=== PATIENT | female | born 1930 | race Caucasian/White ===

== ENCOUNTER 2017-04-23 10:55 | Inpatient (IN) | payer MEDICARE ==
[2017-04-23 11:00] VITALS: BMI 21.9
--- NOTE | 2017-04-23 11:19 | C.PDOC ---
History Of Present Illness Patient is a 86 y/o female, whose PMHx includes cardiac stents, HTN, hyperlipidemia, diabetes, presents to the ED for evaluation of generalized weakness and upper back pain for the last 2 weeks. Patient states her blood pressure was found to be low in the ambulance. Patient notes having a negative stress test 2 days ago. Otherwise, denies any trauma, injury, extremity weakness /numbness, headache, nausea, vomiting, chest pain, shortness of breath, fever, or any other associated symptoms at this time. Pt states that her back pain seems external (her upper back muscles) and is not coming from the inside. PMD: Dr. Patel Time Seen by Provider: 04/23/17 11:07 Chief Complaint (Nursing): Back Pain History Per: Patient History/Exam Limitations: no limitations Onset/Duration Of Symptoms: Days (2 weeks) Current Symptoms Are (Timing): Still Present Quality Of Discomfort: "Pain" Previous Symptoms: Back Pain Associated Symptoms: None. denies: Incontinence, New Weakness, New Numbness Exacerbating Factor(s): Nothing Recent travel outside of the [place]: No Additional History Per: Patient Past Medical History Reviewed: Historical Data, Nursing Documentation, Vital Signs Vital Signs: Last Vital Signs Temp 98.8 F 04/23/17 11:22 Pulse 68 04/23/17 11:22 Resp 20 04/23/17 11:22 BP 118/54 L 04/23/17 11:22 Pulse Ox 96 04/23/17 11:22 - Medical History PMH: CHF, Diabetes, HTN, Hypercholesterolemia, Hyperlipidemia, Chronic Kidney Disease Surgical History: Coronary Stent Family History: States: CAD (aunt) - Social History Hx Tobacco Use: No Hx Alcohol Use: No Hx Substance Use: No - Immunization History Hx Tetanus Toxoid Vaccination: Yes Hx Influenza Vaccination: Yes Hx Pneumococcal Vaccination: Yes Review Of Systems Review Of Systems: ROS cannot be obtained secondary to pt's inabilty to answer questions. Constitutional: Negative for: Fever, Chills Cardiovascular: Negative for: Chest Pain, Palpitations Respiratory: Negative for: Cough, Shortness of Breath Gastrointestinal: Negative for: Nausea, Vomiting, Abdominal Pain Musculoskeletal: Positive for: Back Pain (upper) Skin: Negative for: Rash Neurological: Negative for: Weakness, Numbness, Headache, Dizziness Physical Exam - Physical Exam Appears: Well, Non-toxic, No Acute Distress Skin: Normal Color, Warm, Dry Head: Atraumatic, Normacephalic Eye(s): bilateral: Normal Inspection Ear(s): Bilateral: Normal Nose: Normal Oral Mucosa: Moist Tongue: Normal Appearing Lips: Normal Appearing Teeth: Normal Dentition Gingiva: Normal Appearing Neck: Normal, Normal ROM, Supple Lymphatic: Deferred Chest: Symmetrical Cardiovascular: Rhythm Regular, No Murmur Respiratory: Normal Breath Sounds, No Accessory Muscle Use, No Rales, No Rhonchi , No Wheezing Gastrointestinal/Abdominal: Normal Exam, Soft, No Tenderness Back: Normal Inspection, No CVA Tenderness, No Vertebral Tenderness, No Paraspinal Tenderness Extremity: Normal ROM, No Tenderness, Capillary Refill (< 2 sec.), No Deformity Extremity: Bilateral: Atraumatic, Normal ROM Pulses: Left Radial: Normal, Right Radial: Normal Neurological/Psych: Oriented x3, Normal Speech, Normal Cognition, No Other (no focal deficits) ED Course And Treatment - Laboratory Results Result Diagrams: 04/23/17 11:42 04/23/17 11:42 Medical Decision Making Medical Decision Making: Initial Impression: Generalized weakness and upper back pain Differential dx includes but is not limited to: electrolyte disorder, dehydration, anemia Initial Plan: * EKG * Blood work * Urinalysis * Reassess and disposition Progress note: On reassessment, patient is resting comfortably, no acute distress. Notes improvement of back pain, no fever, no bony tenderness, no numbness, no weakness , or abdominal pain. Patient is ambulatory in the emergency department with no signs of discomfort. Case d/w Dr. Mcmahan--recommends admission to his service. Creatinine has climbed from 1.8 to 3.3 Disposition - Disposition Disposition: HOSPITALIZED Disposition Time: 13:07 Condition: FAIR - Clinical Impression Clinical Impression: Upper back pain, Acute kidney injury, Anemia - Scribe Statement The provider has reviewed the documentation as recorded by the Scribe Julisa Padron All medical record entries made by the Vazquezibe were at my direction and personally dictated by me. I have reviewed the chart and agree that the record accurately reflects my personal performance of the history, physical exam, medical decision making, and the department course for this patient. I have also personally directed, reviewed, and agree with the discharge instructions and disposition. Decision To Admit - Pt Status Changed To: Hospital Disposition Of: Inpatient - Admit Certification Admit to Inpatient:: After my assessment, the patient will require hospitalization for at least two midnights. This is because of the severity of symptoms shown, intensity of services needed, and/or the medical risk in this patient being treated as an outpatient. - InPatient: Physician Admission Certification:: Patient with acute kidney injury - . Bed Request Type: Regular Admitting Physician: Joe Mcmahan Patient Diagnosis: Upper back pain, Acute kidney injury, Anemia
[2017-04-23 11:23] VITALS: RESP 20
[2017-04-23 11:46] LABS: BASO # 0.1 K/uL (0.0-0.2); BASO % 0.7 % (0.0-2.0); EOS # 0.1 K/uL (0.0-0.7); EOS % 1.7 % (0.0-4.0); HEMATOCRIT 29.6 % (34.0-47.0); LYMPH # 2.1 K/uL (1.0-4.3); LYMPH % 23.5 % (20.0-40.0); MEAN CELL VOLUME 92.3 fL (81.0-99.0); MEAN CORPUSCULAR HEMOGLOBIN 30.7 pg (27.0-31.0); MEAN CORPUSCULAR HGB CONC 33.3 g/dL (33.0-37.0); MEAN PLATELET VOLUME 10.7 fL (7.2-11.7); MONO # 0.7 K/uL (0.0-0.8); MONO % 7.5 % (0.0-10.0); RED CELL DISTRIBUTION WIDTH 13.5 % (11.5-14.5); WHITE BLOOD COUNT 8.9 K/uL (4.8-10.8)
[2017-04-23 11:49] LABS: RBC URINE < 1 /hpf (0-3); URINE BACTERIA RARE (<OCC); URINE BILIRUBIN NEGATIVE (NEGATIVE); URINE BLOOD NEGATIVE (NEGATIVE); URINE COLOR Yellow (YELLOW); URINE GLUCOSE (UA) 2+ mg/dL (Normal); URINE KETONE NEGATIVE (NEGATIVE); URINE LEUKOCYTE ESTERASE 1+ Leu/uL (Negative); URINE PROTEIN 2+ mg/dL (NEGATIVE); URINE UROBILINOGEN NORMAL mg/dL (0.2-1.0); WBC URINE 3 /hpf (0-5)
[2017-04-23 12:13] LABS: INR 0.9
[2017-04-23 12:16] LABS: POTASSIUM 4.3 mmol/L (3.6-5.2)
[2017-04-23 12:18] LABS: ALB/GLOB RATIO 1.3 (1.0-2.1); BILIRUBIN,TOTAL 0.5 mg/dL (0.2-1.3); TOTAL PROTEIN 7.2 g/dL (6.3-8.3)
[2017-04-23 12:19] LABS: CALCIUM 9.7 mg/dl (8.6-10.4)
[2017-04-23 12:29] LABS: TROPONIN I 0.044 ng/mL (0.00-0.120)
--- NOTE | 2017-04-23 13:24 | RAD ---
HISTORY: c/o upper back pain portable study 12:10. COMPARISON: 02/23/2016 FINDINGS: LUNGS: No active pulmonary disease. PLEURA: No significant pleural effusion identified, no pneumothorax apparent. CARDIOVASCULAR: Cardiomegaly. No evidence of acute, significant cardiovascular disease. OSSEOUS STRUCTURES: No significant abnormalities. VISUALIZED UPPER ABDOMEN: Normal. OTHER FINDINGS: None. IMPRESSION: No active disease. No significant interval change compared to the prior examination(s).
[2017-04-23] MEDS: (Novolog) Insulin Aspart, Recombinant 100 u/ml 10 ml vial SC SCH ×2 (18:18→21:37)
[2017-04-23] MEDS ORDERED: (Novolin R) Insulin Human Regular 100 units/ml vial ONE (18:45)
[2017-04-23] MEDS: (Lantus) Insulin Glargine, Recombinant SC SCH (21:58)
[2017-04-23] MEDS: Sodium Chloride 0.45% 1,000 ML IV SCH (21:59)
[2017-04-24 07:37] LABS: CREATININE, RANDOM URINE 46.1 mg/dL
[2017-04-24] MEDS: (Novolog) Insulin Aspart, Recombinant 100 u/ml 10 ml vial SC SCH ×4 (08:08→21:24)
--- NOTE | 2017-04-24 11:02 | US ---
PROCEDURE: Ultrasound of the Kidneys HISTORY: Renal failure COMPARISON: None available. TECHNIQUE: Sonogram of the kidneys. FINDINGS: RIGHT KIDNEY: Measures: 8.6 cm. Diffusely increased cortical echogenicity. Normal cortical thickness. No stone, solid mass lesion or hydronephrosis visualized. LEFT KIDNEY: Measures: 8.6 cm. Diffusely increased cortical echogenicity. Normal cortical thickness. No stone, solid mass lesion or hydronephrosis visualized. OTHER FINDINGS: Splenic hilar cyst, 2.4 cm. IMPRESSION: Increased renal cortical echogenicity bilaterally consistent with diffuse medical renal disease. No evidence of obstructive uropathy. Incidental 2.4 cm splenic hilar cyst. Preliminary interpretation of this examination was reported by [facility] at 8:43 p.m. on 04/23/2017. There is concurrence of this report with the preliminary interpretation.
--- NOTE | 2017-04-24 13:14 | CARD ---
APPROVED REPORT EXAM: Two-dimensional and M-mode echocardiogram with Doppler and color Doppler. Other Information Quality : GoodRhythm : NSR INDICATION CAD Congestive Heart Failure Cardiac Stents ; Renal Failure RISK FACTORS Hypertension Hyperlipidemia Diabetes M-Mode DIMENSIONS RVDd1.73 (2.1-3.2cm)Left Atrium (MM)3.54 (2.5-4.0cm) IVSd1.16 (0.7-1.1cm)Aortic Root2.91 (2.2-3.7cm) LVDd4.76 (4.0-5.6cm)Aortic Cusp Exc.1.88 (1.5-2.0cm) PWd1.25 (0.7-1.1cm)FS (%) 19 % LVDs3.87 (2.0-3.8cm)LVEF (%)38 (>50%) Aortic Valve AI P 1/2 [id number] Mitral Valve MV E Khddzqnx346.9cm/sMV A Luavxaho43.0cm/sE/A ratio1.6 TDI E/Lateral E'0.0E/Medial E'0.0 Tricuspid Valve TR Peak [id number]/sTR Peak Gr.[id number] LEFT VENTRICLE The left ventricle is normal size. There is mild concentric left ventricular hypertrophy. The left ventricular function is is moderate to markedly reduced, about 30-35%, with diffuse hypokinesis. No regional wall motion abnormalities noted. Transmitral Doppler flow pattern is Grade II-pseudonormal filling dynamics. No left ventricle thrombus noted on this study. There is no ventricular septal defect visualized. There is no left ventricular aneurysm. There is no mass noted in the left ventricle. RIGHT VENTRICLE The right ventricle is normal size. There is normal right ventricular wall thickness. The right ventricular systolic function is normal. ATRIA The left atrium size is mildly dilated, The right atrium size is normal. The interatrial septum is intact with no evidence for an atrial septal defect. AORTIC VALVE The aortic valve is normal in structure Mild ortic regurgitation is present. There is no aortic valvular stenosis. There is no aortic valvular vegetation. MITRAL VALVE The mitral valve is normal in structure There is no evidence of mitral valve prolapse. There is mild mitral valve stenosis. There is no mitral valve regurgitation noted. TRICUSPID VALVE The tricuspid valve is normal in structure and function. There is mild tricuspid valve regurgitation noted. Estiamted PA systolic pressure is 43 mm Hg. There is no tricuspid valve prolapse or vegetation. There is no tricuspid valve stenosis. PULMONIC VALVE The pulmonary valve is normal in structure and function. There is no pulmonic valvular regurgitation. There is no pulmonic valvular stenosis. GREAT VESSELS The aortic root is normal in size. The ascending aorta is normal in size. The pulmonary artery is normal. The IVC is normal in size and collapses >50% with inspiration. PERICARDIAL EFFUSION The pericardium appears normal. There is no pleural effusion. <Conclusion> Moderat to marked diffuse LV systolic function, Estimated EF is 30-35%. Mild LVH Mild MR, Mild AI. Elevated LA pressure.
--- NOTE | 2017-04-24 13:26 | CARD ---
APPROVED REPORT EKG Measurement Heart [id number] TX 192P [id number] <Conclusion> Normal sinus rhythm Left axis deviation pacemaker Abnormal ECG
[2017-04-24] MEDS: Sodium Chloride 0.45% 1,000 ML IV SCH (17:45)
--- NOTE | 2017-04-24 18:03 | CP.PCM.CON ---
History of Present Illness - History of Present Illness History of Present Illness: pt seen and examined, full consult is dictated #[id number] Past Patient History - Infectious Disease Hx of Infectious Diseases: None - Tetanus Immunizations Tetanus Immunization: Unknown - Past Medical History & Family History Past Medical History?: Yes - Past Social History Smoking Status: Never Smoked - CARDIAC Hx Congestive Heart Failure: Yes Hx Hypercholesterolemia: Yes Hx Hypertension: Yes - PULMONARY Hx Respiratory Disorders: No - NEUROLOGICAL Hx Neurological Disorder: No - HEENT Hx HEENT Problems: No - RENAL Hx Chronic Kidney Disease: Yes Other/Comment: chronic kidney disease - ENDOCRINE/METABOLIC Hx Endocrine Disorders: Yes Hx Diabetes Mellitus Type 1: Yes - MUSCULOSKELETAL/RHEUMATOLOGICAL Hx Falls: No - PSYCHIATRIC Hx Substance Use: No - SURGICAL HISTORY Hx Coronary Stent: Yes - ANESTHESIA Hx Anesthesia: Yes Hx Anesthesia Reactions: No Meds Allergies/Adverse Reactions: Allergies Allergy/AdvReac Type Severity Reaction Status Date / Time No Known Allergies Allergy Verified 04/23/17 10:59 - Medications Medications: Current Medications Allopurinol (Zyloprim) 100 mg PO DAILY [facility] Last Admin: 04/24/17 10:22 Dose: 100 mg Aspirin (Aspirin Chewable) 81 mg PO DAILY [facility] Last Admin: 04/24/17 10:20 Dose: 81 mg Calcitriol (Rocaltrol) 0.25 mcg PO DAILY [facility] Last Admin: 04/24/17 10:27 Dose: 0.25 mcg Carvedilol (Coreg) 6.25 mg PO DAILY [facility] Last Admin: 04/24/17 11:58 Dose: 6.25 mg Clonidine HCl (Catapres) 0.1 mg PO BID [facility] Last Admin: 04/24/17 17:03 Dose: 0.1 mg Clopidogrel Bisulfate (Plavix) 75 mg PO DAILY [facility] Last Admin: 04/24/17 10:22 Dose: 75 mg Docusate Sodium (Colace) 100 mg PO BID [facility] Last Admin: 04/24/17 17:03 Dose: 100 mg Famotidine (Pepcid) 20 mg PO DAILY [facility] Last Admin: 04/24/17 10:22 Dose: 20 mg Fenofibrate (Tricor) 145 mg PO DAILY [facility] Last Admin: 04/24/17 10:21 Dose: 145 mg Heparin Sodium (Porcine) (Heparin) 5,000 units SC Q12 [facility] Last Admin: 04/24/17 10:20 Dose: 5,000 units Sodium Chloride (Sodium Chloride 0.45%) 1,000 mls @ 50 mls/hr IV .Q20H [facility] Last Admin: 04/23/17 21:59 Dose: 50 mls/hr Insulin Aspart (Novolog) 0 unit SC [facility] PRN Reason: Protocol Last Admin: 04/24/17 17:03 Dose: 2 unit Insulin Glargine (Lantus) 22 unit SC HS [facility] Last Admin: 04/23/17 21:58 Dose: 22 units Losartan Potassium (Cozaar) 25 mg PO DAILY [facility] Last Admin: 04/24/17 10:22 Dose: 25 mg Rosuvastatin Calcium (Crestor) 10 mg PO HS [facility] Last Admin: 04/23/17 21:54 Dose: 10 mg Sitagliptin Phosphate (Januvia) 25 mg PO DAILY [facility] Last Admin: 04/24/17 10:20 Dose: 25 mg Results - Vital Signs Recent Vital Signs: Last Vital Signs Temp 97.2 F L 04/24/17 11:56 Pulse 60 04/24/17 11:56 Resp 20 04/24/17 11:56 BP 123/57 L 04/24/17 11:56 Pulse Ox 96 04/24/17 11:56 - Labs Result Diagrams: 04/23/17 11:42 04/23/17 11:42 Labs: Laboratory Results - last 24 hr 04/23/17 04/23/17 04/24/17 18:17 21:30 07:16 POC Glucose (mg/dL) 185 H 263 H Hemoglobin A1c Urine Osmolality 320 Ur Random Creatinine 46.1 Ur Random Sodium Ur Random Potassium 04/24/17 04/24/17 04/24/17 07:16 07:16 09:04 POC Glucose (mg/dL) 140 H Hemoglobin A1c 8.6 H Urine Osmolality Ur Random Creatinine Ur Random Sodium 117 Ur Random Potassium 25.4 04/24/17 04/24/17 11:14 16:30 POC Glucose (mg/dL) 198 H 214 H Hemoglobin A1c Urine Osmolality Ur Random Creatinine Ur Random Sodium Ur Random Potassium
--- NOTE | 2017-04-24 19:13 | CP.PCM.HP ---
History of Present Illness - History of Present Illness History of Present Illness: 86 yo female brought by ambulance to the ED complaining of a generalized weakness and n upper back pain. She was found to be slightly hypotensive by the EMS. Her serum BUN was 77 and creatinine: 3.3. Known to have an ischemic cardiomyopathy, a hypertension, an IDDM, a CKD, her Lasix was reduced to 40 mg PO qd, instead of BID by Dr Carter a few weeks ago. She underwent a PCI of the LAD and LCx on 02/26/2011 and the RCA on 03/29/2011. A coronary angiogram done in 2014 at [facility] revealed patent all stents. A Persantine Myoview MPI at my office 2 weeks ago revealed normal perfusion to the LV myocardium. She denies any cigarette smoking, any alcohol abuse, and has no known drug allergy. Present on Admission - Present on Admission Any Indicators Present on Admission: No Review of Systems - Constitutional Constitutional: Weakness Past Patient History - Infectious Disease Hx of Infectious Diseases: None - Tetanus Immunizations Tetanus Immunization: Unknown - Past Medical History & Family History Past Medical History?: Yes - Past Social History Smoking Status: Never Smoked Alcohol: None Home Situation {Lives}: With Family Domestic Violence: Negative - CARDIAC Hx Congestive Heart Failure: Yes Hx Hypercholesterolemia: Yes Hx Hypertension: Yes - PULMONARY Hx Respiratory Disorders: No - NEUROLOGICAL Hx Neurological Disorder: No - HEENT Hx HEENT Problems: No - RENAL Hx Chronic Kidney Disease: Yes Other/Comment: chronic kidney disease - ENDOCRINE/METABOLIC Hx Endocrine Disorders: Yes Hx Diabetes Mellitus Type 1: Yes - MUSCULOSKELETAL/RHEUMATOLOGICAL Hx Back Pain: Yes Hx Falls: No - PSYCHIATRIC Hx Psychophysiologic Disorder: No Hx Substance Use: No - SURGICAL HISTORY Hx Coronary Stent: Yes - ANESTHESIA Hx Anesthesia: Yes Hx Anesthesia Reactions: No Meds Allergies/Adverse Reactions: Allergies Allergy/AdvReac Type Severity Reaction Status Date / Time No Known Allergies Allergy Verified 04/23/17 10:59 Physical Exam - Constitutional Appears: No Acute Distress - Head Exam Head Exam: NORMAL INSPECTION - Eye Exam Eye Exam: Normal appearance Pupil Exam: NORMAL ACCOMODATION - ENT Exam ENT Exam: Mucous Membranes Moist, Normal Exam - Neck Exam Neck exam: Positive for: Normal Inspection - Respiratory Exam Respiratory Exam: Clear to Auscultation Bilateral, NORMAL BREATHING PATTERN - Cardiovascular Exam Cardiovascular Exam: REGULAR RHYTHM, Systolic Murmur - GI/Abdominal Exam GI & Abdominal Exam: Normal Bowel Sounds, Soft - Rectal Exam Rectal Exam: Deferred - Extremities Exam Extremities exam: Positive for: normal inspection - Back Exam Back exam: NORMAL INSPECTION - Neurological Exam Neurological exam: Alert, CN II-XII Intact, Oriented x3, Reflexes Normal - Psychiatric Exam Psychiatric exam: Anxious - Skin Skin Exam: Dry, Intact, Normal Color, Warm Results - Vital Signs Recent Vital Signs: Last Vital Signs Temp 97.5 F L 04/24/17 15:00 Pulse 72 04/24/17 15:00 Resp 20 04/24/17 15:00 BP 111/50 L 04/24/17 15:00 Pulse Ox 97 04/24/17 15:00 - Labs Result Diagrams: 04/23/17 11:42 04/23/17 11:42 Labs: Laboratory Results - last 24 hr 04/23/17 04/24/17 04/24/17 21:30 07:16 07:16 POC Glucose (mg/dL) 263 H Hemoglobin A1c Urine Osmolality 320 Ur Random Creatinine 46.1 Ur Random Sodium 117 Ur Random Potassium 25.4 04/24/17 04/24/17 04/24/17 07:16 09:04 11:14 POC Glucose (mg/dL) 140 H 198 H Hemoglobin A1c 8.6 H Urine Osmolality Ur Random Creatinine Ur Random Sodium Ur Random Potassium 04/24/17 16:30 POC Glucose (mg/dL) 214 H Hemoglobin A1c Urine Osmolality Ur Random Creatinine Ur Random Sodium Ur Random Potassium Assessment & Plan (1) Acute on chronic renal failure Assessment and Plan: Try IVF and hold Lasix. US of the kidney. Status: Acute (2) Dehydration Assessment and Plan: Try cautiously IVF. Status: Acute (3) Uncontrolled insulin dependent diabetes mellitus Assessment and Plan: To continue Lantus and cover blood glucose with Novolog according to Accucheck findings. Status: Chronic (4) Ischemic cardiomyopathy Assessment and Plan: So far stable. To continue Coreg. Lisinopril. Status: Acute Decision To Admit - InPatient: Physician Admission Certification:: After my assessments, the aptient requires hospitalization for at least 2 midnights. - . Bed Request Type: Regular Admitting Physician: Joe Mcmahan
[2017-04-24] MEDS: (Lantus) Insulin Glargine, Recombinant SC SCH (21:19)
[2017-04-24] MEDS ORDERED: Epoetin Alfa 10,000 unit/ml Dialysis SC ONE (23:16)
[2017-04-24 23:41] LABS: POTASSIUM 4.2 mmol/L (3.6-5.2)
[2017-04-25] MEDS ORDERED: EPOETIN ALFA 10,000 UNIT/ML ML SC ONE (00:15)
[2017-04-25] MEDS: Sodium Chloride 0.45% 1,000 ML IV SCH (00:28)
--- NOTE | 2017-04-25 07:01 | CON ---
RENAL CONSULTATION LOCATION: The patient is located in room 365, bed B. REQUESTED BY: Joe Mcmahan MD REASON FOR RENAL CONSULTATION: Acute renal failure, chronic kidney disease, for further evaluation. HISTORY OF PRESENT ILLNESS: Mrs. Dsouza is an 86-year-old, very pleasant, elderly Turkish female with the past medical history significant for diabetes for 4 years, hypertension about 3 years, chronic kidney disease with a baseline creatinine about 2-2.5, CHF, cardiomyopathy, coronary artery disease, status post stents, who was brought in by family. The patient was complaining of feeling weakness, upper back pain and shoulder pain and the patient's family found her blood pressure was low in the house about 98/42 and the patient was brought to the emergency room for further evaluation. The patient denies any pain in the chest. Denies any nausea, vomiting, or diarrhea. Denies any swelling of the legs. Denies any headache and denies any skin rash. As per the patient, she also felt dizzy one day prior to the admission after she ate dinner, she was putting her head down and felt very weak. PAST MEDICAL HISTORY: Significant for diabetes for 4 years, hypertension for about 3 years, chronic kidney disease, coronary artery disease, history of pneumonia, CHF, cardiomyopathy, and CAD. PAST SURGICAL HISTORY: Status post stents in the past. ALLERGIES: NO KNOWN DRUG ALLERGIES. SOCIAL HISTORY: No smoking. No alcohol. No drugs. PERSONAL HISTORY: Both parents are and 3 brothers and she has one living sister. She also has 5 children. CURRENT MEDICATIONS: Include as follows; aspirin 81 mg daily, Catapres 0.1 mg p.o. b.i.d., Colace 100 mg p.o. b.i.d., Coreg 6.25 mg p.o. daily, Cozaar 25 mg p.o. daily, Crestor 10 mg p.o. at bedtime, subcu heparin 5000 q. 12 hours, Januvia 25 mg p.o. daily, Lantus 22 units subcu at bedtime, NovoLog for sliding scale, Pepcid 20 mg p.o. daily, Plavix 75 mg daily, Rocaltrol 0.25 mcg p.o. daily, IV fluids normal saline at 50 mL per hour, TriCor 145 mg p.o. daily and allopurinol 100 mg p.o. daily. REVIEW OF SYSTEMS: Significant for weakness and hypotension. All other review of systems are reviewed and are negative. PHYSICAL EXAMINATION: As follow as: VITAL SIGNS: Blood pressure 111/50, pulse 72, respirations 20, temperature 97.5, saturation 97%, height 5 feet and weight is 112 pounds. GENERAL: Mrs. Dsouza is an 86-year-old elderly Turkish female moderately built, moderately nourished, and not in acute distress. HEENT: Pupils normal, reactive to light and accommodation. Conjunctivae pink. Sclerae anicteric. Tongue is moist. Trachea is midline. LUNGS: Symmetrical on both sides. Bilateral breath sounds present and clear on auscultation. CARDIOVASCULAR: [place] of the fifth intercostal space midclavicular line. S1 and S2 audible. No murmur or gallop. ABDOMEN: Normal in appearance, soft, and tympanic. No guarding. No rigidity. No hepatosplenomegaly. CENTRAL NERVOUS SYSTEM: The patient is alert, awake, oriented x2 to 3. Sensory and motor system is grossly within normal limits. Cranial nerves II through XII grossly intact. EXTREMITIES: No cyanosis. No clubbing. No edema. LABORATORY DATA: As follow as of 04/25/2017; WBC 8.9, hemoglobin 9.9, hematocrit is 29.6, and platelets 201. PT is 10.6, INR is 0.9, and PTT 30. Sodium 135, potassium 4.3, chloride 93, CO2 of 27, BUN 77, creatinine 3.3, and glucose is 216, calcium 9.7, total bilirubin 0.5, AST 55, ALT 30, alkaline phosphates 60. Troponin is 0.044. ProBNP is 1500. Total protein 7.2, albumin 4.1. Urinalysis, yellow and hazy; pH of 6, specific gravity 1.014 and protein 2+, glucose 2+, ketones negative, blood negative, nitrites negative, bilirubin negative, urobilinogen normal. Leukocyte esterase 1+, WBC 3, RBC less than 1, squamous epithelial 3, bacteria rare. Other laboratory data, urine osmolality 320, urine creatinine is 46.1, urine sodium is 117, urine potassium is 25.4. Accu-Cheks 185, 263 and 140. Chest x-ray showed no active disease. Ultrasound, left kidney is 8.6 cm and right kidney is 8.6 cm, diffuse increased cortical echogenicity; normal cortical thickness. No stone. No solid mass or hydronephrosis. ASSESSMENT: In summary, Mrs. Dsouza is an 86-year-old elderly Turkish female with a history of hypertension, diabetes, hyperlipidemia, coronary artery disease, CHF, status post coronary stents, cardiomyopathy, CKD 3-4 with the baseline creatinine about 2-2.5 was admitted with the weakness and hypotension, questionable near syncope with increased BUN and creatinine. 1. Renal failure acute on chronic kidney disease, most likely secondary to dehydration and intravascular volume depletion, most likely secondary to diuretics and also because of the hot weather and decreased p.o. inake. 2. Hypotension. 3. 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 The patient has a complete workup in the past, cannot rule out underlying hypertensive nephrosclerosis and diabetic nephropathy. 4. Anemia secondary to renal failure. We will check iron TIBC and ferritin and will add Epogen 10,000 units, subcu x1 dose. We will also add Nephrocaps one tablet daily. PLAN: We will continue gentle IV hydration normal saline at 50 mL per hour and repeat BMP tonight and also in a.m. Case discussed with Dr. Joe Mcmahan in rounds. We will follow with you. Thank you for allowing me to participate in your patient's care. Sergo Carter MD
[2017-04-25] MEDS: (Novolog) Insulin Aspart, Recombinant 100 u/ml 10 ml vial SC SCH ×4 (08:00→22:49)
[2017-04-25 08:22] LABS: CHLORIDE URINE 27 mmol/L (32-290)
[2017-04-25 09:24] LABS: IRON 39 ug/dL (37-170)
[2017-04-25 09:31] LABS: FREE T4 1.48 ng/dL (0.78-2.19)
[2017-04-25 09:45] LABS: THYROID STIMULATING HORMONE 6.66 mIU/L (0.46-4.68)
--- NOTE | 2017-04-25 14:00 | CP.PCM.PN ---
Subjective - Date & Time of Evaluation Date of Evaluation: 04/25/17 Time of Evaluation: 14:00 - Subjective Subjective: pt seen and examined, follow up consult is dictated # [id number] Objective - Vital Signs/Intake and Output Vital Signs (last 24 hours): Temp Pulse Resp BP Pulse Ox 98 F 67 20 137/80 100 04/25/17 11:29 04/25/17 11:29 04/25/17 11:29 04/25/17 11:29 04/25/17 11:29 Intake and Output: 04/25/17 04/25/17 06:59 18:59 Intake Total 700 Output Total 100 Balance 600 - Medications Medications: Current Medications Allopurinol (Zyloprim) 100 mg PO DAILY [facility] Last Admin: 04/25/17 09:59 Dose: 100 mg Aspirin (Aspirin Chewable) 81 mg PO DAILY [facility] Last Admin: 04/25/17 10:01 Dose: 81 mg Calcitriol (Rocaltrol) 0.25 mcg PO DAILY [facility] Last Admin: 04/25/17 09:59 Dose: 0.25 mcg Carvedilol (Coreg) 6.25 mg PO DAILY [facility] Last Admin: 04/25/17 11:32 Dose: 6.25 mg Clonidine HCl (Catapres) 0.1 mg PO BID [facility] Last Admin: 04/25/17 09:59 Dose: 0.1 mg Clopidogrel Bisulfate (Plavix) 75 mg PO DAILY [facility] Last Admin: 04/25/17 09:59 Dose: 75 mg Docusate Sodium (Colace) 100 mg PO BID [facility] Last Admin: 04/25/17 09:59 Dose: 100 mg Famotidine (Pepcid) 20 mg PO DAILY [facility] Last Admin: 04/25/17 09:59 Dose: 20 mg Fenofibrate (Tricor) 48 mg PO DAILY [facility] Ferric Sodium Gluconate Complex (Ferrlecit) 125 mg IVPB DAILY [facility] Stop: 05/03/17 14:01 Heparin Sodium (Porcine) (Heparin) 5,000 units SC Q12 [facility] Last Admin: 04/25/17 09:59 Dose: 5,000 units Insulin Aspart (Novolog) 0 unit SC ACHS [facility] PRN Reason: Protocol Last Admin: 04/25/17 12:31 Dose: Not Given Insulin Glargine (Lantus) 22 unit SC HS [facility] Last Admin: 04/24/17 21:19 Dose: 22 units Losartan Potassium (Cozaar) 25 mg PO DAILY [facility] Last Admin: 04/25/17 09:59 Dose: 25 mg Rosuvastatin Calcium (Crestor) 10 mg PO HS [facility] Last Admin: 04/24/17 21:19 Dose: 10 mg Sitagliptin Phosphate (Januvia) 25 mg PO DAILY [facility] Last Admin: 04/25/17 09:59 Dose: 25 mg - Labs Labs: 04/24/17 23:27 PT 10.6 SECONDS (9.7-12.2) 04/23/17 11:42 INR 0.9 04/23/17 11:42 APTT 30 SECONDS (21-34) 04/23/17 11:42
[2017-04-25] MEDS: Ferric Sodium Gluconat Complex 62.5 mg/5 ml Vial IVPB SCH (14:39)
--- NOTE | 2017-04-25 15:32 | CP.PCM.PN ---
Subjective - Date & Time of Evaluation Date of Evaluation: 04/25/17 Time of Evaluation: 15:30 - Subjective Subjective: Patient developed CHF this Am. IV NS was discontinued and the patient received Lasix 40 mg IV with improvement of SOB. Patient has no complaint now.She is receiving IV Ferlicit. Objective - Vital Signs/Intake and Output Vital Signs (last 24 hours): Temp Pulse Resp BP Pulse Ox 98 F 67 20 137/80 100 04/25/17 11:29 04/25/17 11:29 04/25/17 11:29 04/25/17 11:29 04/25/17 11:29 Intake and Output: 04/25/17 04/25/17 06:59 18:59 Intake Total 700 Output Total 100 Balance 600 - Medications Medications: Current Medications Allopurinol (Zyloprim) 100 mg PO DAILY [facility] Last Admin: 04/25/17 09:59 Dose: 100 mg Aspirin (Aspirin Chewable) 81 mg PO DAILY [facility] Last Admin: 04/25/17 10:01 Dose: 81 mg Calcitriol (Rocaltrol) 0.25 mcg PO DAILY [facility] Last Admin: 04/25/17 09:59 Dose: 0.25 mcg Carvedilol (Coreg) 6.25 mg PO DAILY [facility] Last Admin: 04/25/17 11:32 Dose: 6.25 mg Clonidine HCl (Catapres) 0.1 mg PO BID [facility] Last Admin: 04/25/17 09:59 Dose: 0.1 mg Clopidogrel Bisulfate (Plavix) 75 mg PO DAILY [facility] Last Admin: 04/25/17 09:59 Dose: 75 mg Docusate Sodium (Colace) 100 mg PO BID [facility] Last Admin: 04/25/17 09:59 Dose: 100 mg Famotidine (Pepcid) 20 mg PO DAILY [facility] Last Admin: 04/25/17 09:59 Dose: 20 mg Fenofibrate (Tricor) 48 mg PO DAILY [facility] Ferric Sodium Gluconate Complex (Ferrlecit) 125 mg IVPB DAILY [facility] Stop: 05/03/17 14:01 Last Admin: 04/25/17 14:39 Dose: 125 mg Heparin Sodium (Porcine) (Heparin) 5,000 units SC Q12 [facility] Last Admin: 04/25/17 09:59 Dose: 5,000 units Insulin Aspart (Novolog) 0 unit SC ACHS [facility] PRN Reason: Protocol Last Admin: 04/25/17 12:31 Dose: Not Given Insulin Glargine (Lantus) 22 unit SC HS [facility] Last Admin: 04/24/17 21:19 Dose: 22 units Losartan Potassium (Cozaar) 25 mg PO DAILY [facility] Last Admin: 04/25/17 09:59 Dose: 25 mg Rosuvastatin Calcium (Crestor) 10 mg PO HS [facility] Last Admin: 04/24/17 21:19 Dose: 10 mg Sitagliptin Phosphate (Januvia) 25 mg PO DAILY [facility] Last Admin: 04/25/17 09:59 Dose: 25 mg - Labs Labs: 04/24/17 23:27 PT 10.6 SECONDS (9.7-12.2) 04/23/17 11:42 INR 0.9 04/23/17 11:42 APTT 30 SECONDS (21-34) 04/23/17 11:42 - Constitutional Appears: No Acute Distress - Head Exam Head Exam: NORMAL INSPECTION - Eye Exam Eye Exam: Normal appearance - ENT Exam ENT Exam: Normal Exam - Neck Exam Neck Exam: Normal Inspection - Respiratory Exam Additional comments: some rales at both bases. - Cardiovascular Exam Cardiovascular Exam: REGULAR RHYTHM, Murmur - GI/Abdominal Exam GI & Abdominal Exam: Normal Bowel Sounds - Rectal Exam Rectal Exam: Deferred - Extremities Exam Extremities Exam: Normal Inspection - Back Exam Back Exam: NORMAL INSPECTION - Neurological Exam Neurological Exam: Alert, Awake, CN II-XII Intact, Oriented x3 - Psychiatric Exam Psychiatric exam: Anxious - Skin Skin Exam: Dry, Intact, Normal Color, Warm Assessment and Plan (1) Acute on chronic renal failure Status: Acute (2) Dehydration Status: Resolved (3) Uncontrolled insulin dependent diabetes mellitus Status: Chronic (4) Ischemic cardiomyopathy Status: Chronic
--- NOTE | 2017-04-25 21:23 | CT ---
EXAM: CT Head Without Intravenous Contrast CLINICAL HISTORY: 86 years old, female; Injury or trauma; Fall; Initial encounter; Concussion / head injury; Consciousness not specified; Additional info: S/P fall TECHNIQUE: Axial computed tomography images of the head/brain without intravenous contrast. This CT exam was performed using one or more of the following dose reduction techniques: automated exposure control, adjustment of the mA and/or kV according to patient size, and/or use of iterative reconstruction technique. COMPARISON: No relevant prior studies available. FINDINGS: Brain: Mild atrophy. Mildly prominent extra-axial spaces along frontal convexities, RIGHT greater than LEFT. Punctate hyperdense focus within RIGHT frontal region (axial images 36). No mass. No definite edema. Ventricles: No hydrocephalus. Bones/joints: No acute fracture. Soft tissues: Unremarkable. Vasculature: Atherosclerotic disease of intracranial arteries. Sinuses: Scattered minimal mucosal thickening. Mastoid air cells: No mastoid effusion. Orbits: Unremarkable as visualized. IMPRESSION: 1. Hyperdense focus within RIGHT frontal region possibly calcification; however, cannot exclude petechial hemorrhage. Compare with prior examinations if available. 2. Incidental/non-acute findings are described above.
--- NOTE | 2017-04-25 22:35 | CP.PCM.PN ---
Subjective - Date & Time of Evaluation Date of Evaluation: 04/25/17 Time of Evaluation: 20:04 - Subjective Subjective: [facility] Called at 20:04. Patient got up from bed and was rushing to get to the bathroom and slipped and fell on her buttocks and hit the right side of her head on the wall. Patient did not lose consciousness. Patient says she was not dizzy or light headed and believes she slipped. Patient denies dizziness, headache, or pain. Patient is alert, awake, oriented x3. Patient's vitals, BP: 106/50, P: 43, T: 98.8, O2:100%. CT without contrast ordered which showed hyperdense focus within right frontal region possibly calcification, however, cannot exclude petechial hemorrhage. Dr. Mcmahan was spoken to over the phone and made aware of the incident and CT findings. Patient to be monitored by nursing overnight for any changes. Objective - Vital Signs/Intake and Output Vital Signs (last 24 hours): Temp Pulse Resp BP Pulse Ox 97.4 F L 63 20 120/64 100 04/25/17 16:00 04/25/17 16:00 04/25/17 16:00 04/25/17 16:00 04/25/17 16:00 Intake and Output: 04/25/17 04/26/17 18:59 06:59 Intake Total 400 Balance 400 - Medications Medications: Current Medications Allopurinol (Zyloprim) 100 mg PO DAILY [facility] Last Admin: 04/25/17 09:59 Dose: 100 mg Aspirin (Aspirin Chewable) 81 mg PO DAILY [facility] Last Admin: 04/25/17 10:01 Dose: 81 mg Calcitriol (Rocaltrol) 0.25 mcg PO DAILY [facility] Last Admin: 04/25/17 09:59 Dose: 0.25 mcg Carvedilol (Coreg) 6.25 mg PO DAILY [facility] Clonidine HCl (Catapres) 0.1 mg PO BID [facility] Clopidogrel Bisulfate (Plavix) 75 mg PO DAILY [facility] Last Admin: 04/25/17 09:59 Dose: 75 mg Docusate Sodium (Colace) 100 mg PO BID [facility] Last Admin: 04/25/17 17:36 Dose: 100 mg Famotidine (Pepcid) 20 mg PO DAILY [facility] Last Admin: 04/25/17 09:59 Dose: 20 mg Fenofibrate (Tricor) 48 mg PO DAILY [facility] Ferric Sodium Gluconate Complex (Ferrlecit) 125 mg IVPB DAILY [facility] Stop: 05/03/17 14:01 Last Admin: 04/25/17 14:39 Dose: 125 mg Furosemide (Lasix) 40 mg IVP DAILY [facility] Heparin Sodium (Porcine) (Heparin) 5,000 units SC Q12 [facility] Last Admin: 04/25/17 09:59 Dose: 5,000 units Insulin Aspart (Novolog) 0 unit SC ACHS [facility] PRN Reason: Protocol Last Admin: 04/25/17 17:37 Dose: 2 unit Insulin Glargine (Lantus) 22 unit SC HS [facility] Last Admin: 04/24/17 21:19 Dose: 22 units Losartan Potassium (Cozaar) 25 mg PO DAILY [facility] Last Admin: 04/25/17 09:59 Dose: 25 mg Rosuvastatin Calcium (Crestor) 10 mg PO HS [facility] Last Admin: 04/24/17 21:19 Dose: 10 mg Sitagliptin Phosphate (Januvia) 25 mg PO DAILY [facility] Last Admin: 04/25/17 09:59 Dose: 25 mg - Labs Labs: 04/24/17 23:27 PT 10.6 SECONDS (9.7-12.2) 04/23/17 11:42 INR 0.9 04/23/17 11:42 APTT 30 SECONDS (21-34) 04/23/17 11:42 - Constitutional Appears: Well, Non-toxic, No Acute Distress - Head Exam Head Exam: ATRAUMATIC, NORMAL INSPECTION, NORMOCEPHALIC - Eye Exam Eye Exam: EOMI, Normal appearance, PERRL - ENT Exam ENT Exam: Mucous Membranes Moist, Normal Exam - Neck Exam Neck Exam: Full ROM, Normal Inspection. absent: Lymphadenopathy - Respiratory Exam Respiratory Exam: Clear to Ausculation Bilateral, NORMAL BREATHING PATTERN - Cardiovascular Exam Cardiovascular Exam: Bradycardia, REGULAR RHYTHM - GI/Abdominal Exam GI & Abdominal Exam: Soft, Normal Bowel Sounds - Extremities Exam Extremities Exam: Full ROM, Normal Inspection - Neurological Exam Neurological Exam: Alert, Awake, Oriented x3 - Psychiatric Exam Psychiatric exam: Normal Affect, Normal Mood - Skin Skin Exam: Intact, Normal Color, Warm
[2017-04-25] MEDS: (Lantus) Insulin Glargine, Recombinant SC SCH (22:48)
--- NOTE | 2017-04-25 23:49 | PN ---
LOCATION: The patient is located in room 365, bed B. REQUESTED BY: Dr. Joe Mcmahan. REASON FOR RENAL CONSULTATION AND FOLLOW UP: Acute renal failure, chronic kidney disease, dizziness and hypertension. HISTORY OF PRESENT ILLNESS: Mrs. Dsouza is an [id number] elderly [place] female with the past medical history significant for hypertension, diabetes, coronary artery disease, CHF, chronic kidney disease with a baseline creatinine about 2 to 2.5., who was admitted with a chief complaint of feeling weak and dizzy, and hypotension. The patient was found to have increase BUN, creatinine and dehydration. The patient is being hydrated with the IV fluids half normal saline at 50 mL per hour. The patient was complaining of shortness of breath this morning and IV fluids was discontinued by Dr. Mcmahan. The patient is not any acute distress, on nasal cannula and denies any chest pain, palpitation, denies any fever, cough and no abdominal pain, no nausea, vomiting, diarrhea and no edema of the legs. PHYSICAL EXAMINATION: VITAL SIGNS: This evening blood pressure 120/64, pulse 63, respiration 20, temperature 97.4, saturation 100% and height 5 feet and weight is 112 pounds. GENERAL: Mrs. Dsouza is an 86 years old elderly [place] female, moderately built, moderately nourished, and not in acute distress. HEENT: Pupils normal, reactive to light and accommodation. Conjunctivae slightly pale. Sclerae anicteric. Tongue is moist. Trachea is midline. LUNGS: Symmetry on both side. Bilateral breath sounds are present and clear on auscultation. CARDIOVASCULAR SYSTEM: [place] at the fifth intercostal space, midclavicular line. S1, S2 audible. No murmur or gallop. ABDOMEN: Normal in appearance. Soft. Tympanic. No guarding. No rigidity. No hepatosplenomegaly. CENTRAL NERVOUS SYSTEM: The patient is alert, awake and oriented x3. Nonfocal on examination. Cranial nerves II to through XII grossly intact.. Sensory and motor system is within normal limits. EXTREMITIES: No cyanosis. No clubbing. No edema. CURRENT MEDICATIONS: Include as follows; aspirin 81 mg p.o. daily, Catapres 0.1 mg p.o. b.i.d., Colace 100 mg p.o. b.i.d, Coreg 6.25 mg p.o. daily, Cozaar 25 mg p.o. daily and Crestor 10 mg at bedtime, subcutaneous heparin 5000 q. 12 hours, Januvia 25 mg p.o. daily, Lantus 22 units subcutaneous at bedtime, Lasix 40 mg IV daily, NovoLog for sliding scale, Pepcid 20 mg p.o. daily, Plavix 75 mg p.o. daily, Rocaltrol 0.25 mcg p.o. daily, TriCor 48 mg p.o. daily and allopurinol 100 mg p.o. daily. LABORATORY DATA: Include as follows; as of 04/24/2017, sodium 128, potassium 4.2, chloride 97, CO2 of 22, BUN 60, creatinine 2.8 and glucose is 215, calcium is 9. Accu-Cheks on this morning 241 and 242 and iron is 39, TIBC of 400 and saturation is 10%, ferritin is 140, triglycerides 522, cholesterol is 174, LDL 74 and HDL 32, free thyroxine is 1.48 and TSH is 6.66, 24-hour urine collection volume is 700, urine protein is about 476 mg. Urinalysis as of 04/25/2017, urine protein is 2+, glucose 2+. CT of the head report is pending from this evening. ASSESSMENT AND PLAN: In summary, Mrs. Dsouza is a 86 years old elderly [place]ese female with the history of hypertension, diabetes, hyperlipidemia, coronary artery disease, status post stents, congestive heart failure with poor left ventricular function, chronic kidney disease, was admitted with dizziness, hypotension, weakness and increase BUN, and creatinine. 1. Acute renal failure on chronic kidney disease, secondary to intravascular volume depletion secondary to diuretics and decreased p.o. intake. 2. Status post hypotension. 3. Anemia secondary to renal failure and iron deficiency. We will give Epogen 34863 units x1 dose and also will start on Ferrlecit 125 mg at daily. Follow up BMP and CBC in a.m. and increase p.o. fluids. We will follow with you. Echo report as of 04/24/2017, the ejection fraction is 30 to 35% with the mild left ventricular hypertrophy. Thank you for allowing me to participate in your patient's care. Sergo Carter MD [facility] # [id number]
[2017-04-26] MEDS: (Novolog) Insulin Aspart, Recombinant 100 u/ml 10 ml vial SC SCH ×4 (08:28→22:14)
[2017-04-26 08:41] LABS: ALB/GLOB RATIO 1.2 (1.0-2.1); BILIRUBIN,TOTAL 0.4 mg/dL (0.2-1.3); TOTAL PROTEIN 6.3 g/dL (6.3-8.3)
[2017-04-26 08:42] LABS: CALCIUM 9.2 mg/dl (8.6-10.4)
[2017-04-26] MEDS: Ferric Sodium Gluconat Complex 62.5 mg/5 ml Vial IVPB SCH (11:00)
--- NOTE | 2017-04-26 15:23 | CP.PCM.PN ---
Subjective - Date & Time of Evaluation Date of Evaluation: 04/26/17 Time of Evaluation: 15:22 - Subjective Subjective: pt seen and examined, follow up consult is dictated #[id number] Objective - Vital Signs/Intake and Output Vital Signs (last 24 hours): Temp Pulse Resp BP Pulse Ox 97.4 F L 67 20 113/59 L 98 04/26/17 07:47 04/26/17 12:00 04/26/17 07:47 04/26/17 12:00 04/26/17 10:25 Intake and Output: 04/26/17 04/26/17 06:59 18:59 Intake Total 350 120 Balance 350 120 - Medications Medications: Current Medications Allopurinol (Zyloprim) 100 mg PO DAILY [facility] Last Admin: 04/26/17 11:00 Dose: 100 mg Aspirin (Aspirin Chewable) 81 mg PO DAILY [facility] Last Admin: 04/26/17 11:00 Dose: 81 mg Calcitriol (Rocaltrol) 0.25 mcg PO DAILY [facility] Last Admin: 04/26/17 11:00 Dose: 0.25 mcg Carvedilol (Coreg) 6.25 mg PO DAILY [facility] Last Admin: 04/26/17 12:00 Dose: 6.25 mg Clonidine HCl (Catapres) 0.1 mg PO BID [facility] Last Admin: 04/26/17 11:00 Dose: 0.1 mg Clopidogrel Bisulfate (Plavix) 75 mg PO DAILY [facility] Last Admin: 04/26/17 11:00 Dose: 75 mg Docusate Sodium (Colace) 100 mg PO BID [facility] Last Admin: 04/26/17 11:00 Dose: 100 mg Famotidine (Pepcid) 20 mg PO DAILY [facility] Last Admin: 04/26/17 11:00 Dose: 20 mg Fenofibrate (Tricor) 48 mg PO DAILY [facility] Last Admin: 04/26/17 11:00 Dose: 48 mg Ferric Sodium Gluconate Complex (Ferrlecit) 125 mg IVPB DAILY [facility] Stop: 05/03/17 14:01 Last Admin: 04/26/17 11:00 Dose: 125 mg Furosemide (Lasix) 40 mg IVP DAILY [facility] Last Admin: 04/26/17 11:00 Dose: 40 mg Heparin Sodium (Porcine) (Heparin) 5,000 units SC Q12 [facility] Last Admin: 04/26/17 11:00 Dose: 5,000 units Insulin Aspart (Novolog) 0 unit SC [facility] PRN Reason: Protocol Last Admin: 04/26/17 12:18 Dose: 2 unit Insulin Glargine (Lantus) 22 unit SC [facility] Last Admin: 04/25/17 22:48 Dose: 22 units Losartan Potassium (Cozaar) 25 mg PO DAILY [facility] Last Admin: 04/26/17 11:00 Dose: 25 mg Rosuvastatin Calcium (Crestor) 10 mg PO [facility] Last Admin: 04/25/17 22:47 Dose: 10 mg Sitagliptin Phosphate (Januvia) 25 mg PO DAILY [facility] Last Admin: 04/26/17 11:00 Dose: 25 mg - Labs Labs: 04/26/17 08:13 PT 10.6 SECONDS (9.7-12.2) 04/23/17 11:42 INR 0.9 04/23/17 11:42 APTT 30 SECONDS (21-34) 04/23/17 11:42
[2017-04-26] MEDS: (Lantus) Insulin Glargine, Recombinant SC SCH (22:08)
--- NOTE | 2017-04-27 01:43 | PN ---
DATE: 04/26/2017 FOLLOWUP RENAL CONSULTATION LOCATION: The patient is located in room 365, bed B. REQUESTED BY: Dr. Joe Mcmahan. REASON FOR RENAL CONSULTATION: Chronic kidney disease, acute renal failure, dehydration, hypertension and for further evaluation. SUBJECTIVE: Mrs. Dsouza is an 86 years old elderly [place] female with the past medical history significant for longstanding hypertension, diabetes, coronary artery disease, hyperlipidemia, chronic kidney disease stage III, CHF with poor LV function, who was admitted with a chief complaint of feeling weak, tired and near syncope and hypotension. The patient was initially started on IV fluid, half normal saline at 50 mL per hour. After 24 hours, the patient was complaining of shortness of breath and IV fluid was discontinued and restarted on Lasix 40 mg daily. The patient is no in acute distress, denies any chest pain or palpitations, denies any fever or cough, no abdominal pain. No nausea, vomiting, or diarrhea. No swelling of the legs. PHYSICAL EXAMINATION GENERAL: Mrs. Dsouza is an 86 years old elderly [place] female, moderately built, moderately nourished, not in acute distress. VITAL SIGNS: As follows: Blood pressure 115/69, pulse 61, respirations 20, temperature 97.2, saturation 100%, height 5 feet and weight is 112 pounds.. HEENT: Pupils normal, reactive to light and accommodation. Conjunctivae pink. Sclerae anicteric. Tongue is moist. Trachea is midline. NECK: Symmetrical on both sides. Bilateral breath sounds present and clear on auscultation. CARDIOVASCULAR: [place] at the fifth intercostal space, midclavicular line. S1 and S2 audible. No murmur or gallop. ABDOMEN: Normal in appearance, soft, and tympanic. No guarding. No rigidity. No hepatosplenomegaly. CENTRAL NERVOUS SYSTEM: The patient is alert, awake, oriented x3. Nonfocal. Cranial nerves II through XII grossly intact. Sensory and motor system is within normal limits. EXTREMITIES: No cyanosis. No clubbing. No edema. MEDICATIONS: Her current mediations include as follows; aspirin 81 mg daily, Catapres 0.1 mg p.o. b.i.d., Colace 100 mg p.o. b.i.d, Coreg 6.25 mg p.o. daily, Cozaar 25 mg p.o. daily, Crestor 10 mg at bedtime, Ferrlecit 125 mg IV piggyback daily, subcutaneous heparin 5000 q.12 hours, Januvia 25 mg daily, Lantus 22 units subcutaneous at bedtime, Lasix 40 mg IV daily, NovoLog for sliding scale, Pepcid 20 mg p.o. daily, Plavix 75 mg p.o. daily, Rocaltrol 0.25 mcg p.o. daily, TriCor 48 mg p.o. daily and allopurinol 100 mg p.o. daily. LABORATORY DATA: Include as follows; as of 04/26/2017, sodium 128, potassium 4, chloride 99, CO2 of 25, BUN 68, creatinine 3.3, glucose 144, calcium is 9.2. Total bili 0.4. AST 84, ALT 71, alkaline phosphates 47. Total protein 6.3, albumin is 2.8. CT of the head as of 04/25/2017, hyperdense focus within the right frontal region possibly calcification; Incidental non-acute findings as described, brain; mild atrophy, mild prominent extra axial spaces along frontal convexity, right greater than the left. Punctate hyperdense focus within the right frontal region. No mass and no definite edema. ASSESSMENT AND PLAN: In summary, Mrs. Dsouza is an 86 years old elderly [place] female with a history of hypertension, diabetes, hyperlipidemia, coronary artery disease, congestive heart failure, chronic kidney disease, on Lasix, was admitted with hypotension, feeling weak and tired, and near syncope status post fall yesterday and status post CAT scan with out any bleeding. 1. Acute failure on chronic kidney disease, secondary to intravascular volume depletion, secondary to diuretics. 2. Hypertension. Blood pressure is stable, continue her current mediations, Coreg and Catapres. 3. Diabetes. Continue Lantus. 4. Anemia. Secondary to renal failure and iron deficiency. We will continue Ferrlecit and also we will add Nephrocaps 1 tablet daily. We will follow with you. Thank you for allowing me to participate in your patient's care. Sergo Carter MD [facility] # [id number] [facility]
[2017-04-27] MEDS: (Novolog) Insulin Aspart, Recombinant 100 u/ml 10 ml vial SC SCH ×2 (07:48→11:34)
[2017-04-27] MEDS ORDERED: Multivitamin Vitamin B Complex (Nephro-Vite) Tab PO SCH (08:00)
[2017-04-27 09:30] LABS: POTASSIUM 4.2 mmol/L (3.6-5.2)
[2017-04-27 09:33] LABS: CALCIUM 9.3 mg/dl (8.6-10.4)
[2017-04-27] MEDS: Ferric Sodium Gluconat Complex 62.5 mg/5 ml Vial IVPB SCH (09:38)
--- NOTE | 2017-04-27 11:16 | CT ---
PROCEDURE: CT HEAD WITHOUT CONTRAST. HISTORY: Follow up head concussion. Patient on Heparin. COMPARISON: 04/25/2017. TECHNIQUE: Axial computed tomography images were obtained through the head/brain without intravenous contrast. Radiation dose: Total exam DLP = mGy-cm. This CT exam was performed using one or more of the following dose reduction techniques: Automated exposure control, adjustment of the mA and/or kV according to patient size, and/or use of iterative reconstruction technique. FINDINGS: HEMORRHAGE: No intracranial hemorrhage. BRAIN: There are symmetric senile calcifications in bilateral basal ganglia. There is no mass, mass effect or abnormal extra-axial fluid collection. There is no territorial infarction. VENTRICLES: There is mild global parenchymal volume loss and proportionate enlargement of the ventricles and cortical sulci with frontal predominance. CALVARIUM: The skull base and calvarium are normal. PARANASAL SINUSES: Predominantly clear. MASTOID AIR CELLS: Predominantly clear. OTHER FINDINGS: None. IMPRESSION: No acute intracranial abnormality. Mild age-related global parenchymal volume loss with frontal predominance.
--- NOTE | 2017-04-27 14:39 | PCM.HF ---
Heart Failure Core Measure - Heart Failure Ejection Fraction: Less Than 40 % LENO Inhibitor Prescribed: No Contraindication/Reason for not providing: on ARB Beta-Dinh Prescribed: Carvedilol Angiotensin II Receptor Dinh Prescribed: Yes AnticoagulationTherapy for Atrial Fibrillation/Atrialflutter: No Contraindication/Reason for not providing: no hx of afib Aldosterone Antagonist Prescribed: No Contraindication/Reason for not providing: CRF/ RISK FO RHYPERKALEMIA Hydralazine Nitrate Prescribed: No Contraindication/Reason for not providing: BP RUNNING LOW Implantable Cardioverter Defibrillator Therapy: No Contraindication/Reason for not providing: MEDICAL MANAGEMENT PER CARDIO Cardiac Resynchronization Therapy Prescribed: No Contraindication/Reason for not providing: MEDICAL MANAGEMENT PER CARDIO - Follow up Will be discharged to: Home Follow Up Date (must be within 7 days from discharge): 05/01/17 Follow Up Time: 09:00
[2017-04-27 16:52] VITALS: BP 140/74; PULSE 93; TEMP 98.1; O2SAT 97
--- NOTE | 2017-04-29 11:46 | PQF CHF ---
This form is a permanent part of the medical record To Joe Mcmahan MD, Patient was admitted with generealized weakness, history of CKD/HTN/CHF. DM type 1 with nephropathy. Anemai of Chronic Disease. Ischemic Cardiomyopathy, lab work out ProBNP of 15,000. Please specify the type of CHF -- Systolic / Diastolic/ Combined ? Chronic/Acute on Chronic ? Please document. Thank you. Clarification of your documentation is requested to better reflect the severity of illness and intensity of treatment of your patient. Indicators present [x] Diagnosis of CHF and/or history of CHF [x] BNP > 200 ---15.000 [] Imaging Finding of Pulmonary Edema /Pleural Effusions [] Fluid/Volume Overload [] Pitting edema [] Ejection Fraction < 40% (Indicative of Systolic Heart Failure) [] Ejection Fraction > 40% (Indicative of Diastolic Heart Failure) [] Dyspnea / Orthopenea / Paroxysmal Nocturnal Dyspnea [] Other: Location in the medical record that reflects the above clinical findings: [] Treatment Provided: [] PHYSICIAN'S RESPONSE Based on your medical judgment of the clinical indicators outlined above, are you treating this patient for a known or suspected: [] Acute CHF [] Systolic [] Diastolic [] Combined [] Chronic CHF [] Systolic [] Diastolic [] Combined [] Acute on Chronic CHF []Systolic [] Diastolic [] Combined [] CHF due hypertension [] Acute systolic []Chronic systolic [] Acute/ chronic systolic [] Other, please indicate: [] [] If Unable to Determine, please check the box, sign and date. Present On Admission (POA) Indicator: [] Present at the time of admission [] Not present at the time of admission [] Clinically Undetermined In responding to this query, please exercise your independent professional judgment. The fact that a question is asked does not imply that any particular answer is desired or expected. Thank you for your clarification on this documentation. If you have any questions please call:[ ] * Thank you, [ Lotus Steven CCS ] creative writing english professor JUNIOR
--- NOTE | 2017-05-05 15:01 | CP.PCM.DIS ---
Provider - Provider Date of Admission: 04/23/17 13:08 Attending physician: Joe Mcmahan MD Primary care physician: Joe Mcmahan MD Consults: Dr Carter Time Spent in preparation of Discharge (in minutes): 30 Diagnosis - Discharge Diagnosis (1) Acute on chronic renal failure Status: Acute (2) Uncontrolled insulin dependent diabetes mellitus Status: Chronic (3) Ischemic cardiomyopathy Status: Chronic Hospital Course - Lab Results Lab Results: Most Recent Lab Values WBC 8.9 K/uL (4.8-10.8) 04/23/17 11:42 RBC 3.21 Mil/uL (3.80-5.20) L 04/23/17 11:42 Hgb 9.9 g/dL (11.0-16.0) L D 04/23/17 11:42 Hct 29.6 % (34.0-47.0) L 04/23/17 11:42 MCV 92.3 fL (81.0-99.0) 04/23/17 11:42 MCH 30.7 pg (27.0-31.0) 04/23/17 11:42 MCHC 33.3 g/dL (33.0-37.0) 04/23/17 11:42 RDW 13.5 % (11.5-14.5) 04/23/17 11:42 Plt Count 201 K/uL (130-400) 04/23/17 11:42 MPV 10.7 fL (7.2-11.7) 04/23/17 11:42 Neut % (Auto) 66.6 % (50.0-75.0) 04/23/17 11:42 Lymph % (Auto) 23.5 % (20.0-40.0) 04/23/17 11:42 [place] % (Auto) 7.5 % (0.0-10.0) 04/23/17 11:42 Eos % (Auto) 1.7 % (0.0-4.0) 04/23/17 11:42 Baso % (Auto) 0.7 % (0.0-2.0) 04/23/17 11:42 Neut # 5.9 K/uL (1.8-7.0) 04/23/17 11:42 Lymph # 2.1 K/uL (1.0-4.3) 04/23/17 11:42 [place] # 0.7 K/uL (0.0-0.8) 04/23/17 11:42 Eos # 0.1 K/uL (0.0-0.7) 04/23/17 11:42 Baso # 0.1 K/uL (0.0-0.2) 04/23/17 11:42 PT 10.6 SECONDS (9.7-12.2) 04/23/17 11:42 INR 0.9 04/23/17 11:42 APTT 30 SECONDS (21-34) 04/23/17 11:42 D-Dimer, Quantitative 391 ng/mlDDU (0-243) H 04/23/17 14:27 Sodium 139 mmol/L (132-148) 04/27/17 09:16 Potassium 4.2 mmol/L (3.6-5.2) 04/27/17 09:16 Chloride 98 mmol/L (98-107) 04/27/17 09:16 Carbon Dioxide 26 mmol/L (22-30) 04/27/17 09:16 Anion Gap 20 (10-20) 04/27/17 09:16 BUN 66 mg/dL (7-17) H 04/27/17 09:16 Creatinine 3.4 MG/DL (0.7-1.2) H 04/27/17 09:16 Est GFR ( Amer) 16 04/27/17 09:16 Est GFR (Non-Af Amer) 13 04/27/17 09:16 POC Glucose (mg/dL) 275 mg/dL (65-110) H 04/27/17 16:11 Random Glucose 124 mg/dL (65-105) H 04/27/17 09:16 Hemoglobin A1c 8.6 % (4.2-6.5) H 04/24/17 09:04 Calcium 9.3 mg/dl (8.6-10.4) 04/27/17 09:16 Iron 39 ug/dL (37-170) 04/25/17 08:48 TIBC 400 ug/dL (250-450) 04/25/17 08:48 % Saturation 10 (20-55) L 04/25/17 08:48 Ferritin 148.0 ng/mL 04/25/17 08:48 Total Bilirubin 0.4 mg/dL (0.2-1.3) 04/26/17 08:13 AST 84 U/L (14-36) H D 04/26/17 08:13 ALT 71 U/L (9-52) H D 04/26/17 08:13 Alkaline Phosphatase 47 U/L (38-126) 04/26/17 08:13 Troponin I 0.0440 ng/mL (0.00-0.120) 04/23/17 11:42 NT-Pro-B Natriuret Pep 1500 pg/mL (0-900) H 04/23/17 11:42 Total Protein 6.3 g/dL (6.3-8.3) 04/26/17 08:13 Albumin 3.5 g/dL (3.5-5.0) 04/26/17 08:13 Globulin 2.8 gm/dL (2.2-3.9) 04/26/17 08:13 Albumin/Globulin Ratio 1.2 (1.0-2.1) 04/26/17 08:13 Triglycerides 522 mg/dL (0-149) H 04/25/17 08:48 Cholesterol 174 mg/dL (0-199) 04/25/17 08:48 LDL Cholesterol Direct 74 mg/dL (0-129) 04/25/17 08:48 HDL Cholesterol 32 mg/dL (30-70) 04/25/17 08:48 Free T4 1.48 ng/dL (0.78-2.19) 04/25/17 08:48 TSH 3rd Generation 6.66 mIU/L (0.46-4.68) H 04/25/17 08:48 Urine Color Yellow (YELLOW) 04/23/17 11:42 Urine Clarity Hazy (Clear) 04/23/17 11:42 Urine pH 6.0 (5.0-8.0) 04/23/17 11:42 Ur Specific [place] 1.014 (1.003-1.030) 04/23/17 11:42 Urine Protein 2+ mg/dL (NEGATIVE) H 04/23/17 11:42 Urine Glucose (UA) 2+ mg/dL (Normal) H 04/23/17 11:42 Urine Ketones Negative mg/dL (NEGATIVE) 04/23/17 11:42 Urine Blood Negative (NEGATIVE) 04/23/17 11:42 Urine Nitrate Negative (NEGATIVE) 04/23/17 11:42 Urine Bilirubin Negative (NEGATIVE) 04/23/17 11:42 Urine Urobilinogen Normal mg/dL (0.2-1.0) 04/23/17 11:42 Ur Leukocyte Esterase 1+ Simon/uL (Negative) H 04/23/17 11:42 Urine WBC (Auto) 3 /hpf (0-5) 04/23/17 11:42 Urine RBC (Auto) < 1 /hpf (0-3) 04/23/17 11:42 Ur Squamous Epith Cells 3 /hpf (0-5) 04/23/17 11:42 Urine Bacteria Rare (<OCC) 04/23/17 11:42 Urine Osmolality 320 mosm/kg (300-1000) 04/24/17 07:16 Ur Random Creatinine 46.1 mg/dL 04/24/17 07:16 Ur Random Sodium 117 mmol/L 04/24/17 07:16 Ur Random Potassium 25.4 mmol/L 04/24/17 07:16 Urine Collection Time 24 HRS 04/25/17 10:56 Urine Total Volume 700 mL 04/25/17 10:56 Urine Chloride 27 mmol/L (32-290) L 04/24/17 07:16 Ur Protein 24 Hr Calc 476.0 mg/24hr (42-225) H 04/25/17 10:56 - Hospital Course Hospital Course: This is an 86 yo Female who is complaining of severe weakness for one day. She denied any shortness of breath, any chest pain, any palpitation, but is complaining of dizziness. In the ED, she was found to have a BUN: && and a creatinine 3.3. Known to have dilated ischemic cardiomyopathy with a chronic systolic heart failure, her Lasix was reduced recently to 40 mg PO qd instead od BID because of rising BUN and creatinine. She was seen by her Pbx Wire Chief, Dr Carter, who held her diuretics and started her on IV NS at 50 cc/hr. The patient felt better with IV hydration, but the next day, she was complaining of SOB, palpitation and was wheezing. IVF was discontinued, and she was given Lasix 40 mg IV with improvement of her SOB. While in the hospital, she felt and hit her head against the wall. 2 CT scans of the head were negative for intracranial bleeding. She was asymptomatic and was discharged home on 04/27/2017. She will be put back on her same medications and Lasix 40 mg PO qd. She was scheduled to have afollow up with me in about a week after discharge. Her Tricor is also reduced to 48 mg PO qd because of her renal insufficiency. - Date & Time of H&P Date of H&P: 04/24/17 Discharge Exam - Head Exam Head Exam: ATRAUMATIC, NORMAL INSPECTION, NORMOCEPHALIC - Eye Exam Eye Exam: Normal appearance - ENT Exam ENT Exam: Normal Exam - Neck Exam Neck exam: Normal Inspection - Respiratory Exam Respiratory Exam: Clear to PA & Lateral, NORMAL BREATHING PATTERN - Cardiovascular Exam Cardiovascular Exam: REGULAR RHYTHM, Systolic Murmur - GI/Abdominal Exam GI & Abdominal Exam: Normal Bowel Sounds, Soft - Rectal Exam Rectal Exam: Deferred - Extremities Exam Extremities exam: normal inspection - Back Exam Back exam: NORMAL INSPECTION - Neurological Exam Neurological exam: Alert, CN II-XII Intact, Normal Gait, Oriented x3 - Psychiatric Exam Psychiatric exam: Anxious - Skin Skin Exam: Dry, Intact, Normal Color, Warm Discharge Plan - Discharge Medications Prescriptions: Vitamin B Complex/Vit C/Folic [Nephro-Tasneem] 1 tab PO 0800 #90 tab Fenofibrate [Tricor] 48 mg PO DAILY #90 tab - Follow Up Plan Condition: FAIR Disposition: HOME/ ROUTINE Instructions: Fenofibrate (By mouth), Vitamin B/Vitamin C (By mouth), Heart Failure (DC), Acute Kidney Injury (DC), Weakness (GEN) Referrals: Joe Mcmahan MD [Staff Provider] - Clinical Quality Measures - CQM - Heart Failure Ejection Fraction: Less Than 40 % Left Ventricular Function to be assessed after discharge: No LENO Inhibitor Prescribed: Yes Beta-Dinh Prescribed: Carvedilol Angiotensin II Receptor Dinh Prescribed: No Contraindication/Reason for not providing: Patient is already on ARB Losartan AnticoagulationTherapy for Atrial Fibrillation/Atrialflutter: No Contraindication/Reason for not providing: Not indicated. Aldosterone Antagonist Prescribed: No Contraindication/Reason for not providing: Patient has CKD and hyperkalemia Hydralazine Nitrate Prescribed: No Contraindication/Reason for not providing: Low BP Implantable Cardioverter Defibrillator Therapy: No Contraindication/Reason for not providing: Patient refuses Cardiac Resynchronization Therapy Prescribed: Yes Contraindication/Reason for not providing: Patient refuses Will be discharged to: Home Follow Up Date (must be within 7 days from discharge): 05/06/17 Follow Up Time: 15:00 - Date & Time of Discharge Summary Date of Discharge Summary: 05/05/17 Time of Discharge Summary: 15:07
== END 2017-04-27 17:00 | disposition home or self-care (01) | DRG 291 ==
LOC: C.ER 10:55 → C.9E 13:08 → C.3T 19:06
PROVIDERS: ADMIT Internal Medicine Cardiovascular Disease; ATTEND Internal Medicine Cardiovascular Disease
DX: I13.0 Hypertensive heart and chronic kidney disease with heart failure and stage 1 through stage 4 chronic kidney disease, or unspecified chronic kidney disease (principal); I50.23 Acute on chronic systolic (congestive) heart failure; N17.9 Acute kidney failure, unspecified; E86.0 Dehydration; E10.65 Type 1 diabetes mellitus with hyperglycemia; E10.21 Type 1 diabetes mellitus with diabetic nephropathy; I25.5 Ischemic cardiomyopathy; I25.10 Atherosclerotic heart disease of native coronary artery without angina pectoris; E10.22 Type 1 diabetes mellitus with diabetic chronic kidney disease; E78.5 Hyperlipidemia, unspecified; Z95.5 Presence of coronary angioplasty implant and graft; M54.89 Other dorsalgia; E78.00 Pure hypercholesterolemia, unspecified; D63.1 Anemia in chronic kidney disease; N18.3 Chronic kidney disease, stage 3 (moderate)

== ENCOUNTER 2017-07-22 07:51 | Observation (INO) | payer MEDICARE ==
[2017-07-22 08:00] VITALS: BMI 23.3
[2017-07-22] MEDS ORDERED: Albuterol-Ipratrop 3 mg / 0.5 (3 ml) UD ONE (08:07)
[2017-07-22] MEDS: Albuterol-Ipratrop 3 mg / 0.5 (3 ml) UD IH SCH ×2 (08:20→08:30)
[2017-07-22 08:26] LABS: BASO # 0.1 K/uL (0.0-0.2); BASO % 0.4 % (0.0-2.0); EOS # 0.2 K/uL (0.0-0.7); EOS % 1.1 % (0.0-4.0); HEMATOCRIT 34.1 % (34.0-47.0); LYMPH # 3.3 K/uL (1.0-4.3); LYMPH % 18.6 % (20.0-40.0); MEAN CELL VOLUME 92.2 fL (81.0-99.0); MEAN CORPUSCULAR HEMOGLOBIN 29.9 pg (27.0-31.0); MEAN CORPUSCULAR HGB CONC 32.4 g/dL (33.0-37.0); MEAN PLATELET VOLUME 10.9 fL (7.2-11.7); MONO # 1.1 K/uL (0.0-0.8); MONO % 6.3 % (0.0-10.0); RED CELL DISTRIBUTION WIDTH 14.7 % (11.5-14.5); WHITE BLOOD COUNT 17.6 K/uL (4.8-10.8)
[2017-07-22 08:33] LABS: POTASSIUM 4.3 mmol/L (3.6-5.2)
[2017-07-22 08:36] LABS: ALB/GLOB RATIO 1.3 (1.0-2.1); BILIRUBIN,TOTAL 0.6 mg/dL (0.2-1.3); CALCIUM 9.8 mg/dl (8.6-10.4); TOTAL PROTEIN 7.9 g/dL (6.3-8.3)
[2017-07-22 08:49] LABS: TROPONIN I 0.049 ng/mL (0.00-0.120)
--- NOTE | 2017-07-22 08:53 | C.PDOC ---
History Of Present Illness 86 y/o female with PMHx of dilated ischemic cardiomyopathy and CHF presents to ED with complaints of shortness of breath since last night. Patient states she "feels like she has phlegm and cannot cough it out". As per EMS a duoneb was given and ECG was done. Patient has non productive cough and denies chest pain, headache, fever, chills, nausea, vomiting or any other complaints at this time. Patient PMD Dr. Mcmahan Time Seen by Provider: 07/22/17 07:53 Chief Complaint (Nursing): Shortness Of Breath History Per: Patient History/Exam Limitations: no limitations Onset/Duration Of Symptoms: Days Current Symptoms Are (Timing): Still Present Past Medical History Reviewed: Historical Data, Nursing Documentation, Vital Signs Vital Signs: Last Vital Signs Temp 97.4 F L 07/22/17 08:00 Pulse 72 07/22/17 08:22 Resp 22 07/22/17 09:15 BP 170/80 H 07/22/17 08:22 Pulse Ox 100 07/22/17 09:42 - Medical History PMH: CHF, Diabetes, HTN, Hypercholesterolemia, Hyperlipidemia, Chronic Kidney Disease Surgical History: Coronary Stent Family History: States: CAD (aunt) - Social History Hx Tobacco Use: No Hx Alcohol Use: No Hx Substance Use: No - Immunization History Hx Tetanus Toxoid Vaccination: Yes Hx Influenza Vaccination: Yes Hx Pneumococcal Vaccination: Yes Review Of Systems Constitutional: Negative for: Fever, Chills Cardiovascular: Negative for: Chest Pain Respiratory: Positive for: Cough, Shortness of Breath Gastrointestinal: Negative for: Nausea, Vomiting Skin: Negative for: Rash Neurological: Negative for: Headache Physical Exam - Physical Exam Appears: Non-toxic, No Acute Distress Skin: Normal Color, Warm, Dry, No Rash Head: Atraumatic, Normacephalic Oral Mucosa: Moist Neck: Normal ROM, Supple Chest: Symmetrical Respiratory: No Rales, No Rhonchi, Wheezing (Bilateral L>R), Other (Visibly shortness of breath) Gastrointestinal/Abdominal: Soft, No Tenderness, No Guarding, No Rebound Extremity: Normal ROM, No Pedal Edema Neurological/Psych: Oriented x3, Normal Speech ED Course And Treatment - Laboratory Results Result Diagrams: 07/22/17 08:16 07/22/17 08:16 ECG: Interpreted By Me, Viewed By Me ECG Rhythm: L BBB ECG Interpretation: No Changes From Prior (04/23/17) Rate From EC (bpm) O2 Sat by Pulse Oximetry: 100 (RA) Pulse Ox Interpretation: Normal - Radiology CXR: Interpreted by Me, Viewed By Me CXR Interpretation: Yes: Heart Size (large), Other (pulmonary congestion) Medical Decision Making Medical Decision Making: Patient upon arrival given duoneb treatment, Lasix and SoluMedrol Spoke with Dr. Mcmahan, requested we admit to on-call doc Disposition Discussed With Dr.: Kahlil Carrizales Jr. Doctor Will See Patient In The: Hospital Counseled Patient/Family Regarding: Studies Performed - Disposition Disposition: HOSPITALIZED Disposition Time: 09:42 Condition: GUARDED Forms: [email or web address] (German) - Clinical Impression Clinical Impression: Chronic congestive heart failure, Dyspnea, Respiratory distress - Scribe Statement The provider has reviewed the documentation as recorded by the Scribe Griffin Johnson All medical record entries made by the Scribe were at my direction and personally dictated by me. I have reviewed the chart and agree that the record accurately reflects my personal performance of the history, physical exam, medical decision making, and the department course for this patient. I have also personally directed, reviewed, and agree with the discharge instructions and disposition. Decision To Admit - Pt Status Changed To: Hospital Disposition Of: Observation - . Bed Request Type: Telemetry Patient Diagnosis: Chronic congestive heart failure, Dyspnea, Respiratory distress
--- NOTE | 2017-07-22 09:14 | RAD ---
PROCEDURE: CHEST RADIOGRAPH, 1 VIEW HISTORY: SOB COMPARISON: 04/23/2017 FINDINGS: LUNGS: Clear. PLEURA: No pneumothorax or pleural fluid seen. CARDIOVASCULAR: Normal. OSSEOUS STRUCTURES: No significant abnormalities. VISUALIZED UPPER ABDOMEN: Normal. OTHER FINDINGS: None. IMPRESSION: No active disease.
--- NOTE | 2017-07-22 10:16 | CP.PCM.HP ---
History of Present Illness - History of Present Illness History of Present Illness: Medicine Note for Dr. Carrizales's Service CC: shortness of breath HPI: 86 F with PMHx of Systolic Congestive Heart Failure, CKD stage 4, HTN, IDDM , HLD Ischemic Cardiomyopathy, Hx CAD with 2 stents presents to the ED with shortness of breath that started this morning. She was seen by her PMD x2 weeks ago for a nonproductive cough. She was prescribed a cough syrup which she states did not help. She feels like she has to cough up phlegm but is unable to. Denied fever, chills, fatigue, weakness, or muscles aches. This morning she was getting out of bed and she felt SOB. She lives with her daughter, so her daughter came to the room and saw how SOB she was and called 911. Patient reports at baseline she is able to ambulate on her own and her breathing is just fine. Denied fever, chills, headache, chest pain, abdominal pain, n/v/d/c , or urinary symptoms. PMHx: Systolic Congestive Heart Failure, CKD stage 4, HTN, IDDM, HLD Ischemic Cardiomyopathy, Hx CAD with 2 stents PSHx: CAD with stents x 2 Meds: As per DEC, reviewed and confirmed All: NKDA SHx: Denied tobacco, alcohol or illicit drug use FHx: Unremarkable PMD: Dr. Joe Mcmahan Present on Admission - Present on Admission Any Indicators Present on Admission: No Past Patient History - Infectious Disease Hx of Infectious Diseases: None - Tetanus Immunizations Tetanus Immunization: Unknown - Past Medical History & Family History Past Medical History?: Yes - Past Social History Smoking Status: Never Smoked - CARDIAC Hx Congestive Heart Failure: Yes Hx Hypercholesterolemia: Yes Hx Hypertension: Yes - PULMONARY Hx Respiratory Disorders: No - NEUROLOGICAL Hx Neurological Disorder: No - HEENT Hx HEENT Problems: No - RENAL Hx Chronic Kidney Disease: Yes - ENDOCRINE/METABOLIC Hx Endocrine Disorders: Yes Hx Diabetes Mellitus Type 1: Yes - MUSCULOSKELETAL/RHEUMATOLOGICAL Hx Falls: No - PSYCHIATRIC Hx Substance Use: No - SURGICAL HISTORY Hx Coronary Stent: Yes - ANESTHESIA Hx Anesthesia: Yes Hx Anesthesia Reactions: No Meds Allergies/Adverse Reactions: Allergies Allergy/AdvReac Type Severity Reaction Status Date / Time No Known Allergies Allergy Verified 04/23/17 10:59 Physical Exam - Constitutional Appears: No Acute Distress - Head Exam Head Exam: NORMAL INSPECTION, NORMOCEPHALIC - Eye Exam Eye Exam: EOMI, Normal appearance, PERRL. absent: Scleral icterus Pupil Exam: NORMAL ACCOMODATION - ENT Exam ENT Exam: Mucous Membranes Moist, Normal Exam, Normal Oropharynx, TM's Normal Bilaterally. absent: Mucous Membranes Dry - Neck Exam Neck exam: Positive for: Normal Inspection. Negative for: Lymphadenopathy, Thyromegaly - Respiratory Exam Respiratory Exam: Rales, NORMAL BREATHING PATTERN - Cardiovascular Exam Cardiovascular Exam: Tachycardia - GI/Abdominal Exam GI & Abdominal Exam: Distended (no TTP, reports normal daily BM ), Normal Bowel Sounds, Soft - Extremities Exam Extremities exam: Positive for: normal inspection, pedal pulses present. Negative for: joint swelling, pedal edema, tenderness - Back Exam Back exam: NORMAL INSPECTION. absent: CVA tenderness (L), CVA tenderness (R) - Neurological Exam Neurological exam: Alert, CN II-XII Intact, Oriented x3 - Psychiatric Exam Psychiatric exam: Normal Affect, Normal Mood - Skin Skin Exam: Dry, Intact, Normal Color, Warm Results - Vital Signs Recent Vital Signs: Last Vital Signs Temp 97.4 F L 07/22/17 08:00 Pulse 63 07/22/17 10:01 Resp 20 07/22/17 10:01 BP 142/57 L 07/22/17 10:01 Pulse Ox 100 07/22/17 10:01 - Labs Result Diagrams: 07/22/17 08:16 07/22/17 08:16 Labs: Laboratory Results - last 24 hr 07/22/17 07/22/17 07/22/17 08:16 08:16 08:31 WBC 17.6 H D RBC 3.70 L Hgb 11.1 Hct 34.1 MCV 92.2 MCH 29.9 MCHC 32.4 L RDW 14.7 H Plt Count 176 MPV 10.9 Neut % (Auto) 73.6 Lymph % (Auto) 18.6 L [place] % (Auto) 6.3 Eos % (Auto) 1.1 Baso % (Auto) 0.4 Neut # 13.0 H Lymph # 3.3 [place] # 1.1 H Eos # 0.2 Baso # 0.1 Sodium 136 Potassium 4.3 Chloride 105 Carbon Dioxide 17 L Anion Gap 18 BUN 46 H Creatinine 1.8 H Est GFR ( Amer) 32 Est GFR (Non-Af Amer) 27 Random Glucose 133 H Calcium 9.8 Total Bilirubin 0.6 AST 50 H ALT 48 Alkaline Phosphatase 78 Troponin I 0.0490 NT-Pro-B Natriuret Pep 6060 H Total Protein 7.9 Albumin 4.5 Globulin 3.4 Albumin/Globulin Ratio 1.3 Influenza Typ A,B (EIA) Negative for flu a/b Assessment & Plan - Assessment and Plan (Free Text) Plan: CHF Exacerbation Systolic Congestive Heart Failure Monitor daily weights Strict I&Os Carb Consistent Diet with HHD, 2g Na and fluid restriction <1200mL EKG: LBBB @ 74 BPM CXR: Cardiomegaly, pulmonary congestion, no active disease ECHO (04/2017): LVEF - 30-35%. Moderate to marked diffuse LV systolic function. Mild LVH, Mild MR, Mild AI. BNP:6060 Trop:0.0490 Lasix 40mg IVP Q12H Nonproductive Cough CXR: Cardiomegaly, pulmonary congestion, no active disease Rapid flu - negative f/u: mycoplasma, legionella, strep pneumonia 1 time dose of Solumedrol 125mg in ED Mucomyst PRN Phenergran PRN Leukocytosis WBC: 17.6 F/U UA, UC, BC NAYAN on CKD stage 4 Baseline Creatine 1.5-2, GFR 15-25 BUN/CRE: 46/1.8, GFR 27 Continue to monitor HX Ischemic Cardiomyopathy HTN Resumed home medications: Coreg 6.25mg PO BID, Cozaar 25mg PO daily IDDM Accuchecks A1C (04/2017)- 8.6 Resumed home medications: Januvia 25mg PO daily, Novolog 70/30- 5units TID ( usual home dose 5,8,8), Lantus 10 units QHS (usual home dose = 15) ISS- low HLD Lipid Panel- TG 522, - rest panel WNL Resumed home medications: Tricor 48 PO daily, Crestor 20 PO daily Hx of CAD PCI of the LAD and LCx on 02/26/2011 and the RCA on 03/29/2011. A coronary angiogram done in 2014 at [facility] [place] revealed patent all stents. A Persantine Myoview MPI at Dr. Mcmahan's office 04/2017 revealed normal perfusion to the LV myocardium ASA 81mg PO daily, Plavix 75mg PO daily Prior Studies: Head CT: 1. Hyperdense focus within RIGHT frontal region possibly calcification ; however, cannot exclude petechial hemorrhage. Compare with prior examinations if available. Prophylactic Measures GI PPX: Protonix 40mg PO daily DVT PPX: SCDs, Lovenox 30mg SC daily PT Eval Audi Fry Dr[address] DO, PGY-1
[2017-07-22] MEDS ORDERED: Promethazine 12.5 mg/10 ml Syrup PO PRN (11:22)
[2017-07-22] MEDS ORDERED: Acetylcysteine 20% Inhal Soln (4ml) INH PRN (11:22)
[2017-07-22] MEDS ORDERED: Losartan 12.5 MG TAB PO ONE (11:30)
[2017-07-22] MEDS: (Novolin R) Insulin Human Regular 100 units/ml vial SC SCH ×3 (13:11→21:37)
[2017-07-22] MEDS: (Novolog) Insulin Aspart, Recombinant 100 u/ml 10 ml vial SC SCH ×2 (13:14→17:00)
[2017-07-22] MEDS ORDERED: (Novolog) Insulin Aspart, Recombinant 100 u/ml 10 ml vial SC SCH (14:00)
[2017-07-22 15:27] LABS: URINE BILIRUBIN NEGATIVE (NEGATIVE); URINE BLOOD 1+ (NEGATIVE); URINE COLOR Straw (YELLOW); URINE GLUCOSE (UA) 3+ mg/dL (Normal); URINE KETONE NEGATIVE (NEGATIVE); URINE LEUKOCYTE ESTERASE NEG Leu/uL (Negative); URINE PROTEIN 2+ mg/dL (NEGATIVE); URINE UROBILINOGEN NORMAL mg/dL (0.2-1.0); WBC URINE < 1 /hpf (0-5)
[2017-07-22 15:34] LABS: RBC URINE 5 /hpf (0-3)
[2017-07-22] MEDS: (Lantus) Insulin Glargine, Recombinant SC SCH (18:50)
[2017-07-23 07:28] LABS: BASO % 0.1 % (0.0-2.0); HEMATOCRIT 28.8 % (34.0-47.0); LYMPH % 18.3 % (20.0-40.0); MEAN CELL VOLUME 90.8 fL (81.0-99.0); MEAN CORPUSCULAR HEMOGLOBIN 30.5 pg (27.0-31.0); MEAN CORPUSCULAR HGB CONC 33.5 g/dL (33.0-37.0); MEAN PLATELET VOLUME 10.8 fL (7.2-11.7); MONO # 1.1 K/uL (0.0-0.8); MONO % 6.9 % (0.0-10.0); NRBC % 0.1 % (0.0-2.0); RED CELL DISTRIBUTION WIDTH 14.4 % (11.5-14.5); WHITE BLOOD COUNT 16.2 K/uL (4.8-10.8)
[2017-07-23 08:04] LABS: POTASSIUM 3.8 mmol/L (3.6-5.2)
[2017-07-23 08:06] LABS: ALB/GLOB RATIO 1.3 (1.0-2.1); BILIRUBIN,TOTAL 0.5 mg/dL (0.2-1.3); CALCIUM 8.9 mg/dl (8.6-10.4); PHOSPHOROUS 3.2 mg/dL (2.5-4.5); TOTAL PROTEIN 6.9 g/dL (6.3-8.3)
[2017-07-23 08:07] LABS: MAGNESIUM 1.9 mg/dL (1.6-2.3)
[2017-07-23] MEDS: (Novolog) Insulin Aspart, Recombinant 100 u/ml 10 ml vial SC SCH ×3 (08:46→16:30)
[2017-07-23] MEDS: (Novolin R) Insulin Human Regular 100 units/ml vial SC SCH ×4 (08:46→21:57)
[2017-07-23] MEDS ORDERED: Pantoprazole 40 mg EC Tab PO SCH (10:00)
[2017-07-23] MEDS: Enoxaparin 30 mg Syringe SC SCH (10:59)
--- NOTE | 2017-07-23 17:09 | CP.PCM.PN ---
<Milton Bright - Last Filed: 07/23/17 17:31> Subjective - Date & Time of Evaluation Date of Evaluation: 07/23/17 Time of Evaluation: 07:20 - Subjective Subjective: PGY-[address] Carrizales Patient seen and examined at bedside. Patient reports that she's doing well this morning and her respiratory status is improved. Patient is resting comfortably on the Vapotherm, settings 50% O2 delivered at 40L/hr. Objective - Vital Signs/Intake and Output Vital Signs (last 24 hours): Temp Pulse Resp BP Pulse Ox 98.2 F 67 20 157/74 H 100 07/23/17 15:15 07/23/17 15:15 07/23/17 15:15 07/23/17 15:15 07/23/17 15:15 Intake and Output: 07/23/17 07/23/17 06:59 18:59 Intake Total 240 600 Output Total 200 700 Balance 40 -100 - Medications Medications: Current Medications Acetylcysteine (Acetylcysteine 20%) 4 ml INH RQ6 PRN PRN Reason: Shortness of Breath Aspirin (Aspirin Chewable) 81 mg PO DAILY [facility] Last Admin: 07/23/17 10:58 Dose: 81 mg Carvedilol (Coreg) 6.25 mg PO BID [facility] Last Admin: 07/23/17 10:58 Dose: 6.25 mg Clopidogrel Bisulfate (Plavix) 75 mg PO DAILY [facility] Last Admin: 07/23/17 10:58 Dose: 75 mg Docusate Sodium (Colace) 100 mg PO TID [facility] Last Admin: 07/23/17 13:26 Dose: 100 mg Enoxaparin Sodium (Lovenox) 30 mg SC DAILY [facility] Last Admin: 07/23/17 10:59 Dose: 30 mg Famotidine (Pepcid) 20 mg PO DAILY [facility] Last Admin: 07/23/17 10:58 Dose: 20 mg Fenofibrate (Tricor) 48 mg PO DAILY [facility] Last Admin: 07/23/17 10:59 Dose: 48 mg Furosemide (Lasix) 40 mg IVP Q12H [facility] Last Admin: 07/23/17 08:47 Dose: 40 mg Insulin Aspart (Novolog) 5 unit SC TIDAC [facility] Last Admin: 07/23/17 12:53 Dose: 5 unit Insulin Glargine (Lantus) 10 unit SC QPM [facility] Last Admin: 07/22/17 18:50 Dose: 10 units Insulin Human Regular (Novolin R) 0 unit SC ACHS [facility] PRN Reason: Protocol Last Admin: 07/23/17 12:53 Dose: 2 unit Losartan Potassium (Cozaar) 25 mg PO DAILY [facility] Last Admin: 07/23/17 10:58 Dose: 25 mg Pneumococcal Polyvalent Vaccine (Pneumovax 23 Vaccine) 0.5 ml IM .ONCE ONE Stop: 07/25/17 10:01 Promethazine HCl (Phenergan Syrup) 12.5 mg PO Q6 PRN PRN Reason: Cough Rosuvastatin Calcium (Crestor) 10 mg PO HS [facility] Sitagliptin Phosphate (Januvia) 25 mg PO DAILY [facility] Last Admin: 07/23/17 10:58 Dose: 25 mg - Labs Labs: 07/23/17 07:07 07/23/17 07:07 - Constitutional Appears: No Acute Distress - Head Exam Head Exam: ATRAUMATIC, NORMOCEPHALIC - Eye Exam Eye Exam: EOMI, PERRL - ENT Exam ENT Exam: Mucous Membranes Moist - Respiratory Exam Respiratory Exam: Clear to Ausculation Bilateral, NORMAL BREATHING PATTERN. absent: Rales, Rhonchi, Wheezes - Cardiovascular Exam Cardiovascular Exam: REGULAR RHYTHM, +S1, +S2 - GI/Abdominal Exam GI & Abdominal Exam: Soft, Normal Bowel Sounds. absent: Tenderness - Extremities Exam Extremities Exam: absent: Calf Tenderness, Pedal Edema - Neurological Exam Neurological Exam: Alert, Awake, Oriented x3 - Psychiatric Exam Psychiatric exam: Normal Affect, Normal Mood - Skin Skin Exam: Dry, Intact, Normal Color, Warm Assessment and Plan - Assessment and Plan (Free Text) Plan: CHF Exacerbation Systolic Congestive Heart Failure Monitor daily weights Strict I&Os Carb Consistent Diet with HHD, 2g Na and fluid restriction <1200mL EKG: LBBB @ 74 BPM CXR: Cardiomegaly, pulmonary congestion, no active disease ECHO (04/2017): LVEF - 30-35%. Moderate to marked diffuse LV systolic function. Mild LVH, Mild MR, Mild AI. BNP:6060 Trop:0.0490 Lasix 40mg IVP Q12H Nonproductive Cough CXR: Cardiomegaly, pulmonary congestion, no active disease Rapid flu - negative f/u: strep pneumonia 1 time dose of Solumedrol 125mg in ED Mucomyst PRN Phenergan PRN Mycoplasma and legionella negative Leukocytosis WBC: 17.6 Blood cultures neg after 24H UA unconcerning for acute infection F/u Urine Cultures NAYAN on CKD stage 4 Baseline Creatine 1.5-2, GFR 15-25 BUN/CRE: 58/2.4, GFR 19 Continue to monitor HTN Resumed home medications: Coreg 6.25mg PO BID, Cozaar 25mg PO daily IDDM Accuchecks A1C (04/2017)- 8.6 Resumed home medications: Januvia 25mg PO daily, Novolog 70/30- 5units TID ( usual home dose 5,8,8), Lantus 10 units QHS (usual home dose = 15) ISS- low HLD Lipid Panel- TG 522, - rest panel WNL Resumed home medications: Tricor 48 PO daily, Crestor 20 PO daily History of CAD PCI of the LAD and LCx on 02/26/2011 and the RCA on 03/29/2011. A coronary angiogram done in 2014 at [facility] [place] revealed patent all stents. A Persantine Myoview MPI at Dr. Mcmahan's office 04/2017 revealed normal perfusion to the LV myocardium ASA 81mg PO daily, Plavix 75mg PO daily Prophylactic Measures GI PPX: Protonix 40mg PO daily DVT PPX: SCDs, Lovenox 30mg SC daily PT Eval Case DW Dr. Sofie Whartoned PGY-1 <Kahlil Carrizales Jr. - Last Filed: 07/25/17 11:08> Objective - Vital Signs/Intake and Output Vital Signs (last 24 hours): Temp Pulse Resp BP Pulse Ox 98.4 F 66 20 150/67 96 07/24/17 16:00 07/24/17 16:00 07/24/17 16:00 07/24/17 16:00 07/24/17 16:00 - Labs Labs: 07/24/17 06:37 07/24/17 06:37 Attending/Attestation - Attestation I have personally seen and examined this patient.: Yes I have fully participated in the care of the patient.: Yes I have reviewed all pertinent clinical information, including history, physical exam and plan: Yes Notes (Text): 07/25/17 11:08 Agree with resident note and plan of care
[2017-07-23] MEDS: (Lantus) Insulin Glargine, Recombinant SC SCH (17:33)
[2017-07-24 06:49] LABS: BASO % 0.3 % (0.0-2.0); EOS # 0.1 K/uL (0.0-0.7); EOS % 0.7 % (0.0-4.0); HEMATOCRIT 30.5 % (34.0-47.0); LYMPH % 23.6 % (20.0-40.0); MEAN CELL VOLUME 90.1 fL (81.0-99.0); MEAN CORPUSCULAR HEMOGLOBIN 30.7 pg (27.0-31.0); MEAN PLATELET VOLUME 10.6 fL (7.2-11.7); MONO # 1.2 K/uL (0.0-0.8); MONO % 9.3 % (0.0-10.0); RED CELL DISTRIBUTION WIDTH 14.6 % (11.5-14.5); WHITE BLOOD COUNT 12.5 K/uL (4.8-10.8)
[2017-07-24 07:05] LABS: POTASSIUM 3.5 mmol/L (3.6-5.2)
[2017-07-24 07:07] LABS: BILIRUBIN,TOTAL 0.4 mg/dL (0.2-1.3)
[2017-07-24 07:08] LABS: ALB/GLOB RATIO 1.1 (1.0-2.1); CALCIUM 9.1 mg/dl (8.6-10.4); PHOSPHOROUS 3.4 mg/dL (2.5-4.5); TOTAL PROTEIN 7.3 g/dL (6.3-8.3)
[2017-07-24] MEDS: (Novolin R) Insulin Human Regular 100 units/ml vial SC SCH ×3 (07:34→17:29)
[2017-07-24] MEDS: (Novolog) Insulin Aspart, Recombinant 100 u/ml 10 ml vial SC SCH ×3 (08:13→17:29)
[2017-07-24] MEDS: Enoxaparin 30 mg Syringe SC SCH (09:56)
--- NOTE | 2017-07-24 12:09 | CARD ---
APPROVED REPORT EKG Measurement Heart [id number] ND [id number] [id number] <Conclusion> Unusual P axis, possible ectopic atrial rhythm Left axis deviation Left bundle branch block Abnormal ECG
[2017-07-24] MEDS: Potassium Chloride 20 mEq ER Tab PO ONE ×2 (12:21→12:22)
[2017-07-24] MEDS ORDERED: Potassium Chloride 20 mEq ER Tab PO ONE (12:30)
[2017-07-24 17:37] VITALS: BP 150/67; PULSE 66; RESP 20; TEMP 98.4; O2SAT 96
--- NOTE | 2017-07-24 17:49 | CP.PCM.DIS ---
Provider - Provider Date of Admission: 07/22/17 09:44 Attending physician: Kahlil Carrizales Jr, MD Time Spent in preparation of Discharge (in minutes): 35 Diagnosis - Discharge Diagnosis (1) Acute on chronic systolic (congestive) heart failure Status: Acute (2) Acute kidney injury superimposed on CKD Status: Acute (3) Hypertension Status: Chronic (4) Diabetes Status: Chronic (5) Hyperlipidemia Status: Chronic (6) History of coronary artery disease Status: Chronic (7) Prophylactic measure Status: Acute Hospital Course - Lab Results Lab Results: Micro Results 07/22/17 11:35 Blood-Venous Blood Culture - Preliminary NO GROWTH AFTER 48 HOURS 07/22/17 11:20 Blood-Venous Blood Culture - Preliminary NO GROWTH AFTER 48 HOURS 07/22/17 Unknown Urine,Clean Catch Urine Culture - Final No Growth (<1,000 CFU/ML) Most Recent Lab Values WBC 12.5 K/uL (4.8-10.8) H 07/24/17 06:37 RBC 3.38 Mil/uL (3.80-5.20) L 07/24/17 06:37 Hgb 10.4 g/dL (11.0-16.0) L 07/24/17 06:37 Hct 30.5 % (34.0-47.0) L 07/24/17 06:37 MCV 90.1 fL (81.0-99.0) 07/24/17 06:37 MCH 30.7 pg (27.0-31.0) 07/24/17 06:37 MCHC 34.0 g/dL (33.0-37.0) 07/24/17 06:37 RDW 14.6 % (11.5-14.5) H 07/24/17 06:37 Plt Count 169 K/uL (130-400) 07/24/17 06:37 MPV 10.6 fL (7.2-11.7) 07/24/17 06:37 Neut % (Auto) 66.1 % (50.0-75.0) 07/24/17 06:37 Lymph % (Auto) 23.6 % (20.0-40.0) 07/24/17 06:37 [place] % (Auto) 9.3 % (0.0-10.0) 07/24/17 06:37 Eos % (Auto) 0.7 % (0.0-4.0) 07/24/17 06:37 Baso % (Auto) 0.3 % (0.0-2.0) 07/24/17 06:37 Neut # 8.3 K/uL (1.8-7.0) H 07/24/17 06:37 Lymph # 3.0 K/uL (1.0-4.3) 07/24/17 06:37 [place] # 1.2 K/uL (0.0-0.8) H 07/24/17 06:37 Eos # 0.1 K/uL (0.0-0.7) 07/24/17 06:37 Baso # 0.0 K/uL (0.0-0.2) 07/24/17 06:37 Sodium 140 mmol/L (132-148) 07/24/17 06:37 Potassium 3.5 mmol/L (3.6-5.2) L 07/24/17 06:37 Chloride 101 mmol/L (98-107) 07/24/17 06:37 Carbon Dioxide 25 mmol/L (22-30) 07/24/17 06:37 Anion Gap 18 (10-20) 07/24/17 06:37 BUN 65 mg/dL (7-17) H 07/24/17 06:37 Creatinine 2.6 mg/dL (0.7-1.2) H 07/24/17 06:37 Est GFR ( Amer) 21 07/24/17 06:37 Est GFR (Non-Af Amer) 18 07/24/17 06:37 POC Glucose (mg/dL) 200 mg/dL (65-110) H 07/24/17 16:27 Random Glucose 93 mg/dL (65-105) 07/24/17 06:37 Calcium 9.1 mg/dl (8.6-10.4) 07/24/17 06:37 Phosphorus 3.4 mg/dL (2.5-4.5) 07/24/17 06:37 Magnesium 2.0 mg/dL (1.6-2.3) 07/24/17 06:37 Total Bilirubin 0.4 mg/dL (0.2-1.3) 07/24/17 06:37 AST 30 U/L (14-36) 07/24/17 06:37 ALT 42 U/L (9-52) 07/24/17 06:37 Alkaline Phosphatase 47 U/L (38-126) 07/24/17 06:37 Troponin I 0.0490 ng/mL (0.00-0.120) 07/22/17 08:16 NT-Pro-B Natriuret Pep 6060 pg/mL (0-900) H 07/22/17 08:16 Total Protein 7.3 g/dL (6.3-8.3) 07/24/17 06:37 Albumin 3.9 g/dL (3.5-5.0) 07/24/17 06:37 Globulin 3.4 gm/dL (2.2-3.9) 07/24/17 06:37 Albumin/Globulin Ratio 1.1 (1.0-2.1) 07/24/17 06:37 Urine Color Straw (YELLOW) 07/22/17 15:16 Urine Clarity Clear (Clear) 07/22/17 15:16 Urine pH 5.0 (5.0-8.0) 07/22/17 15:16 Ur Specific [place] 1.005 (1.003-1.030) 07/22/17 15:16 Urine Protein 2+ mg/dL (NEGATIVE) H 07/22/17 15:16 Urine Glucose (UA) 3+ mg/dL (Normal) H 07/22/17 15:16 Urine Ketones Negative mg/dL (NEGATIVE) 07/22/17 15:16 Urine Blood 1+ (NEGATIVE) H 07/22/17 15:16 Urine Nitrate Negative (NEGATIVE) 07/22/17 15:16 Urine Bilirubin Negative (NEGATIVE) 07/22/17 15:16 Urine Urobilinogen Normal mg/dL (0.2-1.0) 07/22/17 15:16 Ur Leukocyte Esterase Neg Simon/uL (Negative) 07/22/17 15:16 Urine WBC (Auto) < 1 /hpf (0-5) 07/22/17 15:16 Urine RBC (Auto) 5 /hpf (0-3) H 07/22/17 15:16 Ur Squamous Epith Cells < 1 /hpf (0-5) 07/22/17 15:16 Influenza Typ A,B (EIA) Negative for flu a/b (NEGATIVE) 07/22/17 08:31 Ur L.pneumophila Ag Negative (NEGATIVE) 07/22/17 19:43 - Hospital Course Hospital Course: On admission: "86 F with PMHx of Systolic Congestive Heart Failure, CKD stage 4, HTN, IDDM, HLD Ischemic Cardiomyopathy, Hx CAD with 2 stents presents to the ED with shortness of breath that started this morning. She was seen by her PMD x2 weeks ago for a nonproductive cough. She was prescribed a cough syrup which she states did not help. She feels like she has to cough up phlegm but is unable to. Denied fever, chills, fatigue, weakness, or muscles aches. This morning she was getting out of bed and she felt SOB. She lives with her daughter, so her daughter came to the room and saw how SOB she was and called 911. Patient reports at baseline she is able to ambulate on her own and her breathing is just fine. Denied fever, chills, headache, chest pain, abdominal pain, n/v/d/c , or urinary symptoms." Hospital Course: Patient was admitted for acute exacerbation of systolic CHF. Patient was diuresed with Lasix 40 mg IV Q12H and kept on Vapotherm 50% O2 delivered at 40L/hr for her dyspnea. Respiratory status improved and patient tolerated physical therapy well. Patient is for Home with Home Services for Physical Therapy provided by [facility]. This is a summary of the hospital course. For more information, refer to the medical records. Discharge Exam - Head Exam Head Exam: ATRAUMATIC, NORMOCEPHALIC - Eye Exam Eye Exam: EOMI, PERRL - ENT Exam ENT Exam: Mucous Membranes Moist - Respiratory Exam Respiratory Exam: Clear to PA & Lateral, NORMAL BREATHING PATTERN. absent: Rales, Rhonchi - Cardiovascular Exam Cardiovascular Exam: REGULAR RHYTHM, +S1, +S2 - GI/Abdominal Exam GI & Abdominal Exam: Normal Bowel Sounds, Soft. absent: Tenderness - Extremities Exam Extremities exam: pedal pulses present - Neurological Exam Neurological exam: Alert, CN II-XII Intact, Oriented x3 - Psychiatric Exam Psychiatric exam: Normal Affect, Normal Mood - Skin Skin Exam: Dry, Intact, Normal Color, Warm Discharge Plan - Follow Up Plan Condition: STABLE Disposition: HOME/ ROUTINE Instructions: Heart Failure (DC), Heart Healthy Diet (DC) Additional Instructions: Follow up with Dr. Mcmahan within 3 days. Continue all home medications. If there are any new or worsening symptoms, please return to the emergency room. You are going home with home physical therapy services provided through [facility] who will contact you after discharge. Home with Home Physical Therapy Referrals: Joe Mcmahan MD [Staff Provider] - Clinical Quality Measures - CQM - Heart Failure Ejection Fraction: Less Than 40 % Left Ventricular Function to be assessed after discharge: Yes LENO Inhibitor Prescribed: No Contraindication/Reason for not providing: ARB instead Beta-Dinh Prescribed: Carvedilol Angiotensin II Receptor Dinh Prescribed: Yes AnticoagulationTherapy for Atrial Fibrillation/Atrialflutter: No Contraindication/Reason for not providing: not indicated Aldosterone Antagonist Prescribed: No Contraindication/Reason for not providing: not indicated Hydralazine Nitrate Prescribed: No Contraindication/Reason for not providing: not indicated Implantable Cardioverter Defibrillator Therapy: No Contraindication/Reason for not providing: not indicated Cardiac Resynchronization Therapy Prescribed: No Contraindication/Reason for not providing: not indicated Will be discharged to: Home Follow Up Date (must be within 7 days from discharge): 07/31/17 Follow Up Time: 09:00
[2017-07-25] MEDS ORDERED: Pneumococcal 23-Valent Vaccine IM ONE (10:00)
[2017-07-25] MEDS ORDERED: Influenza Vaccine 60 mcg/0.5 mL SYR (4YR UP) IM ONE (10:00)
== END 2017-07-24 19:40 | disposition home or self-care (01) ==
LOC: C.ER 07:51 → C.6T 09:44
PROVIDERS: ADMIT Internal Medicine; ATTEND Internal Medicine
DX: I13.0 Hypertensive heart and chronic kidney disease with heart failure and stage 1 through stage 4 chronic kidney disease, or unspecified chronic kidney disease (principal); I50.23 Acute on chronic systolic (congestive) heart failure; I25.5 Ischemic cardiomyopathy; Z79.4 Long term (current) use of insulin; E78.5 Hyperlipidemia, unspecified; N18.4 Chronic kidney disease, stage 4 (severe); I25.10 Atherosclerotic heart disease of native coronary artery without angina pectoris; Z95.5 Presence of coronary angioplasty implant and graft
CPT/HCPCS: 36415; 71010; 80053; 81001; 82948; 83735; 83880; 84100; 84484; 85025; 86738; 87040; 87086; 87449; 87804; 87899; 93005; 94640; 94660; 96374; 97116; 97162; 97530; 99285; G0378; G8978; G8979; J1650; J1940; J2930

== ENCOUNTER 2017-08-12 07:31 | Inpatient (IN) | payer MEDICARE ==
--- NOTE | 2017-08-12 07:38 | C.PDOC ---
History Of Present Illness 86 y/o female, with PMHx of HTN, hyperlipidemia, CHF, chronic kidney disease is brought to ED by EMS for evaluation of respiratory distress. As per EMS, pt was feeling short of breath since yesterday, called ems. upon ems arrival, pt was placed on BIPAP, and was given nitro as per EMS. upon ed arrival, pt status improved, pt tolerating bipap Pt states that her Lasix dose was decreased recently. Otherwise, denies chest pain, cough, sputum, fever, or any other complaints. Time Seen by Provider: 08/12/17 07:32 Chief Complaint (Nursing): Shortness Of Breath History Per: Patient, EMS History/Exam Limitations: no limitations Onset/Duration Of Symptoms: Days (1) Current Symptoms Are (Timing): Still Present Current Respiratory Medications: See Home Med List Severity: None Pain Scale Rating Of: 0 Associated Symptoms: denies: Fever, Chills, Sweating, Chest Pain, Bloody Cough, Productive Cough, Heart Racing, Leg/Calf Pain, Ankle/Leg Swelling, Dizziness, Light-headedness, Anxiety, Tingling In Hands Or Face, Musle Spasms In Hands Or Feet Recent travel outside of the [place]: No Additional History Per: Patient Past Medical History Reviewed: Historical Data, Nursing Documentation, Vital Signs Vital Signs: Last Vital Signs Temp 97.4 F L 08/12/17 10:05 Pulse 78 08/12/17 11:23 Resp 20 08/12/17 11:23 BP 126/66 08/12/17 11:23 Pulse Ox 100 08/12/17 11:48 - Medical History PMH: CHF, Diabetes, HTN, Hypercholesterolemia, Hyperlipidemia, Chronic Kidney Disease Surgical History: Coronary Stent Family History: States: Unknown Family Hx, CAD (aunt) - Social History Hx Tobacco Use: No Hx Alcohol Use: No Hx Substance Use: No - Immunization History Hx Tetanus Toxoid Vaccination: Yes Hx Influenza Vaccination: Yes Hx Pneumococcal Vaccination: Yes Review Of Systems Except As Marked, All Systems Reviewed And Found Negative. Constitutional: Negative for: Fever, Chills Cardiovascular: Negative for: Chest Pain, Palpitations Respiratory: Positive for: Shortness of Breath. Negative for: Cough, Hemoptysis Gastrointestinal: Negative for: Nausea, Vomiting, Abdominal Pain Neurological: Negative for: Headache, Dizziness Physical Exam - Physical Exam Appears: Non-toxic, No Acute Distress Skin: Normal Color, Warm, Dry Head: Atraumatic, Normacephalic Eye(s): bilateral: Normal Inspection Oral Mucosa: Moist Neck: Normal ROM, Supple Chest: Symmetrical Cardiovascular: Rhythm Regular, No Murmur Respiratory: Rales (b/l), Rhonchi (b/l), No Wheezing Gastrointestinal/Abdominal: Soft, No Tenderness Extremity: Normal ROM, Pedal Edema (b/l) Neurological/Psych: Oriented x3, Normal Speech ED Course And Treatment - Laboratory Results Result Diagrams: 08/12/17 07:47 08/12/17 07:47 ECG: Interpreted By Me, Viewed By Me ECG Rhythm: Sinus Rhythm ECG Interpretation: No Changes From Prior Interpretation Of ECst degree AV block. Old LBBB. Non-specific ST/T wave changes. No interval changes from prior. Rate From EC (bpm) O2 Sat by Pulse Oximetry: 100 (RA) Pulse Ox Interpretation: Normal Critical Care Time - Critical Care Note Total Time (in mins): 40 Documented critical care: time excludes all time spent performing seperately billable procedures. Medical Decision Making Medical Decision Making: chf exacerbation - labs imaging pending, lasix Blood work, UA, EKG, CXR ordered and reviewed. lasix ordered Pt is tolerating BIPAP. Case discussed with Dr. Mcmahan, who accepts pt for TELE admission. noted mild leukoctyossi, similar to previous. cxr more suggestive of chf pattern , la neg. defer antibiotics at this time. after abg fio2 titrated down. Disposition - Disposition Disposition: HOSPITALIZED Disposition Time: 11:00 Condition: FAIR - Clinical Impression Clinical Impression: CHF (congestive heart failure) - Scribe Statement The provider has reviewed the documentation as recorded by the Scribe Julisa Padron All medical record entries made by the Scribe were at my direction and personally dictated by me. I have reviewed the chart and agree that the record accurately reflects my personal performance of the history, physical exam, medical decision making, and the department course for this patient. I have also personally directed, reviewed, and agree with the discharge instructions and disposition. Decision To Admit - Pt Status Changed To: Hospital Disposition Of: Inpatient - Admit Certification Admit to Inpatient:: After my assessment, the patient will require hospitalization for at least two midnights. This is because of the severity of symptoms shown, intensity of services needed, and/or the medical risk in this patient being treated as an outpatient. - InPatient: Physician Admission Certification: I certify that this patient requires 2 or more midnights of care for the following reason:: needs bipap - . Bed Request Type: Telemetry Admitting Physician: Joe Mcmahan Patient Diagnosis: CHF (congestive heart failure)
[2017-08-12 07:41] VITALS: BMI 22.3
[2017-08-12 07:55] LABS: BASO # 0.1 K/uL (0.0-0.2); BASO % 0.7 % (0.0-2.0); EOS # 0.1 K/uL (0.0-0.7); HEMATOCRIT 30.2 % (34.0-47.0); LYMPH # 2.4 K/uL (1.0-4.3); LYMPH % 16.9 % (20.0-40.0); MEAN CORPUSCULAR HEMOGLOBIN 30.1 pg (27.0-31.0); MEAN CORPUSCULAR HGB CONC 32.5 g/dL (33.0-37.0); MEAN PLATELET VOLUME 10.9 fL (7.2-11.7); MONO # 0.8 K/uL (0.0-0.8); MONO % 5.3 % (0.0-10.0); RED CELL DISTRIBUTION WIDTH 14.9 % (11.5-14.5); WHITE BLOOD COUNT 14.4 K/uL (4.8-10.8)
[2017-08-12 07:59] LABS: VENOUS BLOOD GAS BASE EXCESS -4.3 mmol/L (0.0-2.0); VENOUS BLOOD GAS PCO2 52 mmHg (40-60); VENOUS BLOOD PH 7.26 (7.32-7.43)
[2017-08-12 08:01] LABS: MEAN CELL VOLUME 92.8 fL (81.0-99.0)
[2017-08-12 08:08] LABS: INR 0.9
[2017-08-12 08:20] LABS: POTASSIUM 4.6 mmol/L (3.6-5.2)
[2017-08-12 08:22] LABS: BILIRUBIN,TOTAL 0.7 mg/dL (0.2-1.3)
[2017-08-12 08:23] LABS: ALB/GLOB RATIO 1.6 (1.0-2.1); CALCIUM 8.6 mg/dl (8.6-10.4); TOTAL PROTEIN 7.1 g/dL (6.3-8.3)
[2017-08-12] MEDS ORDERED: Albuterol-Ipratrop 3 mg / 0.5 (3 ml) UD INH STA ×2 (08:26→08:27)
--- NOTE | 2017-08-12 08:28 | RAD ---
PROCEDURE: CHEST RADIOGRAPH, 1 VIEW HISTORY: chest pain COMPARISON: 07/22/2017 FINDINGS: LUNGS: Diffuse increased interstitial lung markings which may represent underlying edema and or infiltrate. Small nodular density projects over the right upper to mid lung zone. Patchy consolidative changes at the left lung base. PLEURA: As above. CARDIOVASCULAR: Mild cardiomegaly. Calcification at the aortic knob. OSSEOUS STRUCTURES: Degenerative changes in the spine and shoulders. VISUALIZED UPPER ABDOMEN: Normal. OTHER FINDINGS: None. IMPRESSION: Diffuse increased interstitial lung markings which may represent underlying edema and or infiltrate. Small nodular density projects over the right upper to mid lung zone. Patchy consolidative changes at the left lung base.
[2017-08-12 08:35] LABS: TROPONIN I 0.04 ng/mL (0.00-0.120)
[2017-08-12] MEDS ORDERED: Albuterol-Ipratrop 3 mg / 0.5 (3 ml) UD ONE (08:40)
[2017-08-12 09:17] LABS: ABG ALLEN TEST POS; ARTERIAL BLOOD GAS MODE BiPAP; DRAW SITE RBA
[2017-08-12] MEDS: (Novolog) Insulin Aspart, Recombinant 100 u/ml 10 ml vial SC SCH ×3 (13:45→23:17)
[2017-08-12 14:16] LABS: IRON 41 ug/dL (37-170)
[2017-08-12 18:05] LABS: THYROID STIMULATING HORMONE 2.8 mIU/L (0.46-4.68)
--- NOTE | 2017-08-12 18:36 | CP.PCM.HP ---
History of Present Illness - History of Present Illness History of Present Illness: 86 years old female was brought by ambulance to the ED at complaining of increasing SOB for the past 1 day. She is known to have an ischemic cardiomyopathy, an IDDM, a gout, a S/P PCI, a stage 4 CKD, and a hyperlipidemia. She denies any chest pain. In the ED she was found to be in an acute CHF, was given Lasix 60 mg IV and placed on BIPAP with some improvement of her SOB. A routine blood test at my office 10 days ago revealed a BUN: 107 and a creatinine 4.4. Lasix abd Spironolactone were held for 5 days. Repeated blood test 3 days ago revealed a BUN 77 and a creatinine 3.3. Lasix was held for another 3 days. Present on Admission - Present on Admission Any Indicators Present on Admission: No Review of Systems - Constitutional Constitutional: Weight Gain, Weakness - Cardiovascular Cardiovascular: Dyspnea - Respiratory Respiratory: Dyspnea Past Patient History - Infectious Disease Hx of Infectious Diseases: None - Tetanus Immunizations Tetanus Immunization: Unknown - Past Medical History & Family History Past Medical History?: Yes - Past Social History Smoking Status: Former Smoker Alcohol: None Drugs: Denies Home Situation {Lives}: With Family - CARDIAC Hx Congestive Heart Failure: Yes Hx Hypercholesterolemia: Yes Hx Hypertension: Yes - PULMONARY Hx Respiratory Disorders: No - NEUROLOGICAL Hx Neurological Disorder: No - HEENT Hx HEENT Problems: No - RENAL Hx Chronic Kidney Disease: Yes - ENDOCRINE/METABOLIC Hx Diabetes Mellitus Type 2: Yes - MUSCULOSKELETAL/RHEUMATOLOGICAL Hx Falls: No - PSYCHIATRIC Hx Substance Use: No - SURGICAL HISTORY Hx Coronary Stent: Yes - ANESTHESIA Hx Anesthesia: Yes Hx Anesthesia Reactions: No Meds Allergies/Adverse Reactions: Allergies Allergy/AdvReac Type Severity Reaction Status Date / Time No Known Allergies Allergy Verified 04/23/17 10:59 Physical Exam - Constitutional Appears: No Acute Distress, Chronically Ill - Head Exam Head Exam: NORMAL INSPECTION - Eye Exam Eye Exam: Normal appearance - ENT Exam ENT Exam: Normal Exam - Respiratory Exam Respiratory Exam: Rales, Rhonchi Additional comments: Rales heard at both bases. - Cardiovascular Exam Cardiovascular Exam: REGULAR RHYTHM, Systolic Murmur - GI/Abdominal Exam GI & Abdominal Exam: Normal Bowel Sounds, Soft - Rectal Exam Rectal Exam: Deferred - Extremities Exam Extremities exam: Positive for: normal inspection - Back Exam Back exam: NORMAL INSPECTION - Neurological Exam Neurological exam: Alert, Oriented x3 - Psychiatric Exam Psychiatric exam: Anxious - Skin Skin Exam: Dry, Intact, Normal Color, Warm Results - Vital Signs Recent Vital Signs: Last Vital Signs Temp 98.1 F 08/12/17 15:40 Pulse 52 L 08/12/17 15:40 Resp 20 08/12/17 15:40 BP 153/61 H 08/12/17 17:56 Pulse Ox 100 08/12/17 15:40 - Labs Result Diagrams: 08/12/17 07:47 08/12/17 07:47 Labs: Laboratory Results - last 24 hr 08/12/17 08/12/17 08/12/17 07:38 07:47 07:47 WBC 14.4 H RBC 3.26 L Hgb 9.8 L Hct 30.2 L MCV 92.8 D MCH 30.1 MCHC 32.5 L RDW 14.9 H Plt Count 148 MPV 10.9 Neut % (Auto) 76.1 H Lymph % (Auto) 16.9 L [place] % (Auto) 5.3 Eos % (Auto) 1.0 Baso % (Auto) 0.7 Neut # 11.0 H Lymph # 2.4 [place] # 0.8 Eos # 0.1 Baso # 0.1 PT 10.6 INR 0.9 APTT 29 Puncture Site pCO2 pO2 HCO3 ABG pH ABG Total CO2 ABG O2 Saturation ABG Base Excess John Test ABG Potassium VBG pH VBG pCO2 VBG HCO3 VBG Total CO2 VBG O2 Sat (Calc) VBG Base Excess VBG Potassium A-a O2 Difference Respiratory Index Glucose Lactate Vent Mode FiO2 Inspiratory BiPAP Expiratory BiPAP Sodium Potassium Chloride Carbon Dioxide Anion Gap BUN Creatinine Est GFR ( Amer) Est GFR (Non-Af Amer) POC Glucose (mg/dL) 182 H Random Glucose Calcium Iron TIBC % Saturation Total Bilirubin AST ALT Alkaline Phosphatase Troponin I NT-Pro-B Natriuret Pep Total Protein Albumin Globulin Albumin/Globulin Ratio Free T4 Total T3 TSH 3rd Generation Arterial Blood Potassium Venous Blood Potassium 08/12/17 08/12/17 08/12/17 07:47 07:54 08:52 WBC RBC Hgb Hct MCV MCH MCHC RDW Plt Count MPV Neut % (Auto) Lymph % (Auto) [place] % (Auto) Eos % (Auto) Baso % (Auto) Neut # Lymph # [place] # Eos # Baso # PT INR APTT Puncture Site Rba pCO2 30 L pO2 18 L 503 H HCO3 20.6 L ABG pH 7.39 ABG Total CO2 19.1 L ABG O2 Saturation 98.1 H ABG Base Excess -5.6 L John Test Pos ABG Potassium 4.2 VBG pH 7.26 L VBG pCO2 52 VBG HCO3 19.5 VBG Total CO2 24.9 VBG O2 Sat (Calc) 30.5 L VBG Base Excess -4.3 L VBG Potassium 5.2 A-a O2 Difference 173.0 Respiratory Index 0.3 Glucose 183 H 165 H Lactate 0.6 L 0.6 L Vent Mode Bipap FiO2 100.0 Inspiratory BiPAP 12 Expiratory BiPAP 6 Sodium 138 140.0 140.0 Potassium 4.6 Chloride 106 111.0 H 115.0 H Carbon Dioxide 20 L Anion Gap 17 BUN 56 H Creatinine 3.0 H Est GFR ( Amer) 18 Est GFR (Non-Af Amer) 15 POC Glucose (mg/dL) Random Glucose 164 H Calcium 8.6 Iron TIBC % Saturation Total Bilirubin 0.7 AST 65 H D ALT 53 H D Alkaline Phosphatase 60 Troponin I 0.0400 NT-Pro-B Natriuret Pep 6570 H Total Protein 7.1 Albumin 4.4 Globulin 2.7 Albumin/Globulin Ratio 1.6 Free T4 Total T3 TSH 3rd Generation Arterial Blood Potassium 4.2 Venous Blood Potassium 5.2 08/12/17 08/12/17 08/12/17 11:30 13:48 16:46 WBC RBC Hgb Hct MCV MCH MCHC RDW Plt Count MPV Neut % (Auto) Lymph % (Auto) [place] % (Auto) Eos % (Auto) Baso % (Auto) Neut # Lymph # [place] # Eos # Baso # PT INR APTT Puncture Site pCO2 pO2 HCO3 ABG pH ABG Total CO2 ABG O2 Saturation ABG Base Excess John Test ABG Potassium VBG pH VBG pCO2 VBG HCO3 VBG Total CO2 VBG O2 Sat (Calc) VBG Base Excess VBG Potassium A-a O2 Difference Respiratory Index Glucose Lactate Vent Mode FiO2 Inspiratory BiPAP Expiratory BiPAP Sodium Potassium Chloride Carbon Dioxide Anion Gap BUN Creatinine Est GFR ( Amer) Est GFR (Non-Af Amer) POC Glucose (mg/dL) 231 H 182 H Random Glucose Calcium Iron 41 TIBC 423 % Saturation 10 L Total Bilirubin AST ALT Alkaline Phosphatase Troponin I NT-Pro-B Natriuret Pep Total Protein Albumin Globulin Albumin/Globulin Ratio Free T4 Total T3 TSH 3rd Generation Arterial Blood Potassium Venous Blood Potassium 08/12/17 08/12/17 17:09 17:09 WBC RBC Hgb Hct MCV MCH MCHC RDW Plt Count MPV Neut % (Auto) Lymph % (Auto) [place] % (Auto) Eos % (Auto) Baso % (Auto) Neut # Lymph # [place] # Eos # Baso # PT INR APTT Puncture Site pCO2 pO2 HCO3 ABG pH ABG Total CO2 ABG O2 Saturation ABG Base Excess John Test ABG Potassium VBG pH VBG pCO2 VBG HCO3 VBG Total CO2 VBG O2 Sat (Calc) VBG Base Excess VBG Potassium A-a O2 Difference Respiratory Index Glucose Lactate Vent Mode FiO2 Inspiratory BiPAP Expiratory BiPAP Sodium Potassium Chloride Carbon Dioxide Anion Gap BUN Creatinine Est GFR ( Amer) Est GFR (Non-Af Amer) POC Glucose (mg/dL) Random Glucose Calcium Iron TIBC % Saturation Total Bilirubin AST ALT Alkaline Phosphatase Troponin I NT-Pro-B Natriuret Pep Total Protein Albumin Globulin Albumin/Globulin Ratio Free T4 1.33 Total T3 1.03 L TSH 3rd Generation 2.80 Arterial Blood Potassium Venous Blood Potassium Assessment & Plan (1) Acute on chronic systolic (congestive) heart failure Assessment and Plan: Admit patient to telemetry. Do serial serum TNI's. Continue Lasix 40 mg IV BID. Status: Acute (2) Acute on chronic renal failure Assessment and Plan: Renal evaluation with Dr Perez. Patient probably needs HD. Status: Acute (3) Anemia Assessment and Plan: Check stools for occult blood. serum ferritin level. Status: Chronic (4) Uncontrolled insulin dependent diabetes mellitus Assessment and Plan: To control blood glucose according to Accucheck findings. Status: Chronic Decision To Admit - Pt Status Changed To: Hospital Disposition Of: Inpatient - Admit Certification Admit to Inpatient:: After my assessment, the patient will require hospitalization for at least two midnights. This is because of the severity of symptoms shown, intensity of services needed, and/or the medical risk in this patient being treated as an outpatient. - InPatient: Physician Admission Certification:: After my assessments, the patient requires hospitalization for at least 2 midnights. - . Bed Request Type: Telemetry Admitting Physician: Joe Mcmahan
[2017-08-12 18:45] LABS: TROPONIN I 0.085 ng/mL (0.00-0.120)
--- NOTE | 2017-08-12 18:45 | CP.PCM.CON ---
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 c/w lasix 40 mg po bid c/w current meds check po4, pth intact level Past Patient History - Infectious Disease Hx of Infectious Diseases: None - Tetanus Immunizations Tetanus Immunization: Unknown - Past Medical History & Family History Past Medical History?: Yes - Past Social History Smoking Status: Former Smoker Alcohol: None Drugs: Denies Home Situation {Lives}: With Family - CARDIAC Hx Congestive Heart Failure: Yes Hx Hypercholesterolemia: Yes Hx Hypertension: Yes - PULMONARY Hx Respiratory Disorders: No - NEUROLOGICAL Hx Neurological Disorder: No - HEENT Hx HEENT Problems: No - RENAL Hx Chronic Kidney Disease: Yes - ENDOCRINE/METABOLIC Hx Diabetes Mellitus Type 2: Yes - MUSCULOSKELETAL/RHEUMATOLOGICAL Hx Falls: No - PSYCHIATRIC Hx Substance Use: No - SURGICAL HISTORY Hx Coronary Stent: Yes - ANESTHESIA Hx Anesthesia: Yes Hx Anesthesia Reactions: No Meds Allergies/Adverse Reactions: Allergies Allergy/AdvReac Type Severity Reaction Status Date / Time No Known Allergies Allergy Verified 04/23/17 10:59 - Medications Medications: Current Medications Allopurinol (Zyloprim) 100 mg PO DAILY [facility] Aspirin (Ecotrin) 81 mg PO DAILY [facility] Last Admin: 08/12/17 11:32 Dose: 81 mg Calcitriol (Rocaltrol) 0.25 mcg PO DAILY [facility] Carvedilol (Coreg) 6.25 mg PO BID [facility] Last Admin: 08/12/17 18:32 Dose: Not Given Docusate Sodium (Colace) 100 mg PO BID PRN PRN Reason: Constipation Furosemide (Lasix) 40 mg IVP BID [facility] Last Admin: 08/12/17 17:56 Dose: 40 mg Heparin Sodium (Porcine) (Heparin) 5,000 units SC Q8 [facility] Last Admin: 08/12/17 13:45 Dose: 5,000 units Hydralazine HCl (Apresoline) 25 mg PO BID [facility] Last Admin: 08/12/17 18:31 Dose: Not Given Insulin Aspart (Novolog) 0 unit SC ACHS [facility] PRN Reason: Protocol Last Admin: 08/12/17 17:30 Dose: 1 unit Sitagliptin Phosphate (Januvia) 25 mg PO DAILY [facility] Results - Vital Signs Recent Vital Signs: Last Vital Signs Temp 98.1 F 08/12/17 15:40 Pulse 52 L 08/12/17 15:40 Resp 20 08/12/17 15:40 BP 153/61 H 08/12/17 17:56 Pulse Ox 100 08/12/17 15:40 - Labs Result Diagrams: 08/12/17 07:47 08/12/17 07:47 Labs: Laboratory Results - last 24 hr 08/12/17 08/12/17 08/12/17 07:38 07:47 07:47 WBC 14.4 H RBC 3.26 L Hgb 9.8 L Hct 30.2 L MCV 92.8 D MCH 30.1 MCHC 32.5 L RDW 14.9 H Plt Count 148 MPV 10.9 Neut % (Auto) 76.1 H Lymph % (Auto) 16.9 L [place] % (Auto) 5.3 Eos % (Auto) 1.0 Baso % (Auto) 0.7 Neut # 11.0 H Lymph # 2.4 [place] # 0.8 Eos # 0.1 Baso # 0.1 PT 10.6 INR 0.9 APTT 29 Puncture Site pCO2 pO2 HCO3 ABG pH ABG Total CO2 ABG O2 Saturation ABG Base Excess John Test ABG Potassium VBG pH VBG pCO2 VBG HCO3 VBG Total CO2 VBG O2 Sat (Calc) VBG Base Excess VBG Potassium A-a O2 Difference Respiratory Index Glucose Lactate Vent Mode FiO2 Inspiratory BiPAP Expiratory BiPAP Sodium Potassium Chloride Carbon Dioxide Anion Gap BUN Creatinine Est GFR ( Amer) Est GFR (Non-Af Amer) POC Glucose (mg/dL) 182 H Random Glucose Calcium Iron TIBC % Saturation Total Bilirubin AST ALT Alkaline Phosphatase Troponin I NT-Pro-B Natriuret Pep Total Protein Albumin Globulin Albumin/Globulin Ratio Free T4 Total T3 TSH 3rd Generation Arterial Blood Potassium Venous Blood Potassium 08/12/17 08/12/17 08/12/17 07:47 07:54 08:52 WBC RBC Hgb Hct MCV MCH MCHC RDW Plt Count MPV Neut % (Auto) Lymph % (Auto) [place] % (Auto) Eos % (Auto) Baso % (Auto) Neut # Lymph # [place] # Eos # Baso # PT INR APTT Puncture Site Rba pCO2 30 L pO2 18 L 503 H HCO3 20.6 L ABG pH 7.39 ABG Total CO2 19.1 L ABG O2 Saturation 98.1 H ABG Base Excess -5.6 L John Test Pos ABG Potassium 4.2 VBG pH 7.26 L VBG pCO2 52 VBG HCO3 19.5 VBG Total CO2 24.9 VBG O2 Sat (Calc) 30.5 L VBG Base Excess -4.3 L VBG Potassium 5.2 A-a O2 Difference 173.0 Respiratory Index 0.3 Glucose 183 H 165 H Lactate 0.6 L 0.6 L Vent Mode Bipap FiO2 100.0 Inspiratory BiPAP 12 Expiratory BiPAP 6 Sodium 138 140.0 140.0 Potassium 4.6 Chloride 106 111.0 H 115.0 H Carbon Dioxide 20 L Anion Gap 17 BUN 56 H Creatinine 3.0 H Est GFR ( Amer) 18 Est GFR (Non-Af Amer) 15 POC Glucose (mg/dL) Random Glucose 164 H Calcium 8.6 Iron TIBC % Saturation Total Bilirubin 0.7 AST 65 H D ALT 53 H D Alkaline Phosphatase 60 Troponin I 0.0400 NT-Pro-B Natriuret Pep 6570 H Total Protein 7.1 Albumin 4.4 Globulin 2.7 Albumin/Globulin Ratio 1.6 Free T4 Total T3 TSH 3rd Generation Arterial Blood Potassium 4.2 Venous Blood Potassium 5.2 08/12/17 08/12/17 08/12/17 11:30 13:48 16:46 WBC RBC Hgb Hct MCV MCH MCHC RDW Plt Count MPV Neut % (Auto) Lymph % (Auto) [place] % (Auto) Eos % (Auto) Baso % (Auto) Neut # Lymph # [place] # Eos # Baso # PT INR APTT Puncture Site pCO2 pO2 HCO3 ABG pH ABG Total CO2 ABG O2 Saturation ABG Base Excess John Test ABG Potassium VBG pH VBG pCO2 VBG HCO3 VBG Total CO2 VBG O2 Sat (Calc) VBG Base Excess VBG Potassium A-a O2 Difference Respiratory Index Glucose Lactate Vent Mode FiO2 Inspiratory BiPAP Expiratory BiPAP Sodium Potassium Chloride Carbon Dioxide Anion Gap BUN Creatinine Est GFR ( Amer) Est GFR (Non-Af Amer) POC Glucose (mg/dL) 231 H 182 H Random Glucose Calcium Iron 41 TIBC 423 % Saturation 10 L Total Bilirubin AST ALT Alkaline Phosphatase Troponin I NT-Pro-B Natriuret Pep Total Protein Albumin Globulin Albumin/Globulin Ratio Free T4 Total T3 TSH 3rd Generation Arterial Blood Potassium Venous Blood Potassium 08/12/17 08/12/17 17:09 17:09 WBC RBC Hgb Hct MCV MCH MCHC RDW Plt Count MPV Neut % (Auto) Lymph % (Auto) [place] % (Auto) Eos % (Auto) Baso % (Auto) Neut # Lymph # [place] # Eos # Baso # PT INR APTT Puncture Site pCO2 pO2 HCO3 ABG pH ABG Total CO2 ABG O2 Saturation ABG Base Excess John Test ABG Potassium VBG pH VBG pCO2 VBG HCO3 VBG Total CO2 VBG O2 Sat (Calc) VBG Base Excess VBG Potassium A-a O2 Difference Respiratory Index Glucose Lactate Vent Mode FiO2 Inspiratory BiPAP Expiratory BiPAP Sodium Potassium Chloride Carbon Dioxide Anion Gap BUN Creatinine Est GFR ( Amer) Est GFR (Non-Af Amer) POC Glucose (mg/dL) Random Glucose Calcium Iron TIBC % Saturation Total Bilirubin AST ALT Alkaline Phosphatase Troponin I NT-Pro-B Natriuret Pep Total Protein Albumin Globulin Albumin/Globulin Ratio Free T4 1.33 Total T3 1.03 L TSH 3rd Generation 2.80 Arterial Blood Potassium Venous Blood Potassium
[2017-08-12 23:05] LABS: RBC URINE < 1 /hpf (0-3); TRANSITIONAL EPITHIAL < 1 /hpf (0-3); URINE BACTERIA RARE (<OCC); URINE BILIRUBIN NEGATIVE (NEGATIVE); URINE BLOOD 1+ (NEGATIVE); URINE COLOR Yellow (YELLOW); URINE GLUCOSE (UA) 2+ mg/dL (Normal); URINE KETONE NEGATIVE (NEGATIVE); URINE LEUKOCYTE ESTERASE NEG Leu/uL (Negative); URINE PROTEIN 1+ mg/dL (NEGATIVE); URINE UROBILINOGEN NORMAL mg/dL (0.2-1.0); WBC URINE 1 /hpf (0-5)
[2017-08-13] MEDS: (Novolog) Insulin Aspart, Recombinant 100 u/ml 10 ml vial SC SCH ×4 (07:54→21:29)
[2017-08-13 08:40] LABS: FOLATE > 20.0 ng/mL
--- NOTE | 2017-08-13 09:10 | CON ---
RENAL CONSULTATION DATE: LOCATION: The patient is located in room 551, . REQUESTED BY: Joe Mcmahan MD. REASON FOR FOLLOWUP: Chronic kidney disease for further evaluation. HISTORY OF PRESENT ILLNESS: Ms. Dsouza is an 86-year-old very pleasant, elderly [place] female with a past medical history significant for longstanding hypertension, hyperlipidemia, diabetes, CHF, chronic kidney disease, and nephrotic-range proteinuria who was feeling short of breath since yesterday and EMS was called and the patient was placed on BiPAP and brought to the emergency room for further management. As per the patient, she was on Lasix and the Lasix dose was decreased recently. Denies any chest pain. Denies any palpitation. Denies any cough. Denies any fever or chills. Denies any sputum production. Denies any dysuria or frequency. Denies any swelling of the legs. PAST MEDICAL HISTORY: Significant for longstanding hypertension, diabetes, hyperlipidemia, CHF, chronic kidney disease, and nephrotic-range proteinuria. PAST SURGICAL HISTORY: Status post coronary stents and CAD. ALLERGIES: NO KNOWN DRUG ALLERGIES. FAMILY HISTORY: Not significant. SOCIAL HISTORY: No smoking. No alcohol. No drugs. IMMUNIZATION HISTORY: Influenza vaccine received and pneumococcal vaccine was received and tetanus toxoid vaccine was given. REVIEW OF SYSTEMS: Significant for shortness of breath. All other review of systems are reviewed and are negative. CURRENT MEDICATIONS: Include as follows; hydralazine 25 mg p.o. b.i.d., Colace 100 mg p.o. b.i.d., Coreg 6.25 mg p.o. b.i.d., aspirin 81 mg daily, heparin subcutaneously 5000 q.8 hours, Januvia 25 mg p.o. daily, Lasix 40 mg IV b.i.d., Rocaltrol 0.25 mcg p.o. daily, and allopurinol 100 mg p.o. daily. PHYSICAL EXAMINATION: GENERAL: Ms. Dsouza is an 86-year-old elderly female, moderately built, moderately nourished, and not in distress. VITAL SIGNS: As follows: Blood pressure 124/61, pulse 52, respirations 20, temperature is 98.1, saturation 100%, height 5 feet, and weight is 114 pounds. HEENT: Pupils normal reactive to light and accommodation. Conjunctivae pink. Sclerae anicteric. Tongue is moist. Trachea is midline. LUNGS: Symmetric on both sides. Bilateral breath sounds present. Occasional basal crackle is present. CARDIOVASCULAR: [place] at the sixth intercostal space, midclavicular line. S1 and S2 audible. No murmur or gallop. ABDOMEN: Normal in appearance, soft, and tympanic. No guarding. No rigidity. No hepatosplenomegaly. CENTRAL NERVOUS SYSTEM: The patient is alert, awake, and oriented x3. Nonfocal neuro examination. Cranial nerves II through XII grossly intact. Sensory and motor system is within normal limits. EXTREMITIES: No cyanosis. No clubbing. No edema. LABORATORY DATA: Her current laboratory data include as follows: As of 08/12/2017; WBC 14.4, hemoglobin 9.8, hematocrit 30.2, and platelets 148. ABG; pH of 7.39, pCO2 of 30, pO2 , bicarbonate is 20.6, and saturation is 98.1. Other laboratory data; sodium is 138, potassium is 4.6, chloride is 106, CO2 of 20, BUN 56, creatinine is 3, glucose 164, and calcium 8.6. Total bilirubin 0.7. AST is 65, ALT 53, and alkaline phosphatase 60. Troponin 0.04 and 0.085 and proBNP is 6572. Total protein 7.1. Albumin is 4.4. Free thyroxine is 1.33, TSH is 1.03 . Urinalysis; yellow clear, pH 5, specific gravity 1.009, urine protein 1+, glucose 2+, ketones negative, blood 1+, nitrites negative, bilirubin negative, urobilinogen is normal, leukocyte esterase is negative, and WBC 1. In summary, Ms. Dsouza chest x-ray as of 08/12/2017, diffuse increase interstitial lung markings, which may represent underlying edema and/or infiltrate, there is a small nodular density that projects over the right upper to mid lung zone. Passive consolidative changes at the left lung base. IMPRESSION: In summary, Ms. Dsouza is an 86-year-old elderly [place] female with history of longstanding hypertension, diabetes, congestive heart failure, coronary artery disease, status post stents, chronic kidney disease, and nephrotic-range proteinuria, was admitted with shortness of breath after decreasing the Lasix and also slightly elevated blood pressure on admission 162/114. 1. Renal failure. Chronic kidney disease, stage IV most likely secondary to diabetic nephropathy with nephrotic-range proteinuria from the previous office workup. 2. Hypertension. 3. Diabetes. 4. Rule out congestive heart failure. PLAN: Continue gentle diuresis, Lasix 40 mg b.i.d., and continue to monitor chest x-ray. Continue to monitor Accu-Cheks. We will follow with you. Thank you for allowing me to participate in your patient's care and also check phosphorus and PTH intact level. No need for emergency dialysis at this time. Sergo Carter MD
[2017-08-13 09:27] LABS: BASO # 0.1 K/uL (0.0-0.2); BASO % 0.9 % (0.0-2.0); EOS # 0.1 K/uL (0.0-0.7); EOS % 0.5 % (0.0-4.0); HEMATOCRIT 31.4 % (34.0-47.0); LYMPH # 3.4 K/uL (1.0-4.3); LYMPH % 21.6 % (20.0-40.0); MEAN CELL VOLUME 92.2 fL (81.0-99.0); MEAN CORPUSCULAR HGB CONC 32.5 g/dL (33.0-37.0); MEAN PLATELET VOLUME 11.1 fL (7.2-11.7); MONO # 1.3 K/uL (0.0-0.8); MONO % 8.6 % (0.0-10.0); RED CELL DISTRIBUTION WIDTH 15.4 % (11.5-14.5); WHITE BLOOD COUNT 15.6 K/uL (4.8-10.8)
[2017-08-13 09:35] LABS: CHLORIDE 102 mmol/L (98-107)
[2017-08-13 09:36] LABS: POTASSIUM 3.6 mmol/L (3.6-5.2); SODIUM 138 mmol/L (132-148)
[2017-08-13 09:38] LABS: ALB/GLOB RATIO 1.5 (1.0-2.1); AST/SGOT 65 U/L (14-36); BILIRUBIN,TOTAL 0.9 mg/dL (0.2-1.3); BLOOD UREA NITROGEN 67 mg/dL (7-17); CARBON DIOXIDE 23 mmol/L (22-30); GFR AFRICAN-AMERICAN 17; TOTAL PROTEIN 6.9 g/dL (6.3-8.3)
[2017-08-13 09:39] LABS: ALKALINE PHOSPHATASE 43 U/L (38-126); ALT/SGPT 49 U/L (9-52); CALCIUM 8.7 mg/dl (8.6-10.4); GLUCOSE,RANDOM 111 mg/dL (65-105)
--- NOTE | 2017-08-13 19:15 | CP.PCM.PN ---
Subjective - Date & Time of Evaluation Date of Evaluation: 08/13/17 Time of Evaluation: 19:14 - Subjective Subjective: pt is seen and examined, follow up consult is dictated #[id number] Objective - Vital Signs/Intake and Output Vital Signs (last 24 hours): Temp Pulse Resp BP Pulse Ox 97.1 F L 74 12 105/62 98 08/13/17 15:39 08/13/17 17:20 08/13/17 15:39 08/13/17 17:22 08/13/17 15:39 Intake and Output: 08/13/17 08/14/17 18:59 06:59 Intake Total 480 Balance 480 - Medications Medications: Current Medications Allopurinol (Zyloprim) 100 mg PO DAILY [facility] Last Admin: 08/13/17 09:47 Dose: 100 mg Aspirin (Ecotrin) 81 mg PO DAILY [facility] Last Admin: 08/13/17 09:47 Dose: 81 mg Calcitriol (Rocaltrol) 0.25 mcg PO DAILY [facility] Last Admin: 08/13/17 09:46 Dose: 0.25 mcg Carvedilol (Coreg) 6.25 mg PO BID [facility] Last Admin: 08/13/17 17:23 Dose: Not Given Docusate Sodium (Colace) 100 mg PO BID PRN PRN Reason: Constipation Last Admin: 08/13/17 09:47 Dose: 100 mg Furosemide (Lasix) 40 mg IVP BID [facility] Last Admin: 08/13/17 17:22 Dose: Not Given Heparin Sodium (Porcine) (Heparin) 5,000 units SC Q8 [facility] Last Admin: 08/13/17 13:53 Dose: 5,000 units Hydralazine HCl (Apresoline) 25 mg PO BID [facility] Last Admin: 08/13/17 17:23 Dose: Not Given Insulin Aspart (Novolog) 0 unit SC ACHS [facility] PRN Reason: Protocol Last Admin: 08/13/17 17:20 Dose: 1 unit Sitagliptin Phosphate (Januvia) 25 mg PO DAILY [facility] Last Admin: 08/13/17 09:47 Dose: 25 mg - Labs Labs: 08/13/17 09:20 08/13/17 07:06 PT 10.6 SECONDS (9.7-12.2) 08/12/17 07:47 INR 0.9 08/12/17 07:47 APTT 29 SECONDS (21-34) 08/12/17 07:47
--- NOTE | 2017-08-13 23:24 | CP.PCM.PN ---
Subjective - Date & Time of Evaluation Date of Evaluation: 08/13/17 Time of Evaluation: 07:00 - Subjective Subjective: Patient has less SOB. Seen by Dr Carter, 24 h urine for creatinine, protein ordered. Tody BUN: 68 creatinine: 3.2. To recheck CXR in AM. To reduce Lasix 40 mg IV qd. Objective - Vital Signs/Intake and Output Vital Signs (last 24 hours): Temp Pulse Resp BP Pulse Ox 97.1 F L 74 12 105/62 98 08/13/17 15:39 08/13/17 17:20 08/13/17 15:39 08/13/17 17:22 08/13/17 15:39 Intake and Output: 08/13/17 08/14/17 18:59 06:59 Intake Total 480 240 Balance 480 240 - Medications Medications: Current Medications Allopurinol (Zyloprim) 100 mg PO DAILY [facility] Last Admin: 08/13/17 09:47 Dose: 100 mg Aspirin (Ecotrin) 81 mg PO DAILY [facility] Last Admin: 08/13/17 09:47 Dose: 81 mg Calcitriol (Rocaltrol) 0.25 mcg PO DAILY [facility] Last Admin: 08/13/17 09:46 Dose: 0.25 mcg Carvedilol (Coreg) 6.25 mg PO BID [facility] Last Admin: 08/13/17 17:23 Dose: Not Given Docusate Sodium (Colace) 100 mg PO BID PRN PRN Reason: Constipation Last Admin: 08/13/17 09:47 Dose: 100 mg Furosemide (Lasix) 40 mg IVP BID [facility] Last Admin: 08/13/17 17:22 Dose: Not Given Heparin Sodium (Porcine) (Heparin) 5,000 units SC Q8 [facility] Last Admin: 08/13/17 22:00 Dose: 5,000 units Hydralazine HCl (Apresoline) 25 mg PO BID [facility] Last Admin: 08/13/17 17:23 Dose: Not Given Insulin Aspart (Novolog) 0 unit SC ACHS [facility] PRN Reason: Protocol Last Admin: 08/13/17 21:29 Dose: Not Given Sitagliptin Phosphate (Januvia) 25 mg PO DAILY [facility] Last Admin: 08/13/17 09:47 Dose: 25 mg - Labs Labs: 08/13/17 09:20 08/13/17 07:06 PT 10.6 SECONDS (9.7-12.2) 08/12/17 07:47 INR 0.9 08/12/17 07:47 APTT 29 SECONDS (21-34) 08/12/17 07:47 - Constitutional Appears: No Acute Distress, Chronically Ill - Head Exam Head Exam: NORMAL INSPECTION - Eye Exam Eye Exam: Normal appearance - ENT Exam ENT Exam: Normal Exam - Neck Exam Neck Exam: Normal Inspection - Respiratory Exam Additional comments: Few rales heard at both bases. - Cardiovascular Exam Cardiovascular Exam: REGULAR RHYTHM, Murmur - GI/Abdominal Exam GI & Abdominal Exam: Soft, Normal Bowel Sounds - Rectal Exam Rectal Exam: Deferred - Extremities Exam Extremities Exam: Normal Inspection - Back Exam Back Exam: NORMAL INSPECTION - Neurological Exam Neurological Exam: Alert, Awake, Oriented x3 - Psychiatric Exam Psychiatric exam: Anxious - Skin Skin Exam: Dry, Intact, Warm Assessment and Plan (1) Acute on chronic systolic (congestive) heart failure Assessment & Plan: Improving, but BUN and creatinine are rising. Will cut back IV Lasix. Status: Acute (2) Acute on chronic renal failure Assessment & Plan: Monitor serum BUN and creatinine. Status: Acute (3) Anemia Status: Chronic (4) Uncontrolled insulin dependent diabetes mellitus Status: Chronic
--- NOTE | 2017-08-14 02:09 | PN ---
DATE: FOLLOWUP RENAL CONSULTATION LOCATION: The patient is located in room 551, bed A. REQUESTED BY: Joe Mcmahan MD. REASON FOR RENAL CONSULTATION: Increased BUN and creatinine and for further evaluation. HISTORY OF PRESENT ILLNESS: Mrs. Dsouza is an 86 years old elderly [place] female with past medical history significant for longstanding hypertension, diabetes, hyperlipidemia, chronic kidney disease, CHF, was admitted with shortness of breath after cutting down the diuretic dose by PMD. The patient is feeling much better, not in acute distress. Denies any headache, dizziness. Denies any chest pain or palpitation. Denies any fever, cough. No abdominal pain. No nausea, vomiting or diarrhea. No fever. No cough. No edema. No dysuria or frequency. PHYSICAL EXAMINATION: GENERAL: Ms. Dsouza is an 86-year-old elderly female, moderately built, moderately nourished, not in acute distress. VITAL SIGNS: As follows: Blood pressure 105/62, pulse 71, respirations 12, temperature is 97.1, saturation 98%, height 5 feet, and weight is 114 pounds. HEENT: Pupils normal reactive to light and accommodation. Conjunctivae pink. Sclerae anicteric. Tongue is moist. Trachea is midline. LUNGS: Symmetric on both sides. Bilateral breath sounds present. No crackle today. CARDIOVASCULAR: [place] at the sixth intercostal space, midclavicular line. S1 and S2 audible. No murmur or gallop. ABDOMEN: Normal in appearance, soft, and tympanic. No guarding. No rigidity. No hepatosplenomegaly. No abdominal bruit. CENTRAL NERVOUS SYSTEM: The patient is alert, awake, and oriented x2 to 3. Sensory and motor system is grossly within normal limits except hard in hearing. EXTREMITIES: No cyanosis. No clubbing. No edema. LABORATORY DATA: Include as follows: As of 08/13/2017; WBC 15.6, hemoglobin 10.2, hematocrit is 31.4, and platelets 134. Sodium 138, potassium 3.6, chloride 102, CO2 of 23, BUN 67, creatinine 3.2. GFR is 14 and glucose 111. Calcium is 8.7. Hemoglobin A1c is 8.7, ferritin is 374, total bilirubin is 0.9. AST 65, ALT 49, alkaline phosphatase is 43. CPK is 235. MEDICATIONS: Her current medications include as follows; hydralazine 25 mg p.o. b.i.d., Colace 100 mg p.o. b.i.d., Coreg 6.25 mg p.o. b.i.d., aspirin 81 mg daily, heparin 5000 units subcutaneous q. 8 hours, Lasix 40 mg IV daily, Januvia 25 mg p.o. daily, insulin aspart, allopurinol 100 mg p.o. daily. ASSESSMENT: In summary, Ms. Dsouza is an 86-year-old elderly [place] female with a history of longstanding hypertension, diabetes, coronary artery disease, status post stent, hyperlipidemia, chronic kidney disease, congestive heart failure was admitted with shortness of breath after decrease in diuretic dose by PMD. Now with increasing BUN and creatinine. 1. Acute renal failure on chronic kidney disease IV versus progression of the chronic kidney disease IV to end-stage renal disease. 2. Hypertension. 3. Diabetes. PLAN: We will continue with current medication and try to repeat 24-hour urine for protein, creatinine and creatinine clearance. We will follow with you. Thank you for allowing me to participate in yours patient's care. If renal function does not improve may need a renal replacement therapy if patient agrees. Sergo Carter MD
[2017-08-14 07:24] LABS: POTASSIUM 3.7 mmol/L (3.6-5.2)
[2017-08-14 07:27] LABS: ALB/GLOB RATIO 1.4 (1.0-2.1); CALCIUM 8.5 mg/dl (8.6-10.4); TOTAL PROTEIN 7.4 g/dL (6.3-8.3)
[2017-08-14 07:34] LABS: BASO % 0.5 % (0.0-2.0); EOS # 0.1 K/uL (0.0-0.7); EOS % 1.3 % (0.0-4.0); HEMATOCRIT 31.2 % (34.0-47.0); LYMPH # 2.4 K/uL (1.0-4.3); LYMPH % 23.9 % (20.0-40.0); MEAN CELL VOLUME 91.6 fL (81.0-99.0); MEAN CORPUSCULAR HEMOGLOBIN 30.4 pg (27.0-31.0); MEAN CORPUSCULAR HGB CONC 33.2 g/dL (33.0-37.0); MEAN PLATELET VOLUME 11.6 fL (7.2-11.7); MONO # 0.9 K/uL (0.0-0.8); MONO % 8.8 % (0.0-10.0); RED CELL DISTRIBUTION WIDTH 15.2 % (11.5-14.5); WHITE BLOOD COUNT 10.1 K/uL (4.8-10.8)
[2017-08-14] MEDS: (Novolog) Insulin Aspart, Recombinant 100 u/ml 10 ml vial SC SCH ×4 (09:20→21:29)
--- NOTE | 2017-08-14 10:04 | RAD ---
HISTORY: COMPARISON: 08/12/2017. TECHNIQUE: Chest PA and lateral FINDINGS: LINES AND TUBES: None. LUNG AND PLEURA: The lungs are well inflated and clear. There is interval improvement in pulmonary venous congestion. HEART AND MEDIASTINUM: There is moderate cardiomegaly. The hilar and mediastinal contours are within normal limits. SKELETAL STRUCTURES: The bony structures are within normal limits for the patient's age. VISUALIZED UPPER ABDOMEN: Normal. OTHER FINDINGS: None. IMPRESSION: No active pulmonary disease. Moderate cardiomegaly.
--- NOTE | 2017-08-14 10:56 | CP.PCM.PN ---
Subjective - Date & Time of Evaluation Date of Evaluation: 08/14/17 Time of Evaluation: 10:55 - Subjective Subjective: pt is seen and examined, follow up consult is dictated #[id number] consider avf/avg for future hd Objective - Vital Signs/Intake and Output Vital Signs (last 24 hours): Temp Pulse Resp BP Pulse Ox 97.7 F 80 20 130/68 97 08/14/17 08:19 08/14/17 08:19 08/14/17 08:19 08/14/17 10:53 08/14/17 08:19 Intake and Output: 08/14/17 08/14/17 06:59 18:59 Intake Total 340 Balance 340 - Medications Medications: Current Medications Allopurinol (Zyloprim) 100 mg PO DAILY [facility] Last Admin: 08/14/17 10:53 Dose: 100 mg Aspirin (Ecotrin) 81 mg PO DAILY [facility] Last Admin: 08/14/17 10:53 Dose: 81 mg Calcitriol (Rocaltrol) 0.25 mcg PO DAILY [facility] Last Admin: 08/14/17 10:53 Dose: 0.25 mcg Carvedilol (Coreg) 6.25 mg PO BID [facility] Last Admin: 08/14/17 10:53 Dose: 6.25 mg Docusate Sodium (Colace) 100 mg PO BID PRN PRN Reason: Constipation Last Admin: 08/14/17 10:53 Dose: 100 mg Furosemide (Lasix) 40 mg IVP DAILY [facility] Last Admin: 08/14/17 10:53 Dose: 40 mg Heparin Sodium (Porcine) (Heparin) 5,000 units SC Q8 [facility] Last Admin: 08/14/17 06:15 Dose: Not Given Hydralazine HCl (Apresoline) 25 mg PO BID [facility] Last Admin: 08/14/17 10:53 Dose: 25 mg Insulin Aspart (Novolog) 0 unit SC ACHS [facility] PRN Reason: Protocol Last Admin: 08/14/17 09:20 Dose: 1 unit Sitagliptin Phosphate (Januvia) 25 mg PO DAILY [facility] Last Admin: 08/14/17 10:53 Dose: 25 mg - Labs Labs: 08/14/17 07:05 08/14/17 07:05 PT 10.6 SECONDS (9.7-12.2) 08/12/17 07:47 INR 0.9 08/12/17 07:47 APTT 29 SECONDS (21-34) 08/12/17 07:47
--- NOTE | 2017-08-14 23:59 | CP.PCM.PN ---
Subjective - Date & Time of Evaluation Date of Evaluation: 08/14/17 Time of Evaluation: 20:00 - Subjective Subjective: Patient less SOB. VSS. BUN:50 creatinine:3.0. Discussed HD with patient and her family. They agree about HD. Will consult DR Ludwig for an AVfistula placement. Objective - Vital Signs/Intake and Output Vital Signs (last 24 hours): Temp Pulse Resp BP Pulse Ox 98.2 F 77 20 115/60 97 08/14/17 23:29 08/14/17 23:29 08/14/17 23:29 08/14/17 23:29 08/14/17 23:29 Intake and Output: 08/14/17 08/15/17 18:59 06:59 Intake Total 480 Balance 480 - Medications Medications: Current Medications Allopurinol (Zyloprim) 100 mg PO DAILY [facility] Last Admin: 08/14/17 10:53 Dose: 100 mg Aspirin (Ecotrin) 81 mg PO DAILY [facility] Last Admin: 08/14/17 10:53 Dose: 81 mg Calcitriol (Rocaltrol) 0.25 mcg PO DAILY [facility] Last Admin: 08/14/17 10:53 Dose: 0.25 mcg Carvedilol (Coreg) 6.25 mg PO BID [facility] Last Admin: 08/14/17 17:53 Dose: 6.25 mg Docusate Sodium (Colace) 100 mg PO BID PRN PRN Reason: Constipation Last Admin: 08/14/17 17:53 Dose: 100 mg Furosemide (Lasix) 40 mg IVP DAILY [facility] Last Admin: 08/14/17 10:53 Dose: 40 mg Heparin Sodium (Porcine) (Heparin) 5,000 units SC Q8 [facility] Last Admin: 08/14/17 21:54 Dose: 5,000 units Hydralazine HCl (Apresoline) 25 mg PO BID [facility] Last Admin: 08/14/17 17:53 Dose: 25 mg Insulin Aspart (Novolog) 0 unit SC ACHS [facility] PRN Reason: Protocol Last Admin: 08/14/17 21:29 Dose: Not Given Sitagliptin Phosphate (Januvia) 25 mg PO DAILY [facility] Last Admin: 08/14/17 10:53 Dose: 25 mg - Labs Labs: 08/14/17 07:05 08/14/17 07:05 PT 10.6 SECONDS (9.7-12.2) 08/12/17 07:47 INR 0.9 08/12/17 07:47 APTT 29 SECONDS (21-34) 08/12/17 07:47 - Constitutional Appears: No Acute Distress, Chronically Ill - Head Exam Head Exam: NORMAL INSPECTION - Eye Exam Eye Exam: Normal appearance - ENT Exam ENT Exam: Normal Exam - Neck Exam Neck Exam: Normal Inspection - Respiratory Exam Additional comments: Few rales at both bases. - Cardiovascular Exam Cardiovascular Exam: REGULAR RHYTHM, Murmur - GI/Abdominal Exam GI & Abdominal Exam: Soft - Extremities Exam Extremities Exam: Normal Inspection - Back Exam Back Exam: NORMAL INSPECTION - Neurological Exam Neurological Exam: Alert, Awake, Oriented x3 - Psychiatric Exam Psychiatric exam: Anxious - Skin Skin Exam: Dry, Intact, Normal Color, Warm Assessment and Plan (1) Acute on chronic systolic (congestive) heart failure Assessment & Plan: Improving. To continue IV Lasix. Status: Acute (2) Acute on chronic renal failure Assessment & Plan: Improving. For HD in the near future. Status: Acute (3) Anemia Status: Chronic (4) Uncontrolled insulin dependent diabetes mellitus Status: Chronic
--- NOTE | 2017-08-15 04:40 | CON ---
FOLLOWUP RENAL CONSULTATION DATE: LOCATION: The patient is located in room 551, bed A. REQUESTED BY: Joe Mcmahan MD REASON FOR RENAL CONSULTATION: Increased BUN and creatinine, for further evaluation, and shortness of breath. HISTORY OF PRESENT ILLNESS: Mrs. Dsouza is an 86-year-old elderly, [place] female, very pleasant with past medical history significant for longstanding hypertension, diabetes, proteinuria, chronic kidney disease, CHF, coronary artery disease, and status post stent who was admitted with a chief complaint of shortness of breath and as per the patient, her diuretic dose was decreased recently. The patient is feeling much better, ambulating today, and not in any distress. No chest pain. No palpitation. No fever. No cough. No abdominal pain. No nausea. No vomiting. No diarrhea. No edema of the legs. PHYSICAL EXAMINATION: GENERAL: Mrs. Dsouza is an 86-year-old elderly female, moderately built, moderately nourished, and not in acute distress. VITAL SIGNS: As follows; blood pressure this morning 130/68, pulse 80, respirations 20, temperature 97.7, saturation 97%, height 5 feet, and weight is 114 pounds. HEENT: Pupils are normal and reactive to light and accommodation. Conjunctivae are pink. Sclerae are anicteric. Tongue is moist. Trachea is midline. LUNGS: Symmetric on both sides. Bilateral breath sounds present. Clear on auscultation. CARDIOVASCULAR: [place] at the fifth intercostal space, midclavicular line. S1 and S2 audible. No murmur or gallop. ABDOMEN: Normal in appearance, soft and tympanic. No guarding. No rigidity. No hepatosplenomegaly. CENTRAL NERVOUS SYSTEM: Cranial nerves II through XII grossly intact. Sensory and motor system is within normal limits. EXTREMITIES: No cyanosis. No clubbing. No edema. CURRENT MEDICATIONS: Include as follows, hydralazine 25 mg p.o. b.i.d., Colace 100 mg p.o. b.i.d., Coreg 6.25 mg p.o. b.i.d., aspirin 81 mg daily, subcutaneous heparin 5000 q.8 hours, Januvia 25 mg p.o. daily, Lasix 40 mg IV daily, calcitriol 0.25 mcg p.o. daily, and allopurinol 100 mg p.o. daily. LABORATORY DATA: Include as follows, as of 08/14/2017; WBC is 10.1, hemoglobin is 10.4, hematocrit is 31.2, and platelets are 150. Sodium is 129, potassium is 3.7, chloride is 102, CO2 of 21, BUN 59, creatinine 3.0, glucose 152, calcium 8.5, total bilirubin 1.0, AST 36, ALT 42, and alkaline phosphatase 50. Total protein 7.4 and albumin 4.4. A 24-hour urine volume is 975 mL and 24-hour urine creatinine is 504 mg and creatinine clearance is 11.7 mL. A 24-hour urine protein is 1794 mg. Stool for occult blood is negative. ASSESSMENT: In summary, Mrs. Dsouza is an 86-year-old elderly, [place] female with history of longstanding hypertension, diabetes, proteinuria, congestive heart failure, coronary artery disease, and was admitted with shortness of breath. 1. Chronic kidney disease, stage V, this might be her new baseline, cannot rule out acute on chronic kidney disease stage IV. 2. Status post congestive heart failure. 3. Hypertension. 4. Diabetes. 5. Gout. 6. Mild anemia secondary to renal failure. PLAN: Continue gentle diuresis and we will discuss with the patient for possible need for AV access for near future hemodialysis. If the patient agrees, consider AV fistula placement prior to discharge as the patient will need dialysis very soon. We will follow with you. Thank you for allowing me to participate in your patient's care. Sergo Carter MD
[2017-08-15] MEDS: (Novolog) Insulin Aspart, Recombinant 100 u/ml 10 ml vial SC SCH ×4 (07:53→21:33)
--- NOTE | 2017-08-15 08:24 | CARD ---
APPROVED REPORT EKG Measurement Heart [id number] <Conclusion> Unusual P axis, possible ectopic atrial rhythm with frequent premature ventricular complexes and fusion complexes Left axis deviation Left bundle branch block Abnormal ECG
--- NOTE | 2017-08-15 08:24 | CARD ---
APPROVED REPORT EKG Measurement Heart [id number] MA 210P [id number] <Conclusion> Sinus rhythm with sinus arrhythmia with 1st degree AV block Left axis deviation Left bundle branch block Abnormal ECG
--- NOTE | 2017-08-15 08:51 | CP.PCM.CON ---
History of Present Illness - History of Present Illness History of Present Illness: [facility] Sx: Dr Spivey Pt is an 86F who presented 3 days ago via EMS for SOB x 1 day. Pt with extensive known medical history (see below), admitted with acute on chronic renal failure. Pt is currently feeling much better, Cr down to 3.0. Denies sob or chest pain at this time. Per primary and nephro pt will need dialysis in the future. Pt understands and agrees to operation moving forward. Vein mapping has been ordered. PMH: stage IV CKD, ischemic CM s/p PCI, acute CHF, IDDM, and HLD Review of Systems - Review of Systems All systems: reviewed and no additional remarkable complaints except (as per hpi ) Past Patient History - Infectious Disease Hx of Infectious Diseases: None - Tetanus Immunizations Tetanus Immunization: Unknown - Past Medical History & Family History Past Medical History?: Yes - Past Social History Smoking Status: Former Smoker Alcohol: None Drugs: Denies Home Situation {Lives}: With Family - CARDIAC Hx Congestive Heart Failure: Yes Hx Hypercholesterolemia: Yes Hx Hypertension: Yes - PULMONARY Hx Respiratory Disorders: No - NEUROLOGICAL Hx Neurological Disorder: No - HEENT Hx HEENT Problems: No - RENAL Hx Chronic Kidney Disease: Yes - ENDOCRINE/METABOLIC Hx Diabetes Mellitus Type 2: Yes - MUSCULOSKELETAL/RHEUMATOLOGICAL Hx Falls: No - PSYCHIATRIC Hx Substance Use: No - SURGICAL HISTORY Hx Coronary Stent: Yes - ANESTHESIA Hx Anesthesia: Yes Hx Anesthesia Reactions: No Meds Allergies/Adverse Reactions: Allergies Allergy/AdvReac Type Severity Reaction Status Date / Time No Known Allergies Allergy Verified 04/23/17 10:59 - Medications Medications: Current Medications Allopurinol (Zyloprim) 100 mg PO DAILY [facility] Last Admin: 08/14/17 10:53 Dose: 100 mg Aspirin (Ecotrin) 81 mg PO DAILY [facility] Last Admin: 08/14/17 10:53 Dose: 81 mg Calcitriol (Rocaltrol) 0.25 mcg PO DAILY [facility] Last Admin: 08/14/17 10:53 Dose: 0.25 mcg Carvedilol (Coreg) 6.25 mg PO BID [facility] Last Admin: 08/14/17 17:53 Dose: 6.25 mg Docusate Sodium (Colace) 100 mg PO BID PRN PRN Reason: Constipation Last Admin: 08/14/17 17:53 Dose: 100 mg Furosemide (Lasix) 40 mg IVP DAILY [facility] Last Admin: 08/14/17 10:53 Dose: 40 mg Heparin Sodium (Porcine) (Heparin) 5,000 units SC Q8 [facility] Last Admin: 08/15/17 05:38 Dose: 5,000 units Hydralazine HCl (Apresoline) 25 mg PO BID [facility] Last Admin: 08/14/17 17:53 Dose: 25 mg Insulin Aspart (Novolog) 0 unit SC ACHS [facility] PRN Reason: Protocol Last Admin: 08/15/17 07:53 Dose: 3 unit Sitagliptin Phosphate (Januvia) 25 mg PO DAILY [facility] Last Admin: 08/14/17 10:53 Dose: 25 mg Physical Exam - Constitutional Appears: Non-toxic, No Acute Distress - ENT Exam ENT Exam: Mucous Membranes Moist - Respiratory Exam Respiratory Exam: absent: Accessory Muscle Use, Respiratory Distress - Cardiovascular Exam Cardiovascular Exam: REGULAR RHYTHM - GI/Abdominal Exam GI & Abdominal Exam: Soft. absent: Tenderness - Neurological Exam Neurological exam: Alert, Oriented x3 - Psychiatric Exam Psychiatric exam: Normal Affect, Normal Mood Results - Vital Signs Recent Vital Signs: Last Vital Signs Temp 97.5 F L 08/15/17 08:00 Pulse 80 08/15/17 08:00 Resp 20 08/15/17 08:00 BP 152/66 H 08/15/17 08:00 Pulse Ox 99 08/15/17 08:00 - Labs Result Diagrams: 08/14/17 07:05 08/14/17 07:05 Labs: Laboratory Results - last 24 hr 08/14/17 08/14/17 08/14/17 11:24 16:24 20:56 POC Glucose (mg/dL) 193 H 219 H 222 H Urine Collection Time Urine Total Volume Ur Creatinine 24 Hour Ur Protein 24 Hr Calc 08/14/17 08/14/17 08/15/17 20:58 20:58 06:41 POC Glucose (mg/dL) 253 H Urine Collection Time 24 24 Urine Total Volume 975 975 Ur Creatinine 24 Hour 504.1 L Ur Protein 24 Hr Calc 1794.0 H Assessment & Plan - Assessment and Plan (Free Text) Assessment: 86F w/ stage IV CKD, acute on chronic RF/CHF Plan: vein mapping ordered - will place arm restriction pending results would recommend cardiac clearance for general anesthesia will follow up results further recs to follow will d/w Dr Patric Tiwari, PGY3
--- NOTE | 2017-08-15 10:45 | CP.PCM.PN ---
Subjective - Date & Time of Evaluation Date of Evaluation: 08/15/17 Time of Evaluation: 10:45 - Subjective Subjective: pt is seen and examined, follow up consult is dictated #[id number] for hd access on thursday avf/avg Objective - Vital Signs/Intake and Output Vital Signs (last 24 hours): Temp Pulse Resp BP Pulse Ox 97.5 F L 81 20 173/71 H 99 08/15/17 08:00 08/15/17 10:30 08/15/17 08:00 08/15/17 10:30 08/15/17 08:00 Intake and Output: 08/15/17 08/15/17 06:59 18:59 Intake Total 150 Balance 150 - Medications Medications: Current Medications Allopurinol (Zyloprim) 100 mg PO DAILY [facility] Last Admin: 08/15/17 10:22 Dose: 100 mg Aspirin (Ecotrin) 81 mg PO DAILY [facility] Last Admin: 08/15/17 10:21 Dose: 81 mg Calcitriol (Rocaltrol) 0.25 mcg PO DAILY [facility] Last Admin: 08/15/17 10:22 Dose: 0.25 mcg Carvedilol (Coreg) 6.25 mg PO BID [facility] Last Admin: 08/15/17 10:21 Dose: 6.25 mg Docusate Sodium (Colace) 100 mg PO BID PRN PRN Reason: Constipation Last Admin: 08/15/17 10:22 Dose: 100 mg Furosemide (Lasix) 40 mg IVP DAILY [facility] Last Admin: 08/15/17 10:21 Dose: 40 mg Heparin Sodium (Porcine) (Heparin) 5,000 units SC Q8 [facility] Last Admin: 08/15/17 05:38 Dose: 5,000 units Hydralazine HCl (Apresoline) 25 mg PO BID [facility] Last Admin: 08/15/17 10:21 Dose: 25 mg Insulin Aspart (Novolog) 0 unit SC ACHS [facility] PRN Reason: Protocol Last Admin: 08/15/17 07:53 Dose: 3 unit Sitagliptin Phosphate (Januvia) 25 mg PO DAILY [facility] Last Admin: 08/15/17 10:21 Dose: 25 mg - Labs Labs: 08/14/17 07:05 08/14/17 07:05 PT 10.6 SECONDS (9.7-12.2) 08/12/17 07:47 INR 0.9 08/12/17 07:47 APTT 29 SECONDS (21-34) 08/12/17 07:47
--- NOTE | 2017-08-15 21:53 | CP.PCM.PN ---
Subjective - Date & Time of Evaluation Date of Evaluation: 08/15/17 Time of Evaluation: 17:30 - Subjective Subjective: Patient has no SOB or chest pain. BP:130/60 HR: 70 bpm and regular Afebrile. Scheduled for an AV fistula insertion by Dr Ludwig on Thursday. Objective - Vital Signs/Intake and Output Vital Signs (last 24 hours): Temp Pulse Resp BP Pulse Ox 98.4 F 79 18 132/58 L 94 L 08/15/17 15:00 08/15/17 16:22 08/15/17 15:00 08/15/17 17:11 08/15/17 15:00 - Medications Medications: Current Medications Allopurinol (Zyloprim) 100 mg PO DAILY [facility] Last Admin: 08/15/17 10:22 Dose: 100 mg Aspirin (Ecotrin) 81 mg PO DAILY [facility] Last Admin: 08/15/17 10:21 Dose: 81 mg Calcitriol (Rocaltrol) 0.25 mcg PO DAILY [facility] Last Admin: 08/15/17 10:22 Dose: 0.25 mcg Carvedilol (Coreg) 6.25 mg PO BID [facility] Last Admin: 08/15/17 17:12 Dose: 6.25 mg Docusate Sodium (Colace) 100 mg PO BID PRN PRN Reason: Constipation Last Admin: 08/15/17 10:22 Dose: 100 mg Furosemide (Lasix) 40 mg IVP DAILY [facility] Last Admin: 08/15/17 10:21 Dose: 40 mg Heparin Sodium (Porcine) (Heparin) 5,000 units SC Q8 [facility] Last Admin: 08/15/17 21:34 Dose: 5,000 units Hydralazine HCl (Apresoline) 25 mg PO BID [facility] Last Admin: 08/15/17 17:12 Dose: 25 mg Insulin Aspart (Novolog) 0 unit SC ACHS [facility] PRN Reason: Protocol Last Admin: 08/15/17 21:33 Dose: Not Given Sitagliptin Phosphate (Januvia) 25 mg PO DAILY [facility] Last Admin: 08/15/17 10:21 Dose: 25 mg - Labs Labs: 08/14/17 07:05 08/14/17 07:05 PT 10.6 SECONDS (9.7-12.2) 08/12/17 07:47 INR 0.9 08/12/17 07:47 APTT 29 SECONDS (21-34) 08/12/17 07:47 - Constitutional Appears: No Acute Distress, Chronically Ill - Head Exam Head Exam: NORMOCEPHALIC - Eye Exam Eye Exam: Normal appearance - ENT Exam ENT Exam: Normal Exam - Neck Exam Neck Exam: Normal Inspection - Respiratory Exam Respiratory Exam: Clear to Ausculation Bilateral, NORMAL BREATHING PATTERN - Cardiovascular Exam Cardiovascular Exam: REGULAR RHYTHM, Murmur - GI/Abdominal Exam GI & Abdominal Exam: Soft, Normal Bowel Sounds - Rectal Exam Rectal Exam: Deferred - Extremities Exam Extremities Exam: Normal Inspection - Back Exam Back Exam: NORMAL INSPECTION - Neurological Exam Neurological Exam: Alert, Awake, Oriented x3 - Psychiatric Exam Psychiatric exam: Anxious - Skin Skin Exam: Dry, Intact, Normal Color, Warm Assessment and Plan (1) Acute on chronic systolic (congestive) heart failure Status: Resolved (2) Acute on chronic renal failure Assessment & Plan: For an AV fistula placement on Thursday for future hemodialysis. Status: Acute (3) Anemia Status: Chronic (4) Uncontrolled insulin dependent diabetes mellitus Status: Chronic
--- NOTE | 2017-08-16 02:07 | PN ---
FOLLOWUP RENAL CONSULTATION DATE: LOCATION: The patient is located in [facility], bed A REQUESTED BY: Joe Mcmahan MD REASON FOR FOLLOWUP: Acute renal failure and chronic kidney disease. HISTORY OF PRESENT ILLNESS: Mrs. Dsouza is an 86-year-old elderly Citizen Of [place] female with a past medical history significant for longstanding hypertension, diabetes, CHF, coronary artery disease, hyperlipidemia, status post coronary stent, CKD, proteinuria, and was admitted with shortness of breath and also increased BUN and creatinine with recent diuretics dose was decreased as per the patient and now the patient is feeling much better, not in acute distress. Denies any chest pain or palpitation. Denies any fever or cough. No abdominal pain. No nausea, vomiting, or diarrhea. PHYSICAL EXAMINATION: VITAL SIGNS: As follows; blood pressure 102/63, pulse 73, respirations 18, temperature 98.4, and saturation 94%. Height 5 feet and weight is 114 pounds. GENERAL: Mrs. Dsouza is an 86-year-old elderly female, moderately built, moderately nourished, and not in acute distress. HEENT: Pupils normal and reactive to light and accommodation. Conjunctivae pink. Sclerae anicteric. Tongue is moist and trachea is midline. LUNGS: Symmetric on both sides. Bilateral breath sounds present. Clear on auscultation. CARDIOVASCULAR: [place] at the fifth intercostal space and midclavicular line. S1 and S2 audible. No murmur or gallop. ABDOMEN: Normal in appearance, soft, and tympanic. No guarding. No rigidity. No hepatosplenomegaly. CENTRAL NERVOUS SYSTEM: The patient is alert, awake, and oriented x3. Nonfocal neuro examination. Cranial nerves II-XII grossly intact. EXTREMITIES: No cyanosis, no clubbing, and no edema. Sensory and motor system is grossly within normal limits. CURRENT MEDICATIONS: Include as follows; hydralazine 25 mg p.o. b.i.d., Colace 100 mg p.o. b.i.d., Coreg 6.25 mg p.o. b.i.d., aspirin 81 mg daily, subcutaneously heparin 5000 q.8 hours, Januvia 25 mg p.o. daily, Rocaltrol 0.25 mcg daily, and allopurinol 100 mg p.o. daily. LABORATORY DATA: Include as follows, as of 08/14/2017, 24-hour urine collection urine volume 975 mL, urine creatinine is 504.1 mg and urine protein is 1794 mg and Accu-Cheks this morning 253 and 273. IMPRESSION AND PLAN: In summary, Mrs. Dsouza is an 86-year-old elderly Citizen [place] female with history of hypertension, diabetes, hyperlipidemia, coronary artery disease, status post chronic kidney disease, proteinuria, and congestive heart failure who was admitted with shortness of breath, increasing BUN and creatinine, and started on IV Lasix. 1. Chronic kidney disease V most likely secondary to diabetic nephropathy, cannot rule out underlying hypertensive nephrosclerosis. 2. Congestive heart failure. 3. 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 4. Diabetes. 5. Hypertension. Blood pressure is stable. Continue her current medications. The patient is scheduled for possible AV fistula, AV graft depending upon her venous mapping and discussed with Dr. Spivey in rounds this morning. We will repeat CBC, BMP, and PT/PTT prior to the procedure. We will follow with you. Thank you for allowing me to participate in your patient's care. No need for emergency dialysis at this time. The patient will benefit from placement of access at this time. Sergo Carter MD
[2017-08-16 07:02] LABS: BASO % 0.5 % (0.0-2.0); EOS # 0.2 K/uL (0.0-0.7); EOS % 1.7 % (0.0-4.0); HEMATOCRIT 29.3 % (34.0-47.0); LYMPH # 2.7 K/uL (1.0-4.3); LYMPH % 28.4 % (20.0-40.0); MEAN CELL VOLUME 90.8 fL (81.0-99.0); MEAN CORPUSCULAR HEMOGLOBIN 30.5 pg (27.0-31.0); MEAN CORPUSCULAR HGB CONC 33.6 g/dL (33.0-37.0); MEAN PLATELET VOLUME 11.2 fL (7.2-11.7); MONO # 0.9 K/uL (0.0-0.8); MONO % 9.3 % (0.0-10.0); RED CELL DISTRIBUTION WIDTH 14.4 % (11.5-14.5); WHITE BLOOD COUNT 9.3 K/uL (4.8-10.8)
[2017-08-16 07:17] LABS: POTASSIUM 4.1 mmol/L (3.6-5.2)
[2017-08-16 07:19] LABS: ALB/GLOB RATIO 1.4 (1.0-2.1); BILIRUBIN,TOTAL 0.6 mg/dL (0.2-1.3)
[2017-08-16 07:20] LABS: CALCIUM 8.6 mg/dl (8.6-10.4)
[2017-08-16] MEDS: (Novolog) Insulin Aspart, Recombinant 100 u/ml 10 ml vial SC SCH ×4 (08:20→22:55)
--- NOTE | 2017-08-16 12:02 | CP.PCM.PN ---
Subjective - Date & Time of Evaluation Date of Evaluation: 08/16/17 Time of Evaluation: 11:00 - Subjective Subjective: Vascular Surgery Pt S&E, NAEO. Pt without complaints at this time. Aware NPO p MN tonight for OR tomorrow. Objective - Vital Signs/Intake and Output Vital Signs (last 24 hours): Temp Pulse Resp BP Pulse Ox 98.2 F 87 20 166/64 H 96 08/16/17 08:02 08/16/17 08:02 08/16/17 08:02 08/16/17 09:15 08/16/17 08:02 - Medications Medications: Current Medications Allopurinol (Zyloprim) 100 mg PO DAILY [facility] Last Admin: 08/16/17 09:15 Dose: 100 mg Aspirin (Ecotrin) 81 mg PO DAILY [facility] Last Admin: 08/16/17 09:15 Dose: 81 mg Calcitriol (Rocaltrol) 0.25 mcg PO DAILY [facility] Last Admin: 08/16/17 09:15 Dose: 0.25 mcg Carvedilol (Coreg) 6.25 mg PO BID [facility] Last Admin: 08/16/17 09:15 Dose: 6.25 mg Docusate Sodium (Colace) 100 mg PO BID PRN PRN Reason: Constipation Last Admin: 08/15/17 10:22 Dose: 100 mg Furosemide (Lasix) 40 mg IVP DAILY [facility] Last Admin: 08/16/17 09:15 Dose: 40 mg Heparin Sodium (Porcine) (Heparin) 5,000 units SC Q8 [facility] Last Admin: 08/16/17 06:32 Dose: Not Given Hydralazine HCl (Apresoline) 25 mg PO BID [facility] Last Admin: 08/16/17 09:15 Dose: 25 mg Insulin Aspart (Novolog) 0 unit SC ACHS [facility] PRN Reason: Protocol Last Admin: 08/16/17 08:20 Dose: 2 unit Sitagliptin Phosphate (Januvia) 25 mg PO DAILY [facility] Last Admin: 08/16/17 09:15 Dose: 25 mg - Labs Labs: 08/16/17 06:52 08/16/17 06:52 PT 10.6 SECONDS (9.7-12.2) 08/12/17 07:47 INR 0.9 08/12/17 07:47 APTT 29 SECONDS (21-34) 08/12/17 07:47 - Constitutional Appears: Non-toxic, No Acute Distress - Head Exam Head Exam: ATRAUMATIC, NORMOCEPHALIC - Respiratory Exam Respiratory Exam: NORMAL BREATHING PATTERN. absent: Respiratory Distress - GI/Abdominal Exam GI & Abdominal Exam: Soft. absent: Distended, Tenderness - Neurological Exam Neurological Exam: Alert, Awake - Skin Skin Exam: Dry, Warm Assessment and Plan - Assessment and Plan (Free Text) Assessment: 86F w/ stage IV CKD, acute on chronic RF/CHF Plan: vein mapping completed, awaiting read for arm precautions Need cardiac clearance for general anesthesia OR planned for Thursday NPO p MN D/W Dr. Patric Solorzano PGY4
--- NOTE | 2017-08-16 14:30 | CP.PCM.PN ---
Subjective - Date & Time of Evaluation Date of Evaluation: 08/16/17 Time of Evaluation: 14:28 - Subjective Subjective: Patient has no SOB , chest pain or dizziness. BP: 145/80 HR: 73 regular Afebrile. BUN: 70 creatinine: 2.9 WBC: 9,9 Hb.8 Objective - Vital Signs/Intake and Output Vital Signs (last 24 hours): Temp Pulse Resp BP Pulse Ox 98.2 F 76 20 166/64 H 96 08/16/17 08:02 08/16/17 12:00 08/16/17 08:02 08/16/17 09:15 08/16/17 08:02 - Medications Medications: Current Medications Allopurinol (Zyloprim) 100 mg PO DAILY [facility] Last Admin: 08/16/17 09:15 Dose: 100 mg Aspirin (Ecotrin) 81 mg PO DAILY [facility] Last Admin: 08/16/17 09:15 Dose: 81 mg Calcitriol (Rocaltrol) 0.25 mcg PO DAILY [facility] Last Admin: 08/16/17 09:15 Dose: 0.25 mcg Carvedilol (Coreg) 6.25 mg PO BID [facility] Last Admin: 08/16/17 09:15 Dose: 6.25 mg Docusate Sodium (Colace) 100 mg PO BID PRN PRN Reason: Constipation Last Admin: 08/15/17 10:22 Dose: 100 mg Furosemide (Lasix) 40 mg IVP DAILY [facility] Last Admin: 08/16/17 09:15 Dose: 40 mg Heparin Sodium (Porcine) (Heparin) 5,000 units SC Q8 [facility] Last Admin: 08/16/17 13:19 Dose: 5,000 units Hydralazine HCl (Apresoline) 25 mg PO BID [facility] Last Admin: 08/16/17 09:15 Dose: 25 mg Insulin Aspart (Novolog) 0 unit SC ACHS [facility] PRN Reason: Protocol Last Admin: 08/16/17 13:19 Dose: 2 unit Sitagliptin Phosphate (Januvia) 25 mg PO DAILY [facility] Last Admin: 08/16/17 09:15 Dose: 25 mg - Labs Labs: 08/16/17 06:52 08/16/17 06:52 PT 10.6 SECONDS (9.7-12.2) 08/12/17 07:47 INR 0.9 08/12/17 07:47 APTT 29 SECONDS (21-34) 08/12/17 07:47 - Constitutional Appears: No Acute Distress, Chronically Ill - Head Exam Head Exam: NORMAL INSPECTION - Eye Exam Eye Exam: Normal appearance - ENT Exam ENT Exam: Normal Exam - Respiratory Exam Respiratory Exam: Clear to Ausculation Bilateral, NORMAL BREATHING PATTERN - Cardiovascular Exam Cardiovascular Exam: REGULAR RHYTHM, Murmur - GI/Abdominal Exam GI & Abdominal Exam: Soft, Normal Bowel Sounds - Rectal Exam Rectal Exam: Deferred - Back Exam Back Exam: NORMAL INSPECTION - Neurological Exam Neurological Exam: Alert, Awake, Normal Gait, Oriented x3 - Psychiatric Exam Psychiatric exam: Anxious - Skin Skin Exam: Dry, Intact, Normal Color, Warm Assessment and Plan (1) Acute on chronic systolic (congestive) heart failure Status: Resolved (2) Acute on chronic renal failure Assessment & Plan: For n AV fistula placement in AM. Status: Acute (3) Anemia Status: Chronic (4) Uncontrolled insulin dependent diabetes mellitus Status: Chronic
[2017-08-17] MEDS: (Novolog) Insulin Aspart, Recombinant 100 u/ml 10 ml vial SC SCH ×4 (07:59→21:41)
[2017-08-17 08:22] LABS: INR 0.9
[2017-08-17 08:26] LABS: BASO % 0.6 % (0.0-2.0); EOS # 0.1 K/uL (0.0-0.7); EOS % 1.8 % (0.0-4.0); HEMATOCRIT 31.9 % (34.0-47.0); LYMPH # 2.9 K/uL (1.0-4.3); LYMPH % 33.8 % (20.0-40.0); MEAN CORPUSCULAR HEMOGLOBIN 30.4 pg (27.0-31.0); MEAN CORPUSCULAR HGB CONC 33.4 g/dL (33.0-37.0); MEAN PLATELET VOLUME 11.7 fL (7.2-11.7); MONO # 0.8 K/uL (0.0-0.8); MONO % 9.7 % (0.0-10.0); RED CELL DISTRIBUTION WIDTH 14.6 % (11.5-14.5); WHITE BLOOD COUNT 8.5 K/uL (4.8-10.8)
[2017-08-17 08:40] LABS: POTASSIUM 4.5 mmol/L (3.6-5.2)
[2017-08-17 08:42] LABS: BILIRUBIN,TOTAL 0.8 mg/dL (0.2-1.3)
[2017-08-17 08:43] LABS: ALB/GLOB RATIO 1.4 (1.0-2.1); CALCIUM 9.3 mg/dl (8.6-10.4); TOTAL PROTEIN 7.3 g/dL (6.3-8.3)
[2017-08-17] MEDS ORDERED: Papaverine Hydrochloride 30 mg/ml (2ml) ONE (13:01)
[2017-08-17] MEDS ORDERED: HEPARIN-NS 5,000 UNITS/500 ML 5,000 UNIT/500 ML BAG IV ONE (13:01)
[2017-08-17] MEDS ORDERED: Iodixanol 320 MG/ML 200 ML BOTTLE IV ONE (13:02)
[2017-08-17] MEDS ORDERED: ceFAZolin 1 gm FROZEN Premix 1 GM/50 ML ML IVPB ONE (13:02)
[2017-08-17] MEDS ORDERED: Lactated Ringer's 1,000 ML IV ONE ×2 (13:35→16:18)
[2017-08-17] MEDS ORDERED: Etomidate 20 mg/10ml Inj IV ONE ×2 (13:42→13:43)
[2017-08-17] MEDS ORDERED: Lidocaine Hydrochloride 5 ML INJ ONE (13:45)
--- NOTE | 2017-08-17 16:24 | PCM.SURG1 ---
Surgeon's Initial Post Op Note - Surgeon's Notes Surgeon: Patric Store Standards Associate: Duane PGY3 Type of Anesthesia: General LMA Pre-Operative Diagnosis: CKD Operative Findings: vascular steal following shunt placement Post-Operative Diagnosis: same Operation Performed: Yumiko mcdonald AVF w. ligation of shunt Specimen/Specimens Removed: none Estimated Blood Loss: EBL {In ML}: 200 Blood Products Given: N/A Drains Used: No Drains Post-Op Condition: Good Date of Surgery/Procedure: 08/17/17 Time of Surgery/Procedure: 16:23
--- NOTE | 2017-08-17 16:42 | RAD ---
PROCEDURE: Intraoperative Fluoroscopy. HISTORY: HYBRID GRAFT AV SHUNT LEFT ARM FINDINGS: Fluoroscopic assistance was provided for shunt procedure. Please fluoroscopic time (continuous mode) utilized during the procedure: 76.9 seconds.
[2017-08-17] MEDS ORDERED: Oxycodone/Acetaminophen 5/325 mg Tab PO PRN (17:00)
--- NOTE | 2017-08-17 19:35 | CP.PCM.PN ---
Subjective - Date & Time of Evaluation Date of Evaluation: 08/17/17 Time of Evaluation: 19:34 - Subjective Subjective: pt is seen and examined, follow up consult is dictated #[id number] s/p avg placement and immediate ligation due to ischemia/ steal syndrome ckd-5, renal function is stable d/c home when stableivf d5ns at 42 ml/hr, bmp,cbc in am Objective - Vital Signs/Intake and Output Vital Signs (last 24 hours): Temp Pulse Resp BP Pulse Ox 97.3 F L 84 18 146/70 99 08/17/17 17:51 08/17/17 17:51 08/17/17 17:51 08/17/17 17:51 08/17/17 17:51 Intake and Output: 08/17/17 08/18/17 18:59 06:59 Intake Total 0 Balance 0 - Medications Medications: Current Medications Allopurinol (Zyloprim) 100 mg PO DAILY [facility] Last Admin: 08/17/17 10:41 Dose: 100 mg Aspirin (Ecotrin) 81 mg PO DAILY [facility] Last Admin: 08/16/17 09:15 Dose: 81 mg Calcitriol (Rocaltrol) 0.25 mcg PO DAILY [facility] Last Admin: 08/17/17 10:41 Dose: 0.25 mcg Carvedilol (Coreg) 6.25 mg PO BID [facility] Last Admin: 08/17/17 18:26 Dose: Not Given Docusate Sodium (Colace) 100 mg PO BID PRN PRN Reason: Constipation Last Admin: 08/15/17 10:22 Dose: 100 mg Furosemide (Lasix) 40 mg IVP DAILY [facility] Last Admin: 08/17/17 10:40 Dose: 40 mg Heparin Sodium (Porcine) (Heparin) 5,000 units SC Q8 [facility] Last Admin: 08/16/17 13:19 Dose: 5,000 units Hydralazine HCl (Apresoline) 25 mg PO BID [facility] Last Admin: 08/17/17 18:26 Dose: Not Given Insulin Aspart (Novolog) 0 unit SC ACHS [facility] PRN Reason: Protocol Last Admin: 08/17/17 17:57 Dose: Not Given Ondansetron HCl (Zofran Inj) 4 mg IVP Q4 PRN PRN Reason: Nausea/Vomiting Last Admin: 08/17/17 18:47 Dose: 4 mg Oxycodone/Acetaminophen (Percocet 5/325 Mg Tab) 1 tab PO Q4H PRN PRN Reason: Pain, moderate (4-7) Stop: 08/20/17 17:01 Sitagliptin Phosphate (Januvia) 25 mg PO DAILY [facility] Last Admin: 08/17/17 10:41 Dose: 25 mg - Labs Labs: 08/17/17 07:53 08/17/17 07:53 PT 10.3 SECONDS (9.7-12.2) 08/17/17 07:53 INR 0.9 08/17/17 07:53 APTT 33 SECONDS (21-34) 08/17/17 07:53
[2017-08-17] MEDS ORDERED: Dextrose 5%/0.9% NS 1,000 ML IV ONE (20:06)
[2017-08-18 00:16] VITALS: RESP 20
[2017-08-18 08:27] LABS: BASO % 0.4 % (0.0-2.0); EOS # 0.1 K/uL (0.0-0.7); HEMATOCRIT 25.7 % (34.0-47.0); LYMPH # 2.3 K/uL (1.0-4.3); LYMPH % 22.1 % (20.0-40.0); MEAN CELL VOLUME 92.2 fL (81.0-99.0); MEAN CORPUSCULAR HEMOGLOBIN 31.1 pg (27.0-31.0); MEAN CORPUSCULAR HGB CONC 33.7 g/dL (33.0-37.0); MEAN PLATELET VOLUME 10.8 fL (7.2-11.7); MONO # 0.8 K/uL (0.0-0.8); MONO % 7.6 % (0.0-10.0); RED CELL DISTRIBUTION WIDTH 14.8 % (11.5-14.5); WHITE BLOOD COUNT 10.5 K/uL (4.8-10.8)
--- NOTE | 2017-08-18 09:05 | PN ---
FOLLOWUP RENAL CONSULTATION LOCATION: The patient is located in room 551, bed A. REQUESTED BY: Joe Mcmahan MD REASON FOR RENAL CONSULTATION: Acute renal failure, chronic kidney disease versus progression of the CKD II, CKD V, and CHF and shortness . HISTORY OF PRESENT ILLNESS: Ms. Dsouza is an 86-year-old elderly, [place] female with a past medical history significant for longstanding hypertension, diabetes, CHF, hyperlipidemia, CKD, coronary artery disease status post stent placement, who was admitted with shortness of breath after decreasing recently the diuretic dose when renal functions have deteriorated. Patient is feeling much better, not in acute distress. Denies any headache or dizziness. Denies any chest pain or palpitation. Patient underwent hemodialysis access placement this morning and patient status post left upper extremity AV graft. 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 Now, the patient is complaining of feeling nauseous. Denies any shortness of breath. Denies any chest pain, complaints of feeling nausea, status post . PHYSICAL EXAMINATION: VITAL SIGNS: As follows: Blood pressure 146/70, pulse 84, respirations 18, temperature 97.3, saturations 99%, height 5 feet, weight is 114 pounds. GENERAL: Ms. Dsouza is 86-year-old elderly, [place] female, moderately built, moderately nourished, not in acute distress. HEENT: Pupils normal and reactive to light and accommodation. Conjunctivae pink. Sclerae anicteric. Tongue is moist. Trachea is midline. LUNGS: Symmetric on both sides. Bilateral breath sounds present. Clear to auscultation. CARDIOVASCULAR SYSTEM: [place] at the fifth intercostal space, midclavicular line. S1, S2 audible. No murmur or gallop. ABDOMEN: Normal in appearance, soft, tympanic. No guarding. No hepatosplenomegaly. CENTRAL NERVOUS SYSTEM: Patient is alert, awake, oriented x3. Nonfocal neuro examination. Cranial nerves II through XII grossly intact. Sensory and motor system is within normal limits. EXTREMITIES: No cyanosis, no clubbing, no edema. Left hand is warm to touch. No signs of ischemia at this time. CURRENT MEDICATIONS: Include as follows: Hydralazine 25 mg p.o. b.i.d., Colace 100 mg p.o. b.i.d., Coreg 6.25 mg p.o. b.i.d., aspirin 81 mg daily, subcutaneous heparin on hold, Januvia 25 mg p.o. daily, Lasix 40 mg IV daily, NovoLog for sliding scale, Percocet 1 tablet p.o. q.4 hours p.r.n., Rocaltrol 0.25 mcg daily, Zofran 4 mg IV q. 4 hours p.r.n. and allopurinol 100 mg p.o. daily. LABORATORY DATA: As of 08/17/2017, WBC 8.5, hemoglobin 10.6, hematocrit is 31.9, platelets 180. PT is 10.3 and INR is 0.9. PTT 33. Sodium 136, potassium 4.5, chloride 101, CO2 22, BUN 71, creatinine 2.9 and GFR is about 15, glucose 183, calcium 9.3, total bilirubin 0.8, AST 35, ALT 40, alkaline phosphatase 52, total protein 7.3, albumin is 4.3. ASSESSMENT: In summary, Ms. Dsouza is 86-year-old elderly, [place] female with history of hypertension, diabetes, hyperlipidemia, coronary artery disease status post stent, chronic kidney disease, congestive heart failure, was admitted with shortness of breath, increased BUN and creatinine. 1. 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 2. Congestive heart failure secondary to decreased diuretic. 3. Status post left upper extremity hybrid ligation of a shunt. Estimated blood loss about 200 mL. PLAN: Continue gentle diuresis and we will hold any access at this time. We will consider Perm-A-Cath when patient become symptomatic and also check CBC, BMP and phosphorus level in a.m. and PTH intact level. We will follow with you. Thank you for allowing me to participate in your patient's care. Discussed with the patient's daughter at bedside and also we will start IV fluids with D5 normal saline at 42 mL per hour until morning. Sergo Carter MD
[2017-08-18 09:12] LABS: POTASSIUM 4.7 mmol/L (3.6-5.2)
[2017-08-18 09:14] LABS: BILIRUBIN,TOTAL 0.7 mg/dL (0.2-1.3)
[2017-08-18 09:15] LABS: ALB/GLOB RATIO 1.5 (1.0-2.1); TOTAL PROTEIN 6.5 g/dL (6.3-8.3)
[2017-08-18 09:16] LABS: CALCIUM 8.5 mg/dl (8.6-10.4)
--- NOTE | 2017-08-18 09:16 | OP ---
PROCEDURE DATE: 08/17/2017 PREOPERATIVE DIAGNOSIS: Renal failure. POSTOPERATIVE DIAGNOSIS: Renal failure. PROCEDURE CARRIED OUT: Left upper arm hybrid arteriovenous shunt and subsequent ligation of same shunt. SURGEON: Donte Spivey Jr., MD PIPE FITTER MAINTENANCE: Dr. Zepeda. ANESTHESIA ADMINISTERED BY: Vi Hua CRNA. INDICATION: The patient is an elderly [place] woman with renal insufficiency, who soon will require dialysis. OPERATIVE FINDINGS: There were no adequate veins with which to do a fistula. The patient had extremely small veins and arteries. The surface veins had previously been checked on vein mapping and were inadequate for use, and in addition, we checked this in the operating room. We then constructed an upper arm hybrid shunt purely using a 6-mm [place] for arterial site and 8-mm venous site, which went quite well. Unfortunately, at the end of the procedure, there was no flow to the hand. We tried a variety of procedures to improve the flow to the hand including plication of the shunt, clipping of the shunt, partial ligation of it; all of which did not show any perfusion of the hand either by Doppler signals or with pulse oximetry tracings. Thus, after about close to an hour of attempting to improve the flow to the hand, we simply ligated the shunt, which restored pulsatile flow to the hand. We then closed the wounds with Monocryl and Vicryl sutures, skin was closed with skin clips, we did not remove the graft. The operation carried out was hybrid upper shunt, left upper arm, and subsequent ligation due to profound ischemia of the hand. Donte Spivey Jr., MD
--- NOTE | 2017-08-18 09:19 | CP.PCM.PN ---
Subjective - Date & Time of Evaluation Date of Evaluation: 08/18/17 Time of Evaluation: 09:16 - Subjective Subjective: Surgery: Dr. pSivey Pt seen and examined. Resting comfortably in bed. No complaints of pain in arm. Objective - Vital Signs/Intake and Output Vital Signs (last 24 hours): Temp Pulse Resp BP Pulse Ox 97.4 F L 69 20 126/56 L 97 08/18/17 08:00 08/18/17 08:00 08/18/17 08:00 08/18/17 08:00 08/18/17 08:00 - Medications Medications: Current Medications Allopurinol (Zyloprim) 100 mg PO DAILY [facility] Last Admin: 08/17/17 10:41 Dose: 100 mg Aspirin (Ecotrin) 81 mg PO DAILY [facility] Last Admin: 08/16/17 09:15 Dose: 81 mg Calcitriol (Rocaltrol) 0.25 mcg PO DAILY [facility] Last Admin: 08/17/17 10:41 Dose: 0.25 mcg Carvedilol (Coreg) 6.25 mg PO BID [facility] Last Admin: 08/17/17 18:26 Dose: Not Given Docusate Sodium (Colace) 100 mg PO BID PRN PRN Reason: Constipation Last Admin: 08/15/17 10:22 Dose: 100 mg Furosemide (Lasix) 40 mg IVP DAILY [facility] Last Admin: 08/17/17 10:40 Dose: 40 mg Heparin Sodium (Porcine) (Heparin) 5,000 units SC Q8 [facility] Last Admin: 08/16/17 13:19 Dose: 5,000 units Hydralazine HCl (Apresoline) 25 mg PO BID [facility] Last Admin: 08/17/17 18:26 Dose: Not Given Dextrose/Sodium Chloride (Dextrose 5%/0.9% Ns 1000 Ml) 1,000 mls @ 42 mls/hr IV .[id number] ONE Stop: 08/18/17 19:54 Last Admin: 08/17/17 20:18 Dose: 42 mls/hr Insulin Aspart (Novolog) 0 unit SC ACHS [facility] PRN Reason: Protocol Last Admin: 08/17/17 21:41 Dose: Not Given Ondansetron HCl (Zofran Inj) 4 mg IVP Q4 PRN PRN Reason: Nausea/Vomiting Last Admin: 08/17/17 18:47 Dose: 4 mg Oxycodone/Acetaminophen (Percocet 5/325 Mg Tab) 1 tab PO Q4H PRN PRN Reason: Pain, moderate (4-7) Stop: 08/20/17 17:01 Sitagliptin Phosphate (Januvia) 25 mg PO DAILY [facility] Last Admin: 08/17/17 10:41 Dose: 25 mg - Labs Labs: 08/18/17 08:13 08/18/17 08:13 PT 10.3 SECONDS (9.7-12.2) 08/17/17 07:53 INR 0.9 08/17/17 07:53 APTT 33 SECONDS (21-34) 08/17/17 07:53 - Constitutional Appears: Non-toxic, No Acute Distress - Head Exam Head Exam: ATRAUMATIC, NORMOCEPHALIC - Eye Exam Eye Exam: EOMI - ENT Exam ENT Exam: Mucous Membranes Moist - Neck Exam Neck Exam: Full ROM - Respiratory Exam Respiratory Exam: NORMAL BREATHING PATTERN. absent: Accessory Muscle Use, Respiratory Distress - GI/Abdominal Exam GI & Abdominal Exam: Soft. absent: Tenderness - Extremities Exam Additional comments: LUE, dressing in place, C/D/I, hand is warm, sensation and motor fxn intact - Neurological Exam Neurological Exam: Alert, Awake, Oriented x3 - Skin Skin Exam: Dry, Warm Assessment and Plan - Assessment and Plan (Free Text) Assessment: Yumiko mcdonald AVF w. ligation of shunt 2/2 to steal, POD#1 -poor vasculature, will consider permacath for dialysis access, when dialysis is needed -d/w attending Duane PGY3
[2017-08-18] MEDS ORDERED: EPOETIN ALFA 10,000 UNIT/ML ML SC ONE ×2 (09:49→11:00)
--- NOTE | 2017-08-18 09:50 | CP.PCM.PN ---
Subjective - Date & Time of Evaluation Date of Evaluation: 08/18/17 Time of Evaluation: 09:49 - Subjective Subjective: pt is seen and examined, follow up consult is dictated #[id number] d/c lasix for 1-2 days add nephrocaps Objective - Vital Signs/Intake and Output Vital Signs (last 24 hours): Temp Pulse Resp BP Pulse Ox 97.4 F L 69 20 126/56 L 97 08/18/17 08:00 08/18/17 08:00 08/18/17 08:00 08/18/17 08:00 08/18/17 08:00 - Medications Medications: Current Medications Allopurinol (Zyloprim) 100 mg PO DAILY [facility] Last Admin: 08/17/17 10:41 Dose: 100 mg Aspirin (Ecotrin) 81 mg PO DAILY [facility] Last Admin: 08/16/17 09:15 Dose: 81 mg Calcitriol (Rocaltrol) 0.25 mcg PO DAILY [facility] Last Admin: 08/17/17 10:41 Dose: 0.25 mcg Carvedilol (Coreg) 6.25 mg PO BID [facility] Last Admin: 08/17/17 18:26 Dose: Not Given Docusate Sodium (Colace) 100 mg PO BID PRN PRN Reason: Constipation Last Admin: 08/15/17 10:22 Dose: 100 mg Furosemide (Lasix) 40 mg IVP DAILY [facility] Last Admin: 08/17/17 10:40 Dose: 40 mg Heparin Sodium (Porcine) (Heparin) 5,000 units SC Q8 [facility] Last Admin: 08/16/17 13:19 Dose: 5,000 units Hydralazine HCl (Apresoline) 25 mg PO BID [facility] Last Admin: 08/17/17 18:26 Dose: Not Given Dextrose/Sodium Chloride (Dextrose 5%/0.9% Ns 1000 Ml) 1,000 mls @ 42 mls/hr IV .[id number] ONE Stop: 08/18/17 19:54 Last Admin: 08/17/17 20:18 Dose: 42 mls/hr Insulin Aspart (Novolog) 0 unit SC ACHS [facility] PRN Reason: Protocol Last Admin: 08/17/17 21:41 Dose: Not Given Ondansetron HCl (Zofran Inj) 4 mg IVP Q4 PRN PRN Reason: Nausea/Vomiting Last Admin: 08/17/17 18:47 Dose: 4 mg Oxycodone/Acetaminophen (Percocet 5/325 Mg Tab) 1 tab PO Q4H PRN PRN Reason: Pain, moderate (4-7) Stop: 08/20/17 17:01 Sitagliptin Phosphate (Januvia) 25 mg PO DAILY [facility] Last Admin: 08/17/17 10:41 Dose: 25 mg - Labs Labs: 08/18/17 08:13 08/18/17 08:13 PT 10.3 SECONDS (9.7-12.2) 08/17/17 07:53 INR 0.9 08/17/17 07:53 APTT 33 SECONDS (21-34) 08/17/17 07:53
[2017-08-18] MEDS: (Novolog) Insulin Aspart, Recombinant 100 u/ml 10 ml vial SC SCH ×4 (11:16→21:20)
--- NOTE | 2017-08-18 18:54 | CP.PCM.PN ---
Subjective - Date & Time of Evaluation Date of Evaluation: 08/18/17 Time of Evaluation: 18:49 - Subjective Subjective: Patient feels weak, nauseous today with poor appetite. BP: 120/60 HR: 70 Afebrile. BUN: 73 creatinine: 3.4 Objective - Vital Signs/Intake and Output Vital Signs (last 24 hours): Temp Pulse Resp BP Pulse Ox 97.6 F 84 20 106/64 100 08/18/17 15:10 08/18/17 15:10 08/18/17 15:10 08/18/17 15:10 08/18/17 15:10 - Medications Medications: Current Medications Allopurinol (Zyloprim) 100 mg PO DAILY [facility] Last Admin: 08/18/17 11:18 Dose: 100 mg Aspirin (Ecotrin) 81 mg PO DAILY [facility] Last Admin: 08/18/17 11:16 Dose: 81 mg Calcitriol (Rocaltrol) 0.25 mcg PO DAILY [facility] Last Admin: 08/18/17 11:17 Dose: 0.25 mcg Carvedilol (Coreg) 6.25 mg PO BID [facility] Last Admin: 08/18/17 17:14 Dose: Not Given Docusate Sodium (Colace) 100 mg PO BID PRN PRN Reason: Constipation Last Admin: 08/18/17 17:14 Dose: 100 mg Furosemide (Lasix) 40 mg IVP DAILY [facility] Last Admin: 08/18/17 11:16 Dose: 40 mg Heparin Sodium (Porcine) (Heparin) 5,000 units SC Q8 [facility] Last Admin: 08/16/17 13:19 Dose: 5,000 units Hydralazine HCl (Apresoline) 25 mg PO BID [facility] Last Admin: 08/18/17 17:14 Dose: Not Given Dextrose/Sodium Chloride (Dextrose 5%/0.9% Ns 1000 Ml) 1,000 mls @ 42 mls/hr IV .[id number] ONE Stop: 08/18/17 19:54 Last Admin: 08/17/17 20:18 Dose: 42 mls/hr Insulin Aspart (Novolog) 0 unit SC ACHS [facility] PRN Reason: Protocol Last Admin: 08/18/17 17:14 Dose: 2 unit Ondansetron HCl (Zofran Inj) 4 mg IVP Q4 PRN PRN Reason: Nausea/Vomiting Last Admin: 08/17/17 18:47 Dose: 4 mg Oxycodone/Acetaminophen (Percocet 5/325 Mg Tab) 1 tab PO Q4H PRN PRN Reason: Pain, moderate (4-7) Stop: 08/20/17 17:01 Sitagliptin Phosphate (Januvia) 25 mg PO DAILY [facility] Last Admin: 08/18/17 11:16 Dose: 25 mg - Labs Labs: 08/18/17 08:13 08/18/17 08:13 PT 10.3 SECONDS (9.7-12.2) 08/17/17 07:53 INR 0.9 08/17/17 07:53 APTT 33 SECONDS (21-34) 08/17/17 07:53 - Constitutional Appears: No Acute Distress, Chronically Ill - Head Exam Head Exam: NORMAL INSPECTION - ENT Exam ENT Exam: Normal Exam - Neck Exam Neck Exam: Normal Inspection - Respiratory Exam Respiratory Exam: Accessory Muscle Use - Cardiovascular Exam Cardiovascular Exam: REGULAR RHYTHM, Murmur - GI/Abdominal Exam GI & Abdominal Exam: Soft, Normal Bowel Sounds - Rectal Exam Rectal Exam: Deferred - Extremities Exam Extremities Exam: Normal Inspection - Back Exam Back Exam: NORMAL INSPECTION - Neurological Exam Neurological Exam: Alert, Awake, Oriented x3 - Psychiatric Exam Psychiatric exam: Anxious - Skin Skin Exam: Dry, Intact, Normal Color Assessment and Plan (1) Acute on chronic renal failure Assessment & Plan: S/p Failed AV shunt implantation in the left arm. Needs a Permacath if HD is contemplated in the near future. To repeat blood test. May discharge home in AM if there is nothing else to be done from the renal [place]. Status: Acute (2) Anemia Status: Chronic (3) Uncontrolled insulin dependent diabetes mellitus Status: Chronic
--- NOTE | 2017-08-19 01:57 | CON ---
FOLLOWUP RENAL CONSULTATION LOCATION: The patient is located in room 551, bed A. REQUESTING PHYSICIAN: Dr. Joe Mcmahan. REASON FOR FOLLOWUP: CKD V, for further evaluation. HISTORY OF PRESENT ILLNESS: Mrs. Dsouza is an 86 years elderly [place] female with past medical history significant for longstanding hypertension, diabetes, coronary artery disease status post, CHF, CKD, proteinuria, anemia, was admitted with shortness of breath. The patient is being treated for CHF with Lasix. The patient is feeling much better, not in acute distress, status post left upper extremity AV graft with steal syndrome, subsequently AV graft was immediately ligated to preserve the left forearm function to avoid ischemia. The patient is feeling much better, not complaining anything at this time. No chest pain or palpitation. No fever. No cough. No pain in the left hand. Left hand is warm to touch. PHYSICAL EXAMINATION: GENERAL: Mrs. Dsouza is an 86 years old elderly [place] female, moderately built, moderately nourished, not in distress. VITAL SIGNS: Blood pressure 126/56, pulse 69, respirations 20, temperature 97.4, saturation 97%. Height 5 feet, weight is 114 pounds. HEENT: Pupils normal, reactive to light and accommodation. Conjunctivae pink. Sclerae anicteric. Tongue is moist, tracheal is midline. LUNGS: Symmetric on both sides. Bilateral breath sounds present. Clear on auscultation. CARDIOVASCULAR SYSTEM: Amberson at the fifth intercostal space, midclavicular lien. S1 and S2 audible. No murmur or gallop. ABDOMEN: Normal in appearance, soft, tympanic. No guarding. No rigidity. No hepatosplenomegaly. CENTRAL NERVOUS SYSTEM: The patient is alert, awake and oriented x3. Nonfocal neuro examination. Cranial nerves II through XII grossly intact. Sensory and motor system is within normal limits. EXTREMITIES: No cyanosis, no clubbing, no edema. Left hand is warm to touch and hand tool crib lead is normal. CURRENT MEDICATIONS: Include as follows; hydralazine 25 mg p.o. b.i.d., Colace 100 mg p.o. b.i.d., Coreg 6.25 mg p.o. b.i.d., aspirin 81 mg daily, heparin on hold, Januvia 25 mg p.o. daily, Lasix 40 mg IV daily, NovoLog sliding scale, Percocet 1 tablet q.4 hours p.r.n., Rocaltrol 0.25 mcg p.o. daily, Zofran 4 mg IV q.4 hours, allopurinol 100 mg p.o. daily. LABORATORY DATA: As of 08/18/2017; WBC 10.5, hemoglobin 8.7, hematocrit is 25.7 and platelets 165. Sodium 133, potassium 4.7, chloride 100, CO2 of 19, BUN 75, creatinine 3.4, GFR 13, glucose is 311, calcium 8.5. Total bili 0.7, AST 27, ALT 31, alkaline phosphatase 37, total protein 6.5, albumin is 3.9. ASSESSMENT: In summary, Mrs. Dsouza is an 86 years old elderly [place] female with hypertension, diabetes, coronary artery disease status post stent, congestive heart failure, chronic kidney disease, proteinuria with shortness of breath. 1. Chronic kidney disease V, most likely secondary to hypertensive nephrosclerosis, cannot rule out underlying diabetic nephropathy. 2. Congestive heart failure. 3. Hypertension. Blood pressure is stable. 4. Diabetes. Sugars are under control. 5. Anemia secondary to renal failure and recent surgery. 6. Status post ligation of the arteriovenous graft, left upper extremity yesterday immediately due to left forearm steal syndrome, now the patient is feeling much better, hand tool crib lead is normal and warm to touch. We will continue to monitor renal function and if renal function further deteriorates, we will consider PermaCath placement and renal replacement therapy. Consider to hold Lasix for 24 to 48 hours as serum creatinine is slightly worse today and also BUN compared to the admission. We will hold Lasix for 24 to 48 hours. We will follow with you. The patient was given Procrit 10,000 subcu x1 dose today. Continue her current medication and also we will add Nephrocaps 1 tablet p.o. daily. Thank you for allowing me to participate in your patient's care. Sergo Carter MD
[2017-08-19 07:43] VITALS: BP 134/56; TEMP 97; O2SAT 98
[2017-08-19] MEDS ORDERED: Multivitamin Vitamin B Complex (Nephro-Vite) Tab PO SCH (08:00)
[2017-08-19] MEDS: (Novolog) Insulin Aspart, Recombinant 100 u/ml 10 ml vial SC SCH ×2 (09:02→13:06)
[2017-08-19 09:12] LABS: BASO % 0.5 % (0.0-2.0); EOS # 0.2 K/uL (0.0-0.7); EOS % 2.5 % (0.0-4.0); HEMATOCRIT 21.5 % (34.0-47.0); LYMPH # 2.3 K/uL (1.0-4.3); LYMPH % 27.2 % (20.0-40.0); MEAN CELL VOLUME 91.7 fL (81.0-99.0); MEAN CORPUSCULAR HEMOGLOBIN 30.7 pg (27.0-31.0); MEAN CORPUSCULAR HGB CONC 33.4 g/dL (33.0-37.0); MEAN PLATELET VOLUME 11.2 fL (7.2-11.7); MONO # 0.8 K/uL (0.0-0.8); NRBC % 0.1 % (0.0-2.0); RED CELL DISTRIBUTION WIDTH 14.5 % (11.5-14.5); WHITE BLOOD COUNT 8.6 K/uL (4.8-10.8)
[2017-08-19 09:38] LABS: ALB/GLOB RATIO 0.9 (1.0-2.1); BILIRUBIN,TOTAL 0.4 mg/dL (0.2-1.3); CALCIUM 8.7 mg/dl (8.6-10.4); POTASSIUM 4.1 mmol/L (3.6-5.2); TOTAL PROTEIN 7.5 g/dL (6.3-8.3)
[2017-08-19 13:03] LABS: BASO % 0.5 % (0.0-2.0); EOS # 0.2 K/uL (0.0-0.7); EOS % 2.2 % (0.0-4.0); HEMATOCRIT 23.6 % (34.0-47.0); LYMPH # 1.9 K/uL (1.0-4.3); LYMPH % 20.4 % (20.0-40.0); MEAN CELL VOLUME 91.2 fL (81.0-99.0); MEAN PLATELET VOLUME 10.1 fL (7.2-11.7); MONO # 0.8 K/uL (0.0-0.8); RED CELL DISTRIBUTION WIDTH 14.6 % (11.5-14.5); WHITE BLOOD COUNT 9.1 K/uL (4.8-10.8)
--- NOTE | 2017-08-19 13:36 | CP.PCM.PN ---
Subjective - Date & Time of Evaluation Date of Evaluation: 08/19/17 Time of Evaluation: 13:00 - Subjective Subjective: Patient seen today awake, alert, ox3, states feels better, denies any chest pain , sob, dizziness, headache, palpitations No overnight events reported by RN Objective - Vital Signs/Intake and Output Vital Signs (last 24 hours): Temp Pulse Resp BP Pulse Ox 97.0 F L 95 H 20 134/56 L 98 08/19/17 07:42 08/19/17 08:00 08/19/17 07:42 08/19/17 07:42 08/19/17 07:42 - Medications Medications: Current Medications Allopurinol (Zyloprim) 100 mg PO DAILY [facility] Last Admin: 08/19/17 09:02 Dose: 100 mg Aspirin (Ecotrin) 81 mg PO DAILY [facility] Last Admin: 08/19/17 09:02 Dose: 81 mg Calcitriol (Rocaltrol) 0.25 mcg PO DAILY [facility] Last Admin: 08/19/17 09:01 Dose: 0.25 mcg Carvedilol (Coreg) 6.25 mg PO BID [facility] Last Admin: 08/19/17 09:02 Dose: 6.25 mg Docusate Sodium (Colace) 100 mg PO BID PRN PRN Reason: Constipation Last Admin: 08/18/17 17:14 Dose: 100 mg Heparin Sodium (Porcine) (Heparin) 5,000 units SC Q8 [facility] Last Admin: 08/16/17 13:19 Dose: 5,000 units Hydralazine HCl (Apresoline) 25 mg PO BID [facility] Last Admin: 08/19/17 09:02 Dose: 25 mg Insulin Aspart (Novolog) 0 unit SC ACHS [facility] PRN Reason: Protocol Last Admin: 08/19/17 13:06 Dose: 4 unit Ondansetron HCl (Zofran Inj) 4 mg IVP Q4 PRN PRN Reason: Nausea/Vomiting Last Admin: 08/17/17 18:47 Dose: 4 mg Oxycodone/Acetaminophen (Percocet 5/325 Mg Tab) 1 tab PO Q4H PRN PRN Reason: Pain, moderate (4-7) Stop: 08/20/17 17:01 Sitagliptin Phosphate (Januvia) 25 mg PO DAILY [facility] Last Admin: 08/19/17 09:01 Dose: 25 mg Vitamin B Complex/Vit C/Folic Acid (Nephro-Tasneem) 1 tab PO 0800 [facility] Last Admin: 08/19/17 08:53 Dose: 1 tab - Labs Labs: 08/19/17 12:56 08/19/17 08:58 PT 10.3 SECONDS (9.7-12.2) 08/17/17 07:53 INR 0.9 08/17/17 07:53 APTT 33 SECONDS (21-34) 08/17/17 07:53 Assessment and Plan - Assessment and Plan (Free Text) Assessment: A/P 86 yr old female admitted with SOB/ exc. CHF and CKD hgb today - 7.2 and repeated 8.0 bun/cr- remains - 3<3.4>2.9<3 d/W Dr. Farah , stable and cleared for discharge home today and f/u with Dr. Farah office in 2 weeks D/w Dr. Mcmahan, all lab s reviewed with Dr. Mcmahan, stable for discharge home today and f/u with Dr. Mcmahan office in 1 week discharge plan discussed with patient and family at bedside, who understands and agrees with plan RX e prescribed to patient pharmacy Patient needs to f/u with Dr. Coles office for removal of serjio patient instructed to returns to ED/ or call Dr. Mcmahan if symptoms returns or any concerning symptoms [facility] service arranged to do lab work and RN for management of CHF
[2017-08-19 15:48] VITALS: PULSE 73
--- NOTE | 2017-08-19 16:02 | PCM.HF ---
Heart Failure Core Measure - Heart Failure Ejection Fraction: Less Than 40 % LENO Inhibitor Prescribed: No Contraindication/Reason for not providing: CKD Beta-Dinh Prescribed: Carvedilol Angiotensin II Receptor Dinh Prescribed: No Contraindication/Reason for not providing: CKD AnticoagulationTherapy for Atrial Fibrillation/Atrialflutter: No Contraindication/Reason for not providing: no hx of afib Aldosterone Antagonist Prescribed: No Contraindication/Reason for not providing: CKD/ held secondary to worserning bun /cr Hydralazine Nitrate Prescribed: Yes Implantable Cardioverter Defibrillator Therapy: No Contraindication/Reason for not providing: medical management as per cardiology Cardiac Resynchronization Therapy Prescribed: No Contraindication/Reason for not providing: NSR / medical managemtn as per cardiology - Follow up Will be discharged to: Home Follow Up Date (must be within 7 days from discharge): 08/24/17 Follow Up Time: 09:00
--- NOTE | 2017-08-21 18:06 | VASCLAB ---
PROCEDURE: Upper Extremity Venous Duplex Exam HISTORY: Pre-op AV Fistula PRIORS: None. TECHNIQUE: Bilateral upper extremity, internal jugular, subclavian, axillary, brachial, ulnar, radial, basilic and upper cephalic veins were evaluated. Flow was assessed with color Doppler, compressibility, assessment of phasic flow and augmentation response. Report prepared by TERI Baptiste FINDINGS: RIGHT: 1. Internal Jugular Vein: Compressibility - Fully compressible: Thrombus - None : Flow - Phasic 2. Subclavian Vein:Compressibility - Fully compressible: Thrombus - None : Flow - Phasic 3. Axillary Vein: Compressibility - Fully compressible: Thrombus - None 4. Brachial Vein: Compressibility - Fully compressible: Thrombus - None 5. Ulnar Vein:Compressibility - Fully compressible: Thrombus - None 6. Radial Vein:Compressibility - Fully compressible: Thrombus - None 7. Cephalic Vein: Compressibility - Fully compressible: thrombus - None 7.1. Upper Arm: Proximal Diameter: 0.17cm. Mid Diameter: 0.14cm. Distal Diameter: 0.11cm. 7.2. Forearm: Proximal Diameter: n/a. Mid Diameter:0.16cm. Distal Diameter: 0.13cm 8. Basilic Vein:Compressibility - Fully compressible: thrombus - None 8.1. Upper Arm:Proximal Diameter: 0.23cm. Mid Diameter: 0.20cm. Distal Diameter: 0.14cm. 8.2. Forearm: Proximal Diameter: Diminished caliber LEFT: 1. Internal Jugular Vein: Compressibility - Fully compressible: Thrombus - None : Flow - Phasic 2. Subclavian Vein:Compressibility - Fully compressible: Thrombus - None : Flow - Phasic 3. Axillary Vein: Compressibility - Fully compressible: Thrombus - None 4. Brachial Vein: Compressibility - Fully compressible: Thrombus - None 5. Ulnar Vein:Compressibility - Fully compressible: Thrombus - None 6. Radial Vein:Compressibility - Fully compressible: Thrombus - None 7. Cephalic Vein: Compressibility - Fully compressible: thrombus - None 7.1. Upper Arm: Proximal Diameter: 0.17cm. Mid Diameter: 0.17cm. Distal Diameter: 0.18cm. 7.2. Forearm: Proximal Diameter: N/a Mid Diameter:0.19cm. Distal Diameter: 0.11cm 8. Basilic Vein:Compressibility - Fully compressible: thrombus - None 8.1. Upper Arm:Proximal Diameter: 0.39cm. Mid Diameter: 0.27cm. Distal Diameter: 0.27cm. 8.2. Forearm: Proximal Diameter: Diminished caliber OTHER FINDINGS: Right: None. Left: None. IMPRESSION: 1. No evidence of venous thrombosis in bilateral upper extremities. 2. Please refer to the above listed measurements for vein size.
--- NOTE | 2017-08-21 22:55 | CP.PCM.DIS ---
Provider - Provider Date of Admission: 08/12/17 08:39 Attending physician: Joe Mcmahan MD Primary care physician: Joe Mcmahan M.D. Consults: Dr Carter ( Nephrology). Time Spent in preparation of Discharge (in minutes): 30 Diagnosis - Discharge Diagnosis (1) Acute on chronic renal failure Status: Acute (2) Anemia Status: Chronic (3) Uncontrolled insulin dependent diabetes mellitus Status: Chronic Hospital Course - Lab Results Lab Results: Micro Results 08/13/17 17:25 Urine Urine Culture - Final No Growth (<1,000 CFU/ML) Most Recent Lab Values WBC 9.1 K/uL (4.8-10.8) 08/19/17 12:56 RBC 2.59 Mil/uL (3.80-5.20) L 08/19/17 12:56 Hgb 8.0 g/dL (11.0-16.0) L 08/19/17 12:56 Hct 23.6 % (34.0-47.0) L 08/19/17 12:56 MCV 91.2 fL (81.0-99.0) 08/19/17 12:56 MCH 31.0 pg (27.0-31.0) 08/19/17 12:56 MCHC 34.0 g/dL (33.0-37.0) 08/19/17 12:56 RDW 14.6 % (11.5-14.5) H 08/19/17 12:56 Plt Count 178 K/uL (130-400) 08/19/17 12:56 MPV 10.1 fL (7.2-11.7) 08/19/17 12:56 Neut % (Auto) 67.9 % (50.0-75.0) 08/19/17 12:56 Lymph % (Auto) 20.4 % (20.0-40.0) 08/19/17 12:56 [place] % (Auto) 9.0 % (0.0-10.0) 08/19/17 12:56 Eos % (Auto) 2.2 % (0.0-4.0) 08/19/17 12:56 Baso % (Auto) 0.5 % (0.0-2.0) 08/19/17 12:56 Neut # 6.2 K/uL (1.8-7.0) 08/19/17 12:56 Lymph # 1.9 K/uL (1.0-4.3) 08/19/17 12:56 [place] # 0.8 K/uL (0.0-0.8) 08/19/17 12:56 Eos # 0.2 K/uL (0.0-0.7) 08/19/17 12:56 Baso # 0.0 K/uL (0.0-0.2) 08/19/17 12:56 PT 10.3 SECONDS (9.7-12.2) 08/17/17 07:53 INR 0.9 08/17/17 07:53 APTT 33 SECONDS (21-34) 08/17/17 07:53 Puncture Site Rba 08/12/17 08:52 pCO2 30 mm/Hg (35-45) L 08/12/17 08:52 pO2 503 mm/Hg (80-100) H 08/12/17 08:52 HCO3 20.6 mmol/L (21-28) L 08/12/17 08:52 ABG pH 7.39 (7.35-7.45) 08/12/17 08:52 ABG Total CO2 19.1 mmol/L (22-28) L 08/12/17 08:52 ABG O2 Saturation 98.1 % (95-98) H 08/12/17 08:52 ABG Base Excess -5.6 mmol/L (-2.0-3.0) L 08/12/17 08:52 John Test Pos 08/12/17 08:52 ABG Potassium 4.2 mmol/L (3.6-5.2) 08/12/17 08:52 VBG pH 7.26 (7.32-7.43) L 08/12/17 07:54 VBG pCO2 52 mmHg (40-60) 08/12/17 07:54 VBG HCO3 19.5 mmol/L 08/12/17 07:54 VBG Total CO2 24.9 mmol/L (22-28) 08/12/17 07:54 VBG O2 Sat (Calc) 30.5 % (40-65) L 08/12/17 07:54 VBG Base Excess -4.3 mmol/L (0.0-2.0) L 08/12/17 07:54 VBG Potassium 5.2 mmol/L (3.6-5.2) 08/12/17 07:54 A-a O2 Difference 173.0 mm/Hg 08/12/17 08:52 Respiratory Index 0.3 08/12/17 08:52 Sodium 140.0 mmol/l (132-148) 08/12/17 08:52 Chloride 115.0 mmol/L (98-107) H 08/12/17 08:52 Glucose 165 mg/dl (65-105) H 08/12/17 08:52 Lactate 0.6 mmol/L (0.7-2.1) L 08/12/17 08:52 Vent Mode Bipap 08/12/17 08:52 FiO2 100.0 % 08/12/17 08:52 Inspiratory BiPAP 12 08/12/17 08:52 Expiratory BiPAP 6 08/12/17 08:52 Sodium 132 mmol/L (132-148) 08/19/17 08:58 Potassium 4.1 mmol/L (3.6-5.2) 08/19/17 08:58 Chloride 102 mmol/L (98-107) 08/19/17 08:58 Carbon Dioxide 21 mmol/L (22-30) L 08/19/17 08:58 Anion Gap 14 (10-20) 08/19/17 08:58 BUN 63 mg/dL (7-17) H 08/19/17 08:58 Creatinine 3.0 mg/dL (0.7-1.2) H 08/19/17 08:58 Est GFR ( Amer) 18 08/19/17 08:58 Est GFR (Non-Af Amer) 15 08/19/17 08:58 POC Glucose (mg/dL) 303 mg/dL (65-110) H 08/19/17 11:15 Random Glucose 151 mg/dL (65-105) H 08/19/17 08:58 Hemoglobin A1c 8.7 % (4.2-6.5) H 08/13/17 07:06 Calcium 8.7 mg/dl (8.6-10.4) 08/19/17 08:58 Iron 41 ug/dL (37-170) 08/12/17 13:48 TIBC 423 ug/dL (250-450) 08/12/17 13:48 % Saturation 10 (20-55) L 08/12/17 13:48 Ferritin 374.0 ng/mL 08/13/17 07:06 Total Bilirubin 0.4 mg/dL (0.2-1.3) 08/19/17 08:58 AST 26 U/L (14-36) 08/19/17 08:58 ALT 34 U/L (9-52) 08/19/17 08:58 Alkaline Phosphatase 41 U/L (38-126) 08/19/17 08:58 Total Creatine Kinase 235 U/L (30-135) H 08/13/17 07:06 CK-MB (Mass) 1.48 ng/mL (0.0-3.38) 08/13/17 07:06 Troponin I 0.1100 ng/mL (0.00-0.120) 08/13/17 02:43 Troponin I, Quant 0.0950 ng/mL (0.00-0.120) 08/13/17 07:06 NT-Pro-B Natriuret Pep 6570 pg/mL (0-900) H 08/12/17 07:47 Total Protein 7.5 g/dL (6.3-8.3) 08/19/17 08:58 Albumin 3.6 g/dL (3.5-5.0) 08/19/17 08:58 Globulin 3.9 gm/dL (2.2-3.9) 08/19/17 08:58 Albumin/Globulin Ratio 0.9 (1.0-2.1) L 08/19/17 08:58 Vitamin B12 724 pg/mL (239-931) 08/13/17 07:06 Folate > 20.0 ng/mL 08/13/17 07:06 Free T4 1.33 ng/dL (0.78-2.19) 08/12/17 17:09 Total T3 1.03 nmol/L (1.49-2.60) L 08/12/17 17:09 TSH 3rd Generation 2.80 mIU/L (0.46-4.68) 08/12/17 17:09 Arterial Blood Potassium 4.2 mmol/L (3.6-5.2) 08/12/17 08:52 Venous Blood Potassium 5.2 mmol/L (3.6-5.2) 08/12/17 07:54 Urine Color Yellow (YELLOW) 08/12/17 22:56 Urine Clarity Clear (Clear) 08/12/17 22:56 Urine pH 5.0 (5.0-8.0) 08/12/17 22:56 Ur Specific [place] 1.009 (1.003-1.030) 08/12/17 22:56 Urine Protein 1+ mg/dL (NEGATIVE) H 08/12/17 22:56 Urine Glucose (UA) 2+ mg/dL (Normal) H 08/12/17 22:56 Urine Ketones Negative mg/dL (NEGATIVE) 08/12/17 22:56 Urine Blood 1+ (NEGATIVE) H 08/12/17 22:56 Urine Nitrate Negative (NEGATIVE) 08/12/17 22:56 Urine Bilirubin Negative (NEGATIVE) 08/12/17 22:56 Urine Urobilinogen Normal mg/dL (0.2-1.0) 08/12/17 22:56 Ur Leukocyte Esterase Neg Simon/uL (Negative) 08/12/17 22:56 Urine WBC (Auto) 1 /hpf (0-5) 08/12/17 22:56 Urine RBC (Auto) < 1 /hpf (0-3) 08/12/17 22:56 Ur Squamous Epith Cells 1 /hpf (0-5) 08/12/17 22:56 Ur Transition Epith Cell < 1 /hpf (0-3) 08/12/17 22:56 Urine Bacteria Rare (<OCC) 08/12/17 22:56 Urine Collection Time 24 HRS 08/14/17 20:58 Urine Total Volume 975 mL 08/14/17 20:58 Ur Creatinine 24 Hour 504.1 mg/24hr (800-2800) L 08/14/17 20:58 Ur Protein 24 Hr Calc 1794.0 mg/24hr (42-225) H 08/14/17 20:58 Stool Occult Blood Negative (NEGATIVE) 08/13/17 23:03 - Hospital Course Hospital Course: 86 yo Filipina lady was brought by ambulance to the ED at [facility] complaining of increasing shortness of breath on 08/12/2017. Known to have an ischemic cardiomyopathy with recurrent episodes of acute CHF, a stage CKD, an IDDM, a gout, a hyperlipidemia, a CAD with s/p PCI's, her daily Lasix was held because she was found to have a serum BUN : 107 and a creatinine: 4.2 a week ago. In [facility] ED, her CXR revealed a CHF, her BUN: 59 and creatinine: 2.9. She was given Lasix 60 mg IV and placed on BIPAP with improvement of the shortness of breath. She was evaluated by her Nurse Practitioner Home Assessments Dr. Ellis who suggested to have an AV fistula placement for a near hemodialysis. She underwent surgery on 08/17/2017, but DR Ludwig, the vascular surgeon had to ligate the AV fistula on the left arm because of poor venous access and cyanosis of the left hand. She was discharged home on 08/19/2017 in a stable condition. She was advised to resume all her home medications, except Losartan and Spironolactone. She was given a prescription of Hydralazine 25 mg PO BID to control her BP, and treat her CHF. She will see Dr Carter in 2 weeks. She will see me in one week to recheck her electrolytes and her cardiac status. - Date & Time of H&P Date of H&P: 08/12/17 Discharge Exam - Head Exam Head Exam: ATRAUMATIC, NORMOCEPHALIC - Eye Exam Eye Exam: Normal appearance - ENT Exam ENT Exam: Normal Exam - Neck Exam Neck exam: Normal Inspection - Respiratory Exam Respiratory Exam: Clear to PA & Lateral, NORMAL BREATHING PATTERN - Cardiovascular Exam Cardiovascular Exam: REGULAR RHYTHM, Systolic Murmur - GI/Abdominal Exam GI & Abdominal Exam: Normal Bowel Sounds, Soft - Rectal Exam Rectal Exam: Deferred - Extremities Exam Extremities exam: normal inspection - Neurological Exam Neurological exam: Alert, Normal Gait, Oriented x3 - Psychiatric Exam Psychiatric exam: Anxious - Skin Skin Exam: Dry, Intact, Normal Color, Warm Discharge Plan - Discharge Medications Prescriptions: hydrALAZINE [Apresoline] 25 mg PO BID #60 tab - Follow Up Plan Condition: FAIR Disposition: HOME/ ROUTINE Instructions: Hydralazine (By mouth), Heart Failure (DC), Chronic Kidney Disease (DC), Arteriovenous Fistula Creation for Hemodialysis (DC) Additional Instructions: Please follow up with Dr. Mcmahan in the office in 1 week Please follow up with Dr. Wang in the office in 2 weeks- call and make an appointment please call Dr. Spivey's office in 2 weeks to made an appointment for the surgical site on the arm. VNA service for home PT and RN for management of CHF and CKD Continue medication as per Med. Rec. D/C LASIX BY Dr. Wang , for 3 days resume Lasix Thursday any questions call Dr. Mcmahan Referrals: Sergo Carter MD [Staff Provider] - 2 Weeks Donte Spivey Jr., MD [Staff Provider] - Joe Mcmahan MD [Staff Provider] - 1 Week Clinical Quality Measures - CQM - Heart Failure Ejection Fraction: Less Than 40 % Left Ventricular Function to be assessed after discharge: No LENO Inhibitor Prescribed: No Contraindication/Reason for not providing: Acute renal failure. Beta-Dinh Prescribed: Carvedilol Angiotensin II Receptor Dinh Prescribed: No Contraindication/Reason for not providing: Acute renal failure. AnticoagulationTherapy for Atrial Fibrillation/Atrialflutter: No Contraindication/Reason for not providing: Patient has no atrial fibrillation Aldosterone Antagonist Prescribed: No Contraindication/Reason for not providing: Scute renal failure. Hydralazine Nitrate Prescribed: Yes Implantable Cardioverter Defibrillator Therapy: No Contraindication/Reason for not providing: Not indicated. Cardiac Resynchronization Therapy Prescribed: No Contraindication/Reason for not providing: Not indicated Will be discharged to: Home Follow Up Date (must be within 7 days from discharge): 08/26/17 Follow Up Time: 14:00 - Date & Time of Discharge Summary Date of Discharge Summary: 08/21/17 Time of Discharge Summary: 22:59
== END 2017-08-19 16:49 | disposition home or self-care (01) | DRG 252 ==
LOC: C.ER 07:31 → C.9E 08:39 → C.5S 09:05
PROVIDERS: ADMIT Internal Medicine Cardiovascular Disease; ATTEND Internal Medicine Cardiovascular Disease
PROC: 03L80ZZ Occlusion of Left Brachial Artery, Open Approach (ICD-10-PCS; 2017-08-17)
PROC: 03180JD Bypass Left Brachial Artery to Upper Arm Vein with Synthetic Substitute, Open Approach (ICD-10-PCS; principal; 2017-08-17 17:00)
DX: I13.2 Hypertensive heart and chronic kidney disease with heart failure and with stage 5 chronic kidney disease, or end stage renal disease (principal); I50.23 Acute on chronic systolic (congestive) heart failure; N17.9 Acute kidney failure, unspecified; E11.65 Type 2 diabetes mellitus with hyperglycemia; E11.21 Type 2 diabetes mellitus with diabetic nephropathy; N18.5 Chronic kidney disease, stage 5; T82.898A Other specified complication of vascular prosthetic devices, implants and grafts, initial encounter; E11.22 Type 2 diabetes mellitus with diabetic chronic kidney disease; D63.1 Anemia in chronic kidney disease; Z79.4 Long term (current) use of insulin; I25.5 Ischemic cardiomyopathy; E78.00 Pure hypercholesterolemia, unspecified; I25.10 Atherosclerotic heart disease of native coronary artery without angina pectoris; M10.9 Gout, unspecified; Y83.2 Surgical operation with anastomosis, bypass or graft as the cause of abnormal reaction of the patient, or of later complication, without mention of misadventure at the time of the procedure

== ENCOUNTER 2017-08-26 14:31 | Inpatient (IN) | payer MEDICARE ==
[2017-08-26 14:31] VITALS: BMI 22.3
--- NOTE | 2017-08-26 14:46 | C.PDOC ---
History Of Present Illness 86F c/o intermittent "twitching' in her jaw that started this morning. lasts about 1 minute. she also says her right arm "dropped" a few times as well. she was recently admitted here and says she is preparing to start dialysis. Chief Complaint (Nursing): Medical Clearance Past Medical History Vital Signs: Last Vital Signs Temp 97.7 F 08/26/17 14:33 Pulse 74 08/26/17 14:33 Resp 16 08/26/17 14:33 BP 141/55 L 08/26/17 14:33 Pulse Ox 100 08/26/17 15:03 - Medical History PMH: CHF, Diabetes, HTN, Hypercholesterolemia, Hyperlipidemia, Chronic Kidney Disease Surgical History: Coronary Stent - [facility] Procedures BYPASS L BRACH ART TO UP ARM VEIN W SYNTH SUB, OPEN (08/12/17) OCCLUSION OF LEFT BRACHIAL ARTERY, OPEN APPROACH (08/12/17) Family History: States: CAD (aunt) - Social History Hx Tobacco Use: No Hx Alcohol Use: No Hx Substance Use: No - Immunization History Hx Tetanus Toxoid Vaccination: Yes Hx Influenza Vaccination: Yes Hx Pneumococcal Vaccination: Yes Review Of Systems Except As Marked, All Systems Reviewed And Found Negative. Constitutional: Negative for: Fever Cardiovascular: Negative for: Chest Pain Respiratory: Negative for: Cough, Shortness of Breath Gastrointestinal: Negative for: Nausea, Vomiting, Abdominal Pain Musculoskeletal: Negative for: Neck Pain Neurological: Negative for: Weakness, Numbness, Headache Physical Exam - Physical Exam Appears: Well, Non-toxic, No Acute Distress Skin: Warm, Dry Head: Atraumatic Eye(s): bilateral: PERRL, EOMI Nose: No Epistaxis Oral Mucosa: Moist Neck: Supple Cardiovascular: Rhythm Regular Respiratory: No Decreased Breath Sounds, No Accessory Muscle Use, No Rales, No Rhonchi, No Stridor, No Wheezing Gastrointestinal/Abdominal: Soft, No Tenderness Extremity: No Swelling Pulses: Left Radial: Normal, Right Radial: Normal Neurological/Psych: Oriented x3, Normal Motor, Normal Sensation, Other (no focal deficits) ED Course And Treatment - Laboratory Results Result Diagrams: 08/26/17 15:17 08/26/17 15:17 O2 Sat by Pulse Oximetry: 100 Medical Decision Making Medical Decision Makinpm disc w Dr Mcmahan will admit Disposition - Disposition Referrals: Concepción Martins MD [Primary Care Provider] - Disposition: HOSPITALIZED Disposition Time: 16:00 Condition: STABLE Forms: SNTMNT (Romansh) - Clinical Impression Clinical Impression: CKD (chronic kidney disease), Myoclonic jerking
[2017-08-26 15:23] LABS: BASO % 0.3 % (0.0-2.0); EOS # 0.1 K/uL (0.0-0.7); EOS % 1.1 % (0.0-4.0); LYMPH # 2.3 K/uL (1.0-4.3); MEAN CELL VOLUME 93.8 fL (81.0-99.0); MEAN CORPUSCULAR HEMOGLOBIN 30.4 pg (27.0-31.0); MEAN CORPUSCULAR HGB CONC 32.5 g/dL (33.0-37.0); MEAN PLATELET VOLUME 9.3 fL (7.2-11.7); MONO # 0.7 K/uL (0.0-0.8); MONO % 7.2 % (0.0-10.0); NRBC % 0.1 % (0.0-2.0); RED CELL DISTRIBUTION WIDTH 15.9 % (11.5-14.5); WHITE BLOOD COUNT 9.9 K/uL (4.8-10.8)
[2017-08-26 15:42] LABS: ALB/GLOB RATIO 1.4 (1.0-2.1); BILIRUBIN,TOTAL 0.7 mg/dL (0.2-1.3); CALCIUM 9.2 mg/dl (8.6-10.4); POTASSIUM 4.7 mmol/L (3.6-5.2); TOTAL PROTEIN 7.4 g/dL (6.3-8.3)
[2017-08-26 16:19] LABS: DRAW SITE VENOUS; VENOUS BLOOD GAS BASE EXCESS -2.6 mmol/L (0.0-2.0); VENOUS BLOOD GAS PCO2 36 mmHg (40-60); VENOUS BLOOD PH 7.39 (7.32-7.43)
--- NOTE | 2017-08-26 16:41 | CT ---
PROCEDURE: CT HEAD WITHOUT CONTRAST. HISTORY: r arm "giving out" COMPARISON: Head CT without contrast 04/27/2017 TECHNIQUE: Axial computed tomography images were obtained through the head/brain without intravenous contrast. Radiation dose: Total exam DLP = 790.44 mGy-cm. This CT exam was performed using one or more of the following dose reduction techniques: Automated exposure control, adjustment of the mA and/or kV according to patient size, and/or use of iterative reconstruction technique. FINDINGS: HEMORRHAGE: No intracranial hemorrhage. BRAIN: The peres-white matter differentiation is well preserved. There is no mass effect or definitive edema pattern appreciate including the cortex. There is expansion of the ventriculosulcal and cisternal spaces however in a pattern most compatible with diffuse cerebral atrophy. No suspicious extra-axial fluid collection is identified in the midline brain anatomy appears grossly nonfocal as imaged. Bilateral basal ganglia calcifications are again appreciated. VENTRICLES: Unremarkable. No hydrocephalus. CALVARIUM: Unremarkable. PARANASAL SINUSES: Unremarkable as visualized. No significant inflammatory changes. MASTOID AIR CELLS: Unremarkable as visualized. No inflammatory changes. OTHER FINDINGS: None. IMPRESSION: No definite interval acute intracranial findings. Follow-up by CT or MRI is available if clinically warranted. Stable age-appropriate age related neuro degenerative changes are reiterated.
--- NOTE | 2017-08-26 16:53 | RAD ---
HISTORY: muscle twitch COMPARISON: Chest x-ray performed 08/14/17 TECHNIQUE: Chest, one view. FINDINGS: LUNGS: No focal consolidation. Please note that chest x-ray has limited sensitivity for the detection of pulmonary masses. PLEURA: No significant pleural effusion identified. No definite pneumothorax . CARDIOVASCULAR: Cardiomegaly. Atherosclerotic calcifications of the aorta. OSSEOUS STRUCTURES: Degenerative changes. VISUALIZED UPPER ABDOMEN: Unremarkable. OTHER FINDINGS: Left upper extremity vascular stent. Surgical skin serjio. IMPRESSION: Cardiomegaly. Atherosclerotic calcifications of the aorta.
[2017-08-26] MEDS: (Novolog) Insulin Aspart, Recombinant 100 u/ml 10 ml vial SC SCH (21:59)
--- NOTE | 2017-08-26 22:52 | CP.PCM.HP ---
History of Present Illness - History of Present Illness History of Present Illness: 86 yo [place] lady complaining of twitching of the muscles of her face on and off since this morning with weakness of the right arm. Patient was recently hospitalized for an acute CHF and for an ESRD . An attempt to place an AV fistula in the left arm had failed. She is known to have an ischemic cardiomyopathy, an IDDM, an end stage kidney disease, a hypertension, a coronary artery disease. She denies any palpitation, any chest pain, any headache, any nausea, blurred vision. Present on Admission - Present on Admission Any Indicators Present on Admission: No Review of Systems - Musculoskeletal Additional comments: Transient weakness of the right arm, episodes of twitching of the face and chest. - Neurological Additional comments: Transient weakness of the right arm,and twitching of the face and chest today. - Psychiatric Psychiatric: Anxiety Past Patient History - Infectious Disease Hx of Infectious Diseases: None - Tetanus Immunizations Tetanus Immunization: Unknown - Past Medical History & Family History Past Medical History?: Yes - Past Social History Smoking Status: Never Smoked Alcohol: None Drugs: Denies Home Situation {Lives}: With Family Domestic Violence: Negative - CARDIAC Hx Cardiac Disorders: Yes Hx Congestive Heart Failure: Yes Hx Hypercholesterolemia: Yes Hx Hypertension: Yes - PULMONARY Hx Respiratory Disorders: No Hx Pulmonary Edema: Yes - NEUROLOGICAL Hx Neurological Disorder: No - HEENT Hx HEENT Problems: No Hx Cataracts: Yes (3 yrs ago) - RENAL Hx Chronic Kidney Disease: Yes Type of Dialysis Access: left AVS done i week ago - ENDOCRINE/METABOLIC Hx Diabetes Mellitus Type 2: Yes - MUSCULOSKELETAL/RHEUMATOLOGICAL Hx Falls: No - PSYCHIATRIC Hx Anxiety: Yes Hx Substance Use: No - SURGICAL HISTORY Hx Angioplasty: Yes Hx Coronary Stent: Yes - ANESTHESIA Hx Anesthesia: Yes Hx Anesthesia Reactions: No Hx Malignant Hyperthermia: No Has any member of the family had a problem w/ anesthesia?: No Meds Allergies/Adverse Reactions: Allergies Allergy/AdvReac Type Severity Reaction Status Date / Time No Known Allergies Allergy Verified 04/23/17 10:59 Physical Exam - Constitutional Appears: No Acute Distress, Chronically Ill - Head Exam Head Exam: NORMAL INSPECTION - Eye Exam Eye Exam: Normal appearance - ENT Exam ENT Exam: Normal Exam - Neck Exam Neck exam: Positive for: Normal Inspection - Respiratory Exam Respiratory Exam: Clear to Auscultation Bilateral, NORMAL BREATHING PATTERN - Cardiovascular Exam Cardiovascular Exam: REGULAR RHYTHM, Systolic Murmur - GI/Abdominal Exam GI & Abdominal Exam: Normal Bowel Sounds, Soft - Rectal Exam Rectal Exam: Deferred - Extremities Exam Extremities exam: Positive for: normal inspection - Back Exam Back exam: NORMAL INSPECTION - Neurological Exam Neurological exam: Alert, Normal Gait, Oriented x3 - Psychiatric Exam Psychiatric exam: Anxious - Skin Skin Exam: Dry, Intact, Normal Color, Warm Results - Vital Signs Recent Vital Signs: Last Vital Signs Temp 97.9 F 08/26/17 20:30 Pulse 80 08/26/17 20:30 Resp 20 08/26/17 20:30 BP 129/65 08/26/17 20:30 Pulse Ox 99 08/26/17 20:30 - Labs Result Diagrams: 08/26/17 15:17 08/26/17 15:17 Labs: Laboratory Results - last 24 hr 08/26/17 08/26/17 08/26/17 15:17 15:17 16:10 WBC 9.9 RBC 2.77 L Hgb 8.4 L Hct 26.0 L MCV 93.8 D MCH 30.4 MCHC 32.5 L RDW 15.9 H Plt Count 446 H D MPV 9.3 Neut % (Auto) 68.4 Lymph % (Auto) 23.0 [place] % (Auto) 7.2 Eos % (Auto) 1.1 Baso % (Auto) 0.3 Neut # 6.8 Lymph # 2.3 [place] # 0.7 Eos # 0.1 Baso # 0.0 Puncture Site Venous pO2 48 John Test Na VBG pH 7.39 VBG pCO2 36 L VBG HCO3 22.5 VBG O2 Sat (Calc) 87.8 H VBG Base Excess -2.6 L Sodium 135 Potassium 4.7 Chloride 100 Carbon Dioxide 21 L Anion Gap 18 BUN 68 H Creatinine 2.7 H Est GFR ( Amer) 20 Est GFR (Non-Af Amer) 17 POC Glucose (mg/dL) Random Glucose 200 H Calcium 9.2 Total Bilirubin 0.7 AST 32 ALT 33 Alkaline Phosphatase 73 Troponin I Total Protein 7.4 Albumin 4.4 Globulin 3.0 Albumin/Globulin Ratio 1.4 08/26/17 08/26/17 16:15 21:20 WBC RBC Hgb Hct MCV MCH MCHC RDW Plt Count MPV Neut % (Auto) Lymph % (Auto) [place] % (Auto) Eos % (Auto) Baso % (Auto) Neut # Lymph # [place] # Eos # Baso # Puncture Site pO2 John Test VBG pH VBG pCO2 VBG HCO3 VBG O2 Sat (Calc) VBG Base Excess Sodium Potassium Chloride Carbon Dioxide Anion Gap BUN Creatinine Est GFR ( Amer) Est GFR (Non-Af Amer) POC Glucose (mg/dL) 206 H Random Glucose Calcium Total Bilirubin AST ALT Alkaline Phosphatase Troponin I 0.0920 Total Protein Albumin Globulin Albumin/Globulin Ratio Assessment & Plan (1) Myoclonic jerking Assessment and Plan: And transient right arm weakness. To r/o TIA. To get a neurological evaluation, brain MRI, ECG, carotid duplex scan. Status: Acute (2) ESRD (end stage renal disease) Status: Acute (3) Ischemic cardiomyopathy Status: Chronic (4) Insulin dependent diabetes mellitus Status: Acute (5) Hypertension Status: Acute Decision To Admit - Pt Status Changed To: Hospital Disposition Of: Inpatient - Admit Certification Admit to Inpatient:: After my assessment, the patient will require hospitalization for at least two midnights. This is because of the severity of symptoms shown, intensity of services needed, and/or the medical risk in this patient being treated as an outpatient. - InPatient: Physician Admission Certification:: After my assessments, the patient requires hospitalization for at least 2 midnights. - . Bed Request Type: Regular Admitting Physician: Joe Mcmahan
[2017-08-27 07:24] LABS: MAGNESIUM 2.5 mg/dL (1.6-2.3)
[2017-08-27] MEDS: (Novolog) Insulin Aspart, Recombinant 100 u/ml 10 ml vial SC SCH ×4 (08:07→22:07)
[2017-08-27] MEDS ORDERED: VITAMIN B COMPLEX PO SCH (10:00)
[2017-08-27] MEDS: Multiple Vitamins Tab PO SCH (10:29)
--- NOTE | 2017-08-27 20:24 | CP.PCM.PN ---
Subjective - Date & Time of Evaluation Date of Evaluation: 08/27/17 Time of Evaluation: 20:22 - Subjective Subjective: Patient has no more twitching of the face or chest. No more right arm weakness. ECG: RSR with a complete LBBB. She is alert, oriented, in no acute respiratory difficulty. Objective - Vital Signs/Intake and Output Vital Signs (last 24 hours): Temp Pulse Resp BP Pulse Ox 97.9 F 66 18 115/57 L 97 08/27/17 16:30 08/27/17 16:30 08/27/17 16:30 08/27/17 19:00 08/27/17 16:30 Intake and Output: 08/27/17 08/28/17 18:59 06:59 Intake Total 380 Balance 380 - Medications Medications: Current Medications Allopurinol (Zyloprim) 100 mg PO DAILY [facility] Last Admin: 08/27/17 10:24 Dose: 100 mg Aspirin (Ecotrin) 81 mg PO DAILY [facility] Last Admin: 08/27/17 10:24 Dose: 81 mg Calcitriol (Rocaltrol) 0.25 mcg PO DAILY [facility] Last Admin: 08/27/17 10:23 Dose: 0.25 mcg Carvedilol (Coreg) 6.25 mg PO BID [facility] Last Admin: 08/27/17 18:00 Dose: Not Given Clonidine HCl (Catapres) 0.1 mg PO BID [facility] Last Admin: 08/27/17 18:00 Dose: Not Given Clopidogrel Bisulfate (Plavix) 75 mg PO DAILY [facility] Last Admin: 08/27/17 10:23 Dose: 75 mg Docusate Sodium (Colace) 100 mg PO BID [facility] Last Admin: 08/27/17 17:50 Dose: 100 mg Fenofibrate (Tricor) 145 mg PO DAILY [facility] Last Admin: 08/27/17 11:00 Dose: 145 mg Furosemide (Lasix) 40 mg PO BID [facility] Last Admin: 08/27/17 19:00 Dose: 40 mg Heparin Sodium (Porcine) (Heparin) 5,000 units SC Q12 [facility] Last Admin: 08/27/17 10:28 Dose: 5,000 units Hydralazine HCl (Apresoline) 25 mg PO BID [facility] Last Admin: 08/27/17 18:00 Dose: Not Given Insulin Aspart (Novolog) 0 unit SC ACHS [facility] PRN Reason: Protocol Last Admin: 08/27/17 17:06 Dose: Not Given Multivitamins (Hexavitamin) 1 tab PO DAILY [facility] Last Admin: 08/27/17 10:29 Dose: 1 tab Rosuvastatin Calcium (Crestor) 10 mg PO HS [facility] Last Admin: 08/26/17 22:14 Dose: 10 mg Sitagliptin Phosphate (Januvia) 25 mg PO DAILY [facility] Last Admin: 08/27/17 10:29 Dose: 25 mg - Labs Labs: 08/26/17 15:17 08/26/17 15:17 - Constitutional Appears: No Acute Distress, Chronically Ill - Head Exam Head Exam: NORMAL INSPECTION - Eye Exam Eye Exam: Normal appearance - ENT Exam ENT Exam: Normal Exam - Neck Exam Neck Exam: Normal Inspection - Respiratory Exam Respiratory Exam: Clear to Ausculation Bilateral, NORMAL BREATHING PATTERN - Cardiovascular Exam Cardiovascular Exam: REGULAR RHYTHM, Murmur - GI/Abdominal Exam GI & Abdominal Exam: Soft, Normal Bowel Sounds - Rectal Exam Rectal Exam: Deferred - Extremities Exam Extremities Exam: Normal Inspection - Back Exam Back Exam: NORMAL INSPECTION - Neurological Exam Neurological Exam: Alert, Awake, CN II-XII Intact, Normal Gait, Oriented x3 - Psychiatric Exam Psychiatric exam: Anxious - Skin Skin Exam: Dry, Intact, Normal Color, Warm Assessment and Plan (1) Myoclonic jerking Assessment & Plan: Awaiting MRI, EEG, carotid US and neurological evaluation. Status: Acute (2) ESRD (end stage renal disease) Status: Chronic (3) Ischemic cardiomyopathy Status: Chronic (4) Insulin dependent diabetes mellitus Status: Chronic (5) Hypertension Status: Chronic
--- NOTE | 2017-08-28 07:11 | CON ---
NEUROLOGY CONSULTATION REASON FOR CONSULTATION: Tremors. HISTORY OF PRESENTING ILLNESS: Patient is an 86-year-old female who has been asked for evaluation of intermittent twitching. It started yesterday morning and . She was noted to have some questionable weakness to the right arm, which is completely resolved. The patient has end-stage renal disease and is supposed to start dialysis; however, her AV fistula in the left arm failed. At the moment, the patient does not have any twitching of the arm or face. Denies any focal weakness in the arm or legs. REVIEW OF SYSTEMS: Denies any headache, dizziness, chest pain, shortness of breath, abdominal pain, constipation, diarrhea, dysuria, cough, or sputum production. Positive for twitching of the face, which is better now. PAST MEDICAL HISTORY: Includes congestive heart failure, end-stage renal disease, diabetes mellitus, hypercholesterolemia, and hypertension. MEDICATIONS: Included , Lasix, Plavix, , aspirin, allopurinol, calcitriol, Lipitor, Coreg, Januvia, multivitamin, Flomax, hydralazine, . SOCIAL HISTORY: Patient is a nonsmoker, nonalcoholic, and denies use of any illicit drugs. FAMILY HISTORY: Reviewed and noncontributory to the case. PHYSICAL EXAMINATION: GENERAL: The patient is an elderly female, lying on the bed, in no acute distress. VITAL SIGNS: Her blood pressure is 120/64, heart rate is 79 per minute, breathing at the rate of 16 per minute, temperature is 98 degrees Fahrenheit. HEENT: Head is normocephalic and atraumatic. NECK: Supple. There are no carotid bruits. LUNGS: Clear. CARDIOVASCULAR SYSTEM: S1 and S2 audible with no murmurs. ABDOMEN: Soft, nontender. Bowel sounds are present. NEUROLOGIC: Mental status: The patient is awake, alert, and oriented to time, place, person. Speech is fluent. Naming and repetition normal. Memory and cognition are intact. Cranial nerve examination: Pupils are 3 mm bilaterally, active to light. Visual goodman are full. Extraocular movements are intact. There is no facial asymmetry. Palate is upgoing bilaterally and tongue is midline. Motor examination: Tone is normal. Power is 5/5 bilaterally in all extremities. Reflexes 1+ and symmetrical with absent ankle jerk. Plantars downgoing bilaterally. LABORATORY DATA: Reviewed showed WBC of 9.9, hemoglobin 8.4, hematocrit 26.0, and platelets of 446. Sodium is 135, potassium 4.7, chloride 100, carbon dioxide 21, BUN of 68, creatinine 2.7, and glucose of 200. She had a CT scan of the head done which showed no acute intracranial pathology. IMPRESSION: 1. Abnormal involuntary movements with some tremors and twitching, which may have been present due to her underlying renal failure. 2. Status post right arm weakness, possible transient ischemic attack. RECOMMENDATIONS: 1. Patient to have MRI of the brain without contrast. 2. Patient to have an electroencephalogram. 3. Patient to have a carotid Doppler study. 4. Patient is not a candidate for t-PA administration because of resolution of her symptoms. 5. Patient's NIH scale score of 0. 6. Patient to be continued on aspirin and statin. 7. Patient to have physical therapy evaluation. 8. Please continue other treatments and supportive care. Thank you for the opportunity to participate in the care of this patient. Modesto Cloud MD
[2017-08-28 07:37] LABS: BASO # 0.1 K/uL (0.0-0.2); BASO % 0.9 % (0.0-2.0); EOS # 0.1 K/uL (0.0-0.7); EOS % 1.6 % (0.0-4.0); LYMPH # 2.1 K/uL (1.0-4.3); LYMPH % 28.4 % (20.0-40.0); MEAN CELL VOLUME 93.5 fL (81.0-99.0); MEAN CORPUSCULAR HEMOGLOBIN 30.8 pg (27.0-31.0); MEAN PLATELET VOLUME 9.6 fL (7.2-11.7); MONO # 0.5 K/uL (0.0-0.8); MONO % 7.3 % (0.0-10.0); NRBC % 0.1 % (0.0-2.0); RED CELL DISTRIBUTION WIDTH 15.9 % (11.5-14.5); WHITE BLOOD COUNT 7.4 K/uL (4.8-10.8)
[2017-08-28 08:01] LABS: ALB/GLOB RATIO 1.5 (1.0-2.1); BILIRUBIN,TOTAL 0.6 mg/dL (0.2-1.3); CALCIUM 8.3 mg/dl (8.6-10.4); POTASSIUM 4.1 mmol/L (3.6-5.2); TOTAL PROTEIN 6.4 g/dL (6.3-8.3)
[2017-08-28] MEDS: (Novolog) Insulin Aspart, Recombinant 100 u/ml 10 ml vial SC SCH ×4 (08:06→22:14)
[2017-08-28] MEDS ORDERED: Influenza Vaccine 60 mcg/0.5 mL SYR (4YR UP) IM ONE (10:00)
--- NOTE | 2017-08-28 10:40 | MRI ---
PROCEDURE: MRI of the brain dated 08/28/2017. HISTORY: Transient right arm weakness, and facial twitching COMPARISON: Comparison made with CT scan of the brain dated 08/26/2017 TECHNIQUE: Multiplanar, multisequence MR images of the brain were obtained without intravenous contrast enhancement. FINDINGS: HEMORRHAGE: No acute parenchymal, subarachnoid nor extra-axial hemorrhage. No evidence of hemosiderin deposition identified on gradient echo weighted sequence. DWI: No evidence of acute infarct seen on diffusion-weighted imaging BRAIN PARENCHYMA: Very mild diffuse/confluent chronic white matter ischemic changes seen extending peripherally into deep and to a lesser degree subcortical white matter both cerebral hemispheres. Changes are most conspicuous in the posterior parieto-occipital regions. Additionally, there are multiple tiny chronic appearing lacunar type infarcts scattered about the deep and subcortical white matter bilaterally. There may also be a few tiny chronic basal nuclei and brainstem lacunar type infarcts admixed with dilated perivascular spaces. Partially empty sella. Mild generalized volume loss. VENTRICLES: No obstructive hydrocephalus. CRANIUM: Calvarium appears grossly unremarkable ORBITS: Changes of bilateral cataract surgery again noted PARANASAL SINUSES/MASTOIDS: Clear VASCULAR SYSTEM: Visualized major vascular flow voids at skull base are patent. OTHER FINDINGS: None. IMPRESSION: No acute intracranial hemorrhage or infarct. Minor old chronic white matter ischemic changes. There may also be a few scattered bilateral basal nuclei and cerebellar lacunar type infarcts. Suspect few 2 tiny brainstem chronic brainstem lacunar type infarcts.
[2017-08-28] MEDS: Multiple Vitamins Tab PO SCH (10:43)
--- NOTE | 2017-08-28 12:56 | CP.PCM.CON ---
History of Present Illness - History of Present Illness History of Present Illness: Vascular Surgery- Dr. Spivey 86F admitted to [facility] for uncontrollable shaking and twitching of facial muscles and and weakness of the right UE. Patient was recently hospitalized for acute CHF and end stage renal disease. Patient currently denies fevers, chills, chest pain, shortness of breath, nausea, vomiting, diarrhea, change in vision, loss of consciousness. PMH: HTN, IDDM, ESRD PSH: AV fistula (failed) ALL: NKDA Review of Systems - Review of Systems All systems: reviewed and no additional remarkable complaints except - Constitutional Constitutional: As Per HPI Past Patient History - Infectious Disease Hx of Infectious Diseases: None - Tetanus Immunizations Tetanus Immunization: Unknown - Past Medical History & Family History Past Medical History?: Yes - Past Social History Smoking Status: Never Smoked Alcohol: None Drugs: Denies Home Situation {Lives}: With Family Domestic Violence: Negative - CARDIAC Hx Cardiac Disorders: Yes Hx Congestive Heart Failure: Yes Hx Hypercholesterolemia: Yes Hx Hypertension: Yes - PULMONARY Hx Respiratory Disorders: No Hx Pulmonary Edema: Yes - NEUROLOGICAL Hx Neurological Disorder: No - HEENT Hx HEENT Problems: No Hx Cataracts: Yes (3 yrs ago) - RENAL Hx Chronic Kidney Disease: Yes Type of Dialysis Access: left AVS done i week ago - ENDOCRINE/METABOLIC Hx Diabetes Mellitus Type 2: Yes - MUSCULOSKELETAL/RHEUMATOLOGICAL Hx Falls: No - PSYCHIATRIC Hx Anxiety: Yes Hx Substance Use: No - SURGICAL HISTORY Hx Angioplasty: Yes Hx Coronary Stent: Yes - ANESTHESIA Hx Anesthesia: Yes Hx Anesthesia Reactions: No Hx Malignant Hyperthermia: No Has any member of the family had a problem w/ anesthesia?: No Meds Allergies/Adverse Reactions: Allergies Allergy/AdvReac Type Severity Reaction Status Date / Time No Known Allergies Allergy Verified 04/23/17 10:59 - Medications Medications: Current Medications Allopurinol (Zyloprim) 100 mg PO DAILY [facility] Last Admin: 08/28/17 10:41 Dose: 100 mg Aspirin (Ecotrin) 81 mg PO DAILY [facility] Last Admin: 08/28/17 10:41 Dose: 81 mg Calcitriol (Rocaltrol) 0.25 mcg PO DAILY [facility] Last Admin: 08/28/17 10:42 Dose: 0.25 mcg Carvedilol (Coreg) 6.25 mg PO BID [facility] Last Admin: 08/28/17 10:43 Dose: 6.25 mg Clonidine HCl (Catapres) 0.1 mg PO BID [facility] Last Admin: 08/28/17 10:42 Dose: 0.1 mg Clopidogrel Bisulfate (Plavix) 75 mg PO DAILY [facility] Last Admin: 08/28/17 10:42 Dose: 75 mg Docusate Sodium (Colace) 100 mg PO BID [facility] Last Admin: 08/28/17 10:42 Dose: 100 mg Fenofibrate (Tricor) 145 mg PO DAILY [facility] Last Admin: 08/28/17 10:43 Dose: 145 mg Furosemide (Lasix) 40 mg PO BID [facility] Last Admin: 08/28/17 10:42 Dose: 40 mg Heparin Sodium (Porcine) (Heparin) 5,000 units SC Q12 [facility] Last Admin: 08/28/17 10:45 Dose: 5,000 units Hydralazine HCl (Apresoline) 25 mg PO BID [facility] Last Admin: 08/28/17 10:42 Dose: 25 mg Insulin Aspart (Novolog) 0 unit SC ACHS [facility] PRN Reason: Protocol Last Admin: 08/28/17 08:06 Dose: 1 unit Multivitamins (Hexavitamin) 1 tab PO DAILY [facility] Last Admin: 08/28/17 10:43 Dose: 1 tab Rosuvastatin Calcium (Crestor) 10 mg PO HS [facility] Last Admin: 08/27/17 21:37 Dose: 10 mg Sitagliptin Phosphate (Januvia) 25 mg PO DAILY [facility] Last Admin: 08/28/17 10:43 Dose: 25 mg Physical Exam - Constitutional Appears: Non-toxic, No Acute Distress - Head Exam Head Exam: ATRAUMATIC - Eye Exam Eye Exam: EOMI. absent: Scleral icterus - ENT Exam ENT Exam: Mucous Membranes Moist - Respiratory Exam Respiratory Exam: NORMAL BREATHING PATTERN. absent: Accessory Muscle Use, Respiratory Distress - Cardiovascular Exam Cardiovascular Exam: +S1, +S2. absent: Bradycardia, Tachycardia - GI/Abdominal Exam GI & Abdominal Exam: Soft. absent: Distended, Firm, Guarding, Rigid, Tenderness - Extremities Exam Additional comments: [place] still in place from AVF surgery palpable radial and popliteal pulses - Neurological Exam Neurological exam: Alert, Oriented x3 - Skin Skin Exam: Dry, Intact, Warm Results - Vital Signs Recent Vital Signs: Last Vital Signs Temp 97.9 F 08/27/17 23:10 Pulse 68 08/27/17 23:10 Resp 20 08/27/17 23:10 BP 124/64 08/28/17 10:42 Pulse Ox 97 08/27/17 23:10 - Labs Result Diagrams: 08/28/17 06:58 08/28/17 06:58 Labs: Laboratory Results - last 24 hr 08/27/17 08/27/17 08/28/17 16:39 21:16 06:31 WBC RBC Hgb Hct MCV MCH MCHC RDW Plt Count MPV Neut % (Auto) Lymph % (Auto) [place] % (Auto) Eos % (Auto) Baso % (Auto) Neut # Lymph # Weakley # Eos # Baso # Sodium Potassium Chloride Carbon Dioxide Anion Gap BUN Creatinine Est GFR ( Amer) Est GFR (Non-Af Amer) POC Glucose (mg/dL) 139 H 240 H 184 H Random Glucose Calcium Total Bilirubin AST ALT Alkaline Phosphatase Total Protein Albumin Globulin Albumin/Globulin Ratio 08/28/17 08/28/17 08/28/17 06:58 06:58 11:37 WBC 7.4 RBC 2.67 L Hgb 8.2 L Hct 25.0 L MCV 93.5 MCH 30.8 MCHC 33.0 RDW 15.9 H Plt Count 408 H MPV 9.6 Neut % (Auto) 61.8 Lymph % (Auto) 28.4 Weak[place] % (Auto) 7.3 Eos % (Auto) 1.6 Baso % (Auto) 0.9 Neut # 4.6 Lymph # 2.1 Weakley # 0.5 Eos # 0.1 Baso # 0.1 Sodium 135 Potassium 4.1 Chloride 101 Carbon Dioxide 22 Anion Gap 16 BUN 69 H Creatinine 2.7 H Est GFR ( Amer) 20 Est GFR (Non-Af Amer) 17 POC Glucose (mg/dL) 234 H Random Glucose 166 H Calcium 8.3 L Total Bilirubin 0.6 AST 26 ALT 30 Alkaline Phosphatase 51 Total Protein 6.4 Albumin 3.9 Globulin 2.6 Albumin/Globulin Ratio 1.5 Assessment & Plan - Assessment and Plan (Free Text) Assessment: 86F w/ severe left side carotid stenosis Plan: - MRA of the neck * pending MRA results, consider surgery - f/u EEG final results - pilo BRODERICKN - discussed w/ Dr. Spivey surgical attending Brad Guerrero PGY1
--- NOTE | 2017-08-28 15:11 | VASCLAB ---
PROCEDURE: HISTORY: Transient right arm weakness COMPARISON: None available. TECHNIQUE: Grayscale and duplex Doppler evaluation of the cervical carotid and vertebral arteries were performed. The common carotid, carotid bifurcations and cervical Internal Carotid Artery (ICA) and proximal External Carotid Artery (ECA) were evaluated. The vertebral arteries were evaluated for gross patency and flow direction. Report prepared by Marco Alexis, BS, RVT FINDINGS: RIGHT CAROTID ARTERIES: 1. Common Carotid Artery: No significant focal plaque formation of the right common carotid artery. Maximum Peak Systolic velocity: 74 cm/sec: End-diastolic velocity 10 cm/sec. 2. Carotid Bifurcation: plaque formation. Maximum Peak Systolic velocity: 70 cm/sec: End-diastolic velocity 9 cm/sec. 3. Internal Carotid Artery: Plaque description: 3.1. Proximal Segment: Peak systolic velocity 60 cm/sec: End-diastolic velocity 14 cm/sec - % stenosis 0-15% 3.2. Middle Segment: Peak systolic velocity 67 cm/sec: End-diastolic velocity 15 cm/sec - % stenosis 0-15% 3.3. Distal Segment: Peak systolic velocity 57 cm/sec: End-diastolic velocity 14 cm/sec - % stenosis 0-15% 4. External Carotid Artery: No significant focal plaque formation. Peak systolic velocity 200 cm/sec 5. ICA/CCA Ratio: 0.9 LEFT CAROTID ARTERIES: 1. Common Carotid Artery: No significant focal plaque formation of the left common carotid artery. Maximum Peak Systolic velocity: 48 cm/sec: End-diastolic velocity 21 cm/sec. 2. Carotid Bifurcation: Calcific plaque formation. Maximum Peak Systolic velocity: 450 cm/sec: End-diastolic velocity 118 cm/sec. 3. Internal Carotid Artery: Severe plaque formation of the left proximal ICA which results in a hemodynamically significant stenosis. Plaque description: Calcific 3.1. Proximal Segment: Peak systolic velocity 460 cm/sec: End-diastolic velocity 118 cm/sec - % stenosis 70-95% 3.2. Middle Segment: Peak systolic velocity 85 cm/sec: End-diastolic velocity 26 cm/sec - % stenosis 0-15% 3.3. Distal Segment: Peak systolic velocity 65 cm/sec: End-diastolic velocity 17 cm/sec - % stenosis 0-15% 4. External Carotid Artery: No significant focal plaque formation. Peak systolic velocity 62 cm/sec 5. ICA/CCA Ratio: 9.5 VERTEBRAL ARTERIES: 1. Right Vertebral Artery: The right vertebral artery flow direction is antegrade. 2. Left Vertebral Artery: The left vertebral artery flow direction is antegrade. OTHER FINDINGS: 1. Right Brachial Blood pressure: 170 mmHg. 2. Left Brachial Blood pressure: mmHg. IMPRESSION: RIGHT: Duplex scan does not suggest hemodynamically significant stenosis of the right extracranial carotid arteries. LEFT: 70-95% stenosis of the left proximal ICA with severe hemodynamic significance.
--- NOTE | 2017-08-28 16:49 | PN ---
NEUROLOGY PROGRESS NOTE SUBJECTIVE: The patient is lying on the bed in no acute distress. Denies having any headache or dizziness. PHYSICAL EXAMINATION: VITAL SIGNS: Her blood pressure is 124/64, heart rate is 68 per minute, breathing at the rate of 16 per minute, and temperature is 97.9 degrees Fahrenheit. HEENT: Head is normocephalic and atraumatic. NECK: Supple. There are no carotid bruits. LUNGS: Clear. CARDIOVASCULAR: S1 and S2 audible. No murmurs. ABDOMEN: Soft and nontender. Bowel sounds are present. NEUROLOGIC: Mental status: The patient is awake, alert, oriented to time, place and person. Speech is fluent. Naming and repetition normal. Memory and cognition are intact. Cranial nerve examination: Pupils are 3 mm bilaterally reactive to light. Visual goodman are full. Extraocular movements are intact. There is no facial asymmetry. Palate is upgoing bilaterally and tongue is midline. Motor examination: Tone is normal. Power is 5/5 bilaterally in all extremities. Reflexes are 1+ and symmetrical. Plantars are downgoing bilaterally. There is absent ankle jerks. IMPRESSION: 1. Abnormal involuntary movements with tremors which seems to be better, probably secondary to underlying renal failure. 2. Status post right arm weakness, possible transient ischemic attack. RECOMMENDATIONS: 1. The patient had MRI of the brain done which shows no acute infract, mild chronic white matter ischemic changes and few scattered bilateral basal nuclei and cerebellar lacunar-type infarcts. The patient had a carotid Doppler study which shows moderate stenosis. 2. The patient was evaluated by vascular surgeon and MRA of the neck was ordered. 3. The patient to be continued on aspirin and Plavix for underlying cerebrovascular disease. 4. The patient's tremors are abnormal, and voluntary movements have been better. 5. The patient also to have an electroencephalogram. 6. Please continue supportive care and other treatment. Thank you for the opportunity to participate in the care of this patient. Modesto Cloud MD
[2017-08-28 17:38] LABS: MAGNESIUM 2.3 mg/dL (1.6-2.3); PHOSPHOROUS 4.8 mg/dL (2.5-4.5)
--- NOTE | 2017-08-28 23:14 | CP.PCM.PN ---
Subjective - Date & Time of Evaluation Date of Evaluation: 08/28/17 Time of Evaluation: 08:30 - Subjective Subjective: Patient has no complaint. Head MRi did not reveal any acute cerebral infarct, but Duplex carotid scan disclosed a severe steonis of the proximal left internal carotid artery. Patient is evaluated by Neuroly and vascular surgeo.n. MRA of the neck was ordered Objective - Vital Signs/Intake and Output Vital Signs (last 24 hours): Temp Pulse Resp BP Pulse Ox 98.0 F 91 H 20 110/57 L 98 08/28/17 15:14 08/28/17 18:33 08/28/17 18:33 08/28/17 18:33 08/28/17 18:33 Intake and Output: 08/28/17 08/29/17 18:59 06:59 Intake Total 400 320 Balance 400 320 - Medications Medications: Current Medications Allopurinol (Zyloprim) 100 mg PO DAILY [facility] Last Admin: 08/28/17 10:41 Dose: 100 mg Aspirin (Ecotrin) 81 mg PO DAILY [facility] Last Admin: 08/28/17 10:41 Dose: 81 mg Calcitriol (Rocaltrol) 0.25 mcg PO DAILY [facility] Last Admin: 08/28/17 10:42 Dose: 0.25 mcg Carvedilol (Coreg) 6.25 mg PO BID [facility] Last Admin: 08/28/17 19:00 Dose: 6.25 mg Clonidine HCl (Catapres) 0.1 mg PO BID [facility] Last Admin: 08/28/17 18:00 Dose: Not Given Clopidogrel Bisulfate (Plavix) 75 mg PO DAILY [facility] Last Admin: 08/28/17 10:42 Dose: 75 mg Docusate Sodium (Colace) 100 mg PO BID [facility] Last Admin: 08/28/17 18:35 Dose: 100 mg Fenofibrate (Tricor) 145 mg PO DAILY [facility] Last Admin: 08/28/17 10:43 Dose: 145 mg Furosemide (Lasix) 40 mg PO BID [facility] Last Admin: 08/28/17 18:00 Dose: Not Given Heparin Sodium (Porcine) (Heparin) 5,000 units SC Q12 [facility] Last Admin: 08/28/17 21:21 Dose: 5,000 units Hydralazine HCl (Apresoline) 25 mg PO BID [facility] Last Admin: 08/28/17 18:00 Dose: Not Given Insulin Aspart (Novolog) 0 unit SC ACHS [facility] PRN Reason: Protocol Last Admin: 08/28/17 22:14 Dose: Not Given Multivitamins (Hexavitamin) 1 tab PO DAILY [facility] Last Admin: 08/28/17 10:43 Dose: 1 tab Rosuvastatin Calcium (Crestor) 10 mg PO HS [facility] Last Admin: 08/28/17 21:21 Dose: 10 mg Sitagliptin Phosphate (Januvia) 25 mg PO DAILY [facility] Last Admin: 08/28/17 10:43 Dose: 25 mg - Labs Labs: 08/28/17 06:58 08/28/17 06:58 - Constitutional Appears: No Acute Distress, Chronically Ill - Head Exam Head Exam: NORMAL INSPECTION - Eye Exam Eye Exam: Normal appearance - ENT Exam ENT Exam: Normal Exam - Neck Exam Neck Exam: Normal Inspection - Respiratory Exam Respiratory Exam: Clear to Ausculation Bilateral, NORMAL BREATHING PATTERN - Cardiovascular Exam Cardiovascular Exam: REGULAR RHYTHM, Murmur - GI/Abdominal Exam GI & Abdominal Exam: Soft, Normal Bowel Sounds - Rectal Exam Rectal Exam: Deferred - Exam Exam: NORMAL INSPECTION - Extremities Exam Extremities Exam: Normal Inspection - Back Exam Back Exam: NORMAL INSPECTION - Neurological Exam Neurological Exam: Alert, Awake, CN II-XII Intact, Normal Gait, Oriented x3 - Psychiatric Exam Psychiatric exam: Anxious - Skin Skin Exam: Dry, Intact, Normal Color, Warm Assessment and Plan (1) Myoclonic jerking Assessment & Plan: R/o TIA Status: Acute (2) ESRD (end stage renal disease) Status: Chronic (3) Ischemic cardiomyopathy Status: Chronic (4) Insulin dependent diabetes mellitus Status: Chronic (5) Hypertension Status: Chronic (6) More than 50 percent stenosis of left internal carotid artery Assessment & Plan: For MRA of the neck. Surgical evaluation. To continue Plavix and ASA and Crestor. Status: Acute
[2017-08-29] MEDS: (Novolog) Insulin Aspart, Recombinant 100 u/ml 10 ml vial SC SCH ×4 (08:34→21:08)
[2017-08-29] MEDS: Multiple Vitamins Tab PO SCH (09:50)
--- NOTE | 2017-08-29 10:04 | CP.PCM.PN ---
Subjective - Date & Time of Evaluation Date of Evaluation: 08/29/17 Time of Evaluation: 07:30 - Subjective Subjective: Vascular Surgery- Dr. Spivey Patient seen and examined at bedside this AM. no acute events overnight. Patient tolerating current diet. [place] in arm still present from previous surgery. Denies fevers, chills, chest pain, shortness of breath, headaches, vision changes Objective - Vital Signs/Intake and Output Vital Signs (last 24 hours): Temp Pulse Resp BP Pulse Ox 97.4 F L 66 20 126/63 97 08/29/17 08:11 08/29/17 08:11 08/29/17 08:11 08/29/17 09:50 08/29/17 08:11 Intake and Output: 08/29/17 08/29/17 06:59 18:59 Intake Total 320 Balance 320 - Medications Medications: Current Medications Allopurinol (Zyloprim) 100 mg PO DAILY [facility] Last Admin: 08/29/17 09:51 Dose: 100 mg Aspirin (Ecotrin) 81 mg PO DAILY [facility] Last Admin: 08/29/17 09:50 Dose: 81 mg Calcitriol (Rocaltrol) 0.25 mcg PO DAILY [facility] Last Admin: 08/29/17 09:50 Dose: 0.25 mcg Carvedilol (Coreg) 6.25 mg PO BID [facility] Last Admin: 08/29/17 09:50 Dose: 6.25 mg Clonidine HCl (Catapres) 0.1 mg PO BID [facility] Last Admin: 08/29/17 09:50 Dose: 0.1 mg Clopidogrel Bisulfate (Plavix) 75 mg PO DAILY [facility] Last Admin: 08/29/17 09:50 Dose: 75 mg Docusate Sodium (Colace) 100 mg PO BID [facility] Last Admin: 08/29/17 09:50 Dose: 100 mg Fenofibrate (Tricor) 145 mg PO DAILY [facility] Last Admin: 08/29/17 09:52 Dose: 145 mg Furosemide (Lasix) 40 mg PO BID [facility] Last Admin: 08/29/17 09:50 Dose: 40 mg Heparin Sodium (Porcine) (Heparin) 5,000 units SC Q12 [facility] Last Admin: 08/29/17 09:56 Dose: 5,000 units Hydralazine HCl (Apresoline) 25 mg PO BID [facility] Last Admin: 11/25/17 09:51 Dose: 25 mg Insulin Aspart (Novolog) 0 unit SC ACHS [facility] PRN Reason: Protocol Last Admin: 08/29/17 08:34 Dose: 2 unit Multivitamins (Hexavitamin) 1 tab PO DAILY [facility] Last Admin: 08/29/17 09:50 Dose: 1 tab Rosuvastatin Calcium (Crestor) 10 mg PO HS [facility] Last Admin: 08/28/17 21:21 Dose: 10 mg Sitagliptin Phosphate (Januvia) 25 mg PO DAILY [facility] Last Admin: 08/29/17 09:51 Dose: 25 mg - Labs Labs: 08/28/17 06:58 08/28/17 06:58 - Constitutional Appears: Non-toxic, No Acute Distress - Eye Exam Eye Exam: EOMI. absent: Scleral icterus - Respiratory Exam Respiratory Exam: NORMAL BREATHING PATTERN. absent: Accessory Muscle Use, Respiratory Distress - Cardiovascular Exam Cardiovascular Exam: +S1, +S2. absent: Bradycardia, Tachycardia - GI/Abdominal Exam GI & Abdominal Exam: Soft. absent: Distended, Firm, Guarding, Rigid, Tenderness - Extremities Exam Extremities Exam: absent: Calf Tenderness Additional comments: residual right side weakness - Neurological Exam Neurological Exam: Alert, Oriented x3 - Psychiatric Exam Psychiatric exam: Normal Affect - Skin Skin Exam: Normal Color, Warm Assessment and Plan - Assessment and Plan (Free Text) Assessment: 86F severe left carotid stenosis Plan: - f/u MRA - plan for CEA pending results - c/w medical management per primary - DVT ppx - d/w Dr. Patric Guerrero PGY1
--- NOTE | 2017-08-29 11:32 | MRI ---
PROCEDURE: MR Angiography of the neck without contrast HISTORY: Severe Left Carotid Stenosis COMPARISON: N comparison made with carotid Doppler exam dated 08/28/2017. One available. TECHNIQUE: 3D [id number] angiography of the neck was performed. Rotating maximum intensity projection images of the cervical carotid and vertebral arteries were generated. The origins of the common carotid arteries were not visualized, which is a limitation inherent to the non-contrast time of flight technique. FINDINGS: RIGHT CAROTID ARTERIES: The visualized of right common carotid artery, carotid bifurcation and proximal internal carotid artery are widely patent without evidence of significant stenosis none. LEFT CAROTID ARTERIES: There is significant atherosclerotic plaquing resulting in severe stenosis at the level of the left common carotid artery and proximal internal carotid artery (near string sign appearance). VERTEBRAL ARTERIES: Both vertebral arteries are visible on though somewhat asymmetric without right-sided which is slightly larger in caliber/more dominant than the left. OTHER FINDINGS: None. IMPRESSION: Severe stenosis (near string sign appearance) of the left carotid bifurcation and proximal left internal carotid artery
--- NOTE | 2017-08-29 12:40 | EEG ---
ELECTROENCEPHALOGRAM REPORT INTRODUCTION: This is a digitally recorded EEG monitoring using standard EEG montages. BACKGROUND RHYTHM: The EEG shows a background activity of 8 Hz alpha activity in parietooccipital region. The EEG activity is bilaterally symmetrical and synchronous. There is attenuation of the background activity and eye opening. Small amount of movement and myogenic artifact noticed in this EEG recording. ABNORMAL POTENTIALS: No spike, sharp waves or focal slowing was seen. PHOTIC STIMULATION AND HYPERVENTILATION: Photic stimulation did not reveal any abnormality. Hyperventilation was not performed. IMPRESSION: Normal electroencephalogram. No epileptiform activity seen in this electroencephalogram recording. Modesto Cloud MD
--- NOTE | 2017-08-29 16:26 | PN ---
NEUROLOGY PROGRESS NOTE SUBJECTIVE: The patient is lying on the bed in no acute distress. Denies having any headache or dizziness. She has no more abnormal movements in her hands. PHYSICAL EXAMINATION: VITAL SIGNS: Her blood pressure is 126/63, heart rate is 66 per minute, breathing at the rate of 16 per minute, and temperature is 97.4 degrees Fahrenheit. HEENT: Head is normocephalic and atraumatic. NECK: Supple. There are no carotid bruits. LUNGS: Clear. CARDIOVASCULAR: S1 and S2 audible. No murmurs. ABDOMEN: Soft and nontender. Bowel sounds are present. NEUROLOGIC: Mental status: The patient is awake, alert, oriented to time, place, and person. Speech is fluent. Naming and repetition normal. Memory and cognition are intact. Cranial nerve examination: Pupils are 3-mm bilaterally reactive to light. Visual goodman are full. Extraocular movements are intact. There is no facial asymmetry. Palate is upgoing bilaterally and tongue is midline. Motor examination: Tone is normal. Power is 5/5 bilaterally in all extremities. Reflexes are 1+ and symmetrical. Plantars are downgoing bilaterally. Gait is deferred at the moment. LABORATORY DATA: Reviewed. MRA of the cervical spine shows severe stenosis, near string sign appearance of the left carotid, bifurcation, and proximal left internal carotid artery. IMPRESSION: 1. Status post abnormal involuntary movements with tremors which is likely secondary to her underlying renal failure. 2. Status post right arm weakness which is secondary to transient ischemic attack. 3. Left carotid stenosis. RECOMMENDATIONS: 1. The patient to have vascular surgery reevaluation for possible carotid endarterectomy because of severe stenosis of the left internal carotid artery. 2. The patient to be continued on aspirin and Plavix. 3. The patient also to be continued on statin. 4. The patient's abnormal movements and tremors are better. 5. The patient has an electroencephalogram done which is normal. 6. Please continue other treatment. Thank you for the opportunity to participate in the care of this patient. Modesto Cloud MD
--- NOTE | 2017-08-29 23:19 | CP.PCM.PN ---
Subjective - Date & Time of Evaluation Date of Evaluation: 08/29/17 Time of Evaluation: 18:30 - Subjective Subjective: Patient has no complaint. MRA of the neck confirms severe stenosis of the left distal CCA and proximal left ICA. Objective - Vital Signs/Intake and Output Vital Signs (last 24 hours): Temp Pulse Resp BP Pulse Ox 97.7 F 70 18 119/62 99 08/29/17 15:57 08/29/17 15:57 08/29/17 15:57 08/29/17 17:26 08/29/17 15:57 Intake and Output: 08/29/17 08/30/17 18:59 06:59 Intake Total 240 Balance 240 - Medications Medications: Current Medications Allopurinol (Zyloprim) 100 mg PO DAILY [facility] Last Admin: 08/29/17 09:51 Dose: 100 mg Aspirin (Ecotrin) 81 mg PO DAILY [facility] Last Admin: 08/29/17 09:50 Dose: 81 mg Calcitriol (Rocaltrol) 0.25 mcg PO DAILY [facility] Last Admin: 08/29/17 09:50 Dose: 0.25 mcg Carvedilol (Coreg) 6.25 mg PO BID [facility] Last Admin: 08/29/17 17:26 Dose: 6.25 mg Clonidine HCl (Catapres) 0.1 mg PO BID [facility] Last Admin: 08/29/17 17:26 Dose: 0.1 mg Clopidogrel Bisulfate (Plavix) 75 mg PO DAILY [facility] Last Admin: 08/29/17 09:50 Dose: 75 mg Docusate Sodium (Colace) 100 mg PO BID [facility] Last Admin: 08/29/17 17:26 Dose: 100 mg Fenofibrate (Tricor) 145 mg PO DAILY [facility] Last Admin: 08/29/17 09:52 Dose: 145 mg Furosemide (Lasix) 40 mg PO BID [facility] Last Admin: 08/29/17 17:26 Dose: 40 mg Hydralazine HCl (Apresoline) 25 mg PO BID [facility] Last Admin: 08/29/17 17:26 Dose: 25 mg Insulin Aspart (Novolog) 0 unit SC ACHS [facility] PRN Reason: Protocol Last Admin: 08/29/17 21:08 Dose: Not Given Multivitamins (Hexavitamin) 1 tab PO DAILY [facility] Last Admin: 08/29/17 09:50 Dose: 1 tab Rosuvastatin Calcium (Crestor) 10 mg PO HS [facility] Last Admin: 08/29/17 21:09 Dose: 10 mg Sitagliptin Phosphate (Januvia) 25 mg PO DAILY [facility] Last Admin: 08/29/17 09:51 Dose: 25 mg - Labs Labs: 08/28/17 06:58 08/28/17 06:58 - Constitutional Appears: No Acute Distress, Chronically Ill - Head Exam Head Exam: NORMAL INSPECTION - Eye Exam Eye Exam: Normal appearance Pupil Exam: NORMAL ACCOMODATION - ENT Exam ENT Exam: Normal Exam - Neck Exam Neck Exam: Normal Inspection - Respiratory Exam Respiratory Exam: Clear to Ausculation Bilateral - Cardiovascular Exam Cardiovascular Exam: REGULAR RHYTHM, Murmur - GI/Abdominal Exam GI & Abdominal Exam: Soft, Normal Bowel Sounds - Rectal Exam Rectal Exam: Deferred - Exam Exam: NORMAL INSPECTION - Extremities Exam Extremities Exam: Normal Inspection - Back Exam Back Exam: NORMAL INSPECTION - Neurological Exam Neurological Exam: Alert, Awake, CN II-XII Intact, Oriented x3 - Psychiatric Exam Psychiatric exam: Anxious - Skin Skin Exam: Dry, Intact, Normal Color, Warm Assessment and Plan (1) Myoclonic jerking Status: Acute (2) ESRD (end stage renal disease) Assessment & Plan: BUN and creatinine stable. Status: Chronic (3) Ischemic cardiomyopathy Assessment & Plan: Stable. 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 Status: Acute
[2017-08-30] MEDS: (Novolog) Insulin Aspart, Recombinant 100 u/ml 10 ml vial SC SCH ×4 (08:06→21:25)
[2017-08-30] MEDS: Multiple Vitamins Tab PO SCH (09:31)
--- NOTE | 2017-08-30 14:54 | CP.PCM.PN ---
Subjective - Date & Time of Evaluation Date of Evaluation: 08/30/17 Time of Evaluation: 14:53 - Subjective Subjective: findings noted for left cta all aware of risks particularly stroke and Objective - Vital Signs/Intake and Output Vital Signs (last 24 hours): Temp Pulse Resp BP Pulse Ox 97.6 F 50 L 18 117/62 89 L 08/30/17 09:06 08/30/17 09:06 08/30/17 09:06 08/30/17 09:31 08/30/17 09:06 - Medications Medications: Current Medications Allopurinol (Zyloprim) 100 mg PO DAILY [facility] Last Admin: 08/30/17 09:32 Dose: 100 mg Aspirin (Ecotrin) 81 mg PO DAILY [facility] Last Admin: 08/30/17 09:32 Dose: 81 mg Calcitriol (Rocaltrol) 0.25 mcg PO DAILY [facility] Last Admin: 08/30/17 09:31 Dose: 0.25 mcg Carvedilol (Coreg) 6.25 mg PO BID [facility] Last Admin: 08/30/17 09:32 Dose: 6.25 mg Clonidine HCl (Catapres) 0.1 mg PO BID [facility] Last Admin: 08/30/17 09:31 Dose: 0.1 mg Clopidogrel Bisulfate (Plavix) 75 mg PO DAILY [facility] Last Admin: 08/30/17 09:31 Dose: 75 mg Docusate Sodium (Colace) 100 mg PO BID [facility] Last Admin: 08/30/17 09:31 Dose: 100 mg Fenofibrate (Tricor) 145 mg PO DAILY [facility] Last Admin: 08/30/17 09:31 Dose: 145 mg Furosemide (Lasix) 40 mg PO BID [facility] Last Admin: 08/30/17 09:31 Dose: 40 mg Hydralazine HCl (Apresoline) 25 mg PO BID [facility] Last Admin: 08/30/17 09:31 Dose: 25 mg Insulin Aspart (Novolog) 0 unit SC [facility] PRN Reason: Protocol Last Admin: 08/30/17 13:36 Dose: Not Given Multivitamins (Hexavitamin) 1 tab PO DAILY [facility] Last Admin: 08/30/17 09:31 Dose: 1 tab Rosuvastatin Calcium (Crestor) 10 mg PO HS [facility] Last Admin: 08/29/17 21:09 Dose: 10 mg Sitagliptin Phosphate (Januvia) 25 mg PO DAILY [facility] Last Admin: 08/30/17 09:31 Dose: 25 mg - Labs Labs: 08/28/17 06:58 08/28/17 06:58
--- NOTE | 2017-08-30 16:02 | CARD ---
APPROVED REPORT EKG Measurement Heart [id number] <Conclusion> Unusual P axis, possible ectopic atrial rhythm Left axis deviation Left bundle branch block Abnormal ECG
--- NOTE | 2017-08-30 18:32 | CP.PCM.PN ---
Subjective - Date & Time of Evaluation Date of Evaluation: 08/30/17 Time of Evaluation: 18:25 - Subjective Subjective: Patient has no complaint of SOB, chest pain, dizziness or weakness. She is scheduled for a left carotid endarterectomy in AM. She is a high risk patient for a high risk procedure. But she is out of heart failure now, and her BUN and creatinine hve been stable. A Persantine Nuclear stress test earlier this year performed at my office dis not show any myocardial ischemia induced by Persantine. She is optimized from the cardiac standpoint for the left endarterectomy in AM. Will transfuse one unit of PRC tonight because her hgb: 8.2. Objective - Vital Signs/Intake and Output Vital Signs (last 24 hours): Temp Pulse Resp BP Pulse Ox 97.7 F 70 20 117/64 97 08/30/17 15:25 08/30/17 15:25 08/30/17 15:25 08/30/17 17:08 08/30/17 15:25 Intake and Output: 08/30/17 08/30/17 06:59 18:59 Intake Total 240 Balance 240 - Medications Medications: Current Medications Allopurinol (Zyloprim) [address] [facility] Last Admin: 08/30/17 09:32 Dose: 100 mg Aspirin (Ecotrin) [address] [facility] Last Admin: 08/30/17 09:32 Dose: 81 mg Calcitriol (Rocaltrol) 0.[address] [facility] Last Admin: 08/30/17 09:31 Dose: 0.25 mcg Carvedilol (Coreg) 6.[address] [facility] Last Admin: 08/30/17 17:09 Dose: 6.25 mg Clonidine HCl (Catapres) 0.[address] [facility] Last Admin: 08/30/17 17:09 Dose: 0.1 mg Clopidogrel Bisulfate (Plavix) [address] [facility] Last Admin: 08/30/17 09:31 Dose: 75 mg Docusate Sodium (Colace) [address] [facility] Last Admin: 08/30/17 17:09 Dose: 100 mg Fenofibrate (Tricor) [address] [facility] Last Admin: 08/30/17 09:31 Dose: 145 mg Furosemide (Lasix) [address] [facility] Last Admin: 08/30/17 17:08 Dose: 40 mg Furosemide (Lasix) 40 mg IVP ONCE ONE Stop: 08/30/17 18:22 Hydralazine HCl (Apresoline) [address] [facility] Last Admin: 08/30/17 17:09 Dose: 25 mg Insulin Aspart (Novolog) [address] [facility] PRN Reason: Protocol Last Admin: 08/30/17 13:36 Dose: Not Given Multivitamins (Hexavitamin) [address] [facility] Last Admin: 08/30/17 09:31 Dose: 1 tab Rosuvastatin Calcium (Crestor) [address] [facility] Last Admin: 08/29/17 21:09 Dose: 10 mg Sitagliptin Phosphate (Januvia) [address] [facility] Last Admin: 08/30/17 09:31 Dose: 25 mg - Labs Labs: 08/28/17 06:58 08/28/17 06:58 - Constitutional Appears: No Acute Distress, Chronically Ill - Head Exam Head Exam: NORMAL INSPECTION - Eye Exam Eye Exam: Normal appearance - Neck Exam Neck Exam: Normal Inspection - Respiratory Exam Respiratory Exam: Clear to Ausculation Bilateral, NORMAL BREATHING PATTERN - Cardiovascular Exam Cardiovascular Exam: REGULAR RHYTHM, Murmur - GI/Abdominal Exam GI & Abdominal Exam: Soft, Normal Bowel Sounds - Rectal Exam Rectal Exam: Deferred - Extremities Exam Extremities Exam: Normal Inspection - Back Exam Back Exam: NORMAL INSPECTION - Neurological Exam Neurological Exam: Alert, Awake, CN II-XII Intact, Normal Gait, Oriented x3 - Psychiatric Exam Psychiatric exam: Anxious - Skin Skin Exam: Dry, Intact, Normal Color, Warm Assessment and Plan (1) Myoclonic jerking Status: Acute (2) ESRD (end stage renal disease) Assessment & Plan: Stable, on medications. Status: Chronic (3) Ischemic cardiomyopathy Assessment & Plan: Stable with medical treatment. Status: Chronic (4) Insulin dependent diabetes mellitus Status: Chronic (5) Hypertension Assessment & Plan: Controlled. 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 Status: Acute
--- NOTE | 2017-08-30 20:21 | CP.PCM.PN ---
Subjective - Date & Time of Evaluation Date of Evaluation: 08/30/17 Time of Evaluation: 06:30 - Subjective Subjective: Vascular Surgery- Dr. Spivey Pt S&E at bedside this AM. no acute events overnight. Pt tolerating diet. denies fevers, chills, chest pain ,shortness of breath, nausea, vomiting, diarrhea, changes in vision, headaches Objective - Vital Signs/Intake and Output Vital Signs (last 24 hours): Temp Pulse Resp BP Pulse Ox 97.7 F 67 18 126/58 L 97 08/30/17 20:01 08/30/17 20:01 08/30/17 20:01 08/30/17 20:01 08/30/17 15:25 Intake and Output: 08/30/17 08/31/17 18:59 06:59 Intake Total 240 0 Balance 240 0 - Medications Medications: Current Medications Allopurinol (Zyloprim) 100 mg PO DAILY [facility] Last Admin: 08/30/17 09:32 Dose: 100 mg Aspirin (Ecotrin) 81 mg PO DAILY [facility] Last Admin: 08/30/17 09:32 Dose: 81 mg Calcitriol (Rocaltrol) 0.25 mcg PO DAILY [facility] Last Admin: 08/30/17 09:31 Dose: 0.25 mcg Carvedilol (Coreg) 6.25 mg PO BID [facility] Last Admin: 08/30/17 17:09 Dose: 6.25 mg Clonidine HCl (Catapres) 0.1 mg PO BID [facility] Last Admin: 08/30/17 17:09 Dose: 0.1 mg Clopidogrel Bisulfate (Plavix) 75 mg PO DAILY [facility] Last Admin: 08/30/17 09:31 Dose: 75 mg Docusate Sodium (Colace) 100 mg PO BID [facility] Last Admin: 08/30/17 17:09 Dose: 100 mg Fenofibrate (Tricor) 145 mg PO DAILY [facility] Last Admin: 08/30/17 09:31 Dose: 145 mg Furosemide (Lasix) 40 mg PO BID [facility] Last Admin: 08/30/17 17:08 Dose: 40 mg Hydralazine HCl (Apresoline) 25 mg PO BID [facility] Last Admin: 08/30/17 17:09 Dose: 25 mg Insulin Aspart (Novolog) 0 unit SC ACHS [facility] PRN Reason: Protocol Last Admin: 08/30/17 19:39 Dose: 1 unit Multivitamins (Hexavitamin) 1 tab PO DAILY [facility] Last Admin: 08/30/17 09:31 Dose: 1 tab Rosuvastatin Calcium (Crestor) 10 mg PO HS [facility] Last Admin: 08/29/17 21:09 Dose: 10 mg Sitagliptin Phosphate (Januvia) 25 mg PO DAILY [facility] Last Admin: 08/30/17 09:31 Dose: 25 mg - Labs Labs: 08/28/17 06:58 08/28/17 06:58 - Constitutional Appears: Non-toxic, No Acute Distress - Head Exam Head Exam: ATRAUMATIC - Eye Exam Eye Exam: EOMI. absent: Scleral icterus - ENT Exam ENT Exam: Mucous Membranes Moist - Respiratory Exam Respiratory Exam: NORMAL BREATHING PATTERN. absent: Accessory Muscle Use, Respiratory Distress - Cardiovascular Exam Cardiovascular Exam: +S1, +S2. absent: Bradycardia, Tachycardia - GI/Abdominal Exam GI & Abdominal Exam: Soft. absent: Distended, Firm, Guarding, Rigid, Tenderness - Extremities Exam Additional comments: serjio in place in UE - Neurological Exam Neurological Exam: Alert, Awake, Oriented x3 - Psychiatric Exam Psychiatric exam: Normal Affect - Skin Skin Exam: Warm Assessment and Plan - Assessment and Plan (Free Text) Assessment: 86F severe L ICA stenosis Plan: - OR tomorrow - type and cross 2u - NPO after MN - IVF - GI/DVT ppx - d/w Dr. Patric Guerrero PGY1
[2017-08-31 06:21] LABS: BASO % 0.5 % (0.0-2.0); EOS # 0.1 K/uL (0.0-0.7); EOS % 1.2 % (0.0-4.0); LYMPH % 24.8 % (20.0-40.0); MEAN CELL VOLUME 90.9 fL (81.0-99.0); MEAN CORPUSCULAR HEMOGLOBIN 31.9 pg (27.0-31.0); MEAN CORPUSCULAR HGB CONC 35.1 g/dL (33.0-37.0); MEAN PLATELET VOLUME 9.5 fL (7.2-11.7); MONO # 0.6 K/uL (0.0-0.8); MONO % 6.8 % (0.0-10.0); WHITE BLOOD COUNT 8.2 K/uL (4.8-10.8)
[2017-08-31 06:27] LABS: INR 0.9
[2017-08-31] MEDS: (Novolog) Insulin Aspart, Recombinant 100 u/ml 10 ml vial SC SCH ×3 (07:30→23:05)
[2017-08-31 08:29] LABS: ALB/GLOB RATIO 1.6 (1.0-2.1); BILIRUBIN,TOTAL 0.9 mg/dL (0.2-1.3); TOTAL PROTEIN 6.5 g/dL (6.3-8.3)
[2017-08-31] MEDS: Multiple Vitamins Tab PO SCH (11:00)
[2017-08-31] MEDS ORDERED: Nitroglycerin 50mg in D5W 50 MG/250 ML BOTTLE IV ONE (11:54)
[2017-08-31] MEDS ORDERED: Remifentanil 1 mg/3 ml Vial IV ONE (11:55)
[2017-08-31] MEDS ORDERED: Propofol 10 mg/ml Inj (20 ML) ONE (12:00)
[2017-08-31] MEDS ORDERED: Midazolam 2 MG/2 ML VIAL ONE (12:00)
[2017-08-31] MEDS ORDERED: ceFAZolin IV 1 gm in Dextrose 1 GM/50 ML BAG IVPB ONE (12:00)
[2017-08-31] MEDS ORDERED: Rocuronium 10 mg/ml (5 ml) ONE (12:02)
[2017-08-31] MEDS ORDERED: Succinylcholine Chloride 20 mg/ml Syr (5 ml) IV ONE (12:02)
[2017-08-31] MEDS ORDERED: Lactated Ringer's 1,000 ML IV ONE ×2 (12:08→12:30)
[2017-08-31] MEDS ORDERED: HEPARIN-NS 5,000 UNITS/500 ML 10,000 UNIT/1,000 ML BAG IV ONE (12:14)
[2017-08-31] MEDS ORDERED: Thrombin Topical 20,000 Intl Units Spray Kit TOP ONE (14:31)
[2017-08-31] MEDS ORDERED: Bupivacaine 0.5%/Epi 1:200,000 (10 ML SOL) ONE (15:04)
[2017-08-31] MEDS ORDERED: Sodium Chloride 0.45% 1,000 ML IV SCH ×2 (16:30→20:24)
[2017-08-31] MEDS ORDERED: Nitroglycerin 0.1 mg/hr Top Patch TD PRN (16:31)
--- NOTE | 2017-08-31 16:39 | PCM.SURG1 ---
Surgeon's Initial Post Op Note - Surgeon's Notes Surgeon: Patric Recycle Worker: [id number] Type of Anesthesia: General Endo Pre-Operative Diagnosis: Severe L carotid stenosis Operative Findings: Severe L carotid stenosis Post-Operative Diagnosis: Severe L carotid stenosis Operation Performed: L carotid endarterectomy Specimen/Specimens Removed: L carotid plaque Estimated Blood Loss: EBL {In ML}: 250 Blood Products Given: N/A Drains Used: Nelson (red rubber catheter draining into bandage) Post-Op Condition: Good Date of Surgery/Procedure: 08/31/17 Time of Surgery/Procedure: 12:10
[2017-08-31] MEDS: HYDROmorphone 0.5 mg/0.5 ml ISec IVP PRN ×2 (16:58→17:42)
[2017-08-31] MEDS ORDERED: Nitroglycerin 2% Ointment Foilpak UD TOP PRN (17:00)
[2017-08-31] MEDS ORDERED: Sodium Chloride 0.9% 1,000 ML IV ONE (17:25)
[2017-08-31] MEDS ORDERED: Sodium Chloride 0.45% 1,000 ML IV ONE (17:25)
[2017-08-31] MEDS ORDERED: DOPamine 400mg/250ml D5W 400 MG/250 ML BAG IV PRN (19:09)
--- NOTE | 2017-08-31 19:15 | CP.PCM.CON ---
History of Present Illness - History of Present Illness History of Present Illness: Postoperative management. History of present illness: 86-year-old female with a history of diabetes, renal insufficiency, hypertension , CAD, CHF, end-stage renal disease Patient recently had left arm AV fistula, was not working. Patient admitted to the hospital because of the right upper extremity. Patient was noted to have left carotid stenosis 90%. Patient underwent a carotid endarterectomy today. Patient is currently being managed postoperatively in the ICU. Past medical history: Diabetes hypertension in her insufficiency CAD CHF carotid disease Allergies: No known drug allergies Personal history: Nonsmoker nonalcoholic Surgical history: Left arm AV fistula. Family history noncontributory Review of system: Currently patient is not in any distress. No chest pain. Denies any nausea vomiting. Patient is awake and responding. No significant weakness noted. On examination: Left carotid dressing around noted postsurgical Vital signs reviewed No neck vein distention noted Chest good air entry bilaterally, no wheezing or rales noted CVS regular heart sound, no murmur noted Abdomen soft, nontender. Extremities no pedal edema [employer] alert awake oriented -3, no functional neurological deficit Labs reviewed Elevated creatinine and bun Assessment and recommendation: 86-year-old female with a history of hypertension COPD diabetes hypercholesterolemia coronary artery disease. The renal insufficiency. Carotid disease. Status post a carotid endarterectomy. Patient will be monitored closely. The digital prophylaxis. The renal monitoring. Will follow the patient Past Patient History - Infectious Disease Hx of Infectious Diseases: None - Tetanus Immunizations Tetanus Immunization: Unknown - Past Medical History & Family History Past Medical History?: Yes - Past Social History Smoking Status: Never Smoked Alcohol: None Drugs: Denies Home Situation {Lives}: With Family Domestic Violence: Negative - CARDIAC Hx Cardiac Disorders: Yes Hx Congestive Heart Failure: Yes Hx Hypercholesterolemia: Yes Hx Hypertension: Yes - PULMONARY Hx Respiratory Disorders: No Hx Pulmonary Edema: Yes - NEUROLOGICAL Hx Neurological Disorder: No - HEENT Hx HEENT Problems: No Hx Cataracts: Yes (3 yrs ago) - RENAL Hx Chronic Kidney Disease: Yes Type of Dialysis Access: left AVS done i week ago - ENDOCRINE/METABOLIC Hx Diabetes Mellitus Type 2: Yes - MUSCULOSKELETAL/RHEUMATOLOGICAL Hx Falls: No - PSYCHIATRIC Hx Anxiety: Yes Hx Substance Use: No - SURGICAL HISTORY Hx Angioplasty: Yes Hx Coronary Stent: Yes - ANESTHESIA Hx Anesthesia: Yes Hx Anesthesia Reactions: No Hx Malignant Hyperthermia: No Has any member of the family had a problem w/ anesthesia?: No Meds Allergies/Adverse Reactions: Allergies Allergy/AdvReac Type Severity Reaction Status Date / Time No Known Allergies Allergy Verified 04/23/17 10:59 - Medications Medications: Current Medications Allopurinol (Zyloprim) 100 mg PO DAILY [facility] Last Admin: 08/31/17 11:00 Dose: Not Given Aspirin (Ecotrin) 81 mg PO DAILY [facility] Last Admin: 08/31/17 11:00 Dose: Not Given Calcitriol (Rocaltrol) 0.25 mcg PO DAILY [facility] Last Admin: 08/31/17 11:00 Dose: Not Given Carvedilol (Coreg) 6.25 mg PO BID [facility] Last Admin: 08/31/17 11:00 Dose: Not Given Clonidine HCl (Catapres) 0.1 mg PO BID [facility] Last Admin: 08/31/17 11:00 Dose: Not Given Clopidogrel Bisulfate (Plavix) 75 mg PO DAILY [facility] Last Admin: 08/31/17 11:00 Dose: Not Given Docusate Sodium (Colace) 100 mg PO BID [facility] Last Admin: 08/31/17 11:00 Dose: Not Given Fenofibrate (Tricor) 145 mg PO DAILY [facility] Last Admin: 08/31/17 11:00 Dose: Not Given Furosemide (Lasix) 40 mg PO BID [facility] Last Admin: 08/31/17 11:00 Dose: Not Given Hydralazine HCl (Apresoline) 25 mg PO BID [facility] Last Admin: 08/31/17 11:00 Dose: Not Given Sodium Chloride (Sodium Chloride 0.45%) 1,000 mls @ 50 mls/hr IV .Q20H [facility] Dopamine HCl/Dextrose (Dopamine 400mg/250ml D5w) 400 mg in 250 mls @ 3.613 mls/ hr IV .Q24H PRN; Protocol; 2 MCG/KG/MIN PRN Reason: TITRATE PER MD ORDER Insulin Aspart (Novolog) 0 unit SC ACHS [facility] PRN Reason: Protocol Last Admin: 08/31/17 11:39 Dose: Not Given Multivitamins (Hexavitamin) 1 tab PO DAILY [facility] Last Admin: 08/31/17 11:00 Dose: Not Given Nitroglycerin (Nitro-Bid 2% Oint) 1 ea TOP BID PRN PRN Reason: Systolic Blood Pressure Rosuvastatin Calcium (Crestor) 10 mg PO HS [facility] Last Admin: 08/30/17 21:26 Dose: 10 mg Sitagliptin Phosphate (Januvia) 25 mg PO DAILY [facility] Last Admin: 08/31/17 11:00 Dose: Not Given Results - Vital Signs Recent Vital Signs: Last Vital Signs Temp 100.2 F H 08/31/17 16:02 Pulse 70 08/31/17 18:30 Resp 12 08/31/17 18:30 BP 124/49 L 08/31/17 18:30 Pulse Ox 99 08/31/17 18:30 - Labs Result Diagrams: 08/31/17 06:10 08/31/17 06:10 Labs: Laboratory Results - last 24 hr 08/30/17 08/30/17 08/31/17 17:08 21:17 06:10 WBC 8.2 RBC 3.19 L Hgb 10.2 L D Hct 29.0 L MCV 90.9 D MCH 31.9 H MCHC 35.1 RDW 15.0 H Plt Count 327 MPV 9.5 Neut % (Auto) 66.7 Lymph % (Auto) 24.8 [place] % (Auto) 6.8 Eos % (Auto) 1.2 Baso % (Auto) 0.5 Neut # 5.5 Lymph # 2.0 [place] # 0.6 Eos # 0.1 Baso # 0.0 PT INR APTT Sodium Potassium Chloride Carbon Dioxide Anion Gap BUN Creatinine Est GFR ( Amer) Est GFR (Non-Af Amer) POC Glucose (mg/dL) 265 H Random Glucose Calcium Total Bilirubin AST ALT Alkaline Phosphatase Total Protein Albumin Globulin Albumin/Globulin Ratio Blood Type O POSITIVE Antibody Screen Negative 08/31/17 08/31/17 08/31/17 06:10 06:10 06:16 WBC RBC Hgb Hct MCV MCH MCHC RDW Plt Count MPV Neut % (Auto) Lymph % (Auto) [place] % (Auto) Eos % (Auto) Baso % (Auto) Neut # Lymph # [place] # Eos # Baso # PT 9.9 INR 0.9 APTT 31 Sodium 131 L Potassium 4.0 Chloride 95 L Carbon Dioxide 22 Anion Gap 18 BUN 101 H* D Creatinine 3.5 H Est GFR ( Amer) 15 Est GFR (Non-Af Amer) 12 POC Glucose (mg/dL) 253 H Random Glucose 228 H Calcium 10.0 Total Bilirubin 0.9 AST 41 H D ALT 26 Alkaline Phosphatase 75 Total Protein 6.5 Albumin 4.0 Globulin 2.6 Albumin/Globulin Ratio 1.6 Blood Type Antibody Screen 08/31/17 16:24 WBC RBC Hgb Hct MCV MCH MCHC RDW Plt Count MPV Neut % (Auto) Lymph % (Auto) [place] % (Auto) Eos % (Auto) Baso % (Auto) Neut # Lymph # [place] # Eos # Baso # PT INR APTT Sodium Potassium Chloride Carbon Dioxide Anion Gap BUN Creatinine Est GFR ( Amer) Est GFR (Non-Af Amer) POC Glucose (mg/dL) 179 H Random Glucose Calcium Total Bilirubin AST ALT Alkaline Phosphatase Total Protein Albumin Globulin Albumin/Globulin Ratio Blood Type Antibody Screen
--- NOTE | 2017-08-31 19:21 | CP.PCM.CON ---
History of Present Illness - History of Present Illness History of Present Illness: pt is seen and examined, follow up consult is dictated #[id number] Past Patient History - Infectious Disease Hx of Infectious Diseases: None - Tetanus Immunizations Tetanus Immunization: Unknown - Past Medical History & Family History Past Medical History?: Yes - Past Social History Smoking Status: Never Smoked Alcohol: None Drugs: Denies Home Situation {Lives}: With Family Domestic Violence: Negative - CARDIAC Hx Cardiac Disorders: Yes Hx Congestive Heart Failure: Yes Hx Hypercholesterolemia: Yes Hx Hypertension: Yes - PULMONARY Hx Respiratory Disorders: No Hx Pulmonary Edema: Yes - NEUROLOGICAL Hx Neurological Disorder: No - HEENT Hx HEENT Problems: No Hx Cataracts: Yes (3 yrs ago) - RENAL Hx Chronic Kidney Disease: Yes Type of Dialysis Access: left AVS done i week ago - ENDOCRINE/METABOLIC Hx Diabetes Mellitus Type 2: Yes - MUSCULOSKELETAL/RHEUMATOLOGICAL Hx Falls: No - PSYCHIATRIC Hx Anxiety: Yes Hx Substance Use: No - SURGICAL HISTORY Hx Angioplasty: Yes Hx Coronary Stent: Yes - ANESTHESIA Hx Anesthesia: Yes Hx Anesthesia Reactions: No Hx Malignant Hyperthermia: No Has any member of the family had a problem w/ anesthesia?: No Meds Allergies/Adverse Reactions: Allergies Allergy/AdvReac Type Severity Reaction Status Date / Time No Known Allergies Allergy Verified 04/23/17 10:59 - Medications Medications: Current Medications Allopurinol (Zyloprim) 100 mg PO DAILY [facility] Last Admin: 08/31/17 11:00 Dose: Not Given Aspirin (Ecotrin) 81 mg PO DAILY [facility] Last Admin: 08/31/17 11:00 Dose: Not Given Calcitriol (Rocaltrol) 0.25 mcg PO DAILY [facility] Last Admin: 08/31/17 11:00 Dose: Not Given Carvedilol (Coreg) 6.25 mg PO BID [facility] Last Admin: 08/31/17 11:00 Dose: Not Given Clonidine HCl (Catapres) 0.1 mg PO BID [facility] Last Admin: 08/31/17 11:00 Dose: Not Given Clopidogrel Bisulfate (Plavix) 75 mg PO DAILY [facility] Last Admin: 08/31/17 11:00 Dose: Not Given Docusate Sodium (Colace) 100 mg PO BID [facility] Last Admin: 08/31/17 11:00 Dose: Not Given Fenofibrate (Tricor) 145 mg PO DAILY [facility] Last Admin: 08/31/17 11:00 Dose: Not Given Furosemide (Lasix) 40 mg PO BID [facility] Last Admin: 08/31/17 11:00 Dose: Not Given Hydralazine HCl (Apresoline) 25 mg PO BID [facility] Last Admin: 08/31/17 11:00 Dose: Not Given Sodium Chloride (Sodium Chloride 0.45%) 1,000 mls @ 50 mls/hr IV .Q20H [facility] Dopamine HCl/Dextrose (Dopamine 400mg/250ml D5w) 400 mg in 250 mls @ 3.613 mls/ hr IV .Q24H PRN; Protocol; 2 MCG/KG/MIN PRN Reason: TITRATE PER MD ORDER Insulin Aspart (Novolog) 0 unit SC ACHS [facility] PRN Reason: Protocol Last Admin: 08/31/17 11:39 Dose: Not Given Multivitamins (Hexavitamin) 1 tab PO DAILY [facility] Last Admin: 08/31/17 11:00 Dose: Not Given Nitroglycerin (Nitro-Bid 2% Oint) 1 ea TOP BID PRN PRN Reason: Systolic Blood Pressure Rosuvastatin Calcium (Crestor) 10 mg PO HS [facility] Last Admin: 08/30/17 21:26 Dose: 10 mg Sitagliptin Phosphate (Januvia) 25 mg PO DAILY [facility] Last Admin: 08/31/17 11:00 Dose: Not Given Results - Vital Signs Recent Vital Signs: Last Vital Signs Temp 100.2 F H 08/31/17 16:02 Pulse 70 08/31/17 18:30 Resp 12 08/31/17 18:30 BP 124/49 L 08/31/17 18:30 Pulse Ox 99 08/31/17 18:30 - Labs Result Diagrams: 08/31/17 06:10 08/31/17 06:10 Labs: Laboratory Results - last 24 hr 08/30/17 08/30/17 08/31/17 17:08 21:17 06:10 WBC 8.2 RBC 3.19 L Hgb 10.2 L D Hct 29.0 L MCV 90.9 D MCH 31.9 H MCHC 35.1 RDW 15.0 H Plt Count 327 MPV 9.5 Neut % (Auto) 66.7 Lymph % (Auto) 24.8 [place] % (Auto) 6.8 Eos % (Auto) 1.2 Baso % (Auto) 0.5 Neut # 5.5 Lymph # 2.0 [place] # 0.6 Eos # 0.1 Baso # 0.0 PT INR APTT Sodium Potassium Chloride Carbon Dioxide Anion Gap BUN Creatinine Est GFR ( Amer) Est GFR (Non-Af Amer) POC Glucose (mg/dL) 265 H Random Glucose Calcium Total Bilirubin AST ALT Alkaline Phosphatase Total Protein Albumin Globulin Albumin/Globulin Ratio Blood Type O POSITIVE Antibody Screen Negative 08/31/17 08/31/17 08/31/17 06:10 06:10 06:16 WBC RBC Hgb Hct MCV MCH MCHC RDW Plt Count MPV Neut % (Auto) Lymph % (Auto) [place] % (Auto) Eos % (Auto) Baso % (Auto) Neut # Lymph # [place] # Eos # Baso # PT 9.9 INR 0.9 APTT 31 Sodium 131 L Potassium 4.0 Chloride 95 L Carbon Dioxide 22 Anion Gap 18 BUN 101 H* D Creatinine 3.5 H Est GFR ( Amer) 15 Est GFR (Non-Af Amer) 12 POC Glucose (mg/dL) 253 H Random Glucose 228 H Calcium 10.0 Total Bilirubin 0.9 AST 41 H D ALT 26 Alkaline Phosphatase 75 Total Protein 6.5 Albumin 4.0 Globulin 2.6 Albumin/Globulin Ratio 1.6 Blood Type Antibody Screen 08/31/17 16:24 WBC RBC Hgb Hct MCV MCH MCHC RDW Plt Count MPV Neut % (Auto) Lymph % (Auto) [place] % (Auto) Eos % (Auto) Baso % (Auto) Neut # Lymph # [place] # Eos # Baso # PT INR APTT Sodium Potassium Chloride Carbon Dioxide Anion Gap BUN Creatinine Est GFR ( Amer) Est GFR (Non-Af Amer) POC Glucose (mg/dL) 179 H Random Glucose Calcium Total Bilirubin AST ALT Alkaline Phosphatase Total Protein Albumin Globulin Albumin/Globulin Ratio Blood Type Antibody Screen
--- NOTE | 2017-09-01 01:06 | OP ---
PROCEDURE DATE: 08/31/2017 PREOPERATIVE DIAGNOSIS: Transient ischemic attack affecting the right arm. POSTOPERATIVE DIAGNOSIS: Transient ischemic attack affecting the right arm. PROCEDURE CARRIED OUT: Left carotid endarterectomy. SURGEON: Donte Spivey Jr., MD ACCOUNT CLERK: Dr. Solorzano. ANESTHESIOLOGIST: Mr. Haskins. HISTORY: The patient is an 86-year-old woman with renal insufficiency, on hemodialysis, presented with transient ischemic attack involving the right arm. Preoperative imaging included a duplex scan and an MRA without contrast demonstrated high grade stenosis and possible string sign on the left side. OPERATIVE FINDINGS: The patient woke intact without any significant deficits. Blood loss was 200 to 250 mL. The plaque was an ulcerated plaque and primarily at the distal portion of the common carotid artery and extending into the origin of the internal. The rest of the intraoperative findings were unremarkable. Hypoglossal nerve was seen and identified. We left a small drain. We used vascular patch and we used shunt. PROCEDURE: The patient was given general anesthesia, intravenous antibiotics, the neck was exposed exposing the common internal and external carotid arteries. After exposure of the vessels, heparin was given, the vessels were clamped, shunt inserted. The endarterectomy carried out with clean end points and then the vascular patch was placed, the shunt was removed. Hemostasis which took over an hour and a half was then obtained. The wound was then closed with Monocryl and Vicryl sutures, nylon sutures on the skin and Steri-Strips. Operation carried out was left carotid endarterectomy. Donte Spivey Jr., MD cc: Joe Mcmahan MD
--- NOTE | 2017-09-01 04:49 | PN ---
FOLLOWUP RENAL CONSULTATION DATE:08/31/2017 REASON FOR RENAL CONSULTATION: Increased BUN and creatinine and for further evaluation, status post left carotid endarterectomy. HISTORY OF PRESENT ILLNESS: Mrs. Dsouza is an 86 years old elderly Citizen Of [place] female with a past medical history significant for hypertension, diabetes, chronic kidney disease stage V, coronary artery disease, ischemic cardiomyopathy, who was admitted with a chief complaints of twitching of muscles on the face on and off since the day of admission and weakness on the right arm. The patient was recently admitted for acute CHF and worsening renal function. Subsequently, the patient underwent left upper extremity AV graft placement and immediately patient developed steal syndrome to the left wrist and subsequently the AV graft was immediately ligated in the recovery room. The patient was found to have left carotid stenosis more than 90% and subsequently the patient underwent left carotid endarterectomy. Now, renal consult requested for evaluation of increased BUN and creatinine. The patient is complaining feeling thirsty, not in distress, seen in recovery. Denies any chest pain or palpitation. Denies any fever or cough. No abdominal pain. No nausea, vomiting or diarrhea. PHYSICAL EXAMINATION VITAL SIGNS: As follows; blood pressure 119/46, pulse 69, respiration 12, saturation 99% and temperature 98.7 this morning. Height is 5 feet 1 inch and weight is 106 pounds. GENERAL: Mrs. Dsouza is an 86 years old elderly Citizen [place] female, moderately built, moderately nourished, not in distress. HEENT: Pupils normal, reactive to light and accommodation. Conjunctivae pink. Sclerae anicteric. Tongue is dry. Trachea is midline , status post left carotid surgery. The patient has a dressing to the left carotid region. LUNGS: Symmetric on both sides. Bilateral breath sounds present. Clear on auscultation. CARDIOVASCULAR SYSTEM: [place] at the fifth intercostal space, midclavicular line. S1, S2 audible. No murmur or gallop. ABDOMEN: Normal in appearance, soft, tympanic. No guarding. No rigidity. No hepatosplenomegaly. CENTRAL NERVOUS SYSTEM: The patient is alert, awake, oriented x3. Nonfocal neuro examination. Cranial nerves II through XII grossly intact. Sensory and motor system is within normal limits. EXTREMITIES: No cyanosis, no clubbing, no edema. CURRENT MEDICATIONS: Include as follows; hydralazine 25 mg p.o. b.i.d., clonidine 0.5 mg p.o. b.i.d., Colace 100 mg p.o. b.i.d., Coreg 6.25 mg p.o. b.i.d., Crestor 10 mg at bedtime, aspirin 81 mg daily, multivitamin 1 tablet daily, Januvia 25 mg p.o. daily, Lasix 40 mg p.o. b.i.d., Nitro-Bid ointment 1 inch topical b.i.d., NovoLog for sliding scale, Plavix 75 mg daily, Rocaltrol 0.25 mcg daily, IV fluids half-normal saline increased from 50 to 70 mL/hour, TriCor 145 mg daily and allopurinol 100 mg p.o. daily. LABORATORY DATA: Include as follows as of 08/31/2017; WBC 8.2, hemoglobin 10, hematocrit is 29, platelets 327. PT 9.9 and PTT 31. Sodium 131, potassium is 4, chloride 95 CO2 of 22, BUN 101, creatinine 3.5, glucose 253 and GFR is about 12. Calcium is 10, total bili 0.5, AST 41, ALT 26, alkaline phosphatase 75, total protein 6.5, albumin is 3.0. ASSESSMENT: In summary, Mrs. Dsouza is an 86 years old elderly female with history of hypertension, diabetes, hyperlipidemia, coronary artery disease, chronic kidney disease V with steal syndrome, status post ligation of the left upper extremity AV graft was admitted with twitching of face and weakness on the right side, found to have carotid stenosis 90% and underwent surgery. 1. Renal failure. Chronic kidney disease V, most likely secondary to diabetic nephropathy, cannot rule out underlying hypertensive nephrosclerosis. 2. Worsening azotemia is most likely secondary to vigorous diuresis. 3. Status post left carotid endarterectomy. 4. Diabetes. PLAN: Continue gentle IV hydration, try to hold Lasix for 24 to 48 hours if possible if it is okay to Cardiology. We will continue to monitor renal function. We will follow with you. Thank you for allowing me to participate in your patient's care. May need to start renal replacement therapy if patient's family agrees. Vasudeva Jonnalagadda, MD MTDLori
[2017-09-01 06:26] LABS: BASO % 0.4 % (0.0-2.0); EOS # 0.1 K/uL (0.0-0.7); EOS % 1.1 % (0.0-4.0); HEMATOCRIT 23.1 % (34.0-47.0); LYMPH # 1.8 K/uL (1.0-4.3); LYMPH % 19.6 % (20.0-40.0); MEAN CORPUSCULAR HEMOGLOBIN 31.8 pg (27.0-31.0); MEAN CORPUSCULAR HGB CONC 34.6 g/dL (33.0-37.0); MEAN PLATELET VOLUME 10.3 fL (7.2-11.7); MONO # 0.9 K/uL (0.0-0.8); MONO % 9.3 % (0.0-10.0); RED CELL DISTRIBUTION WIDTH 15.1 % (11.5-14.5); WHITE BLOOD COUNT 9.3 K/uL (4.8-10.8)
[2017-09-01 06:44] LABS: BILIRUBIN,TOTAL 0.5 mg/dL (0.2-1.3); MAGNESIUM 1.9 mg/dL (1.6-2.3); PHOSPHOROUS 5.9 mg/dL (2.5-4.5); POTASSIUM 3.9 mmol/L (3.6-5.2); TOTAL PROTEIN 6.1 g/dL (6.3-8.3)
[2017-09-01] MEDS: (Novolog) Insulin Aspart, Recombinant 100 u/ml 10 ml vial SC SCH ×5 (08:00→21:31)
--- NOTE | 2017-09-01 09:17 | CP.PCM.PN ---
Subjective - Date & Time of Evaluation Date of Evaluation: 09/01/17 Time of Evaluation: 08:00 - Subjective Subjective: Vascular Surgery Pt S&E, NAEO. BP within parameters. No neuro deficits noted. Pt c/o pain at incision site. Objective - Vital Signs/Intake and Output Vital Signs (last 24 hours): Temp Pulse Resp BP Pulse Ox 98.1 F 63 12 107/35 L 99 08/31/17 21:07 09/01/17 08:10 09/01/17 08:10 09/01/17 07:42 09/01/17 08:10 Intake and Output: 09/01/17 09/01/17 06:59 18:59 Intake Total 700 70 Output Total 500 0 Balance 200 70 - Medications Medications: Current Medications Allopurinol (Zyloprim) 100 mg PO DAILY [facility] Last Admin: 08/31/17 11:00 Dose: Not Given Aspirin (Ecotrin) 81 mg PO DAILY [facility] Last Admin: 08/31/17 11:00 Dose: Not Given Calcitriol (Rocaltrol) 0.25 mcg PO DAILY [facility] Last Admin: 08/31/17 11:00 Dose: Not Given Carvedilol (Coreg) 6.25 mg PO BID [facility] Last Admin: 08/31/17 19:30 Dose: 6.25 mg Clonidine HCl (Catapres) 0.1 mg PO BID [facility] Last Admin: 08/31/17 19:30 Dose: 0.1 mg Clopidogrel Bisulfate (Plavix) 75 mg PO DAILY [facility] Last Admin: 08/31/17 11:00 Dose: Not Given Docusate Sodium (Colace) 100 mg PO BID [facility] Last Admin: 08/31/17 22:30 Dose: 100 mg Fenofibrate (Tricor) 145 mg PO DAILY [facility] Last Admin: 08/31/17 11:00 Dose: Not Given Furosemide (Lasix) 40 mg PO BID [facility] Last Admin: 08/31/17 19:30 Dose: 40 mg Hydralazine HCl (Apresoline) 25 mg PO BID [facility] Last Admin: 08/31/17 19:30 Dose: 25 mg Dopamine HCl/Dextrose (Dopamine 400mg/250ml D5w) 400 mg in 250 mls @ 3.613 mls/ hr IV .Q24H PRN; Protocol; 2 MCG/KG/MIN PRN Reason: TITRATE PER MD ORDER Sodium Chloride (Sodium Chloride 0.45%) 1,000 mls @ 70 mls/hr IV .[id number] [facility] Insulin Aspart (Novolog) 0 unit SC ACHS [facility] PRN Reason: Protocol Last Admin: 09/01/17 08:00 Dose: 1 unit Multivitamins (Hexavitamin) 1 tab PO DAILY [facility] Last Admin: 08/31/17 11:00 Dose: Not Given Nitroglycerin (Nitro-Bid 2% Oint) 1 ea TOP BID PRN PRN Reason: Systolic Blood Pressure Rosuvastatin Calcium (Crestor) 10 mg PO HS [facility] Last Admin: 08/31/17 22:35 Dose: 10 mg Sitagliptin Phosphate (Januvia) 25 mg PO DAILY [facility] Last Admin: 08/31/17 11:00 Dose: Not Given - Labs Labs: 09/01/17 06:15 09/01/17 06:15 PT 9.9 SECONDS (9.7-12.2) 08/31/17 06:10 INR 0.9 08/31/17 06:10 APTT 31 SECONDS (21-34) 08/31/17 06:10 - Constitutional Appears: Non-toxic, No Acute Distress - Head Exam Head Exam: ATRAUMATIC, NORMOCEPHALIC - Eye Exam Eye Exam: EOMI. absent: Scleral icterus - Neck Exam Neck Exam: Full ROM, Tenderness (appropriate at incision site) Additional comments: Incision intact. Dressing changed, drain removed - Respiratory Exam Respiratory Exam: NORMAL BREATHING PATTERN. absent: Respiratory Distress - GI/Abdominal Exam GI & Abdominal Exam: Soft. absent: Distended, Tenderness - Neurological Exam Neurological Exam: Alert, Awake, Oriented x3 - Skin Skin Exam: Dry, Warm Assessment and Plan - Assessment and Plan (Free Text) Assessment: 86F s/p L CEA POD#1 Plan: Removed A line Renal Diet Dressing changed Ok for DC from a surgical standpoint D/W Dr. Patric Solorzano PGY4
[2017-09-01] MEDS: Multiple Vitamins Tab PO SCH (10:30)
--- NOTE | 2017-09-01 14:06 | CP.PCM.PN ---
Subjective - Date & Time of Evaluation Date of Evaluation: 09/01/17 Time of Evaluation: 14:04 - Subjective Subjective: Patient is POD#1 left carotid endarterectomy. Alert, oriented, eating, in no respiratory distress. BP: 105/60 HR 70 regular, afebrile. BUN: 80 creatine: 2.9 Objective - Vital Signs/Intake and Output Vital Signs (last 24 hours): Temp Pulse Resp BP Pulse Ox 98.2 F 69 18 113/40 L 99 09/01/17 12:00 09/01/17 12:00 09/01/17 12:00 09/01/17 12:00 09/01/17 12:00 Intake and Output: 09/01/17 09/01/17 06:59 18:59 Intake Total 700 760 Output Total 500 300 Balance 200 460 - Medications Medications: Current Medications Allopurinol (Zyloprim) 100 mg PO DAILY [facility] Last Admin: 09/01/17 10:55 Dose: 100 mg Aspirin (Ecotrin) 81 mg PO DAILY [facility] Last Admin: 09/01/17 10:19 Dose: 81 mg Calcitriol (Rocaltrol) 0.25 mcg PO DAILY [facility] Last Admin: 09/01/17 10:54 Dose: 0.25 mcg Carvedilol (Coreg) 6.25 mg PO BID [facility] Last Admin: 09/01/17 10:31 Dose: 6.25 mg Clonidine HCl (Catapres) 0.1 mg PO BID [facility] Last Admin: 09/01/17 10:27 Dose: 0.1 mg Clopidogrel Bisulfate (Plavix) 75 mg PO DAILY [facility] Last Admin: 09/01/17 10:19 Dose: 75 mg Docusate Sodium (Colace) 100 mg PO BID [facility] Last Admin: 09/01/17 10:20 Dose: 100 mg Fenofibrate (Tricor) 145 mg PO DAILY [facility] Last Admin: 09/01/17 10:55 Dose: 145 mg Furosemide (Lasix) 40 mg PO BID [facility] Last Admin: 09/01/17 10:34 Dose: 40 mg Hydralazine HCl (Apresoline) 25 mg PO BID [facility] Last Admin: 09/01/17 10:27 Dose: 25 mg Dopamine HCl/Dextrose (Dopamine 400mg/250ml D5w) 400 mg in 250 mls @ 3.613 mls/ hr IV .Q24H PRN; Protocol; 2 MCG/KG/MIN PRN Reason: TITRATE PER MD ORDER Sodium Chloride (Sodium Chloride 0.45%) 1,000 mls @ 70 mls/hr IV .[id number] [facility] Insulin Aspart (Novolog) 0 unit SC ACHS [facility] PRN Reason: Protocol Last Admin: 09/01/17 08:00 Dose: 1 unit Multivitamins (Hexavitamin) 1 tab PO DAILY [facility] Last Admin: 09/01/17 10:30 Dose: 1 tab Nitroglycerin (Nitro-Bid 2% Oint) 1 ea TOP BID PRN PRN Reason: Systolic Blood Pressure Rosuvastatin Calcium (Crestor) 10 mg PO HS [facility] Last Admin: 08/31/17 22:35 Dose: 10 mg Sitagliptin Phosphate (Januvia) 25 mg PO DAILY [facility] Last Admin: 09/01/17 10:34 Dose: 25 mg - Labs Labs: 09/01/17 06:15 09/01/17 06:15 PT 9.9 SECONDS (9.7-12.2) 08/31/17 06:10 INR 0.9 08/31/17 06:10 APTT 31 SECONDS (21-34) 08/31/17 06:10 - Constitutional Appears: No Acute Distress, Chronically Ill - Head Exam Head Exam: NORMAL INSPECTION - Eye Exam Eye Exam: Normal appearance - ENT Exam Additional comments: S/p left carotid endarterectomy. - Respiratory Exam Respiratory Exam: Clear to Ausculation Bilateral, NORMAL BREATHING PATTERN - Cardiovascular Exam Cardiovascular Exam: REGULAR RHYTHM, Murmur - GI/Abdominal Exam GI & Abdominal Exam: Soft, Normal Bowel Sounds - Rectal Exam Rectal Exam: Deferred - Extremities Exam Extremities Exam: Full ROM, Normal Inspection - Back Exam Back Exam: NORMAL INSPECTION - Neurological Exam Neurological Exam: Alert, Awake, Oriented x3 - Psychiatric Exam Psychiatric exam: Anxious - Skin Skin Exam: Dry, Intact, Normal Color, Warm Assessment and Plan (1) Myoclonic jerking Status: Acute (2) ESRD (end stage renal disease) Status: Chronic (3) Ischemic cardiomyopathy Status: Chronic (4) Insulin dependent diabetes mellitus Status: Chronic (5) Hypertension Status: Chronic (6) More than 50 percent stenosis of left internal carotid artery Assessment & Plan: S/p left endarterectomy. Doing well Status: Acute
--- NOTE | 2017-09-01 18:51 | CP.PCM.PN ---
Subjective - Date & Time of Evaluation Date of Evaluation: 09/01/17 Time of Evaluation: 18:50 - Subjective Subjective: pt is seen and examined, follow up consult is dictated #[id number] 1. kayden on ckd-4 2. s/p left CEA 3. htn 4. dm 5. CM renal function is slightly better c/ gentle iv hydration Objective - Vital Signs/Intake and Output Vital Signs (last 24 hours): Temp Pulse Resp BP Pulse Ox 98.2 F 71 19 107/51 L 100 09/01/17 12:00 09/01/17 16:00 09/01/17 16:00 09/01/17 16:00 09/01/17 16:00 Intake and Output: 09/01/17 09/01/17 06:59 18:59 Intake Total 700 1105 Output Total 500 1000 Balance 200 105 - Medications Medications: Current Medications Allopurinol (Zyloprim) 100 mg PO DAILY [facility] Last Admin: 09/01/17 10:55 Dose: 100 mg Aspirin (Ecotrin) 81 mg PO DAILY [facility] Last Admin: 09/01/17 10:19 Dose: 81 mg Calcitriol (Rocaltrol) 0.25 mcg PO DAILY [facility] Last Admin: 09/01/17 10:54 Dose: 0.25 mcg Carvedilol (Coreg) 6.25 mg PO BID [facility] Last Admin: 09/01/17 17:58 Dose: 6.25 mg Clonidine HCl (Catapres) 0.1 mg PO BID [facility] Last Admin: 09/01/17 17:58 Dose: 0.1 mg Clopidogrel Bisulfate (Plavix) 75 mg PO DAILY [facility] Last Admin: 09/01/17 10:19 Dose: 75 mg Docusate Sodium (Colace) 100 mg PO BID [facility] Last Admin: 09/01/17 17:58 Dose: 100 mg Fenofibrate (Tricor) 145 mg PO DAILY [facility] Last Admin: 09/01/17 10:55 Dose: 145 mg Hydralazine HCl (Apresoline) 25 mg PO BID [facility] Last Admin: 09/01/17 18:03 Dose: 25 mg Dopamine HCl/Dextrose (Dopamine 400mg/250ml D5w) 400 mg in 250 mls @ 3.613 mls/ hr IV .Q24H PRN; Protocol; 2 MCG/KG/MIN PRN Reason: TITRATE PER MD ORDER Insulin Aspart (Novolog) 0 unit SC ACHS [facility] PRN Reason: Protocol Last Admin: 09/01/17 15:00 Dose: 2 unit Multivitamins (Hexavitamin) 1 tab PO DAILY [facility] Last Admin: 09/01/17 10:30 Dose: 1 tab Nitroglycerin (Nitro-Bid 2% Oint) 1 ea TOP BID PRN PRN Reason: Systolic Blood Pressure Rosuvastatin Calcium (Crestor) 10 mg PO HS [facility] Last Admin: 08/31/17 22:35 Dose: 10 mg Sitagliptin Phosphate (Januvia) 25 mg PO DAILY [facility] Last Admin: 09/01/17 10:34 Dose: 25 mg - Labs Labs: 09/01/17 06:15 09/01/17 06:15 PT 9.9 SECONDS (9.7-12.2) 08/31/17 06:10 INR 0.9 08/31/17 06:10 APTT 31 SECONDS (21-34) 08/31/17 06:10
--- NOTE | 2017-09-02 03:21 | PN ---
FOLLOWUP RENAL CONSULTATION DATE:09/01/2017 The patient is located in room #552, bed A. REQUESTED BY: Dr. Joe Mcmahan. REASON FOR RENAL CONSULTATION: Acute renal failure, chronic kidney disease for further evaluation, status post left carotid endarterectomy. HISTORY OF PRESENT ILLNESS: Mrs. Dsouza is an 86 years old elderly [place] female with a past medical history significant for longstanding hypertension, diabetes, coronary artery disease, CHF, chronic kidney disease stage V, who was admitted with weakness on the right side and the patient was found to have severe carotid stenosis on the left side. The patient underwent left carotid endarterectomy. The patient is feeling better, not in acute distress. Denies any chest pain, palpitation. Denies any fever or cough. No abdominal pain. No nausea, vomiting, diarrhea. PHYSICAL EXAMINATION VITAL SIGNS: As follows; blood pressure 107/51, pulse 71, respiration 19, temperature 98.2, saturation 100%. Height 5 feet 1 inch weight is 105 pounds. GENERAL: Mrs. Dsouza is an 86 years old elderly [place] female, moderately-built, moderately-nourished, not in acute distress. HEENT: Pupils normal, reactive to light and accommodation. Conjunctivae pink. Sclerae are anicteric. Tongue is moist. Trachea is midline. NECK: The patient has a dressing to the left side of the neck. LUNGS: Symmetric on both sides. Bilateral breath sounds present. Clear on auscultation. CARDIOVASCULAR: [place] at the fifth intercostal space, midclavicular line. S1, S2 audible. No murmur or gallop. ABDOMEN: Normal in appearance, soft, tympanic. No guarding. No rigidity. No hepatosplenomegaly. CENTRAL NERVOUS SYSTEM: The patient is alert, awake, oriented x3. Nonfocal neuro examination. Cranial nerves II through XII grossly intact. Sensory and motor system is within normal limits. EXTREMITIES: No cyanosis, no clubbing, no edema. CURRENTLY MEDICATIONS: Include as follows; hydralazine 25 mg p.o. b.i.d., clonidine 0.1 mg p.o. b.i.d., Colace 100 mg p.o. b.i.d., Coreg 6.25 mg p.o. b.i.d., Crestor 10 mg at bedtime, aspirin 81 mg daily, multivitamin 1 tablet daily, Januvia 25 mg p.o. daily, Nitro-Bid ointment 1 inch topical b.i.d., NovoLog insulin per sliding scale, Plavix 75 mg daily, Rocaltrol 0.25 mcg p.o. daily, TriCor 145 mg p.o. daily and allopurinol 100 mg p.o. daily. LABORATORY DATA: Include as follows as of 09/01/2017; WBC 9.3, hemoglobin 8, hematocrit is 23.1, platelets 242. Sodium 131, potassium 3.9, chloride 100 CO2 of 20, BUN 84, creatinine 2.9, GFR is about 15, glucose 140, calcium 8, phosphorus 5.9, magnesium 1.9, total bili 0.5, AST 23, ALT 33, alkaline phosphatase 31 and total protein 6.1. ASSESSMENT: In summary, Mrs. Dsouza is an 86 years old elderly [place] female with a history of longstanding hypertension, diabetes, coronary artery disease, gout, hyperlipidemia, was admitted with facial twitching and weakness and status post left carotid endarterectomy yesterday with increased BUN and creatinine and low hemoglobin and hematocrit. 1. Renal failure, acute on chronic kidney disease stage IV to stage V, most likely secondary to vigorous diuresis. 2. Anemia secondary to renal failure and rule out iron-deficiency anemia and recent surgery. We will check iron, TIBC, ferritin level and we will add Epogen 10,000 units subcu 3 times a week. 3. Hyperphosphatemia rule out secondary hyperparathyroidism. 4. Hypertension. Blood pressure is stable. Continue her current medications hydralazine, clonidine and Coreg. Increase p.o. fluid intake and repeat BMP in a.m. We will follow with you. Thank you for allowing me to participate in your patient's care. No need for emergency hemodialysis at this time. Sergo Carter MD JUNIOR
[2017-09-02 08:03] LABS: IRON 25 ug/dL (37-170)
[2017-09-02 08:16] LABS: ALB/GLOB RATIO 1.5 (1.0-2.1); BILIRUBIN,TOTAL 0.7 mg/dL (0.2-1.3); CALCIUM 8.6 mg/dl (8.6-10.4); POTASSIUM 4.1 mmol/L (3.6-5.2); TOTAL PROTEIN 5.9 g/dL (6.3-8.3)
[2017-09-02] MEDS: Sevelamer Carb 0.8 gm/Packet PO SCH ×3 (08:27→17:56)
[2017-09-02] MEDS: (Novolog) Insulin Aspart, Recombinant 100 u/ml 10 ml vial SC SCH ×4 (08:27→21:14)
[2017-09-02] MEDS: Epoetin Alfa 10,000 unit/ml Dialysis SC SCH (09:36)
[2017-09-02] MEDS: Multiple Vitamins Tab PO SCH (09:37)
--- NOTE | 2017-09-02 12:30 | CP.PCM.PN ---
Subjective - Date & Time of Evaluation Date of Evaluation: 09/02/17 Time of Evaluation: 12:30 - Subjective Subjective: follow up consult is dictated #[id number] Objective - Vital Signs/Intake and Output Vital Signs (last 24 hours): Temp Pulse Resp BP Pulse Ox 97.2 F L 64 20 108/64 96 09/02/17 09:02 09/02/17 09:02 09/02/17 09:02 09/02/17 09:02 09/02/17 09:02 Intake and Output: 09/02/17 09/02/17 06:59 18:59 Intake Total 118 Balance 118 - Medications Medications: Current Medications Allopurinol (Zyloprim) 100 mg PO DAILY [facility] Last Admin: 09/02/17 09:37 Dose: 100 mg Aspirin (Ecotrin) 81 mg PO DAILY [facility] Last Admin: 09/02/17 09:37 Dose: 81 mg Calcitriol (Rocaltrol) 0.25 mcg PO DAILY [facility] Last Admin: 09/02/17 09:37 Dose: 0.25 mcg Carvedilol (Coreg) 6.25 mg PO BID [facility] Last Admin: 09/02/17 09:36 Dose: 6.25 mg Clonidine HCl (Catapres) 0.1 mg PO BID [facility] Last Admin: 09/02/17 09:37 Dose: 0.1 mg Clopidogrel Bisulfate (Plavix) 75 mg PO DAILY [facility] Last Admin: 09/02/17 09:37 Dose: 75 mg Docusate Sodium (Colace) 100 mg PO BID [facility] Last Admin: 09/02/17 09:36 Dose: 100 mg Epoetin Raza (Procrit) 10,000 unit SC MWF [facility] Last Admin: 09/02/17 09:36 Dose: 10,000 unit Fenofibrate (Tricor) 145 mg PO DAILY [facility] Last Admin: 09/02/17 09:37 Dose: 145 mg Hydralazine HCl (Apresoline) 25 mg PO BID [facility] Last Admin: 09/02/17 09:36 Dose: 25 mg Dopamine HCl/Dextrose (Dopamine 400mg/250ml D5w) 400 mg in 250 mls @ 3.613 mls/ hr IV .Q24H PRN; Protocol; 2 MCG/KG/MIN PRN Reason: TITRATE PER MD ORDER Insulin Aspart (Novolog) 0 unit SC ACHS [facility] PRN Reason: Protocol Last Admin: 09/02/17 08:27 Dose: 2 unit Multivitamins (Hexavitamin) 1 tab PO DAILY [facility] Last Admin: 09/02/17 09:37 Dose: 1 tab Nitroglycerin (Nitro-Bid 2% Oint) 1 ea TOP BID PRN PRN Reason: Systolic Blood Pressure Rosuvastatin Calcium (Crestor) 10 mg PO HS [facility] Last Admin: 09/01/17 21:32 Dose: 10 mg Sevelamer Carbonate (Renvela) 0.8 gm PO TIDCC [facility] Last Admin: 09/02/17 08:27 Dose: 0.8 gm Sitagliptin Phosphate (Januvia) 25 mg PO DAILY [facility] Last Admin: 09/02/17 09:36 Dose: 25 mg - Labs Labs: 09/01/17 06:15 09/02/17 07:25 PT 9.9 SECONDS (9.7-12.2) 08/31/17 06:10 INR 0.9 08/31/17 06:10 APTT 31 SECONDS (21-34) 08/31/17 06:10
--- NOTE | 2017-09-02 13:26 | CP.PCM.PN ---
Subjective - Date & Time of Evaluation Date of Evaluation: 09/02/17 Time of Evaluation: 13:18 - Subjective Subjective: Patient seen on the regular floor. Patient is still weak. BP: 120/60 HR: 77 regular, afebrile. BUN: 84 creatinine : 3.4. Will ask for subacute rehab evaluation. Objective - Vital Signs/Intake and Output Vital Signs (last 24 hours): Temp Pulse Resp BP Pulse Ox 97.2 F L 64 20 108/64 96 09/02/17 09:02 09/02/17 09:02 09/02/17 09:02 09/02/17 09:02 09/02/17 09:02 Intake and Output: 09/02/17 09/02/17 06:59 18:59 Intake Total 118 Balance 118 - Medications Medications: Current Medications Allopurinol (Zyloprim) 100 mg PO DAILY [facility] Last Admin: 09/02/17 09:37 Dose: 100 mg Aspirin (Ecotrin) 81 mg PO DAILY [facility] Last Admin: 09/02/17 09:37 Dose: 81 mg Calcitriol (Rocaltrol) 0.25 mcg PO DAILY [facility] Last Admin: 09/02/17 09:37 Dose: 0.25 mcg Carvedilol (Coreg) 6.25 mg PO BID [facility] Last Admin: 09/02/17 09:36 Dose: 6.25 mg Clonidine HCl (Catapres) 0.1 mg PO BID [facility] Last Admin: 09/02/17 09:37 Dose: 0.1 mg Clopidogrel Bisulfate (Plavix) 75 mg PO DAILY [facility] Last Admin: 09/02/17 09:37 Dose: 75 mg Docusate Sodium (Colace) 100 mg PO BID [facility] Last Admin: 09/02/17 09:36 Dose: 100 mg Epoetin Raza (Procrit) 10,000 unit SC MWF [facility] Last Admin: 09/02/17 09:36 Dose: 10,000 unit Fenofibrate (Tricor) 145 mg PO DAILY [facility] Last Admin: 09/02/17 09:37 Dose: 145 mg Hydralazine HCl (Apresoline) 25 mg PO BID [facility] Last Admin: 09/02/17 09:36 Dose: 25 mg Dopamine HCl/Dextrose (Dopamine 400mg/250ml D5w) 400 mg in 250 mls @ 3.613 mls/ hr IV .Q24H PRN; Protocol; 2 MCG/KG/MIN PRN Reason: TITRATE PER MD ORDER Insulin Aspart (Novolog) 0 unit SC ACHS [facility] PRN Reason: Protocol Last Admin: 09/02/17 08:27 Dose: 2 unit Multivitamins (Hexavitamin) 1 tab PO DAILY [facility] Last Admin: 09/02/17 09:37 Dose: 1 tab Nitroglycerin (Nitro-Bid 2% Oint) 1 ea TOP BID PRN PRN Reason: Systolic Blood Pressure Rosuvastatin Calcium (Crestor) 10 mg PO HS [facility] Last Admin: 09/01/17 21:32 Dose: 10 mg Sevelamer Carbonate (Renvela) 0.8 gm PO TIDCC [facility] Last Admin: 09/02/17 08:27 Dose: 0.8 gm Sitagliptin Phosphate (Januvia) 25 mg PO DAILY [facility] Last Admin: 09/02/17 09:36 Dose: 25 mg - Labs Labs: 09/01/17 06:15 09/02/17 07:25 PT 9.9 SECONDS (9.7-12.2) 08/31/17 06:10 INR 0.9 08/31/17 06:10 APTT 31 SECONDS (21-34) 08/31/17 06:10 - Constitutional Appears: No Acute Distress, Chronically Ill - Head Exam Head Exam: NORMAL INSPECTION - Eye Exam Eye Exam: Normal appearance - ENT Exam ENT Exam: Normal Exam - Neck Exam Additional comments: Surgical wound of the left neck clean. - Respiratory Exam Respiratory Exam: Clear to Ausculation Bilateral, NORMAL BREATHING PATTERN - Cardiovascular Exam Cardiovascular Exam: REGULAR RHYTHM, Murmur - GI/Abdominal Exam GI & Abdominal Exam: Soft, Normal Bowel Sounds - Extremities Exam Extremities Exam: Normal Inspection - Back Exam Back Exam: NORMAL INSPECTION - Neurological Exam Neurological Exam: Alert, Awake, Oriented x3 - Psychiatric Exam Psychiatric exam: Anxious - Skin Skin Exam: Dry, Intact, Normal Color, Warm Assessment and Plan (1) Myoclonic jerking Status: Acute (2) ESRD (end stage renal disease) Status: Chronic (3) Ischemic cardiomyopathy Status: Chronic (4) Insulin dependent diabetes mellitus Status: Chronic (5) Hypertension Status: Chronic (6) More than 50 percent stenosis of left internal carotid artery Status: Acute
--- NOTE | 2017-09-02 16:15 | CP.PCM.PN ---
Subjective - Date & Time of Evaluation Date of Evaluation: 09/02/17 Time of Evaluation: 12:00 - Subjective Subjective: Vascular Surgery Pt S&E, NAEO. Minimal pain at incision. no other complaints at this time. Objective - Vital Signs/Intake and Output Vital Signs (last 24 hours): Temp Pulse Resp BP Pulse Ox 97.2 F L 64 20 108/64 96 09/02/17 09:02 09/02/17 09:02 09/02/17 09:02 09/02/17 09:02 09/02/17 09:02 Intake and Output: 09/02/17 09/02/17 06:59 18:59 Intake Total 118 Balance 118 - Medications Medications: Current Medications Allopurinol (Zyloprim) 100 mg PO DAILY [facility] Last Admin: 09/02/17 09:37 Dose: 100 mg Aspirin (Ecotrin) 81 mg PO DAILY [facility] Last Admin: 09/02/17 09:37 Dose: 81 mg Calcitriol (Rocaltrol) 0.25 mcg PO DAILY [facility] Last Admin: 09/02/17 09:37 Dose: 0.25 mcg Carvedilol (Coreg) 6.25 mg PO BID [facility] Last Admin: 09/02/17 09:36 Dose: 6.25 mg Clonidine HCl (Catapres) 0.1 mg PO BID [facility] Last Admin: 09/02/17 09:37 Dose: 0.1 mg Clopidogrel Bisulfate (Plavix) 75 mg PO DAILY [facility] Last Admin: 09/02/17 09:37 Dose: 75 mg Docusate Sodium (Colace) 100 mg PO BID [facility] Last Admin: 09/02/17 09:36 Dose: 100 mg Epoetin Raza (Procrit) 10,000 unit SC MWF [facility] Last Admin: 09/02/17 09:36 Dose: 10,000 unit Fenofibrate (Tricor) 145 mg PO DAILY [facility] Last Admin: 09/02/17 09:37 Dose: 145 mg Hydralazine HCl (Apresoline) 25 mg PO BID [facility] Last Admin: 09/02/17 09:36 Dose: 25 mg Dopamine HCl/Dextrose (Dopamine 400mg/250ml D5w) 400 mg in 250 mls @ 3.613 mls/ hr IV .Q24H PRN; Protocol; 2 MCG/KG/MIN PRN Reason: TITRATE PER MD ORDER Insulin Aspart (Novolog) 0 unit SC ACHS [facility] PRN Reason: Protocol Last Admin: 09/02/17 14:10 Dose: 4 unit Multivitamins (Hexavitamin) 1 tab PO DAILY [facility] Last Admin: 09/02/17 09:37 Dose: 1 tab Nitroglycerin (Nitro-Bid 2% Oint) 1 ea TOP BID PRN PRN Reason: Systolic Blood Pressure Rosuvastatin Calcium (Crestor) 10 mg PO HS [facility] Last Admin: 09/01/17 21:32 Dose: 10 mg Sevelamer Carbonate (Renvela) 0.8 gm PO TIDCC [facility] Last Admin: 09/02/17 14:11 Dose: 0.8 gm Sitagliptin Phosphate (Januvia) 25 mg PO DAILY [facility] Last Admin: 09/02/17 09:36 Dose: 25 mg - Labs Labs: 09/01/17 06:15 09/02/17 07:25 PT 9.9 SECONDS (9.7-12.2) 08/31/17 06:10 INR 0.9 08/31/17 06:10 APTT 31 SECONDS (21-34) 08/31/17 06:10 - Constitutional Appears: Non-toxic, No Acute Distress - Head Exam Head Exam: ATRAUMATIC, NORMOCEPHALIC - Neck Exam Additional comments: dressing dry, intact No swelling - Respiratory Exam Respiratory Exam: NORMAL BREATHING PATTERN. absent: Respiratory Distress - GI/Abdominal Exam GI & Abdominal Exam: Soft, Tenderness - Neurological Exam Neurological Exam: Alert, Awake, Oriented x3 Additional comments: gross motor function intact - Skin Skin Exam: Dry, Warm Assessment and Plan - Assessment and Plan (Free Text) Assessment: 86F s/p L CEA POD#2 Plan: Ok for DC from a surgical standpoint Follow up in 1-2 weeks as outpatient D/W Dr. Patric Solorzano PGY4
--- NOTE | 2017-09-03 04:56 | PN ---
FOLLOWUP RENAL CONSULTATION DATE:09/02/2017 LOCATION: The patient is located in room #552. REQUESTED BY: Dr. Joe Mcmahan. REASON FOR FOLLOWUP: CKD V, hypertension, diabetes, CHF, for further evaluation. HISTORY OF PRESENT ILLNESS: Mrs. Dsouza is an 86-year-old elderly [place] female with a past medical history significant for longstanding hypertension, diabetes, coronary artery disease, CHF, chronic kidney disease stage IV to V, who was admitted with weakness and found to have carotid stenosis of 90% on the left side. The patient underwent left carotid endarterectomy two days ago. The patient is feeling better. The patient was also found to have increased BUN and creatinine prior to the surgery, but now BUN is slightly better. The patient is not in any acute distress. Denies any headache or dizziness. Denies any chest pain or palpitation. Denies any fever or cough. No abdominal pain. No nausea, vomiting, or diarrhea. PHYSICAL EXAMINATION: VITAL SIGNS: Her vital signs are as follows: Blood pressure this morning 108/64, pulse 64, respirations 20, temperature 97.2, saturation 96%. Height 5 feet 1 inch, and weight is 105 pounds. GENERAL: Mrs. Dsouza is an 86-year-old elderly female, moderately built, moderately nourished, not in distress. HEENT: Pupils normal, reactive to light and accommodation. Conjunctivae pink. Sclerae are anicteric. Tongue is moist. Trachea is midline. LUNGS: Symmetric on both sides. Bilateral breath sounds present. Clear on auscultation. CARDIOVASCULAR SYSTEM: [place] at the fifth intercostal space, midclavicular line. S1, S2 audible. No murmur or gallop. ABDOMEN: Normal in appearance, soft, and tympanic. No guarding. No rigidity. No hepatosplenomegaly. CENTRAL NERVOUS SYSTEM: The patient is alert, awake, and oriented x3. Nonfocal neuro examination. Cranial nerves II-XII grossly intact. Sensory and motor system is within normal limits. EXTREMITIES: No cyanosis, no clubbing, no edema. CURRENT MEDICATIONS: Include as follows; hydralazine 25 mg p.o. b.i.d., clonidine 0.1 mg p.o. b.i.d., Colace 100 mg p.o. b.i.d., Coreg 6.25 mg p.o. b.i.d., Crestor 10 mg at bedtime, Ecotrin 81 mg daily, multivitamin one tablet daily, Januvia 25 mg p.o. daily, Nitro-Bid ointment 1 inch topical b.i.d., NovoLog for sliding scale, Plavix 75 mg daily, Procrit 10,000 units three times a week, Thursday, Thursday, and Thursday, Renvela 800 mg p.o. t.i.d., Rocaltrol 0.25 mcg p.o. daily, TriCor 145 mg p.o. daily, and allopurinol 100 mg p.o. daily. LABORATORY DATA: Include as follows: As of 09/02/2017, sodium 133, potassium 4.1, chloride 98, CO2 24, BUN 84, creatinine 3.4, glucose 112, calcium 8.6, iron 25, TIBC 343, iron saturation is 7, ferritin is 237, total bili is 0.7, AST 27, ALT 26, alkaline phosphate 40, total protein 5.9, and albumin is 3.5. ASSESSMENT: In summary, Mrs. Dsouza is an 86-year-old elderly [place] female with hypertension, diabetes, congestive heart failure, coronary artery disease, chronic kidney disease stage IV-V, who was admitted with weakness and found to have a left carotid stenosis of more than 90%, underwent left carotid endarterectomy. 1. Chronic kidney disease, stage IV to stage V, most likely secondary to hypertensive nephrosclerosis, cannot rule out underlying diabetic nephropathy. 2. Status post congestive heart failure. Lungs appear clear at this time. Increase p.o. fluids for the next 24 to 48 hours. 3. Hypertension. 4. Status post left carotid endarterectomy. 5. Anemia, secondary to chronic kidney disease and also iron deficiency anemia. PLAN: Continue Epogen three times a week, and also we will add Ferrlecit 125 mg IV daily. We will follow up with you. Thank you for allowing me to participate in your patient's care. Case discussed with Dr. Mcmahan in rounds this morning. Sergo Carter MD [facility] # [id number] JUNIOR
[2017-09-03] MEDS: Sevelamer Carb 0.8 gm/Packet PO SCH ×3 (08:21→18:48)
[2017-09-03 08:24] LABS: ALB/GLOB RATIO 1.4 (1.0-2.1); BILIRUBIN,TOTAL 0.6 mg/dL (0.2-1.3); CALCIUM 8.6 mg/dl (8.6-10.4); TOTAL PROTEIN 5.5 g/dL (6.3-8.3)
[2017-09-03] MEDS: (Novolog) Insulin Aspart, Recombinant 100 u/ml 10 ml vial SC SCH ×4 (08:37→21:17)
[2017-09-03] MEDS: Multiple Vitamins Tab PO SCH (09:39)
[2017-09-03] MEDS: Ferric Sodium Gluconat Complex 62.5 mg/5 ml Vial IVPB SCH (10:51)
--- NOTE | 2017-09-03 17:46 | CP.PCM.PN ---
Subjective - Date & Time of Evaluation Date of Evaluation: 09/03/17 Time of Evaluation: 17:44 - Subjective Subjective: Patient has no SOB, no dizziness, no weakness. Left cervical surgical wound healing well, with minimal tenderness. BUN: 77 creattine: 2.7. To continue to hold Lasix. Objective - Vital Signs/Intake and Output Vital Signs (last 24 hours): Temp Pulse Resp BP Pulse Ox 97.7 F 68 20 110/48 L 97 09/03/17 16:14 09/03/17 16:14 09/03/17 16:14 09/03/17 16:14 09/03/17 16:14 Intake and Output: 09/03/17 09/03/17 06:59 18:59 Intake Total 300 Balance 300 - Medications Medications: Current Medications Allopurinol (Zyloprim) 100 mg PO DAILY [facility] Last Admin: 09/03/17 09:39 Dose: 100 mg Aspirin (Ecotrin) 81 mg PO DAILY [facility] Last Admin: 09/03/17 09:39 Dose: 81 mg Calcitriol (Rocaltrol) 0.25 mcg PO DAILY [facility] Last Admin: 09/03/17 09:39 Dose: 0.25 mcg Carvedilol (Coreg) 6.25 mg PO BID [facility] Last Admin: 09/03/17 17:23 Dose: 6.25 mg Clonidine HCl (Catapres) 0.1 mg PO BID [facility] Last Admin: 09/03/17 17:23 Dose: 0.1 mg Clopidogrel Bisulfate (Plavix) 75 mg PO DAILY [facility] Last Admin: 09/03/17 09:39 Dose: 75 mg Docusate Sodium (Colace) 100 mg PO BID [facility] Last Admin: 09/03/17 17:23 Dose: 100 mg Epoetin Raza (Procrit) 10,000 unit SC MWF [facility] Last Admin: 09/02/17 09:36 Dose: 10,000 unit Fenofibrate (Tricor) 48 mg PO DAILY [facility] Ferric Sodium Gluconate Complex (Ferrlecit) 125 mg IVPB DAILY [facility] Stop: 09/11/17 10:01 Last Admin: 09/03/17 10:51 Dose: 125 mg Hydralazine HCl (Apresoline) 25 mg PO BID [facility] Last Admin: 09/03/17 17:24 Dose: 25 mg Dopamine HCl/Dextrose (Dopamine 400mg/250ml D5w) 400 mg in 250 mls @ 3.613 mls/ hr IV .Q24H PRN; Protocol; 2 MCG/KG/MIN PRN Reason: TITRATE PER MD ORDER Insulin Aspart (Novolog) 0 unit SC ACHS [facility] PRN Reason: Protocol Last Admin: 09/03/17 13:04 Dose: 3 unit Multivitamins (Hexavitamin) 1 tab PO DAILY [facility] Last Admin: 09/03/17 09:39 Dose: 1 tab Nitroglycerin (Nitro-Bid 2% Oint) 1 ea TOP BID PRN PRN Reason: Systolic Blood Pressure Rosuvastatin Calcium (Crestor) 10 mg PO HS [facility] Last Admin: 09/02/17 21:18 Dose: 10 mg Sevelamer Carbonate (Renvela) 0.8 gm PO TIDCC [facility] Last Admin: 09/03/17 13:05 Dose: 0.8 gm Sitagliptin Phosphate (Januvia) 25 mg PO DAILY [facility] Last Admin: 09/03/17 09:39 Dose: 25 mg - Labs Labs: 09/01/17 06:15 09/03/17 06:49 PT 9.9 SECONDS (9.7-12.2) 08/31/17 06:10 INR 0.9 08/31/17 06:10 APTT 31 SECONDS (21-34) 08/31/17 06:10 - Constitutional Appears: No Acute Distress, Chronically Ill - Head Exam Head Exam: NORMAL INSPECTION - Eye Exam Eye Exam: Normal appearance - ENT Exam ENT Exam: Normal Exam - Neck Exam Additional comments: Surgical scar of the left neck clean. - Respiratory Exam Respiratory Exam: Clear to Ausculation Bilateral, NORMAL BREATHING PATTERN - Cardiovascular Exam Cardiovascular Exam: REGULAR RHYTHM, Murmur - GI/Abdominal Exam GI & Abdominal Exam: Soft, Normal Bowel Sounds - Rectal Exam Rectal Exam: Deferred - Extremities Exam Extremities Exam: Full ROM, Normal Inspection - Back Exam Back Exam: NORMAL INSPECTION - Neurological Exam Neurological Exam: Alert, Awake, CN II-XII Intact, Normal Gait, Oriented x3 - Psychiatric Exam Psychiatric exam: Anxious - Skin Skin Exam: Dry, Intact, Normal Color, Warm Assessment and Plan (1) Myoclonic jerking Status: Acute (2) ESRD (end stage renal disease) Status: Chronic (3) Ischemic cardiomyopathy Assessment & Plan: Stable. Status: Chronic (4) Insulin dependent diabetes mellitus Status: Chronic (5) Hypertension Assessment & Plan: Controlled. Status: Chronic (6) 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 Doing well. For subacute rehab placement. Status: Acute
--- NOTE | 2017-09-03 21:41 | CP.PCM.PN ---
Subjective - Date & Time of Evaluation Date of Evaluation: 09/03/17 Time of Evaluation: 19:00 - Subjective Subjective: pt is seen and examined, follow up consult is dictated #[id number] Objective - Vital Signs/Intake and Output Vital Signs (last 24 hours): Temp Pulse Resp BP Pulse Ox 97.7 F 68 20 110/48 L 97 09/03/17 16:14 09/03/17 16:14 09/03/17 16:14 09/03/17 16:14 09/03/17 16:14 Intake and Output: 09/03/17 09/04/17 18:59 06:59 Intake Total 300 Balance 300 - Medications Medications: Current Medications Allopurinol (Zyloprim) 100 mg PO DAILY [facility] Last Admin: 09/03/17 09:39 Dose: 100 mg Aspirin (Ecotrin) 81 mg PO DAILY [facility] Last Admin: 09/03/17 09:39 Dose: 81 mg Calcitriol (Rocaltrol) 0.25 mcg PO DAILY [facility] Last Admin: 09/03/17 09:39 Dose: 0.25 mcg Carvedilol (Coreg) 6.25 mg PO BID [facility] Last Admin: 09/03/17 17:23 Dose: 6.25 mg Clonidine HCl (Catapres) 0.1 mg PO BID [facility] Last Admin: 09/03/17 17:23 Dose: 0.1 mg Clopidogrel Bisulfate (Plavix) 75 mg PO DAILY [facility] Last Admin: 09/03/17 09:39 Dose: 75 mg Docusate Sodium (Colace) 100 mg PO BID [facility] Last Admin: 09/03/17 17:23 Dose: 100 mg Epoetin Raza (Procrit) 10,000 unit SC MWF [facility] Last Admin: 09/02/17 09:36 Dose: 10,000 unit Fenofibrate (Tricor) 48 mg PO DAILY [facility] Ferric Sodium Gluconate Complex (Ferrlecit) 125 mg IVPB DAILY [facility] Stop: 09/11/17 10:01 Last Admin: 09/03/17 10:51 Dose: 125 mg Hydralazine HCl (Apresoline) 25 mg PO BID [facility] Last Admin: 09/03/17 17:24 Dose: 25 mg Insulin Aspart (Novolog) 0 unit SC ACHS [facility] PRN Reason: Protocol Last Admin: 09/03/17 21:17 Dose: Not Given Multivitamins (Hexavitamin) 1 tab PO DAILY [facility] Last Admin: 09/03/17 09:39 Dose: 1 tab Nitroglycerin (Nitro-Bid 2% Oint) 1 ea TOP BID PRN PRN Reason: Systolic Blood Pressure Rosuvastatin Calcium (Crestor) 10 mg PO HS [facility] Last Admin: 09/02/17 21:18 Dose: 10 mg Sevelamer Carbonate (Renvela) 0.8 gm PO TIDCC [facility] Last Admin: 09/03/17 18:48 Dose: 0.8 gm Sitagliptin Phosphate (Januvia) 25 mg PO DAILY [facility] Last Admin: 09/03/17 09:39 Dose: 25 mg - Labs Labs: 09/01/17 06:15 09/03/17 06:49 PT 9.9 SECONDS (9.7-12.2) 08/31/17 06:10 INR 0.9 08/31/17 06:10 APTT 31 SECONDS (21-34) 08/31/17 06:10
[2017-09-04 01:27] LABS: CALCIUM 8.9 mg/dL (8.6-10.4)
--- NOTE | 2017-09-04 01:30 | PN ---
DATE:09/03/2017 FOLLOWUP RENAL CONSULTATION LOCATION: Patient is located in room 552, bed A. REQUESTED BY: Joe Mcmahan MD REASON FOR FOLLOWUP: Chronic kidney disease stage V for further evaluation, and CHF. HISTORY OF PRESENT ILLNESS: Ms. Dsouza is an 86-year-old elderly Citizen Of [place] female, with a past medical history significant for longstanding hypertension, diabetes, hyperlipidemia, chronic kidney disease, CHF, poor LV function, status post left upper extremity AV graft placement few weeks ago; subsequently, patient all of steal syndrome and immediate ligation of the AV graft in postoperative period. The patient is not in distress. The patient was admitted last week with weakness and found to have severe left carotid stenosis, underwent left carotid endarterectomy. The patient is feeling much better, not in acute distress. Denies any chest pain or palpitation. Denies any fever or cough. No abdominal pain. No nausea, vomiting, diarrhea. No urinary symptoms. No edema of the legs. PHYSICAL EXAMINATION: VITAL SIGNS: As follows, blood pressure 110/48, pulse 68, respirations 20, temperature 97.7, saturation 97%. Height 5 feet 1 inch, and weight is 105 pounds. GENERAL: Ms. Dsouza is an 86-year-old elderly female, moderately built, moderate nourished, not in distress. HEENT: Pupils normal, reactive to light and accommodation. Conjunctivae pink. Sclerae are anicteric. Tongue is moist. Trachea is midline. LUNGS: Symmetric on both sides. Bilateral breath sounds present. Clear on auscultation. CARDIOVASCULAR: [place] at the fifth intercostal space, midclavicular line. S1 and S2 audible. No murmur or gallop. ABDOMEN: Normal in appearance, soft, tympanic. No guarding. No rigidity. No hepatosplenomegaly. CENTRAL NERVOUS SYSTEMS: The patient is alert, awake and oriented x3. Nonfocal neuro examination. Cranial nerves II through XII grossly intact. Sensory and motor system is within normal limits. EXTREMITIES: No cyanosis, no clubbing, no edema. CURRENT MEDICATIONS: Includes as follows, hydralazine 25 mg p.o. b.i.d., clonidine 0.1 mg p.o. b.i.d., Colace 100 mg b.i.d., Coreg 6.25 mg p.o. b.i.d., Crestor 10 mg at bedtime, aspirin 81 mg daily, Ferrlecit 125 mg daily, Januvia 25 mg p.o. daily, nitroglycerin ointment 2% one inch topical b.i.d., NovoLog for sliding scale, Plavix 75 mg daily; Procrit 10,000 units 3 times a week, Thursday, Thursday, and Thursday; Renvela 800 mg p.o. t.i.d., Rocaltrol 0.25 mcg daily, fenofibrate 48 mg p.o. daily, allopurinol 100 mg p.o. daily. LABORATORY DATA: Include as follows; as of 09/03/2017, sodium 135, potassium is 4, chloride 99, CO2 of 24, BUN 79, creatinine 2.7, glucose 188, calcium 8.6, total bilirubin 0.6, AST 25, ALT 27, alkaline phosphatase 36, total protein 5.5, albumin is 3.2. ASSESSMENT AND PLAN: In summary, Ms. Dsouza is an 86-year-old elderly Citizen [place] female with a past medical history significant for longstanding hypertension, diabetes, congestive heart failure, coronary artery disease, chronic kidney disease, proteinuria, was admitted with weakness and found to have a left carotid stenosis, more than 90%, status post left carotid endarterectomy, and with increased BUN and creatinine. 1. Renal failure, acute on chronic kidney disease, stage IV, renal function is slightly better, off diuretics now. 2. Hypertension. 3. Anemia secondary to renal failure. 4. Hypoalbuminemia. 5. Coronary artery disease. Continue Lasix 20 mg p.o. b.i.d. from tomorrow, hold for systolic blood pressure less than 120. Continue Epogen, continue Renvela, and continue calcitriol. We will also add dietary supplement, Nepro 1 can p.o. daily. We will follow with you. Thank you for allowing me to participate in your patient's care. Sergo Carter MD [facility]
[2017-09-04 07:59] LABS: ALB/GLOB RATIO 1.4 (1.0-2.1); BILIRUBIN,TOTAL 0.8 mg/dL (0.2-1.3); CALCIUM 8.3 mg/dl (8.6-10.4); POTASSIUM 4.1 mmol/L (3.6-5.2); TOTAL PROTEIN 5.6 g/dL (6.3-8.3)
[2017-09-04] MEDS: (Novolog) Insulin Aspart, Recombinant 100 u/ml 10 ml vial SC SCH ×4 (08:25→21:48)
[2017-09-04] MEDS: Sevelamer Carb 0.8 gm/Packet PO SCH ×3 (08:25→18:03)
[2017-09-04] MEDS: Ferric Sodium Gluconat Complex 62.5 mg/5 ml Vial IVPB SCH (09:32)
[2017-09-04] MEDS: Multiple Vitamins Tab PO SCH (09:33)
[2017-09-04] MEDS: Epoetin Alfa 10,000 unit/ml Dialysis SC SCH (09:33)
--- NOTE | 2017-09-04 10:58 | CP.PCM.PN ---
Subjective - Date & Time of Evaluation Date of Evaluation: 09/04/17 Time of Evaluation: 10:57 - Subjective Subjective: follow up consult is dictated #[id number] Objective - Vital Signs/Intake and Output Vital Signs (last 24 hours): Temp Pulse Resp BP Pulse Ox 97.8 F 61 20 117/62 96 09/04/17 07:00 09/04/17 07:00 09/04/17 07:00 09/04/17 09:35 09/04/17 07:00 Intake and Output: 09/04/17 09/04/17 06:59 18:59 Intake Total 100 Balance 100 - Medications Medications: Current Medications Allopurinol (Zyloprim) 100 mg PO DAILY [facility] Last Admin: 09/04/17 09:33 Dose: 100 mg Aspirin (Ecotrin) 81 mg PO DAILY [facility] Last Admin: 09/03/17 09:39 Dose: 81 mg Calcitriol (Rocaltrol) 0.25 mcg PO DAILY [facility] Last Admin: 09/04/17 09:33 Dose: 0.25 mcg Carvedilol (Coreg) 6.25 mg PO BID [facility] Last Admin: 09/04/17 09:33 Dose: 6.25 mg Clonidine HCl (Catapres) 0.1 mg PO BID [facility] Last Admin: 09/04/17 09:33 Dose: 0.1 mg Clopidogrel Bisulfate (Plavix) 75 mg PO DAILY [facility] Last Admin: 09/04/17 09:33 Dose: 75 mg Docusate Sodium (Colace) 100 mg PO BID [facility] Last Admin: 09/04/17 09:33 Dose: 100 mg Epoetin Raza (Procrit) 10,000 unit SC MWF [facility] Last Admin: 09/04/17 09:33 Dose: 10,000 unit Fenofibrate (Tricor) 48 mg PO DAILY [facility] Last Admin: 09/04/17 09:33 Dose: 48 mg Ferric Sodium Gluconate Complex (Ferrlecit) 125 mg IVPB DAILY [facility] Stop: 09/11/17 10:01 Last Admin: 09/04/17 09:32 Dose: 125 mg Furosemide (Lasix) 20 mg PO DAILY [facility] Last Admin: 09/04/17 09:35 Dose: 20 mg Hydralazine HCl (Apresoline) 25 mg PO BID [facility] Last Admin: 09/04/17 09:33 Dose: 25 mg Insulin Aspart (Novolog) 0 unit SC ACHS [facility] PRN Reason: Protocol Last Admin: 09/04/17 08:25 Dose: 2 unit Multivitamins (Hexavitamin) 1 tab PO DAILY [facility] Last Admin: 09/04/17 09:33 Dose: 1 tab Nitroglycerin (Nitro-Bid 2% Oint) 1 ea TOP BID PRN PRN Reason: Systolic Blood Pressure Rosuvastatin Calcium (Crestor) 10 mg PO HS [facility] Last Admin: 09/03/17 22:19 Dose: 10 mg Sevelamer Carbonate (Renvela) 0.8 gm PO TIDCC [facility] Last Admin: 09/04/17 08:25 Dose: 0.8 gm Sitagliptin Phosphate (Januvia) 25 mg PO DAILY [facility] Last Admin: 09/04/17 09:33 Dose: 25 mg - Labs Labs: 09/01/17 06:15 09/04/17 07:31 PT 9.9 SECONDS (9.7-12.2) 08/31/17 06:10 INR 0.9 08/31/17 06:10 APTT 31 SECONDS (21-34) 08/31/17 06:10
[2017-09-04 13:47] LABS: BASO % 0.6 % (0.0-2.0); EOS # 0.1 K/uL (0.0-0.7); EOS % 1.2 % (0.0-4.0); HEMATOCRIT 22.6 % (34.0-47.0); LYMPH # 1.7 K/uL (1.0-4.3); LYMPH % 23.5 % (20.0-40.0); MEAN CELL VOLUME 93.7 fL (81.0-99.0); MEAN CORPUSCULAR HEMOGLOBIN 30.3 pg (27.0-31.0); MEAN CORPUSCULAR HGB CONC 32.3 g/dL (33.0-37.0); MEAN PLATELET VOLUME 10.9 fL (7.2-11.7); MONO # 0.5 K/uL (0.0-0.8); MONO % 7.7 % (0.0-10.0); RED CELL DISTRIBUTION WIDTH 14.4 % (11.5-14.5); WHITE BLOOD COUNT 7.1 K/uL (4.8-10.8)
--- NOTE | 2017-09-04 17:01 | CP.PCM.PN ---
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 Mcmahan , recommends to transfuse 1 unit of PRBC and repeat labs in am plan discussed with patient and family at bed side Objective - Vital Signs/Intake and Output Vital Signs (last 24 hours): Temp Pulse Resp BP Pulse Ox 97.8 F 61 20 117/62 96 09/04/17 07:00 09/04/17 07:00 09/04/17 07:00 09/04/17 09:35 09/04/17 07:00 Intake and Output: 09/04/17 09/04/17 06:59 18:59 Intake Total 100 Balance 100 - Medications Medications: Current Medications Allopurinol (Zyloprim) 100 mg PO DAILY [facility] Last Admin: 09/04/17 09:33 Dose: 100 mg Aspirin (Ecotrin) 81 mg PO DAILY [facility] Last Admin: 09/03/17 09:39 Dose: 81 mg Calcitriol (Rocaltrol) 0.25 mcg PO DAILY [facility] Last Admin: 09/04/17 09:33 Dose: 0.25 mcg Carvedilol (Coreg) 6.25 mg PO BID [facility] Last Admin: 09/04/17 09:33 Dose: 6.25 mg Clonidine HCl (Catapres) 0.1 mg PO BID [facility] Last Admin: 09/04/17 09:33 Dose: 0.1 mg Clopidogrel Bisulfate (Plavix) 75 mg PO DAILY [facility] Last Admin: 09/04/17 09:33 Dose: 75 mg Docusate Sodium (Colace) 100 mg PO BID [facility] Last Admin: 09/04/17 09:33 Dose: 100 mg Epoetin Raza (Procrit) 10,000 unit SC MWF [facility] Last Admin: 09/04/17 09:33 Dose: 10,000 unit Fenofibrate (Tricor) 48 mg PO DAILY [facility] Last Admin: 09/04/17 09:33 Dose: 48 mg Ferric Sodium Gluconate Complex (Ferrlecit) 125 mg IVPB DAILY [facility] Stop: 09/11/17 10:01 Last Admin: 09/04/17 09:32 Dose: 125 mg Furosemide (Lasix) 20 mg PO DAILY [facility] Last Admin: 09/04/17 09:35 Dose: 20 mg Hydralazine HCl (Apresoline) 25 mg PO BID [facility] Last Admin: 09/04/17 09:33 Dose: 25 mg Insulin Aspart (Novolog) 0 unit SC ACHS [facility] PRN Reason: Protocol Last Admin: 09/04/17 16:47 Dose: Not Given Multivitamins (Hexavitamin) 1 tab PO DAILY [facility] Last Admin: 09/04/17 09:33 Dose: 1 tab Nitroglycerin (Nitro-Bid 2% Oint) 1 ea TOP BID PRN PRN Reason: Systolic Blood Pressure Rosuvastatin Calcium (Crestor) 10 mg PO HS [facility] Last Admin: 09/03/17 22:19 Dose: 10 mg Sevelamer Carbonate (Renvela) 0.8 gm PO TIDCC [facility] Last Admin: 09/04/17 12:56 Dose: 0.8 gm Sitagliptin Phosphate (Januvia) 25 mg PO DAILY [facility] Last Admin: 09/04/17 09:33 Dose: 25 mg - Labs Labs: 09/04/17 13:39 09/04/17 07:31 PT 9.9 SECONDS (9.7-12.2) 08/31/17 06:10 INR 0.9 08/31/17 06:10 APTT 31 SECONDS (21-34) 08/31/17 06:10
--- NOTE | 2017-09-04 23:46 | CP.PCM.PN ---
Subjective - Date & Time of Evaluation Date of Evaluation: 09/04/17 Time of Evaluation: 20:00 - Subjective Subjective: Patient has no SOB or dizziness. BP: 110/60 HR 77 regular, afebrile. Hgb: 7.3 BUN: 69 creatinine: 2.6. Will transfuse one unit of PRC before discharge home. Objective - Vital Signs/Intake and Output Vital Signs (last 24 hours): Temp Pulse Resp BP Pulse Ox 98.0 F 75 16 121/56 L 100 09/04/17 21:44 09/04/17 21:14 09/04/17 21:44 09/04/17 21:44 09/04/17 16:00 Intake and Output: 09/04/17 09/05/17 18:59 06:59 Intake Total 100 0 Balance 100 0 - Medications Medications: Current Medications Allopurinol (Zyloprim) 100 mg PO DAILY [facility] Last Admin: 09/04/17 09:33 Dose: 100 mg Aspirin (Ecotrin) 81 mg PO DAILY [facility] Last Admin: 09/03/17 09:39 Dose: 81 mg Calcitriol (Rocaltrol) 0.25 mcg PO DAILY [facility] Last Admin: 09/04/17 09:33 Dose: 0.25 mcg Carvedilol (Coreg) 6.25 mg PO BID [facility] Last Admin: 09/04/17 18:03 Dose: 6.25 mg Clonidine HCl (Catapres) 0.1 mg PO BID [facility] Last Admin: 09/04/17 18:03 Dose: 0.1 mg Clopidogrel Bisulfate (Plavix) 75 mg PO DAILY [facility] Last Admin: 09/04/17 09:33 Dose: 75 mg Docusate Sodium (Colace) 100 mg PO BID [facility] Last Admin: 09/04/17 18:03 Dose: 100 mg Epoetin Raza (Procrit) 10,000 unit SC MWF [facility] Last Admin: 09/04/17 09:33 Dose: 10,000 unit Fenofibrate (Tricor) 48 mg PO DAILY [facility] Last Admin: 09/04/17 09:33 Dose: 48 mg Ferric Sodium Gluconate Complex (Ferrlecit) 125 mg IVPB DAILY [facility] Stop: 09/11/17 10:01 Last Admin: 09/04/17 09:32 Dose: 125 mg Furosemide (Lasix) 20 mg PO DAILY [facility] Last Admin: 09/04/17 09:35 Dose: 20 mg Hydralazine HCl (Apresoline) 25 mg PO BID [facility] Last Admin: 09/04/17 18:03 Dose: 25 mg Insulin Aspart (Novolog) 0 unit SC ACHS [facility] PRN Reason: Protocol Last Admin: 09/04/17 21:48 Dose: Not Given Multivitamins (Hexavitamin) 1 tab PO DAILY [facility] Last Admin: 09/04/17 09:33 Dose: 1 tab Nitroglycerin (Nitro-Bid 2% Oint) 1 ea TOP BID PRN PRN Reason: Systolic Blood Pressure Rosuvastatin Calcium (Crestor) 10 mg PO HS [facility] Last Admin: 09/04/17 22:15 Dose: 10 mg Sevelamer Carbonate (Renvela) 0.8 gm PO TIDCC [facility] Last Admin: 09/04/17 18:03 Dose: 0.8 gm Sitagliptin Phosphate (Januvia) 25 mg PO DAILY [facility] Last Admin: 09/04/17 09:33 Dose: 25 mg - Labs Labs: 09/04/17 13:39 09/04/17 07:31 PT 9.9 SECONDS (9.7-12.2) 08/31/17 06:10 INR 0.9 08/31/17 06:10 APTT 31 SECONDS (21-34) 08/31/17 06:10 - Constitutional Appears: No Acute Distress, Chronically Ill - Head Exam Head Exam: NORMAL INSPECTION - Eye Exam Eye Exam: Normal appearance - ENT Exam ENT Exam: Normal Exam - Neck Exam Neck Exam: Normal Inspection Additional comments: Surgical wound of the left neck clean. Small hematoma of the left neck. - Respiratory Exam Respiratory Exam: Clear to Ausculation Bilateral, NORMAL BREATHING PATTERN - Cardiovascular Exam Cardiovascular Exam: REGULAR RHYTHM, Murmur - GI/Abdominal Exam GI & Abdominal Exam: Soft, Normal Bowel Sounds - Rectal Exam Rectal Exam: Deferred - Extremities Exam Extremities Exam: Normal Inspection - Back Exam Back Exam: NORMAL INSPECTION - Neurological Exam Neurological Exam: Alert, Awake, Oriented x3 - Psychiatric Exam Psychiatric exam: Anxious - Skin Skin Exam: Dry, Intact, Normal Color, Warm Assessment and Plan (1) Myoclonic jerking Status: Acute (2) ESRD (end stage renal disease) Status: Chronic (3) Ischemic cardiomyopathy Status: Chronic (4) Insulin dependent diabetes mellitus Status: Chronic (5) Hypertension Status: Chronic (6) 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 Status: Acute (7) Anemia in chronic kidney disease Assessment & Plan: To continue Procrit injection. Transfuse one unit of PRC before discharge home. Status: Acute
--- NOTE | 2017-09-05 00:34 | CON ---
DATE:09/04/2017 FOLLOWUP RENAL CONSULTATION LOCATION: The patient is located in room 552, bed A. REQUESTED BY: Joe Mcmahan MD REASON FOR FOLLOWUP: Acute renal failure and chronic kidney disease, status post carotid endarterectomy. HISTORY OF PRESENT ILLNESS: Mrs. Dsouza is 86 years old elderly [place] female with a past medical history significant for longstanding hypertension, diabetes, hyperlipidemia, coronary artery disease, chronic kidney disease, proteinuria, CHF, who was admitted with weakness and found to have a left carotid stenosis, status post left carotid endarterectomy. The patient is feeling much better, not in acute distress. Denies any headache, dizziness. Denies any chest pain or palpitation. Denies any fever or cough. No abdominal pain. No nausea, vomiting, diarrhea. PHYSICAL EXAMINATION: VITAL SIGNS: As follows; blood pressure this morning 117/62, pulse 61, respirations 20, temperature 97.8, saturation 96%. Height 5 feet 1 inch, weight is 105 pounds. GENERAL: Mrs. Dsouza is 86 years old elderly [place] female, moderately built, moderate nourished, not in acute distress. HEENT: Pupils normal, reactive to light and accommodation. Conjunctivae pink. Sclerae are anicteric. Tongue is moist. Trachea is midline. LUNGS: Symmetric on both sides. Bilateral breath sounds present. Clear on auscultation. CVS: [place] at the fifth intercostal space, midclavicular area. S1 and S2 audible. No murmur or gallop. ABDOMEN: Normal in appearance, soft, tympanic. No guarding. No rigidity. No hepatosplenomegaly. CUFF CUTTER: The patient is alert, awake, oriented x3. Nonfocal neuro examination. Cranial nerves II through XII grossly intact. Sensory and motor system is within normal limits. EXTREMITIES: No cyanosis, no clubbing, no edema. CURRENT MEDICATIONS: Include as follows; hydralazine 25 mg p.o. b.i.d., clonidine 0.1 mg p.o. b.i.d., Colace 100 mg p.o. b.i.d., Coreg 6.25 mg p.o. b.i.d., Crestor 10 mg at bedtime, aspirin 81 mg daily, Ferrlecit 125 mg daily, multivitamin 1 tablet daily, Januvia 25 mg p.o. daily, Lasix 20 mg p.o. daily, Nitro-Bid ointment 1 inch topical b.i.d., Plavix 75 mg daily, Procrit 10,000 units three times a week, Renvela 800 mg p.o. t.i.d., Rocaltrol 0.25 mcg p.o. daily, fenofibrate 48 mg p.o. daily, and allopurinol 100 mg p.o. daily. LABORATORY DATA: Include as follows, as of 09/04/2017; WBC 7.1, hemoglobin 7.3, hematocrit is 22.6 and platelets 163. Sodium 136, potassium 4.1, chloride 103, CO2 of 26, BUN 69, creatinine 2.6, , calcium 8.3 and total bili 0.8, AST 26, ALT 28, alkaline phosphatase 35, total protein 3.6, albumin is 3.3. Her Accu-Cheks 212 and 305. ASSESSMENT: In summary, Mrs. Dsouza is 86 years old elderly [place] female with a past medical history significant for longstanding hypertension, diabetes, coronary artery disease, hyperlipidemia, chronic kidney disease, proteinuria, was admitted with weakness and found to have a left carotid stenosis, status post left carotid endarterectomy, increased BUN and creatinine and gentle hydration postop and serum creatinine is slowly improving. 1. Acute renal failure on chronic kidney disease stage IV secondary to intravascular depletion and secondary to diuretics, now serum creatinine is slowly improving. 2. Anemia secondary to renal failure and iron deficiency anemia and recent surgery. 3. Hypertension. Blood pressure is stable. 4. Diabetes. PLAN: Continue her current meds and blood pressure medications; hydralazine, clonidine and Coreg and also continue Ferrlecit and Procrit three times a week. We will follow with you. Thank you for allowing me to participate in your patient's care. Sergo Carter MD [facility]
[2017-09-05 07:21] VITALS: RESP 18; O2SAT 100
[2017-09-05 08:06] LABS: BASO # 0.1 K/uL (0.0-0.2); BASO % 0.6 % (0.0-2.0); EOS # 0.1 K/uL (0.0-0.7); EOS % 1.3 % (0.0-4.0); HEMATOCRIT 27.9 % (34.0-47.0); LYMPH # 1.9 K/uL (1.0-4.3); LYMPH % 21.6 % (20.0-40.0); MEAN CELL VOLUME 92.6 fL (81.0-99.0); MEAN CORPUSCULAR HGB CONC 33.5 g/dL (33.0-37.0); MONO # 0.8 K/uL (0.0-0.8); MONO % 9.5 % (0.0-10.0); RED CELL DISTRIBUTION WIDTH 14.1 % (11.5-14.5); WHITE BLOOD COUNT 8.8 K/uL (4.8-10.8)
[2017-09-05 08:27] LABS: ALB/GLOB RATIO 1.4 (1.0-2.1); BILIRUBIN,TOTAL 0.7 mg/dL (0.2-1.3); CALCIUM 8.3 mg/dl (8.6-10.4); POTASSIUM 3.9 mmol/L (3.6-5.2); TOTAL PROTEIN 5.8 g/dL (6.3-8.3)
[2017-09-05] MEDS: (Novolog) Insulin Aspart, Recombinant 100 u/ml 10 ml vial SC SCH ×2 (08:39→13:00)
[2017-09-05] MEDS: Multiple Vitamins Tab PO SCH (09:15)
[2017-09-05] MEDS: Sevelamer Carb 0.8 gm/Packet PO SCH ×2 (09:16→12:59)
[2017-09-05] MEDS: Ferric Sodium Gluconat Complex 62.5 mg/5 ml Vial IVPB SCH (09:17)
--- NOTE | 2017-09-05 15:15 | CP.PCM.PN ---
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 Patient seen today, states feels better, denies any chest pain, sob, palpitations, dizziness, headache , c/o weakness s/p PRBC transfusion an dhgb improved -9.3>7.3 bun/cr- stable and base line -56/2.6 Objective - Vital Signs/Intake and Output Vital Signs (last 24 hours): Temp Pulse Resp BP Pulse Ox 98.0 F 59 L 18 126/69 100 09/05/17 07:20 09/05/17 07:20 09/05/17 07:20 09/05/17 09:23 09/05/17 07:20 Intake and Output: 09/05/17 09/05/17 06:59 18:59 Intake Total 445 700 Balance 445 700 - Medications Medications: Current Medications Allopurinol (Zyloprim) 100 mg PO DAILY [facility] Last Admin: 09/05/17 09:15 Dose: 100 mg Aspirin (Ecotrin) 81 mg PO DAILY [facility] Last Admin: 09/05/17 09:15 Dose: 81 mg Calcitriol (Rocaltrol) 0.25 mcg PO DAILY [facility] Last Admin: 09/05/17 09:23 Dose: 0.25 mcg Carvedilol (Coreg) 6.25 mg PO BID [facility] Last Admin: 09/05/17 09:16 Dose: 6.25 mg Clonidine HCl (Catapres) 0.1 mg PO BID [facility] Last Admin: 09/05/17 09:21 Dose: 0.1 mg Clopidogrel Bisulfate (Plavix) 75 mg PO DAILY [facility] Last Admin: 09/05/17 09:16 Dose: 75 mg Docusate Sodium (Colace) 100 mg PO BID [facility] Last Admin: 09/05/17 09:15 Dose: 100 mg Epoetin Raza (Procrit) 10,000 unit SC MWF [facility] Last Admin: 09/04/17 09:33 Dose: 10,000 unit Fenofibrate (Tricor) 48 mg PO DAILY [facility] Last Admin: 09/05/17 09:16 Dose: 48 mg Ferric Sodium Gluconate Complex (Ferrlecit) 125 mg IVPB DAILY [facility] Stop: 09/11/17 10:01 Last Admin: 09/05/17 09:17 Dose: 125 mg Furosemide (Lasix) 20 mg PO DAILY [facility] Last Admin: 09/05/17 09:23 Dose: 20 mg Hydralazine HCl (Apresoline) 25 mg PO BID [facility] Last Admin: 09/05/17 09:15 Dose: 25 mg Insulin Aspart (Novolog) 0 unit SC ACHS [facility] PRN Reason: Protocol Last Admin: 09/05/17 13:00 Dose: 3 unit Multivitamins (Hexavitamin) 1 tab PO DAILY [facility] Last Admin: 09/05/17 09:15 Dose: 1 tab Nitroglycerin (Nitro-Bid 2% Oint) 1 ea TOP BID PRN PRN Reason: Systolic Blood Pressure Rosuvastatin Calcium (Crestor) 10 mg PO HS [facility] Last Admin: 09/04/17 22:15 Dose: 10 mg Sevelamer Carbonate (Renvela) 0.8 gm PO TIDCC [facility] Last Admin: 09/05/17 12:59 Dose: 0.8 gm Sitagliptin Phosphate (Januvia) 25 mg PO DAILY [facility] Last Admin: 09/05/17 09:15 Dose: 25 mg - Labs Labs: 09/05/17 07:50 09/05/17 07:50 PT 9.9 SECONDS (9.7-12.2) 08/31/17 06:10 INR 0.9 08/31/17 06:10 APTT 31 SECONDS (21-34) 08/31/17 06:10 - Constitutional Appears: Well, No Acute Distress - Neck Exam Neck Exam: Full ROM, Normal Inspection (echymosis left neck area ) - Respiratory Exam Respiratory Exam: Clear to Ausculation Bilateral, NORMAL BREATHING PATTERN - Cardiovascular Exam Cardiovascular Exam: REGULAR RHYTHM, +S1, +S2 Assessment and Plan - Assessment and Plan (Free Text) Assessment: A/P 86 yr old female admitted for S/p left carotid endarterectomy. HGB - improved after prbc transfusion BUN/CR - back to base line D/W Dr. Mcmahan stable for discharge home today and f/u with Dr. Mcmahan office in [address] Stratton office in [address] Stubbs office in 1 week Discharge plan discussed with patient , who understands an dagrees with plan [facility] for home PT and labs work
[2017-09-05 16:23] VITALS: BP 148/69; PULSE 65; TEMP 97.3
--- NOTE | 2017-09-05 16:53 | PCM.HF ---
Heart Failure Core Measure - Heart Failure Ejection Fraction: Less Than 40 % LENO Inhibitor Prescribed: No Contraindication/Reason for not providing: ARF Beta-Dinh Prescribed: Carvedilol Angiotensin II Receptor Dinh Prescribed: No Contraindication/Reason for not providing: ARF AnticoagulationTherapy for Atrial Fibrillation/Atrialflutter: No Contraindication/Reason for not providing: no hx of afib Aldosterone Antagonist Prescribed: No Contraindication/Reason for not providing: arf Hydralazine Nitrate Prescribed: Yes Implantable Cardioverter Defibrillator Therapy: No Contraindication/Reason for not providing: medical management as per Cardiology Cardiac Resynchronization Therapy Prescribed: No Contraindication/Reason for not providing: sinus r., / medical management as per Cardiology - Follow up Will be discharged to: Home Follow Up Date (must be within 7 days from discharge): 09/08/17 Follow Up Time: 09:00
--- NOTE | 2017-09-07 10:34 | CP.PCM.DIS ---
Provider - Provider Date of Admission: 08/26/17 22:44 Attending physician: Joe Mcmahan MD Primary care physician: Concepción Martins MD Consults: Dr Carter ( renal), Dr Patric Jr (Vascular surgeon). 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 Status: Acute (7) Anemia in chronic kidney disease Status: Acute Hospital Course - Lab Results Lab Results: Micro Results 09/01/17 18:44 Naris MRSA Culture - Final MRSA NOT DETECTED 08/31/17 Unknown Nose MRSA Culture (Admit) - Final MRSA NOT DETECTED Most Recent Lab Values WBC 8.8 K/uL (4.8-10.8) 09/05/17 07:50 RBC 3.02 Mil/uL (3.80-5.20) L 09/05/17 07:50 Hgb 9.4 g/dL (11.0-16.0) L D 09/05/17 07:50 Hct 27.9 % (34.0-47.0) L 09/05/17 07:50 MCV 92.6 fL (81.0-99.0) 09/05/17 07:50 MCH 31.0 pg (27.0-31.0) 09/05/17 07:50 MCHC 33.5 g/dL (33.0-37.0) 09/05/17 07:50 RDW 14.1 % (11.5-14.5) 09/05/17 07:50 Plt Count 156 K/uL (130-400) 09/05/17 07:50 MPV 11.0 fL (7.2-11.7) 09/05/17 07:50 Neut % (Auto) 67.0 % (50.0-75.0) 09/05/17 07:50 Lymph % (Auto) 21.6 % (20.0-40.0) 09/05/17 07:50 Gentry % (Auto) 9.5 % (0.0-10.0) 09/05/17 07:50 Eos % (Auto) 1.3 % (0.0-4.0) 09/05/17 07:50 Baso % (Auto) 0.6 % (0.0-2.0) 09/05/17 07:50 Neut # 5.9 K/uL (1.8-7.0) 09/05/17 07:50 Lymph # 1.9 K/uL (1.0-4.3) 09/05/17 07:50 Gentry # 0.8 K/uL (0.0-0.8) 09/05/17 07:50 Eos # 0.1 K/uL (0.0-0.7) 09/05/17 07:50 Baso # 0.1 K/uL (0.0-0.2) 09/05/17 07:50 PT 9.9 SECONDS (9.7-12.2) 08/31/17 06:10 INR 0.9 08/31/17 06:10 APTT 31 SECONDS (21-34) 08/31/17 06:10 Puncture Site Venous 08/26/17 16:10 pO2 48 mm/Hg (30-55) 08/26/17 16:10 John Test Na 08/26/17 16:10 VBG pH 7.39 (7.32-7.43) 08/26/17 16:10 VBG pCO2 36 mmHg (40-60) L 08/26/17 16:10 VBG HCO3 22.5 mmol/L 08/26/17 16:10 VBG O2 Sat (Calc) 87.8 % (40-65) H 08/26/17 16:10 VBG Base Excess -2.6 mmol/L (0.0-2.0) L 08/26/17 16:10 Sodium 137 mmol/L (132-148) 09/05/17 07:50 Potassium 3.9 mmol/L (3.6-5.2) 09/05/17 07:50 Chloride 104 mmol/L (98-107) 09/05/17 07:50 Carbon Dioxide 26 mmol/L (22-30) 09/05/17 07:50 Anion Gap 11 (10-20) 09/05/17 07:50 BUN 56 mg/dL (7-17) H 09/05/17 07:50 Creatinine 2.5 mg/dL (0.7-1.2) H 09/05/17 07:50 Est GFR ( Amer) 22 09/05/17 07:50 Est GFR (Non-Af Amer) 18 09/05/17 07:50 POC Glucose (mg/dL) 270 mg/dL (65-110) H 09/05/17 11:18 Random Glucose 174 mg/dL (65-105) H 09/05/17 07:50 Calcium 8.3 mg/dl (8.6-10.4) L 09/05/17 07:50 Phosphorus 5.9 mg/dL (2.5-4.5) H 09/01/17 06:15 Magnesium 1.9 mg/dL (1.6-2.3) 09/01/17 06:15 Iron 25 ug/dL (37-170) L 09/02/17 07:25 TIBC 343 ug/dL (250-450) 09/02/17 07:25 % Saturation 7 (20-55) L 09/02/17 07:25 Ferritin 237.0 ng/mL 09/02/17 07:25 Total Bilirubin 0.7 mg/dL (0.2-1.3) 09/05/17 07:50 AST 27 U/L (14-36) 09/05/17 07:50 ALT 32 U/L (9-52) 09/05/17 07:50 Alkaline Phosphatase 36 U/L (38-126) L 09/05/17 07:50 Troponin I 0.0920 ng/mL (0.00-0.120) 08/26/17 16:15 Total Protein 5.8 g/dL (6.3-8.3) L 09/05/17 07:50 Albumin 3.4 g/dL (3.5-5.0) L 09/05/17 07:50 Globulin 2.4 gm/dL (2.2-3.9) 09/05/17 07:50 Albumin/Globulin Ratio 1.4 (1.0-2.1) 09/05/17 07:50 Prolactin 8.3 ng/mL (3.0-18.9) 08/27/17 06:29 Calcium (PTH Intact) 8.9 mg/dL (8.6-10.4) 09/02/17 07:25 PTH w/Ion &Tot Calcium 38 pg/mL (14-64) 09/02/17 07:25 Blood Type O POSITIVE 09/04/17 16:30 Antibody Screen Negative 09/04/17 16:30 - Hospital Course Hospital Course: 86 years old Terrance[place] female was hospitalized on 08/26/2017 for a transient episode of right arm weakness, and twitching of her face. Known to have an insulin-dependent diabetes mellitus, a hypertension, an end-stage renal disease , a coronary artery disease, a history of PCI's, she denied any headache, any nausea, vomiting. On admission, her head CT and head MRI did not reveal any acute cerebral infarct or cerebral bleeding. 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 Because of an hgb: 8.3, she received transfusion of one unit of packed red cell before surgery. She underwent a left carotid endarterectomy on 08/29/[address] Patric Jr. She did fine post-operatively. She received another transfusion of one unit of packed red cell on 09/04/2017 because her hgb was 7.3. She was discharged home on 09/06/2017 in stable condition. Her Hgb was 9.4 on discharge. She is scheduled to have a follow up with me in my office in one week, and with Dr Carter, and Dr. Patric Jr in 10 days. She was advised to resume Lasix 20 mg PO BID which was held since admission, because of elevated BUN 67 and creatinine 2.9. She was instructed to resume all other home medications, except Losartan. - Date & Time of H&P Date of H&P: 08/26/17 Discharge Exam - Head Exam Head Exam: NORMAL INSPECTION - Eye Exam Eye Exam: Normal appearance - ENT Exam ENT Exam: Normal Exam - Neck Exam Additional comments: Surgical wound of the left neck healing well. Small and old hematoma present at the left neck. - Respiratory Exam Respiratory Exam: Clear to PA & Lateral, UNREMARKABLE - Cardiovascular Exam Cardiovascular Exam: REGULAR RHYTHM, Systolic Murmur - GI/Abdominal Exam GI & Abdominal Exam: Normal Bowel Sounds, Soft - Rectal Exam Rectal Exam: Deferred - Extremities Exam Extremities exam: pedal edema - Back Exam Back exam: NORMAL INSPECTION - Neurological Exam Neurological exam: Alert, Normal Gait, Oriented x3 - Psychiatric Exam Psychiatric exam: Anxious - Skin Skin Exam: Dry, Intact, Normal Color Discharge Plan - Follow Up Plan Condition: STABLE Disposition: HOME/ ROUTINE Instructions: Transient Ischemic Attack (DC), Chronic Kidney Disease (DC), Renal Failure Diet (DC), Heart Healthy Diet (DC), Chronic Hypertension (DC) Additional Instructions: Please f/u with Dr. Mcmahan office in 1 week Resume all home medication- no lasartan VNA service for home PT and lab work Referrals: Concepción Martins MD [Primary Care Provider] - Clinical Quality Measures - CQM - Heart Failure Ejection Fraction: Less Than 40 % Left Ventricular Function to be assessed after discharge: No LENO Inhibitor Prescribed: No Contraindication/Reason for not providing: Renal failure Beta-Dinh Prescribed: Carvedilol Angiotensin II Receptor Dinh Prescribed: No Contraindication/Reason for not providing: Renal failure AnticoagulationTherapy for Atrial Fibrillation/Atrialflutter: No Contraindication/Reason for not providing: Not indicated. Aldosterone Antagonist Prescribed: No Contraindication/Reason for not providing: Renal failure Hydralazine Nitrate Prescribed: Yes Implantable Cardioverter Defibrillator Therapy: No Contraindication/Reason for not providing: Not indicated Cardiac Resynchronization Therapy Prescribed: No Contraindication/Reason for not providing: Not indicated. Will be discharged to: Home Follow Up Date (must be within 7 days from discharge): 09/14/17 Follow Up Time: 14:00 - Date & Time of Discharge Summary Date of Discharge Summary: 09/07/17 Time of Discharge Summary: 10:33
== END 2017-09-05 17:34 | disposition home or self-care (01) | DRG 37 ==
LOC: C.ER 14:31 → C.9E 16:00 → C.3T 19:33 → OBSVTOIN 22:44 → C.6T 08-27 03:15 → C.9I 08-31 20:33 → C.5S 09-01 18:55
PROVIDERS: ADMIT Internal Medicine Cardiovascular Disease; ATTEND Internal Medicine Cardiovascular Disease
PROC: 30233N1 Transfusion of Nonautologous Red Blood Cells into Peripheral Vein, Percutaneous Approach (ICD-10-PCS; 2017-08-30)
PROC: 03CL0ZZ Extirpation of Matter from Left Internal Carotid Artery, Open Approach (ICD-10-PCS; principal; 2017-08-31 12:08)
DX: I65.22 Occlusion and stenosis of left carotid artery (principal); N18.6 End stage renal disease; I13.2 Hypertensive heart and chronic kidney disease with heart failure and with stage 5 chronic kidney disease, or end stage renal disease; N17.9 Acute kidney failure, unspecified; E10.22 Type 1 diabetes mellitus with diabetic chronic kidney disease; G25.3 Myoclonus; D62 Acute posthemorrhagic anemia; I50.9 Heart failure, unspecified; Z99.2 Dependence on renal dialysis; Z95.5 Presence of coronary angioplasty implant and graft; E78.00 Pure hypercholesterolemia, unspecified; I25.5 Ischemic cardiomyopathy; I25.10 Atherosclerotic heart disease of native coronary artery without angina pectoris; F41.9 Anxiety disorder, unspecified; J44.9 Chronic obstructive pulmonary disease, unspecified; D63.1 Anemia in chronic kidney disease; Z79.4 Long term (current) use of insulin

== ENCOUNTER 2018-02-11 19:13 | Inpatient (IN) | payer MEDICARE ==
[2018-02-11 19:14] VITALS: BMI 22.3
--- NOTE | 2018-02-11 19:22 | C.PDOC ---
History Of Present Illness Patient presents to the ER with a complaint of dizziness and not feeling well that began earlier today. Patient is an insulin dependent diabetic, she states she was getting her nails done this afternoon when she began getting pale and mildly diaphoretic. Patient is currently speaking in complete sentences; denies chest pain or SOB. Time Seen by Provider: 02/11/18 19:21 History Per: Patient History/Exam Limitations: no limitations Onset/Duration Of Symptoms: Hrs Current Symptoms Are (Timing): Still Present Severity: Moderate Pain Scale Rating Of: 4 Reports Recently: Seen In ED, Treated By A Physician Recent travel outside of the [place]: No Additional History Per: Family Past Medical History Reviewed: Historical Data, Nursing Documentation, Vital Signs Vital Signs: Last Vital Signs Temp 97.5 F L 02/11/18 19:26 Pulse 52 L 02/11/18 21:17 Resp 16 02/11/18 21:17 BP 117/57 L 02/11/18 21:17 Pulse Ox 100 02/11/18 21:17 - Medical History PMH: Anxiety, CHF, Diabetes, HTN, Hypercholesterolemia, Hyperlipidemia, Chronic Kidney Disease Surgical History: Coronary Stent - [facility] Procedures BYPASS L BRACH ART TO UP ARM VEIN W SYNTH SUB, OPEN (08/12/17) EXTIRPATION OF MATTER FROM L INT CAROTID, OPEN APPROACH (08/26/17) OCCLUSION OF LEFT BRACHIAL ARTERY, OPEN APPROACH (08/12/17) TRANSFUSE NONAUT RED BLOOD CELLS IN PERIPH VEIN, PERC (08/26/17) Family History: States: CAD (aunt) - Social History Hx Tobacco Use: No Hx Alcohol Use: No Hx Substance Use: No - Immunization History Hx Tetanus Toxoid Vaccination: Yes Hx Influenza Vaccination: Yes Hx Pneumococcal Vaccination: Yes Review Of Systems Constitutional: Positive for: Sweats (Mild) Cardiovascular: Negative for: Chest Pain Respiratory: Negative for: Shortness of Breath Gastrointestinal: Negative for: Nausea, Vomiting, Abdominal Pain Musculoskeletal: Negative for: Back Pain Skin: Positive for: Other (Pale) Neurological: Positive for: Dizziness. Negative for: Weakness Psych: Positive for: Anxiety Physical Exam - Physical Exam Appears: Non-toxic, Other (Awake, alert) Skin: Warm, Dry Head: Normacephalic Eye(s): bilateral: Normal Inspection, PERRL, EOMI Oral Mucosa: Moist Neck: Supple Chest: Symmetrical, No Tenderness Cardiovascular: Rhythm Regular Respiratory: No Rales, No Rhonchi, No Wheezing Gastrointestinal/Abdominal: Soft, No Tenderness Back: Normal Inspection Extremity: Normal ROM Extremity: Bilateral: Atraumatic Pulses: Left Dorsalis Pedis: Normal, Right Dorsalis Pedis: Normal Neurological/Psych: Oriented x3, Other (No focal deficits) Gait: Steady ED Course And Treatment - Laboratory Results Result Diagrams: 02/11/18 20:07 02/11/18 20:07 ECG: Interpreted By Me, Viewed By Me ECG Rhythm: Sinus Rhythm (58), 1st Degree HB, L BBB O2 Sat by Pulse Oximetry: 100 Pulse Ox Interpretation: Normal - Radiology CXR: Interpreted by Me, Viewed By Me CXR Interpretation: Yes: Cardiomegaly, Other (? mild vasc congestion). No: Infiltrates, Fracture Progress Note: Blood work, CT head, CXR, and urinalysis ordered. IV fluids administered. Disposition Discussed With : Joe Mcmahan Comment: accepted the pt on his service and took over the care at 9:30 PM Doctor Will See Patient In The: Hospital Counseled Patient/Family Regarding: Studies Performed, Diagnosis - Disposition Disposition: HOSPITALIZED Disposition Time: 19:22 Condition: FAIR - POA Present On Arrival: Poor Glycemic Control - Clinical Impression Clinical Impression: Dizziness, Renal insufficiency - Scribe Statement The provider has reviewed the documentation as recorded by the Scribe Marco Callahan All medical record entries made by the Scribe were at my direction and personally dictated by me. I have reviewed the chart and agree that the record accurately reflects my personal performance of the history, physical exam, medical decision making, and the department course for this patient. I have also personally directed, reviewed, and agree with the discharge instructions and disposition. Decision To Admit - Pt Status Changed To: Hospital Disposition Of: Inpatient - Admit Certification Admit to Inpatient:: After my assessment, the patient will require hospitalization for at least two midnights. This is because of the severity of symptoms shown, intensity of services needed, and/or the medical risk in this patient being treated as an outpatient. - InPatient: Physician Admission Certification: I certify that this patient requires 2 or more midnights of care for the following reason:: After my assessment, the patient will require hospitalization for at least two midnights. This is because of the severity of symptoms shown, intensity of services needed, and/or the medical risk in this patient being treated as an outpatient. - . Bed Request Type: Regular Admitting Physician: Joe Mcmahan Patient Diagnosis: Dizziness, Renal insufficiency
[2018-02-11] MEDS ORDERED: Sodium Chloride 0.9% 1,000 ML IV SCH ×2 (20:00→21:27)
[2018-02-11 20:11] LABS: BASO % 0.3 % (0.0-2.0); EOS # 0.1 K/uL (0.0-0.7); EOS % 0.9 % (0.0-4.0); HEMOGLOBIN 8.8 g/dL (11.0-16.0); LYMPH # 2.3 K/uL (1.0-4.3); LYMPH % 25.2 % (20.0-40.0); MEAN CORPUSCULAR HEMOGLOBIN 32.5 pg (27.0-31.0); MEAN CORPUSCULAR HGB CONC 33.7 g/dL (33.0-37.0); MEAN PLATELET VOLUME 12.3 fL (7.2-11.7); MONO # 0.5 K/uL (0.0-0.8); MONO % 5.5 % (0.0-10.0); NEUT # 6.3 K/uL (1.8-7.0); NEUT % 68.1 % (50.0-75.0); NRBC % 0.1 % (0.0-2.0); RBC 2.71 Mil/uL (3.80-5.20); RED CELL DISTRIBUTION WIDTH 14.1 % (11.5-14.5); WHITE BLOOD COUNT 9.2 K/uL (4.8-10.8)
[2018-02-11 20:13] LABS: MEAN CELL VOLUME 96.5 fL (81.0-99.0)
[2018-02-11 20:20] LABS: PROTHROMBIN TIME 10.6 SECONDS (9.7-12.2)
[2018-02-11 20:25] LABS: VENOUS BLOOD GAS BASE EXCESS -2.9 mmol/L (0.0-2.0); VENOUS BLOOD GAS PCO2 38 mmHg (40-60); VENOUS BLOOD GAS PO2 44 mm/Hg (30-55); VENOUS BLOOD PH 7.37 (7.32-7.43)
[2018-02-11 20:26] LABS: ALB/GLOB RATIO 1.3 (1.0-2.1); ALBUMIN 3.9 g/dL (3.5-5.0); CALCIUM 9.7 mg/dl (8.6-10.4)
[2018-02-11 20:36] LABS: TROPONIN I 0.044 ng/mL (0.00-0.120)
--- NOTE | 2018-02-11 21:18 | CT ---
EXAM: CT Head Without Intravenous Contrast CLINICAL HISTORY: 87 years old, female; Signs and symptoms; Dizziness TECHNIQUE: Axial computed tomography images of the head/brain without intravenous contrast. All CT scans at this facility use one or more dose reduction techniques, viz.: automated exposure control; ma/kV adjustment per patient size (including targeted exams where dose is matched to indication; i.e. head); or iterative reconstruction technique. COMPARISON: No relevant prior studies available. FINDINGS: Brain: [id number] atrophy. No intracranial hemorrhage. No mass. No definite edema. Ventricles: No hydrocephalus. Bones/joints: No acute fracture. Soft tissues: Unremarkable. Vasculature: Atherosclerotic disease of intracranial arteries. Sinuses: Scattered minimal to mild mucosal thickening. Mastoid air cells: No mastoid effusion. Orbits: Unremarkable as visualized. IMPRESSION: 1. No definite acute intracranial abnormality. 2. Incidental/non-acute findings are described above.
[2018-02-12 07:28] LABS: IRON 62 ug/dL (37-170)
[2018-02-12 07:32] LABS: BLOOD UREA NITROGEN 90 mg/dL (7-17); GFR AFRICAN-AMERICAN 12; GFR NON-AFRICAN AMERICAN 10
[2018-02-12 07:33] LABS: ALB/GLOB RATIO 1.3 (1.0-2.1); ALBUMIN 3.4 g/dL (3.5-5.0); ALT/SGPT 103 U/L (9-52); AST/SGOT 96 U/L (14-36); CALCIUM 9.1 mg/dl (8.6-10.4)
[2018-02-12 07:37] LABS: % IRON SATURATION 23 (20-55); TOTAL IRON BINDING CAPACITY 266 ug/dL (250-450)
--- NOTE | 2018-02-12 07:58 | RAD ---
Chest x-ray single frontal view History: Shortness of breath. Comparison: 08/26/2017 Findings: Diffuse increased interstitial lung markings suggestive for edema versus infiltrate versus congestion. Right hilar prominence. Mild nodularity at the left lung base. Mild cardiomegaly. Calcification at the aortic knob. Degenerative changes in the spine and shoulders. Left axillary stent in place. Impression: Diffuse increased interstitial lung markings suggestive for edema versus infiltrate versus congestion. Right hilar prominence. Mild nodularity at the left lung base. Mild cardiomegaly. Calcification at the aortic knob. Degenerative changes in the spine and shoulders. Left axillary stent in place.
[2018-02-12] MEDS: (Novolog) Insulin Aspart, Recombinant 100 u/ml 10 ml vial SC SCH ×4 (08:30→23:04)
[2018-02-12 08:43] LABS: FOLATE > 20.0 ng/mL
--- NOTE | 2018-02-12 08:49 | CP.PCM.CON ---
History of Present Illness - History of Present Illness History of Present Illness: pt is seen and examined, full consult is dictated #[id number] 1. CKD-5 2. anemia 3. htn 4. dm 5. CHF 6. s/p CEA pt will benefit from initiation of hemodialysis consider perma cath placement Past Patient History - Infectious Disease Hx of Infectious Diseases: None - Tetanus Immunizations Tetanus Immunization: Unknown - Past Medical History & Family History Past Medical History?: Yes - Past Social History Smoking Status: Never Smoked - CARDIAC Hx Congestive Heart Failure: Yes Hx Hypercholesterolemia: Yes Hx Hypertension: Yes - PULMONARY Hx Respiratory Disorders: No Hx Pulmonary Edema: Yes - NEUROLOGICAL Hx Neurological Disorder: No - HEENT Hx HEENT Problems: No Hx Cataracts: Yes (3 yrs ago) - RENAL Hx Chronic Kidney Disease: Yes - ENDOCRINE/METABOLIC Hx Diabetes Mellitus Type 2: Yes - HEMATOLOGICAL/ONCOLOGICAL Hx Blood Disorders: No Hx von Willebrand's Disease: No - INTEGUMENTARY Hx Dermatological Problems: No Hx Squamous Cell: No - MUSCULOSKELETAL/RHEUMATOLOGICAL Hx Falls: No - PSYCHIATRIC Hx Anxiety: Yes Hx Substance Use: No - SURGICAL HISTORY Hx Coronary Stent: Yes - ANESTHESIA Hx Anesthesia: Yes Hx Anesthesia Reactions: No Hx Malignant Hyperthermia: No Meds Allergies/Adverse Reactions: Allergies Allergy/AdvReac Type Severity Reaction Status Date / Time No Known Allergies Allergy Verified 04/23/17 10:59 - Medications Medications: Current Medications Allopurinol (Zyloprim) 100 mg PO DAILY [facility] Aspirin (Ecotrin) 81 mg PO DAILY [facility] Calcitriol (Rocaltrol) 0.25 mcg PO DAILY [facility] Clonidine HCl (Catapres) 0.1 mg PO BID [facility] Clopidogrel Bisulfate (Plavix) 75 mg PO DAILY [facility] Docusate Sodium (Colace) 100 mg PO BID [facility] Heparin Sodium (Porcine) (Heparin) 5,000 units SC Q8 [facility] Last Admin: 02/12/18 05:40 Dose: 5,000 units Hydralazine HCl (Apresoline) 25 mg PO BID [facility] Sodium Chloride (Sodium Chloride 0.9%) 1,000 mls @ 80 mls/hr IV .[id number] [facility] Last Admin: 02/11/18 21:33 Dose: 80 mls/hr Insulin Aspart (Novolog) 0 unit SC ACHS [facility] PRN Reason: Protocol Pantoprazole Sodium (Protonix Ec Tab) 40 mg PO DAILY [facility] Results - Vital Signs Recent Vital Signs: Last Vital Signs Temp 98 F 02/12/18 00:03 Pulse 55 L 02/12/18 00:03 Resp 20 02/12/18 00:03 BP 126/65 02/12/18 00:03 Pulse Ox 99 02/12/18 00:03 - Labs Result Diagrams: 02/12/18 08:48 02/12/18 07:08 Labs: Laboratory Results - last 24 hr 02/11/18 02/11/18 02/11/18 19:20 20:07 20:07 WBC 9.2 RBC 2.71 L Hgb 8.8 L Hct 26.2 L MCV 96.5 D MCH 32.5 H MCHC 33.7 RDW 14.1 Plt Count 107 L D MPV 12.3 H Neut % (Auto) 68.1 Lymph % (Auto) 25.2 Maury % (Auto) 5.5 Eos % (Auto) 0.9 Baso % (Auto) 0.3 Neut # (Auto) 6.3 Lymph # (Auto) 2.3 Maury # (Auto) 0.5 Eos # (Auto) 0.1 Baso # (Auto) 0.0 Differential Comment PT 10.6 INR 1.0 APTT 33 pO2 VBG pH VBG pCO2 VBG HCO3 VBG Total CO2 VBG O2 Sat (Calc) VBG Base Excess VBG Potassium Glucose Lactate Sodium Potassium Chloride Carbon Dioxide Anion Gap BUN Creatinine Est GFR ( Amer) Est GFR (Non-Af Amer) POC Glucose (mg/dL) 206 H Random Glucose Hemoglobin A1c Calcium Phosphorus Magnesium Iron TIBC % Saturation Ferritin Total Bilirubin AST ALT Alkaline Phosphatase Troponin I Total Protein Albumin Globulin Albumin/Globulin Ratio Lipase Vitamin B12 Folate Venous Blood Potassium 02/11/18 02/11/18 02/12/18 20:07 20:21 07:08 WBC RBC Hgb Hct MCV MCH MCHC RDW Plt Count MPV Neut % (Auto) Lymph % (Auto) Maury % (Auto) Eos % (Auto) Baso % (Auto) Neut # (Auto) Lymph # (Auto) Maury # (Auto) Eos # (Auto) Baso # (Auto) Differential Comment PT INR APTT pO2 44 VBG pH 7.37 VBG pCO2 38 L VBG HCO3 22.1 VBG Total CO2 23.2 VBG O2 Sat (Calc) 82.4 H VBG Base Excess -2.9 L VBG Potassium 3.8 Glucose 156 H Lactate 0.7 Sodium 143 142.0 144 Potassium 5.1 4.4 Chloride 103 112.0 H 107 Carbon Dioxide 25 21 L Anion Gap 20 21 H BUN 92 H 90 H Creatinine 4.3 H 4.2 H Est GFR ( Amer) 12 12 Est GFR (Non-Af Amer) 10 10 POC Glucose (mg/dL) Random Glucose 180 H 167 H Hemoglobin A1c Calcium 9.7 9.1 Phosphorus 6.2 H Magnesium 2.7 H 2.6 H Iron TIBC % Saturation Ferritin 349.0 Total Bilirubin 0.4 0.4 AST 103 H D 96 H ALT 94 H D 103 H Alkaline Phosphatase 95 82 Troponin I 0.0440 Total Protein 6.9 6.0 L Albumin 3.9 3.4 L Globulin 3.0 2.6 Albumin/Globulin Ratio 1.3 1.3 Lipase 147 Vitamin B12 795 Folate > 20.0 Venous Blood Potassium 3.8 02/12/18 02/12/18 02/12/18 07:08 07:08 08:00 WBC RBC Hgb Hct MCV MCH MCHC RDW Plt Count MPV Neut % (Auto) Lymph % (Auto) Maury % (Auto) Eos % (Auto) Baso % (Auto) Neut # (Auto) Lymph # (Auto) Maury # (Auto) Eos # (Auto) Baso # (Auto) Differential Comment PT INR APTT pO2 VBG pH VBG pCO2 VBG HCO3 VBG Total CO2 VBG O2 Sat (Calc) VBG Base Excess VBG Potassium Glucose Lactate Sodium Potassium Chloride Carbon Dioxide Anion Gap BUN Creatinine Est GFR ( Amer) Est GFR (Non-Af Amer) POC Glucose (mg/dL) 158 H Random Glucose Hemoglobin A1c 7.0 H Calcium Phosphorus Magnesium Iron 62 TIBC 266 % Saturation 23 Ferritin Total Bilirubin AST ALT Alkaline Phosphatase Troponin I Total Protein Albumin Globulin Albumin/Globulin Ratio Lipase Vitamin B12 Folate Venous Blood Potassium
[2018-02-12 08:53] LABS: BASO # 0.1 K/uL (0.0-0.2); BASO % 0.8 % (0.0-2.0); EOS # 0.1 K/uL (0.0-0.7); EOS % 1.3 % (0.0-4.0); HEMOGLOBIN 8.4 g/dL (11.0-16.0); LYMPH # 2.8 K/uL (1.0-4.3); LYMPH % 28.8 % (20.0-40.0); MEAN CELL VOLUME 96.4 fL (81.0-99.0); MEAN CORPUSCULAR HGB CONC 34.2 g/dL (33.0-37.0); MEAN PLATELET VOLUME 12.1 fL (7.2-11.7); MONO # 0.7 K/uL (0.0-0.8); NEUT % 62.1 % (50.0-75.0); NRBC % 0.1 % (0.0-2.0); RBC 2.56 Mil/uL (3.80-5.20); RED CELL DISTRIBUTION WIDTH 14.1 % (11.5-14.5); WHITE BLOOD COUNT 9.7 K/uL (4.8-10.8)
--- NOTE | 2018-02-12 08:54 | PCM.RRT ---
STRADDLE BUG OPERATOR Nurses Assessment - Situation Date: 02/12/18 Time STRADDLE BUG OPERATOR was called: 08:21 STRADDLE BUG OPERATOR Responder Arrival Time:: 08:22 STRADDLE BUG OPERATOR Location:: 3T Med/Oncology STRADDLE BUG OPERATOR Reason for Call: Bradycardia STRADDLE BUG OPERATOR Called By: RN - Constitutional Appears: No Acute Distress - Head Head Exam: ATRAUMATIC, NORMAL INSPECTION - Eyes Eye Exam: EOMI, Normal appearance - Respiratory Exam Respiratory Exam: Clear to Ausculation Bilateral, NORMAL BREATHING PATTERN - Cardiovascular Exam Cardiovascular Exam: Bradycardia, +S1, +S2 - GI/Abdominal Exam GI & Abdominal Exam: Soft, Normal Bowel Sounds. absent: Tenderness - Neurological Exam Neurological Exam: Alert, Awake, Oriented x3 Plan - Assessment of Findings&Treatment Plan STRADDLE BUG OPERATOR was called by RN for for asymptomatic bradycardia. B/P 113/49, HR 43bpm, Temp 97.8, O2 99%. Glucose at 8:17am 158. EKG bradycardia sinus rhythm. ECHO was ordered. Repeat B/P 128/40 and HR 45bpm. Patient was transferred to tele. Discussed patient with ICU physician Dr. Cueto and patient was placed in ICU tele. Notified patient's physician Dr. Mcmahan.
[2018-02-12 09:30] LABS: TROPONIN I 0.05 ng/mL (0.00-0.120)
[2018-02-12] MEDS ORDERED: Sodium Chloride 0.45% 1,000 ML IV SCH (10:00)
[2018-02-12] MEDS: Pantoprazole 40 mg EC Tab PO SCH (10:02)
--- NOTE | 2018-02-12 19:19 | CARD ---
APPROVED REPORT EKG Measurement Heart [id number] <Conclusion> Sinus bradycardia with 1st degree AV block Left axis deviation Left bundle branch block Abnormal ECG
--- NOTE | 2018-02-12 20:30 | CP.PCM.CON ---
History of Present Illness - History of Present Illness History of Present Illness: Vascular Surgery- Dr. Spivey 87F pmhx signficant for HTN, IDDM, ESRD presents to [facility] for dizziness, and bradycardia. Vascular surgery was consulted for permacath placement. Patient currently denies fevers, chills, nausea, vomiting, diarrhea, blood in urine/stool, chest pain shortness of breath, loss of consciousness PMH: stated above PSH: AV fistula graft (failed), coronary stent, ?CEA ALL: NKDA SocialHx: denies etoh, tobacco, recreational drug use Review of Systems - Review of Systems All systems: reviewed and no additional remarkable complaints except - Constitutional Constitutional: As Per HPI Past Patient History - Infectious Disease Hx of Infectious Diseases: None - Tetanus Immunizations Tetanus Immunization: Unknown - Past Medical History & Family History Past Medical History?: Yes - Past Social History Smoking Status: Never Smoked - CARDIAC Hx Congestive Heart Failure: Yes Hx Hypercholesterolemia: Yes Hx Hypertension: Yes - PULMONARY Hx Respiratory Disorders: No Hx Pulmonary Edema: Yes - NEUROLOGICAL Hx Neurological Disorder: No - HEENT Hx HEENT Problems: No Hx Cataracts: Yes (3 yrs ago) - RENAL Hx Chronic Kidney Disease: Yes - ENDOCRINE/METABOLIC Hx Diabetes Mellitus Type 2: Yes - HEMATOLOGICAL/ONCOLOGICAL Hx Blood Disorders: No Hx von Willebrand's Disease: No - INTEGUMENTARY Hx Dermatological Problems: No Hx Squamous Cell: No - MUSCULOSKELETAL/RHEUMATOLOGICAL Hx Falls: No - PSYCHIATRIC Hx Anxiety: Yes Hx Substance Use: No - SURGICAL HISTORY Hx Coronary Stent: Yes - ANESTHESIA Hx Anesthesia: Yes Hx Anesthesia Reactions: No Hx Malignant Hyperthermia: No Meds Allergies/Adverse Reactions: Allergies Allergy/AdvReac Type Severity Reaction Status Date / Time No Known Allergies Allergy Verified 04/23/17 10:59 - Medications Medications: Current Medications Allopurinol (Zyloprim) 100 mg PO DAILY [facility] Last Admin: 02/12/18 12:20 Dose: 100 mg Aspirin (Ecotrin) 81 mg PO DAILY [facility] Last Admin: 02/12/18 10:03 Dose: 81 mg Calcitriol (Rocaltrol) 0.25 mcg PO DAILY [facility] Last Admin: 02/12/18 10:02 Dose: 0.25 mcg Clopidogrel Bisulfate (Plavix) 75 mg PO DAILY [facility] Last Admin: 02/12/18 10:02 Dose: 75 mg Docusate Sodium (Colace) 100 mg PO BID [facility] Last Admin: 02/12/18 17:36 Dose: 100 mg Heparin Sodium (Porcine) (Heparin) 5,000 units SC Q8 [facility] Last Admin: 02/12/18 14:11 Dose: 5,000 units Sodium Chloride (Sodium Chloride 0.45%) 1,000 mls @ 50 mls/hr IV .Q20H [facility] Last Admin: 02/12/18 10:00 Dose: 50 mls/hr Insulin Aspart (Novolog) 0 unit SC ACHS [facility] PRN Reason: Protocol Last Admin: 02/12/18 17:35 Dose: 1 unit Pantoprazole Sodium (Protonix Ec Tab) 40 mg PO DAILY [facility] Last Admin: 02/12/18 10:02 Dose: 40 mg Physical Exam - Constitutional Appears: Non-toxic, No Acute Distress - Head Exam Head Exam: ATRAUMATIC - Eye Exam Eye Exam: Scleral icterus. absent: EOMI - ENT Exam ENT Exam: Mucous Membranes Moist - Respiratory Exam Respiratory Exam: NORMAL BREATHING PATTERN. absent: Accessory Muscle Use, Respiratory Distress - Cardiovascular Exam Cardiovascular Exam: +S1, +S2. absent: Bradycardia, Tachycardia - GI/Abdominal Exam GI & Abdominal Exam: Soft. absent: Distended, Firm, Guarding - Extremities Exam Extremities exam: Negative for: calf tenderness - Neurological Exam Neurological exam: Alert, Oriented x3 - Psychiatric Exam Psychiatric exam: Normal Affect - Skin Skin Exam: Intact, Warm Results - Vital Signs Recent Vital Signs: Last Vital Signs Temp 97.6 F 02/12/18 20:00 Pulse 78 02/12/18 20:00 Resp 15 02/12/18 20:00 BP 119/67 02/12/18 17:52 Pulse Ox 98 02/12/18 20:00 - Labs Result Diagrams: 02/12/18 08:48 02/12/18 07:08 Labs: Laboratory Results - last 24 hr 02/11/18 02/11/18 02/11/18 20:07 20:07 20:21 WBC 9.2 RBC 2.71 L Hgb 8.8 L Hct 26.2 L MCV 96.5 D MCH 32.5 H MCHC 33.7 RDW 14.1 Plt Count 107 L D MPV 12.3 H Neut % (Auto) 68.1 Lymph % (Auto) 25.2 [place] % (Auto) 5.5 Eos % (Auto) 0.9 Baso % (Auto) 0.3 Neut # (Auto) 6.3 Lymph # (Auto) 2.3 [place] # (Auto) 0.5 Eos # (Auto) 0.1 Baso # (Auto) 0.0 Differential Comment pO2 44 VBG pH 7.37 VBG pCO2 38 L VBG HCO3 22.1 VBG Total CO2 23.2 VBG O2 Sat (Calc) 82.4 H VBG Base Excess -2.9 L VBG Potassium 3.8 Glucose 156 H Lactate 0.7 Sodium 143 142.0 Potassium 5.1 Chloride 103 112.0 H Carbon Dioxide 25 Anion Gap 20 BUN 92 H Creatinine 4.3 H Est GFR ( Amer) 12 Est GFR (Non-Af Amer) 10 POC Glucose (mg/dL) Random Glucose 180 H Hemoglobin A1c Calcium 9.7 Phosphorus Magnesium 2.7 H Iron TIBC % Saturation Ferritin Total Bilirubin 0.4 AST 103 H D ALT 94 H D Alkaline Phosphatase 95 Troponin I 0.0440 Total Protein 6.9 Albumin 3.9 Globulin 3.0 Albumin/Globulin Ratio 1.3 Lipase 147 Vitamin B12 Folate Free T4 TSH 3rd Generation Venous Blood Potassium 3.8 02/12/18 02/12/18 02/12/18 07:08 07:08 07:08 WBC RBC Hgb Hct MCV MCH MCHC RDW Plt Count MPV Neut % (Auto) Lymph % (Auto) [place] % (Auto) Eos % (Auto) Baso % (Auto) Neut # (Auto) Lymph # (Auto) [place] # (Auto) Eos # (Auto) Baso # (Auto) Differential Comment pO2 VBG pH VBG pCO2 VBG HCO3 VBG Total CO2 VBG O2 Sat (Calc) VBG Base Excess VBG Potassium Glucose Lactate Sodium 144 Potassium 4.4 Chloride 107 Carbon Dioxide 21 L Anion Gap 21 H BUN 90 H Creatinine 4.2 H Est GFR ( Amer) 12 Est GFR (Non-Af Amer) 10 POC Glucose (mg/dL) Random Glucose 167 H Hemoglobin A1c 7.0 H Calcium 9.1 Phosphorus 6.2 H Magnesium 2.6 H Iron 62 TIBC 266 % Saturation 23 Ferritin 349.0 Total Bilirubin 0.4 AST 96 H ALT 103 H Alkaline Phosphatase 82 Troponin I Total Protein 6.0 L Albumin 3.4 L Globulin 2.6 Albumin/Globulin Ratio 1.3 Lipase Vitamin B12 795 Folate > 20.0 Free T4 TSH 3rd Generation Venous Blood Potassium 02/12/18 02/12/18 02/12/18 08:00 08:48 08:48 WBC RBC Hgb Hct MCV MCH MCHC RDW Plt Count MPV Neut % (Auto) Lymph % (Auto) [place] % (Auto) Eos % (Auto) Baso % (Auto) Neut # (Auto) Lymph # (Auto) [place] # (Auto) Eos # (Auto) Baso # (Auto) Differential Comment pO2 VBG pH VBG pCO2 VBG HCO3 VBG Total CO2 VBG O2 Sat (Calc) VBG Base Excess VBG Potassium Glucose Lactate Sodium Potassium Chloride Carbon Dioxide Anion Gap BUN Creatinine Est GFR ( Amer) Est GFR (Non-Af Amer) POC Glucose (mg/dL) 158 H Random Glucose Hemoglobin A1c Calcium Phosphorus Magnesium Iron TIBC % Saturation Ferritin Total Bilirubin AST ALT Alkaline Phosphatase Troponin I 0.0500 Total Protein Albumin Globulin Albumin/Globulin Ratio Lipase Vitamin B12 Folate Free T4 1.06 TSH 3rd Generation 3.80 Venous Blood Potassium 02/12/18 02/12/18 02/12/18 08:48 11:56 16:26 WBC 9.7 RBC 2.56 L Hgb 8.4 L Hct 24.7 L MCV 96.4 MCH 33.0 H MCHC 34.2 RDW 14.1 Plt Count 99 L MPV 12.1 H Neut % (Auto) 62.1 Lymph % (Auto) 28.8 [place] % (Auto) 7.0 Eos % (Auto) 1.3 Baso % (Auto) 0.8 Neut # (Auto) 6.0 Lymph # (Auto) 2.8 [place] # (Auto) 0.7 Eos # (Auto) 0.1 Baso # (Auto) 0.1 Differential Comment pO2 VBG pH VBG pCO2 VBG HCO3 VBG Total CO2 VBG O2 Sat (Calc) VBG Base Excess VBG Potassium Glucose Lactate Sodium Potassium Chloride Carbon Dioxide Anion Gap BUN Creatinine Est GFR ( Amer) Est GFR (Non-Af Amer) POC Glucose (mg/dL) 187 H 159 H Random Glucose Hemoglobin A1c Calcium Phosphorus Magnesium Iron TIBC % Saturation Ferritin Total Bilirubin AST ALT Alkaline Phosphatase Troponin I Total Protein Albumin Globulin Albumin/Globulin Ratio Lipase Vitamin B12 Folate Free T4 TSH 3rd Generation Venous Blood Potassium Assessment & Plan - Assessment and Plan (Free Text) Assessment: 87F w/ ESRD Plan: - NPO after MN - hold heparin - plan for permacath placement tomorrow - discussed w/ Dr. Spivey surgical attending PGY1
--- NOTE | 2018-02-12 23:06 | CP.PCM.HP ---
History of Present Illness - History of Present Illness History of Present Illness: 87 yo Filip[place] female has been complaining of vague abdominal pain, poor appetite for about a week. One day prior to hospitalization, she became weak, dizzy with episodes of diaphoresis. In the ED at [facility], she was found to have a BUN: 94 abd a creatinine: 4.6 a Hgb: 8.6. She is known to have an,, IDDM, a CAD with s/p PCI of the RCA, LAD anf LCx in 2010, a cardiomyopathy with frequent bouts of acute CHF, a gout, a HPTN, an ESRD. She had a failed AV shunt placement a few months ago due to poor veins. While on telemetry, she was found to have a severe bradycardia, and Coreg and Clonidine were held. She also received IVF. Patient denies any chest pain, shortness of breath. Present on Admission - Present on Admission Any Indicators Present on Admission: No Review of Systems - Constitutional Constitutional: Anorexia, Fatigue, Weakness - Gastrointestinal Gastrointestinal: Abdominal Pain - Musculoskeletal Musculoskeletal: Muscle Weakness, Myalgias - Neurological Neurological: Dizziness - Psychiatric Psychiatric: Anxiety Past Patient History - Infectious Disease Hx of Infectious Diseases: None - Tetanus Immunizations Tetanus Immunization: Unknown - Past Medical History & Family History Past Medical History?: Yes - Past Social History Smoking Status: Never Smoked Alcohol: None Drugs: Denies Home Situation {Lives}: With Family Domestic Violence: Negative - CARDIAC Hx Congestive Heart Failure: Yes Hx Hypercholesterolemia: Yes Hx Hypertension: Yes - PULMONARY Hx Respiratory Disorders: No Hx Pulmonary Edema: Yes - NEUROLOGICAL Hx Neurological Disorder: No - HEENT Hx HEENT Problems: No Hx Cataracts: Yes (3 yrs ago) - RENAL Hx Chronic Kidney Disease: Yes - ENDOCRINE/METABOLIC Hx Diabetes Mellitus Type 1: Yes Hx Diabetes Mellitus Type 2: Yes - HEMATOLOGICAL/ONCOLOGICAL Hx Blood Disorders: No Hx von Willebrand's Disease: No - INTEGUMENTARY Hx Dermatological Problems: No Hx Squamous Cell: No - MUSCULOSKELETAL/RHEUMATOLOGICAL Hx Falls: No - PSYCHIATRIC Hx Anxiety: Yes Hx Substance Use: No - SURGICAL HISTORY Hx Angioplasty: Yes (2010 at [facility]) Hx Cardiac Catheterization: Yes (2014 at [facility] [place] Hx Coronary Stent: Yes - ANESTHESIA Hx Anesthesia: Yes Hx Anesthesia Reactions: No Hx Malignant Hyperthermia: No Meds Allergies/Adverse Reactions: Allergies Allergy/AdvReac Type Severity Reaction Status Date / Time No Known Allergies Allergy Verified 04/23/17 10:59 Physical Exam - Constitutional Appears: No Acute Distress, Chronically Ill - Head Exam Head Exam: NORMAL INSPECTION - Eye Exam Eye Exam: Normal appearance - ENT Exam ENT Exam: Normal Exam - Neck Exam Neck exam: Positive for: Normal Inspection - Respiratory Exam Respiratory Exam: Clear to Auscultation Bilateral, NORMAL BREATHING PATTERN - Cardiovascular Exam Cardiovascular Exam: REGULAR RHYTHM, Systolic Murmur - GI/Abdominal Exam GI & Abdominal Exam: Normal Bowel Sounds, Soft - Rectal Exam Rectal Exam: Deferred - Exam Exam: NORMAL INSPECTION - Extremities Exam Extremities exam: Positive for: normal inspection - Back Exam Back exam: NORMAL INSPECTION - Neurological Exam Neurological exam: Alert, Oriented x3 - Psychiatric Exam Psychiatric exam: Anxious - Skin Skin Exam: Dry, Intact, Warm Results - Vital Signs Recent Vital Signs: Last Vital Signs Temp 97.6 F 02/12/18 20:00 Pulse 78 02/12/18 20:00 Resp 15 02/12/18 20:00 BP 119/67 02/12/18 17:52 Pulse Ox 98 02/12/18 20:00 - Labs Result Diagrams: 02/12/18 08:48 02/12/18 07:08 Labs: Laboratory Results - last 24 hr 02/12/18 02/12/18 02/12/18 07:08 07:08 07:08 WBC RBC Hgb Hct MCV MCH MCHC RDW Plt Count MPV Neut % (Auto) Lymph % (Auto) [place] % (Auto) Eos % (Auto) Baso % (Auto) Neut # (Auto) Lymph # (Auto) [place] # (Auto) Eos # (Auto) Baso # (Auto) Sodium 144 Potassium 4.4 Chloride 107 Carbon Dioxide 21 L Anion Gap 21 H BUN 90 H Creatinine 4.2 H Est GFR ( Amer) 12 Est GFR (Non-Af Amer) 10 POC Glucose (mg/dL) Random Glucose 167 H Hemoglobin A1c 7.0 H Calcium 9.1 Phosphorus 6.2 H Magnesium 2.6 H Iron 62 TIBC 266 % Saturation 23 Ferritin 349.0 Total Bilirubin 0.4 AST 96 H ALT 103 H Alkaline Phosphatase 82 Troponin I Total Protein 6.0 L Albumin 3.4 L Globulin 2.6 Albumin/Globulin Ratio 1.3 Vitamin B12 795 Folate > 20.0 Free T4 TSH 3rd Generation 0502/12/18 02/12/18 08:00 08:48 08:48 WBC RBC Hgb Hct MCV MCH MCHC RDW Plt Count MPV Neut % (Auto) Lymph % (Auto) [place] % (Auto) Eos % (Auto) Baso % (Auto) Neut # (Auto) Lymph # (Auto) [place] # (Auto) Eos # (Auto) Baso # (Auto) Sodium Potassium Chloride Carbon Dioxide Anion Gap BUN Creatinine Est GFR ( Amer) Est GFR (Non-Af Amer) POC Glucose (mg/dL) 158 H Random Glucose Hemoglobin A1c Calcium Phosphorus Magnesium Iron TIBC % Saturation Ferritin Total Bilirubin AST ALT Alkaline Phosphatase Troponin I 0.0500 Total Protein Albumin Globulin Albumin/Globulin Ratio Vitamin B12 Folate Free T4 1.06 TSH 3rd Generation 3.80 02/12/18 02/12/18 02/12/18 08:48 11:56 16:26 WBC 9.7 RBC 2.56 L Hgb 8.4 L Hct 24.7 L MCV 96.4 MCH 33.0 H MCHC 34.2 RDW 14.1 Plt Count 99 L MPV 12.1 H Neut % (Auto) 62.1 Lymph % (Auto) 28.8 [place] % (Auto) 7.0 Eos % (Auto) 1.3 Baso % (Auto) 0.8 Neut # (Auto) 6.0 Lymph # (Auto) 2.8 [place] # (Auto) 0.7 Eos # (Auto) 0.1 Baso # (Auto) 0.1 Sodium Potassium Chloride Carbon Dioxide Anion Gap BUN Creatinine Est GFR ( Amer) Est GFR (Non-Af Amer) POC Glucose (mg/dL) 187 H 159 H Random Glucose Hemoglobin A1c Calcium Phosphorus Magnesium Iron TIBC % Saturation Ferritin Total Bilirubin AST ALT Alkaline Phosphatase Troponin I Total Protein Albumin Globulin Albumin/Globulin Ratio Vitamin B12 Folate Free T4 TSH 3rd Generation 02/12/18 21:07 WBC RBC Hgb Hct MCV MCH MCHC RDW Plt Count MPV Neut % (Auto) Lymph % (Auto) [place] % (Auto) Eos % (Auto) Baso % (Auto) Neut # (Auto) Lymph # (Auto) [place] # (Auto) Eos # (Auto) Baso # (Auto) Sodium Potassium Chloride Carbon Dioxide Anion Gap BUN Creatinine Est GFR ( Amer) Est GFR (Non-Af Amer) POC Glucose (mg/dL) 165 H Random Glucose Hemoglobin A1c Calcium Phosphorus Magnesium Iron TIBC % Saturation Ferritin Total Bilirubin AST ALT Alkaline Phosphatase Troponin I Total Protein Albumin Globulin Albumin/Globulin Ratio Vitamin B12 Folate Free T4 TSH 3rd Generation Assessment & Plan (1) Dehydration Assessment and Plan: IVF Status: Resolved (2) Stage 5 chronic kidney disease Assessment and Plan: Acute on chronic renal insufficiency. Needs HD as per Nephrology. Status: Acute (3) Insulin dependent diabetes mellitus Status: Chronic (4) Ischemic cardiomyopathy Status: Acute (5) Bradycardia Assessment and Plan: To hold Coreg and Clonidine. Status: Acute Decision To Admit - Pt Status Changed To: Hospital Disposition Of: Inpatient - Admit Certification Admit to Inpatient:: After my assessment, the patient will require hospitalization for at least two midnights. This is because of the severity of symptoms shown, intensity of services needed, and/or the medical risk in this patient being treated as an outpatient. - InPatient: Physician Admission Certification:: After my assessments, the patient requires hospitalization for at least 2 midnights. - . Bed Request Type: Telemetry Admitting Physician: Joe Mcmahan
[2018-02-13] MEDS ORDERED: Albuterol-Ipratrop 3 mg / 0.5 (3 ml) UD INH STA (02:02)
--- NOTE | 2018-02-13 07:09 | CON ---
DATE: RENAL CONSULTATION LOCATION: The patient is located in ICU bed 12. REQUESTED BY: Joe Mcmahan MD REASON FOR FOLLOWUP: CKD 5, for further evaluation. HISTORY OF PRESENT ILLNESS: Mrs. Dsouza is an 87-year-old elderly Bangladeshi female, very pleasant with a past medical history significant for insulin-dependent diabetes, hypertension, coronary artery disease, questionable cardiomyopathy, proteinuria, chronic kidney disease, status post left carotid endarterectomy and status post ligation of the left upper extremity AV graft secondary to steal syndrome who was admitted with chief complaints of not feeling well, weak, dizzy, and wobbly when she is walking. The patient also claims that she had diarrhea last week after she ate a feast. The patient had LINER MAN this morning due to bradycardia, and subsequently, transferred to ICU this morning. Denies any chest pain. Denies any headache. Denies any nausea, vomiting. Denies any abdominal pain. Denies any fever today. Denies any dysuria. Denies any edema of the legs. PAST MEDICAL HISTORY: Significant for longstanding hypertension, diabetes, CHF, anxiety, hyperlipidemia, and CKD 5. PAST SURGICAL HISTORY: Status post coronary stent and also left carotid endarterectomy and also left upper extremity AV graft placement and also ligation of the AV graft immediately for the steal syndrome to the left hand postop immediately. ALLERGIES: NO KNOWN DRUG ALLERGIES. SOCIAL HISTORY: No smoking. No alcohol. No drugs. The patient has a very supportive family. REVIEW OF SYSTEMS: Significant for feeling weak and tired, and also dizzy and bradycardia this morning. All other review of systems are reviewed and are negative. MEDICATIONS: Her current medications this morning as follows: Colace 100 mg p.o. b.i.d., aspirin 81 mg daily, subcu heparin 5000 every 8 hours, NovoLog for sliding scale, Plavix 75 mg daily, Protonix 40 mg p.o. daily, Rocaltrol 0.25 mcg daily. IV fluids half-normal saline 50 mL/hour, allopurinol 100 mg p.o. daily. Home medications include hydralazine, clonidine, Januvia, multivitamins, Lasix, fenofibrate, Plavix, Coreg, calcitriol, aspirin, and allopurinol. PHYSICAL EXAMINATION: VITAL SIGNS: As follows: This morning, blood pressure 95/46, pulse 39, respirations 24, temperature 97.8, saturation 94%. Height 5 feet, weight is 115 pounds. GENERAL: Mrs. Dsouza is 87 years old elderly Bangladeshi male, hard in hearing, thin-built, not in distress. HEENT: Pupils normal and reactive to light and accommodation. Conjunctivae pink. Sclerae anicteric. Tongue is moist. Trachea is midline. LUNGS: Symmetric on both sides. Bilateral breath sounds present. Clear to auscultation. CVS: [place] at the fifth intercostal space, midclavicular line. S1, S2 audible. No murmur or gallop. The patient also has a scar on the left side of the neck from the previous carotid endarterectomy. ABDOMEN: Normal in appearance, soft, tympanic. No guarding. No rigidity. No hepatosplenomegaly. SALESPERSON BOOKS: The patient is alert, awake, and oriented times two to three. Sensory and motor system is within normal limits. EXTREMITIES: No cyanosis, no clubbing, no edema. LABORATORY DATA: Include as follows, as of 02/12/2018, WBC 9.7, hemoglobin 8.4, hematocrit is 24.7, platelets 99. Sodium 144, potassium 4.4, chloride 107, CO2 of 21, BUN 90, creatinine 4.2, glucose 167, hemoglobin A1c 7, calcium 9.1, phosphorus 6.2, magnesium 2.6. Iron 62, TIBC 266, saturation 23%, ferritin 349. Total bili 0.4, AST 96, ALT 103, alkaline phosphatase 82, total protein 6, albumin is 3.4. Troponin 0.044 and 0.050. B12 is 795. Folic acid more than 20 and free thyroxine is 1. TSH is 3.8. Chest x-ray as of at 1958 hours, diffuse increase interstitial lung markings suggestive for edema versus infiltrate versus congestion. CT of the head as of 02/11/2018 at 2000 hours, impression, no definite acute intracranial abnormality. IMPRESSION: In summary, Mrs. Dsouza is 87 years old elderly Bangladeshi female with a history of hypertension, diabetes, hyperlipidemia, chronic kidney disease 5, anemia, proteinuria, status post left carotid endarterectomy, and status post ligation of the left upper extremity arteriovenous graft who was admitted with not feeling well, dizzy, and low hemoglobin and hematocrit, and patient had LINER MAN this morning for bradycardia. 1. Chronic kidney disease 5, reaching end-stage renal disease, most likely secondary to hypertensive nephrosclerosis, cannot rule out underlying diabetic nephropathy. 2. Anemia secondary to renal failure. 3. Hypertension. Blood pressure is stable. 4. Status post bradycardia, etiology is not clear, rule out secondary to medications, clonidine and Coreg at home, rule out cardiac arrhythmias. 6. Diabetes. Discussed with the patient regarding possible initiation of renal replacement therapy. If patient's family agrees, please request vascular surgery consult for PermCath placement, and then, we will plan for hemodialysis. We will follow with you. Thank you for allowing me to participate in your patient's care. Sergo Carter MD
[2018-02-13] MEDS: (Novolog) Insulin Aspart, Recombinant 100 u/ml 10 ml vial SC SCH ×4 (08:02→21:16)
[2018-02-13] MEDS ORDERED: Lidocaine Hydrochloride 5 ML INJ ONE (09:09)
[2018-02-13] MEDS ORDERED: HEPARIN-NS 5,000 UNITS/500 ML 0 UNIT/0 ML BAG IV ONE (09:09)
--- NOTE | 2018-02-13 10:52 | RAD ---
HISTORY: congestion COMPARISON: Frontal chest radiograph 02/11/2018. FINDINGS: LUNGS: Increased reticular markings are appreciated diffusely including Meron B-lines with cardiomegaly stable and borderline increased hilar vascular markings. Consider possible active CHF. Clinically correlate further. No alveolitis bilaterally. PLEURA: No significant pleural effusion identified, no pneumothorax apparent. CARDIOVASCULAR: As above in lung section. OSSEOUS STRUCTURES: No significant abnormalities. VISUALIZED UPPER ABDOMEN: Normal. OTHER FINDINGS: None. IMPRESSION: Findings suspicious for active CHF. No pneumonia, pleural effusion or pneumothorax identified bilaterally.
--- NOTE | 2018-02-13 11:17 | CARD ---
APPROVED REPORT EXAM: Two-dimensional and M-mode echocardiogram with Doppler and color Doppler. Other Information Quality : [employer] : INDICATION Congestive Heart Failure 2D DIMENSIONS IVSd1.1 (0.7-1.1cm)LVDd5.5 (3.9-5.9cm) PWd1.0 (0.7-1.1cm)LVDs3.2 (2.5-4.0cm) FS (%) 42.4 %LVEF (%)70.0 (>50%) M-Mode DIMENSIONS RVDd1.07 (2.1-3.2cm)Left Atrium (MM)4.49 (2.5-4.0cm) IVSd0.74 (0.7-1.1cm)Aortic Root2.47 (2.2-3.7cm) LVDd6.12 (4.0-5.6cm)Aortic Cusp Exc.1.91 (1.5-2.0cm) PWd0.85 (0.7-1.1cm)FS (%) 37 % LVDs3.87 (2.0-3.8cm)LVEF (%)65 (>50%) Aortic Valve AI P 1/2 [id number] Mitral Valve MV E Mukhbxob754.2cm/sMV A Tzelfvqe763.2cm/sE/A ratio1.2 TDI E/Lateral E'0.0E/Medial E'0.0 Tricuspid Valve TR Peak [id number]/sTR Peak [id number] LEFT VENTRICLE The Left Ventricle is moderately dilated. There is normal left ventricular wall thickness. Left ventricle Ejection Fraction is 60-65%. There is normal LV segmental wall motion. The left ventricular diastolic function is normal. RIGHT VENTRICLE The right ventricle is The right ventricle is mildly dilated. The right ventricular systolic function is normal. ATRIA The left atrium is mildly dilated. The right atrium is mildly dilated. AORTIC VALVE The aortic valve is moderately sclerotic. The aortic valve is trileaflet. There is moderate aortic regurgitation. There is no aortic valvular stenosis. There is no aortic valvular vegetation. MITRAL VALVE Mitral annular calcification is mild to moderate. There is no evidence of mitral valve prolapse. There is no mitral valve stenosis. Mitral regurgitation is mild to moderate. TRICUSPID VALVE The tricuspid valve is normal in structure. There is moderate tricuspid regurgitation. Right ventricular systolic pressure is estimated at 50-60 mmHg. There is moderate pulmonary hypertension. PULMONIC VALVE The pulmonary valve is normal in structure. There is mild to moderate pulmonic valvular regurgitation. There is no pulmonic valvular stenosis. GREAT VESSELS The aortic root is normal in size. The IVC collapses <50% with inspiration. PERICARDIAL EFFUSION There is no pericardial effusion. There is no pleural effusion. <Conclusion> The Left Ventricle is moderately dilated. Left ventricle Ejection Fraction is 60-65%. The right ventricle is The right ventricle is mildly dilated. The right ventricular systolic function is normal. The left atrium is mildly dilated. The right atrium is mildly dilated. There is moderate aortic regurgitation. Mitral regurgitation is mild to moderate. There is moderate tricuspid regurgitation. There is moderate pulmonary hypertension. There is mild to moderate pulmonic valvular regurgitation.
--- NOTE | 2018-02-13 11:38 | CP.PCM.PN ---
Subjective - Date & Time of Evaluation Date of Evaluation: 02/13/18 Time of Evaluation: 11:34 - Subjective Subjective: detailed discussion with patient and family regarding emergent need for HD catheter placment they all agree and then refuse to sign the consent, these events have gone on all morning with multiple discussions they were explained the risk of the procedure, the risks of not proceeding( she is acutely SOB) and the optimization of the circumstances, OR, C arm, anesthesia staff . i am unable to continue care given the circumstances discussed with neurology director in case she decides to permit placement Objective - Vital Signs/Intake and Output Vital Signs (last 24 hours): Temp Pulse Resp BP Pulse Ox 98 F 71 22 180/89 H 100 02/13/18 08:00 02/13/18 08:00 02/13/18 08:00 02/13/18 10:13 02/13/18 08:00 Intake and Output: 02/13/18 02/13/18 06:59 18:59 Intake Total 400 Output Total 900 Balance -500 - Medications Medications: Current Medications Allopurinol (Zyloprim) 100 mg PO DAILY [facility] Last Admin: 02/12/18 12:20 Dose: 100 mg Aspirin (Ecotrin) 81 mg PO DAILY [facility] Last Admin: 02/12/18 10:03 Dose: 81 mg Calcitriol (Rocaltrol) 0.25 mcg PO DAILY [facility] Last Admin: 02/12/18 10:02 Dose: 0.25 mcg Clopidogrel Bisulfate (Plavix) 75 mg PO DAILY [facility] Last Admin: 02/12/18 10:02 Dose: 75 mg Docusate Sodium (Colace) 100 mg PO BID [facility] Last Admin: 02/13/18 09:12 Dose: Not Given Heparin Sodium (Porcine) (Heparin) 5,000 units SC Q8 [facility] Last Admin: 02/12/18 22:11 Dose: 5,000 units Insulin Aspart (Novolog) 0 unit SC ACHS [facility] PRN Reason: Protocol Last Admin: 02/13/18 08:02 Dose: Not Given Pantoprazole Sodium (Protonix Ec Tab) 40 mg PO DAILY [facility] Last Admin: 02/12/18 10:02 Dose: 40 mg - Labs Labs: 02/12/18 08:48 02/12/18 07:08 PT 10.6 SECONDS (9.7-12.2) 05/10/18 20:07 INR 1.0 02/11/18 20:07 APTT 33 SECONDS (21-34) 02/11/18 20:07
[2018-02-13] MEDS: Pantoprazole 40 mg EC Tab PO SCH (11:55)
[2018-02-13] MEDS ORDERED: Nitroglycerin 50mg in D5W 50 MG/250 ML BOTTLE IV SCH (13:15)
[2018-02-13 13:26] LABS: BASO # 0.1 K/uL (0.0-0.2); EOS # 0.1 K/uL (0.0-0.7)
[2018-02-13 13:39] LABS: PROTHROMBIN TIME 10.6 SECONDS (9.7-12.2)
[2018-02-13 13:50] LABS: BASO % 0.5 % (0.0-2.0); EOS % 0.6 % (0.0-4.0); LYMPH # 3.4 K/uL (1.0-4.3); LYMPH % 15.6 % (20.0-40.0); MEAN CORPUSCULAR HEMOGLOBIN 31.7 pg (27.0-31.0); MEAN PLATELET VOLUME 12.3 fL (7.2-11.7); MONO # 1.6 K/uL (0.0-0.8); MONO % 7.3 % (0.0-10.0); NEUT # 16.4 K/uL (1.8-7.0); NRBC % 0.1 % (0.0-2.0); RBC 3.41 Mil/uL (3.80-5.20); WHITE BLOOD COUNT 21.6 K/uL (4.8-10.8)
[2018-02-13 13:51] LABS: ALB/GLOB RATIO 1.1 (1.0-2.1); ALBUMIN 4.4 g/dL (3.5-5.0); CALCIUM 10.1 mg/dl (8.6-10.4)
[2018-02-13 14:03] LABS: HEMOGLOBIN 10.8 g/dL (11.0-16.0); TROPONIN I 0.129 ng/mL (0.00-0.120)
[2018-02-13] MEDS ORDERED: Paricalcitol 2 mcg/ml Inj IV ONE ×2 (14:40→17:30)
[2018-02-13] MEDS ORDERED: Epoetin Alfa 10,000 unit/ml Dialysis IV ONE ×2 (15:30→17:30)
[2018-02-13] MEDS ORDERED: Epoetin Alfa Dialysis 2000 U/ML Inj IV ONE ×2 (15:30→17:30)
--- NOTE | 2018-02-13 17:02 | CP.PCM.PN ---
Subjective - Date & Time of Evaluation Date of Evaluation: 02/13/18 Time of Evaluation: 17:01 - Subjective Subjective: pt is seen and examined during hd, follow up consult is dictated #[id number] Objective - Vital Signs/Intake and Output Vital Signs (last 24 hours): Temp Pulse Resp BP Pulse Ox 98.2 F 82 17 106/52 L 100 02/13/18 16:00 02/13/18 16:24 02/13/18 16:24 02/13/18 16:45 02/13/18 16:24 Intake and Output: 02/13/18 02/13/18 06:59 18:59 Intake Total 400 3.0 Output Total 900 1500 Balance -500 -1497.0 - Medications Medications: Current Medications Allopurinol (Zyloprim) 100 mg PO DAILY [facility] Last Admin: 02/13/18 11:56 Dose: Not Given Aspirin (Ecotrin) 81 mg PO DAILY [facility] Last Admin: 02/13/18 11:55 Dose: Not Given Calcitriol (Rocaltrol) 0.25 mcg PO DAILY [facility] Last Admin: 02/13/18 11:56 Dose: Not Given Clopidogrel Bisulfate (Plavix) 75 mg PO DAILY [facility] Last Admin: 02/12/18 10:02 Dose: 75 mg Docusate Sodium (Colace) 100 mg PO BID [facility] Last Admin: 02/13/18 09:12 Dose: Not Given Heparin Sodium (Porcine) (Heparin) 5,000 units SC Q8 [facility] Last Admin: 02/12/18 22:11 Dose: 5,000 units Nitroglycerin/Dextrose (Nitroglycerin 50 Mg/250 Ml D5w) 50 mg in 250 mls @ 1.5 mls/hr IV .Q24H [facility]; 5 MCG/MIN PRN Reason: Protocol Last Admin: 02/13/18 13:22 Dose: 5 mcg/min, 1.5 mls/hr Insulin Aspart (Novolog) 0 unit SC ACHS [facility] PRN Reason: Protocol Last Admin: 02/13/18 16:28 Dose: Not Given Pantoprazole Sodium (Protonix Ec Tab) 40 mg PO DAILY [facility] Last Admin: 02/13/18 11:55 Dose: Not Given - Labs Labs: 02/13/18 13:19 02/13/18 13:19 PT 10.6 SECONDS (9.7-12.2) 02/13/18 13:19 INR 1.0 02/13/18 13:19 APTT 48 SECONDS (21-34) H D 02/13/18 13:19
--- NOTE | 2018-02-13 17:07 | RAD ---
HISTORY: penumonia COMPARISON: Portable chest 02/13/2018 2:18 a.m.. FINDINGS: LUNGS: Diminishing reticular markings diffusely. No definite alveolitis. PLEURA: No significant pleural effusion identified, no pneumothorax apparent. CARDIOVASCULAR: Diminished pulmonary vascular markings suggesting improved CHF with cardiomegaly stable. OSSEOUS STRUCTURES: No significant abnormalities. VISUALIZED UPPER ABDOMEN: Normal. OTHER FINDINGS: None. IMPRESSION: Improved CHF pattern.
--- NOTE | 2018-02-13 18:18 | CP.PCM.PN ---
Subjective - Date & Time of Evaluation Date of Evaluation: 02/13/18 Time of Evaluation: 18:12 - Subjective Subjective: Patient developed an acute CHF last night. IVF was held. Lasix 40 mg IVP was given 3 times. Patient now is on BIPAP. Hd was started from a permacath in the groin but had to be stopped after removing about 700 ml. Now the patient is hungry. She denies any chest pain. Echo done on 02/08/2018 revealed an LVEF 45%, a grade II diastolic dysfunction ( pseudonormal mitral inflow pattern) with severe TR, MR and a moderate pulmonary hypertension. All BP meds were held because of low BP. Objective - Vital Signs/Intake and Output Vital Signs (last 24 hours): Temp Pulse Resp BP Pulse Ox 98.2 F 77 21 92/29 L 100 02/13/18 16:00 02/13/18 17:24 02/13/18 17:24 02/13/18 17:30 02/13/18 17:13 Intake and Output: 02/13/18 02/13/18 06:59 18:59 Intake Total 400 3.0 Output Total 900 1700 Balance -500 -1697.0 - Medications Medications: Current Medications Allopurinol (Zyloprim) 100 mg PO DAILY [facility] Last Admin: 02/13/18 11:56 Dose: Not Given Aspirin (Ecotrin) 81 mg PO DAILY [facility] Last Admin: 02/13/18 11:55 Dose: Not Given Calcitriol (Rocaltrol) 0.25 mcg PO DAILY [facility] Last Admin: 02/13/18 11:56 Dose: Not Given Clopidogrel Bisulfate (Plavix) 75 mg PO DAILY [facility] Last Admin: 02/12/18 10:02 Dose: 75 mg Docusate Sodium (Colace) 100 mg PO BID [facility] Last Admin: 02/13/18 09:12 Dose: Not Given Heparin Sodium (Porcine) (Heparin) 5,000 units SC Q8 [facility] Last Admin: 02/12/18 22:11 Dose: 5,000 units Nitroglycerin/Dextrose (Nitroglycerin 50 Mg/250 Ml D5w) 50 mg in 250 mls @ 1.5 mls/hr IV .Q24H [facility]; 5 MCG/MIN PRN Reason: Protocol Last Admin: 02/13/18 13:22 Dose: 5 mcg/min, 1.5 mls/hr Insulin Aspart (Novolog) 0 unit SC ACHS [facility] PRN Reason: Protocol Last Admin: 02/13/18 16:28 Dose: Not Given Pantoprazole Sodium (Protonix Ec Tab) 40 mg PO DAILY [facility] Last Admin: 02/13/18 11:55 Dose: Not Given - Labs Labs: 02/13/18 13:19 02/13/18 13:19 PT 10.6 SECONDS (9.7-12.2) 02/13/18 13:19 INR 1.0 02/13/18 13:19 APTT 48 SECONDS (21-34) H D 02/13/18 13:19 - Constitutional Appears: In Acute Distress, Chronically Ill - Head Exam Head Exam: NORMAL INSPECTION - Eye Exam Eye Exam: Normal appearance - ENT Exam ENT Exam: Normal Exam - Neck Exam Neck Exam: Normal Inspection - Respiratory Exam Respiratory Exam: Rales Additional comments: Rales heard up to mid lung goodman. - Cardiovascular Exam Cardiovascular Exam: REGULAR RHYTHM, Murmur - GI/Abdominal Exam GI & Abdominal Exam: Soft, Normal Bowel Sounds - Rectal Exam Rectal Exam: Deferred - Extremities Exam Extremities Exam: Normal Inspection - Back Exam Back Exam: NORMAL INSPECTION - Neurological Exam Neurological Exam: Alert, Awake, Oriented x3 - Psychiatric Exam Psychiatric exam: Anxious - Skin Skin Exam: Dry, Normal Color, Warm Assessment and Plan (1) Stage 5 chronic kidney disease Status: Acute (2) Insulin dependent diabetes mellitus Status: Chronic (3) Ischemic cardiomyopathy Status: Acute (4) Bradycardia Status: Acute (5) Acute on chronic combined systolic and diastolic CHF (congestive heart failure) Assessment & Plan: To continue to restrict fluid intake, to continue HD if possible. Status: Acute
--- NOTE | 2018-02-14 01:30 | PN ---
DATE: The patient is located in ICU bed 1. Requested by Dr. Joe Etienne. REASON FOR CONSULTATION: Renal failure, for evaluation of initiation of the RN POSTPARTUM, renal replacement therapy. The patient was complaining of shortness of breath, and the patient was given multiple doses of Lasix this morning without significant improvement and initially the patient was reluctant for dialysis. After family discussion by customer service advisor, the patient's family and the patient agreed for hemodialysis, and the customer service advisor placed a Sami catheter in right groin. The patient is being dialyzed. UF goal is about to 1-1.5 liters as tolerated. The patient denies any complaints at this time. PHYSICAL EXAMINATION: VITAL SIGNS: As follows: Blood pressure 103/59, pulse 81, respiration 19, temperature is 98.2, saturation 100%. Height 5 feet, weight is 115 pounds. GENERAL: Mrs. Dsouza is an 87 years elderly female came better, not in distress, being dialyzed. HEENT: Pupils normal, react to light accommodation. Sclera anicteric, conjunctiva pink. Sclerae anicteric. Tongue is moist and trachea is midline. LUNGS: Symmetric on both sides. Bilateral breath sounds present. Occasional basal crackles present. CVS: [place] at the fifth intercostal space, midclavicular line. S1 and S2 audible. No murmur or gallop. ABDOMEN: Slightly distended, soft and nontender. Bowel sounds present. No hepatosplenomegaly. COUNTING MACHINE OPERATOR: The patient is alert, awake, and oriented x3. Nonfocal neuro examination. Cranial nerves II-XII grossly intact. Sensory and motor systems are within normal limits. EXTREMITIES: No cyanosis, no clubbing, no edema. LABORATORY DATA: Include as follows: WBC 21.6, hemoglobin 10.8, hematocrit is 32.8, platelets 143. PT 10.6, PTT 48. Sodium 140, potassium 4.4, chloride 107, CO2 is 23, BUN 83, creatinine 3.2, GFR is 14, glucose 176, calcium 10.1, phosphorus 4.6, magnesium 2.2, total bili 0.6, AST 79, ALT 137, alkaline phos of 132. Troponin 0.12. Total protein 8.3, albumin is 4.4. Other reports: Intake and output in the last 24 hours: Intake is 1650 and output is 1200. Balance is +450. Chest x-ray: As of 02/13/2018: Improved CHF, MRSA screening was negative. In summary, Mrs. Dsouza is an 87-year-old elderly female with a history of hypertension, diabetes, coronary artery disease, status post left carotid endarterectomy, status post ligation of the left upper extremity AV graft, was admitted with shortness of breath and not feeling well and diarrhea and weakness and increased BUN and creatinine. 1. CKD 5 end-stage renal disease, started on hemodialysis today after discussion with the patient's daughter and the patient agreed for the hemodialysis and started on hemodialysis after Sami catheter placement. 2. Hypertension. 3. Diabetes. 4. Anemia secondary to renal failure. 5. Elevated WBC count, etiology is not clear. Check stool for C. difficile toxin, stool culture and ova and parasites and also consider blood cultures and consider IV antibiotics to cover empirically for possible sepsis. We will follow with you. Thank you for allowing me to participate in your patient's care. The patient is being dialyzed and UF goal is about 1-1.5 liters as tolerated. Sergo Carter MD
--- NOTE | 2018-02-14 06:39 | CP.PCM.CON ---
History of Present Illness - History of Present Illness History of Present Illness: Chief complaint: Shortness of breath HPI: 85-year-old female with a history of hypertension end-stage renal disease, diabetes admitted to the hospital with the dizziness and bradycardia. Patient was having episodes of dizziness, and also episodes of bradycardia. 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 While in the ICU patient developed continuous of bradycardia and bigeminy, and she needed immediate attention for heart failure. Patient was also having increasing SOB, she was immediately placed on BiPAP, and she was agreeing finally to have the hemodialysis catheter. Patient had a hemodialysis catheter placed on the right groin, and patient started on hemodialysis. Past medical history: Hypertension, end-stage renal disease, diabetes. Surgical history includes the patient had a nonfunctioning AV fistula. Status post a carotid endarterectomy. Allergies no known drug allergies Personal history: Nonsmoker nonalcoholic Family history significant for hypertension and CAD Review of system: Patient is currently having shortness of breath complaining of minimal chest discomfort, noted. No leg swelling. Complaining of abdominal pain occasionally On examination: Vital signs stable. Chest bilateral diffuse rhonchi and wheezing noted. Delicate heart sound. Nontender abdomen. Edema 1+ bilaterally noted Patient's labs reviewed Elevated BUN/creatinine noted. Chest x-ray showing no evidence of CHF pattern, fluid overload status Patient was given Lasix 40 mg daily Immediately patient was also started on nitroglycerin drip Assessment and recommendation: 87-year-old female with a history of heart failure, hypertension, congestive heart failure, renal insufficiency, atherosclerosis. Patient is currently having worsening renal failure, associated with the fluid overload. Patient is agreeing for the dialysis, will start the dialysis immediately. DVT and GI prophylaxis. BiPAP. Disparity monitoring. ICU monitoring. Spoke to the family in detail. Will follow-up the patient Past Patient History - Infectious Disease Hx of Infectious Diseases: None - Tetanus Immunizations Tetanus Immunization: Unknown - Past Medical History & Family History Past Medical History?: Yes - Past Social History Smoking Status: Never Smoked Alcohol: None Drugs: Denies Home Situation {Lives}: With Family Domestic Violence: Negative - CARDIAC Hx Congestive Heart Failure: Yes Hx Hypercholesterolemia: Yes Hx Hypertension: Yes - PULMONARY Hx Respiratory Disorders: No Hx Pulmonary Edema: Yes - NEUROLOGICAL Hx Neurological Disorder: No - HEENT Hx HEENT Problems: No Hx Cataracts: Yes (3 yrs ago) - RENAL Hx Chronic Kidney Disease: Yes - ENDOCRINE/METABOLIC Hx Diabetes Mellitus Type 1: Yes Hx Diabetes Mellitus Type 2: Yes - HEMATOLOGICAL/ONCOLOGICAL Hx Blood Disorders: No Hx von Willebrand's Disease: No - INTEGUMENTARY Hx Dermatological Problems: No Hx Squamous Cell: No - MUSCULOSKELETAL/RHEUMATOLOGICAL Hx Falls: No - PSYCHIATRIC Hx Anxiety: Yes Hx Substance Use: No - SURGICAL HISTORY Hx Angioplasty: Yes (2010 at [facility]) Hx Cardiac Catheterization: Yes ([address] [facility]) Hx Coronary Stent: Yes - ANESTHESIA Hx Anesthesia: Yes Hx Anesthesia Reactions: No Hx Malignant Hyperthermia: No Meds Allergies/Adverse Reactions: Allergies Allergy/AdvReac Type Severity Reaction Status Date / Time No Known Allergies Allergy Verified 04/23/17 10:59 - Medications Medications: Current Medications Allopurinol (Zyloprim) 100 mg PO DAILY [facility] Last Admin: 02/13/18 11:56 Dose: Not Given Aspirin (Ecotrin) 81 mg PO DAILY [facility] Last Admin: 02/13/18 11:55 Dose: Not Given Calcitriol (Rocaltrol) 0.25 mcg PO DAILY [facility] Last Admin: 02/13/18 11:56 Dose: Not Given Clopidogrel Bisulfate (Plavix) 75 mg PO DAILY [facility] Last Admin: 02/12/18 10:02 Dose: 75 mg Docusate Sodium (Colace) 100 mg PO BID [facility] Last Admin: 02/13/18 18:30 Dose: 100 mg Heparin Sodium (Porcine) (Heparin) 5,000 units SC Q8 [facility] Last Admin: 02/12/18 22:11 Dose: 5,000 units Nitroglycerin/Dextrose (Nitroglycerin 50 Mg/250 Ml D5w) 50 mg in 250 mls @ 1.5 mls/hr IV .Q24H [facility]; 5 MCG/MIN PRN Reason: Protocol Last Titration: 02/13/18 16:30 Dose: 0 mcg/min, 0 mls/hr Insulin Aspart (Novolog) 0 unit SC ACHS [facility] PRN Reason: Protocol Last Admin: 02/13/18 21:16 Dose: Not Given Pantoprazole Sodium (Protonix Ec Tab) 40 mg PO DAILY [facility] Last Admin: 02/13/18 11:55 Dose: Not Given Results - Vital Signs Recent Vital Signs: Last Vital Signs Temp 98.9 F 02/14/18 04:00 Pulse 61 02/14/18 06:06 Resp 16 02/14/18 04:53 BP 148/56 L 02/14/18 04:53 Pulse Ox 100 02/14/18 04:53 - Labs Result Diagrams: 02/13/18 13:19 02/13/18 13:19 Labs: Laboratory Results - last 24 hr 02/13/18 02/13/18 02/13/18 07:22 11:00 13:19 WBC RBC Hgb Hct MCV MCH MCHC RDW Plt Count MPV Neut % (Auto) Lymph % (Auto) Rankin % (Auto) Eos % (Auto) Baso % (Auto) Neut # (Auto) Lymph # (Auto) Rankin # (Auto) Eos # (Auto) Baso # (Auto) PT INR APTT Sodium 148 Potassium 4.4 Chloride 107 Carbon Dioxide 23 Anion Gap 23 H BUN 83 H Creatinine 3.2 H Est GFR ( Amer) 17 Est GFR (Non-Af Amer) 14 POC Glucose (mg/dL) 131 H 154 H Random Glucose 176 H Calcium 10.1 Phosphorus 4.6 H Magnesium 2.2 Total Bilirubin 0.6 AST 79 H ALT 137 H D Alkaline Phosphatase 122 Troponin I 0.1290 H* Total Protein 8.3 Albumin 4.4 Globulin 3.8 Albumin/Globulin Ratio 1.1 02/13/18 02/13/18 02/13/18 13:19 13:19 16:08 WBC 21.6 H D RBC 3.41 L Hgb 10.8 L D Hct 32.8 L MCV 96.0 MCH 31.7 H MCHC 33.0 RDW 14.0 Plt Count 143 MPV 12.3 H Neut % (Auto) 76.0 H Lymph % (Auto) 15.6 L Rankin % (Auto) 7.3 Eos % (Auto) 0.6 Baso % (Auto) 0.5 Neut # (Auto) 16.4 H Lymph # (Auto) 3.4 Rankin # (Auto) 1.6 H Eos # (Auto) 0.1 Baso # (Auto) 0.1 PT 10.6 INR 1.0 APTT 48 H D Sodium Potassium Chloride Carbon Dioxide Anion Gap BUN Creatinine Est GFR ( Amer) Est GFR (Non-Af Amer) POC Glucose (mg/dL) 146 H Random Glucose Calcium Phosphorus Magnesium Total Bilirubin AST ALT Alkaline Phosphatase Troponin I Total Protein Albumin Globulin Albumin/Globulin Ratio 02/13/18 21:01 WBC RBC Hgb Hct MCV MCH MCHC RDW Plt Count MPV Neut % (Auto) Lymph % (Auto) Rankin % (Auto) Eos % (Auto) Baso % (Auto) Neut # (Auto) Lymph # (Auto) Rankin # (Auto) Eos # (Auto) Baso # (Auto) PT INR APTT Sodium Potassium Chloride Carbon Dioxide Anion Gap BUN Creatinine Est GFR ( Amer) Est GFR (Non-Af Amer) POC Glucose (mg/dL) 269 H Random Glucose Calcium Phosphorus Magnesium Total Bilirubin AST ALT Alkaline Phosphatase Troponin I Total Protein Albumin Globulin Albumin/Globulin Ratio
[2018-02-14 06:48] LABS: BASO # 0.1 K/uL (0.0-0.2); BASO % 0.7 % (0.0-2.0); EOS # 0.1 K/uL (0.0-0.7); EOS % 0.3 % (0.0-4.0); HEMOGLOBIN 10.1 g/dL (11.0-16.0); LYMPH # 3.9 K/uL (1.0-4.3); LYMPH % 20.4 % (20.0-40.0); MEAN CELL VOLUME 95.6 fL (81.0-99.0); MEAN CORPUSCULAR HEMOGLOBIN 32.2 pg (27.0-31.0); MEAN CORPUSCULAR HGB CONC 33.7 g/dL (33.0-37.0); MONO # 1.7 K/uL (0.0-0.8); MONO % 9.1 % (0.0-10.0); NEUT # 13.1 K/uL (1.8-7.0); NEUT % 69.5 % (50.0-75.0); RBC 3.12 Mil/uL (3.80-5.20); WHITE BLOOD COUNT 18.9 K/uL (4.8-10.8)
[2018-02-14 07:05] LABS: ALB/GLOB RATIO 1.2 (1.0-2.1); CALCIUM 9.2 mg/dl (8.6-10.4); SQUAMOUS EPITHIAL 1 /hpf (0-5); URINE BILIRUBIN NEGATIVE (NEGATIVE); URINE BLOOD NEGATIVE (NEGATIVE); URINE CLARITY Hazy (Clear); URINE COLOR Yellow (YELLOW); URINE GLUCOSE (UA) 1+ mg/dL (Normal); URINE HYALINE CAST 0-2 /lpf (0-2); URINE LEUKOCYTE ESTERASE NEG Leu/uL (Negative); URINE PROTEIN 2+ mg/dL (NEGATIVE); URINE UROBILINOGEN NORMAL mg/dL (0.2-1.0)
[2018-02-14] MEDS: (Novolog) Insulin Aspart, Recombinant 100 u/ml 10 ml vial SC SCH ×4 (07:30→21:41)
[2018-02-14 08:53] LABS: HEPATITIS B SURFACE AG Negative (NEGATIVE)
[2018-02-14 08:58] LABS: HEPATITIS B CORE AB NEGATIVE (NEGATIVE)
[2018-02-14 09:10] LABS: HEPATITIS C ANTIBODY NEGATIVE (NEGATIVE)
--- NOTE | 2018-02-14 12:22 | CP.PCM.PN ---
Subjective - Date & Time of Evaluation Date of Evaluation: 02/14/18 Time of Evaluation: 12:21 - Subjective Subjective: pt is seen and examined, follow up consult is dictated #[id number] Objective - Vital Signs/Intake and Output Vital Signs (last 24 hours): Temp Pulse Resp BP Pulse Ox 98.2 F 75 18 145/56 L 100 02/14/18 08:00 02/14/18 11:00 02/14/18 11:00 02/14/18 10:45 02/14/18 10:00 Intake and Output: 02/14/18 02/14/18 06:59 18:59 Intake Total 300 200 Output Total 350 300 Balance -50 -100 - Medications Medications: Current Medications Allopurinol (Zyloprim) 100 mg PO DAILY [facility] Last Admin: 02/14/18 10:32 Dose: 100 mg Aspirin (Ecotrin) 81 mg PO DAILY [facility] Last Admin: 02/14/18 10:30 Dose: 81 mg Atropine Sulfate (Atropine) 1 mg IVP Q1H PRN PRN Reason: Heart rate Calcitriol (Rocaltrol) 0.25 mcg PO DAILY [facility] Last Admin: 02/14/18 10:29 Dose: 0.25 mcg Clopidogrel Bisulfate (Plavix) 75 mg PO DAILY [facility] Last Admin: 02/14/18 10:29 Dose: 75 mg Docusate Sodium (Colace) 100 mg PO BID [facility] Last Admin: 02/14/18 10:32 Dose: 100 mg Famotidine (Pepcid) 20 mg PO BID [facility] Last Admin: 02/14/18 10:30 Dose: 20 mg Heparin Sodium (Porcine) (Heparin) 5,000 units SC Q8 [facility] Insulin Aspart (Novolog) 0 unit SC ACHS [facility] PRN Reason: Protocol Last Admin: 02/14/18 07:30 Dose: Not Given Losartan Potassium (Cozaar) 50 mg PO DAILY [facility] Last Admin: 02/14/18 10:30 Dose: 50 mg - Labs Labs: 02/14/18 06:34 02/14/18 06:37 PT 10.6 SECONDS (9.7-12.2) 02/13/18 13:19 INR 1.0 02/13/18 13:19 APTT 48 SECONDS (21-34) H D 02/13/18 13:19
--- NOTE | 2018-02-14 12:33 | CARD ---
APPROVED REPORT EKG Measurement Heart [id number] <Conclusion> Wide QRS rhythm with occasional premature ventricular complexes Left axis deviation Left bundle branch block Abnormal ECG
--- NOTE | 2018-02-14 16:26 | CP.PCM.PN ---
Subjective - Date & Time of Evaluation Date of Evaluation: 02/14/18 Time of Evaluation: 16:21 - Subjective Subjective: Patient seen and examiend at bedside. Patient admitted to [facility] with bradycardia, dizziness dx with sinus node dysfunction Objective - Vital Signs/Intake and Output Vital Signs (last 24 hours): Temp Pulse Resp BP Pulse Ox 98.7 F 60 15 107/41 L 99 02/14/18 16:00 02/14/18 15:38 02/14/18 15:38 02/14/18 15:38 02/14/18 15:38 Intake and Output: 02/14/18 02/14/18 06:59 18:59 Intake Total 300 400 Output Total 350 300 Balance -50 100 - Medications Medications: Current Medications Allopurinol (Zyloprim) 100 mg PO DAILY [facility] Last Admin: 02/14/18 10:32 Dose: 100 mg Aspirin (Ecotrin) 81 mg PO DAILY [facility] Last Admin: 02/14/18 10:30 Dose: 81 mg Atropine Sulfate (Atropine) 1 mg IVP Q1H PRN PRN Reason: Heart rate Calcitriol (Rocaltrol) 0.25 mcg PO DAILY [facility] Last Admin: 02/14/18 10:29 Dose: 0.25 mcg Clopidogrel Bisulfate (Plavix) 75 mg PO DAILY [facility] Last Admin: 02/14/18 10:29 Dose: 75 mg Docusate Sodium (Colace) 100 mg PO BID [facility] Last Admin: 02/14/18 10:32 Dose: 100 mg Famotidine (Pepcid) 20 mg PO BID [facility] Last Admin: 02/14/18 10:30 Dose: 20 mg Heparin Sodium (Porcine) (Heparin) 5,000 units SC Q8 [facility] Last Admin: 02/14/18 13:06 Dose: 5,000 units Insulin Aspart (Novolog) 0 unit SC ACHS [facility] PRN Reason: Protocol Last Admin: 02/14/18 13:06 Dose: 4 unit Losartan Potassium (Cozaar) 50 mg PO DAILY [facility] Last Admin: 02/14/18 10:30 Dose: 50 mg Sitagliptin Phosphate (Januvia) 25 mg PO DAILY [facility] - Labs Labs: 02/14/18 06:34 02/14/18 06:37 PT 10.6 SECONDS (9.7-12.2) 02/13/18 13:19 INR 1.0 02/13/18 13:19 APTT 48 SECONDS (21-34) H D 02/13/18 13:19 - Constitutional Appears: Well, Non-toxic, No Acute Distress - Head Exam Head Exam: ATRAUMATIC, NORMAL INSPECTION, NORMOCEPHALIC - ENT Exam ENT Exam: Mucous Membranes Moist - Respiratory Exam Respiratory Exam: Clear to Ausculation Bilateral, NORMAL BREATHING PATTERN - Cardiovascular Exam Cardiovascular Exam: REGULAR RHYTHM, +S1, +S2, Murmur - GI/Abdominal Exam GI & Abdominal Exam: Normal Bowel Sounds - Extremities Exam Extremities Exam: Normal Inspection Assessment and Plan - Assessment and Plan (Free Text) Assessment: 87 y/o female with pmx of HTN, IDDM, CKD stage IV presents to [facility] for dizziness, and bradycardia. -Bradycardia: telemetry reveals the rhythm to switch from NSR to junctional without peaked T waves, suspect sick sinus syndrome, check lyme and RPR -Leukocytosis: source unknown, continue empirical abx, check vanco level -CKD stage IV: failed AV fistula, HD as per renal -DM: restart januvia, check HBA1c, ISS -continue DVT/PUD ppx -Patient remains hemodynamically stable and will benefit from PPM placement, obtain EP consult
[2018-02-14] MEDS: Piperacill/Tazo 2.25gm in Dex 2.25 GM/50 ML BAG IVPB SCH (17:19)
[2018-02-14] MEDS ORDERED: Vancomycin 750 MG in Dextrose 5% In Water 150 ML IVPB ONE (19:00)
--- NOTE | 2018-02-14 23:35 | CP.PCM.PN ---
Subjective - Date & Time of Evaluation Date of Evaluation: 02/14/18 Time of Evaluation: 14:00 - Subjective Subjective: Patient developed sinus bradycardia again when she was restarted on Coreg. Now has no respiratory distress after IVF was discontinued and was given Lasix IV and had HD yesterday. Will discontinue Coreg and observe before consulting EP. Will need more HD. Since the patient is more stable now, will request Dr Ludwig to place a subclavian Permacath for future HD. Objective - Vital Signs/Intake and Output Vital Signs (last 24 hours): Temp Pulse Resp BP Pulse Ox 97.9 F 55 L 13 122/50 L 100 02/14/18 20:00 02/14/18 23:00 02/14/18 23:00 02/14/18 22:38 02/14/18 23:00 Intake and Output: 02/14/18 02/15/18 18:59 06:59 Intake Total 850 250 Output Total 500 0 Balance 350 250 - Medications Medications: Current Medications Allopurinol (Zyloprim) 100 mg PO DAILY [facility] Last Admin: 02/14/18 10:32 Dose: 100 mg Aspirin (Ecotrin) 81 mg PO DAILY [facility] Last Admin: 02/14/18 10:30 Dose: 81 mg Atropine Sulfate (Atropine) 1 mg IVP Q1H PRN PRN Reason: Heart rate Calcitriol (Rocaltrol) 0.25 mcg PO DAILY [facility] Last Admin: 02/14/18 10:29 Dose: 0.25 mcg Clopidogrel Bisulfate (Plavix) 75 mg PO DAILY [facility] Last Admin: 02/14/18 10:29 Dose: 75 mg Docusate Sodium (Colace) 100 mg PO BID [facility] Last Admin: 02/14/18 18:02 Dose: 100 mg Famotidine (Pepcid) 20 mg PO BID [facility] Last Admin: 02/14/18 18:02 Dose: 20 mg Heparin Sodium (Porcine) (Heparin) 5,000 units SC Q8 [facility] Last Admin: 02/14/18 21:51 Dose: 5,000 units Doxycycline Hyclate 100 mg/ (Sodium Chloride) 100 mls @ 100 mls/hr IVPB Q12H [facility] PRN Reason: Protocol Last Admin: 02/14/18 17:51 Dose: 100 mls/hr Piperacillin Sod/Tazobactam Sod (Zosyn 2.25 Gm Iv Premix) 2.25 gm in 50 mls @ 200 mls/hr IVPB Q8H [facility] PRN Reason: Protocol Last Admin: 02/14/18 17:19 Dose: 200 mls/hr Insulin Aspart (Novolog) 0 unit SC ACHS [facility] PRN Reason: Protocol Last Admin: 02/14/18 21:41 Dose: Not Given Losartan Potassium (Cozaar) 50 mg PO DAILY [facility] Last Admin: 02/14/18 10:30 Dose: 50 mg Sitagliptin Phosphate (Januvia) 25 mg PO DAILY [facility] - Labs Labs: 02/14/18 06:34 02/14/18 06:37 PT 10.6 SECONDS (9.7-12.2) 02/13/18 13:19 INR 1.0 02/13/18 13:19 APTT 48 SECONDS (21-34) H D 02/13/18 13:19 - Constitutional Appears: No Acute Distress, Chronically Ill - Head Exam Head Exam: NORMAL INSPECTION - Eye Exam Eye Exam: Normal appearance - ENT Exam ENT Exam: Normal Exam - Neck Exam Neck Exam: Normal Inspection - Respiratory Exam Additional comments: Few rales at both bases. - Cardiovascular Exam Cardiovascular Exam: REGULAR RHYTHM, Murmur - GI/Abdominal Exam GI & Abdominal Exam: Soft, Normal Bowel Sounds - Rectal Exam Rectal Exam: Deferred - Extremities Exam Extremities Exam: Normal Inspection - Back Exam Back Exam: NORMAL INSPECTION - Neurological Exam Neurological Exam: Alert, Awake, Oriented x3 - Psychiatric Exam Psychiatric exam: Anxious - Skin Skin Exam: Dry, Intact, Normal Color Assessment and Plan (1) Stage 5 chronic kidney disease Assessment & Plan: HD as per shared services representative. Status: Acute (2) Insulin dependent diabetes mellitus Status: Chronic (3) Ischemic cardiomyopathy Status: Acute (4) Bradycardia Assessment & Plan: Now off Coreg. Will observe. Status: Acute (5) Acute on chronic combined systolic and diastolic CHF (congestive heart failure) Assessment & Plan: Resolved now. To continue HD. Status: Acute
[2018-02-15] MEDS: Piperacill/Tazo 2.25gm in Dex 2.25 GM/50 ML BAG IVPB SCH ×3 (00:26→16:42)
[2018-02-15 06:41] LABS: ALB/GLOB RATIO 1.2 (1.0-2.1); ALBUMIN 3.8 g/dL (3.5-5.0); CALCIUM 9.2 mg/dl (8.6-10.4)
[2018-02-15 07:05] LABS: BASO # 0.1 K/uL (0.0-0.2); EOS # 0.2 K/uL (0.0-0.7); EOS % 1.4 % (0.0-4.0); HEMOGLOBIN 9.6 g/dL (11.0-16.0); LYMPH # 2.9 K/uL (1.0-4.3); LYMPH % 23.1 % (20.0-40.0); MEAN CELL VOLUME 95.5 fL (81.0-99.0); MEAN CORPUSCULAR HEMOGLOBIN 32.8 pg (27.0-31.0); MEAN CORPUSCULAR HGB CONC 34.4 g/dL (33.0-37.0); MEAN PLATELET VOLUME 12.5 fL (7.2-11.7); MONO % 8.2 % (0.0-10.0); NEUT # 8.4 K/uL (1.8-7.0); NEUT % 66.3 % (50.0-75.0); NRBC % 0.3 % (0.0-2.0); RBC 2.93 Mil/uL (3.80-5.20); RED CELL DISTRIBUTION WIDTH 14.3 % (11.5-14.5); WHITE BLOOD COUNT 12.6 K/uL (4.8-10.8)
[2018-02-15] MEDS: (Novolog) Insulin Aspart, Recombinant 100 u/ml 10 ml vial SC SCH ×4 (08:02→22:12)
--- NOTE | 2018-02-15 09:31 | PN ---
DATE: 02/14/2018 FOLLOWUP RENAL CONSULTATION LOCATION: ICU bed 12. REQUESTED BY: Dr. Joe Etienne. REASON FOR FOLLOWUP: CKD 5 and shortness of breath for continuation with hemodialysis and initiation. HISTORY OF PRESENT ILLNESS: Mrs. Dsouza is an 87 years old elderly Japanese female with the past medical history significant for long standing hypertension, diabetes, coronary artery disease, status post left carotid endarterectomy, CKD 5, anemia was admitted with chief complaints of feeling weak and tired and history of diarrhea about 1 week prior to the admission and not feeling well. PHYSICAL EXAMINATION: VITAL SIGNS: Blood pressure 124/48, pulse 58, respirations 14, saturation 100% and temperature 98.4. GENERAL: Mrs. Dsouza is an 87 years old elderly female, thin built, not in acute distress. HEENT: Pupils normal and reactive to light and accommodation. Conjunctivae pink. Sclerae anicteric. Tongue is moist. Trachea is midline. LUNGS: Symmetric on both sides. Bilateral breath sounds present. Occasional basal crackles present. CVS: Altheimer at the fifth intercostal space, midclavicular line. S1 and S2 audible. No murmur or gallop. ABDOMEN: Normal in appearance, soft, tympanic. No guarding. No rigidity. No hepatosplenomegaly. 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 Sensory and motor system is within normal limits. EXTREMITIES: No cyanosis, no clubbing. No edema. CURRENT MEDICATIONS: Atropine 1 mg IV p.r.n., Colace 100 mg p.o. b.i.d., losartan 50 mg p.o. daily, doxycycline 100 mg every 12 hours, aspirin 81 mg daily, subq heparin 5000 every 8 hours, Januvia 25 mg p.o. daily, NovoLog for sliding scale, Pepcid 20 mg p.o. b.i.d., Plavix 75 mg daily, Rocaltrol 0.25 mcg p.o. daily, vancomycin 750 IV piggyback x1 dose, Zosyn 2.25 gm IV every 8 hours and allopurinol 100 mg p.o. daily. LABORATORY DATA: WBC 18.9, hemoglobin 10.1, hematocrit is 29.9, platelets 114. Sodium 146, potassium 4.1, chloride 105, CO2 23, BUN 74, creatinine 2.8, glucose 152, calcium 9.2, phosphorus 4.1, magnesium 2.2, total bili 0.7, AST 44, ALT 96, alkaline phosphatase 85, total protein 7.3, albumin is 4 and TSH is 3.17. Urine yellow, hazy, pH 5, specific gravity 1.011 and protein 2+, glucose 1+, ketones negative, blood negative, negative. Leukocyte esterase is negative. Wbc 2, rbc 1. RPR is nonreactive. MRSA screening was negative. Hepatitis B surface antigen negative. Hep B surface antibody is positive. Hepatitis B core antibody IGM is negative. Hep C antibody is negative. RPR is negative. ASSESSMENT AND PLAN: In summary, Mrs. Dsouza is an 87 years old elderly Japanese female with history of hypertension, diabetes, coronary artery disease, status post left carotid endarterectomy, chronic kidney disease stage 5, anemia with worsening renal function started on hemodialysis on Thursday. 1. End-stage renal disease versus acute on chronic kidney disease, stage 5, continue hemodialysis 3 times a week. If the patient's family and the patient agrees, will get a [id number] early next week. 2. Hypertension. 3. Rule out sepsis. PLAN: Follow up blood culture, urine culture, stool for culture and ova parasites, stool C. diff. Continue antibiotics as per ICU team. Thank you for allowing me to participate in your patient's care. Sergo Carter MD
--- NOTE | 2018-02-15 12:35 | CP.CCUPN ---
CCU Subjective - Physician Review Events Since Last Encounter (Free Text): 02/15/18 12:34 The patient today feeling much better. Complaining of pain in the right groin region. Denies any chest pain. Breathing is better. On nasal cannula. CCU Objective - Vital Signs / Intake & Output Vital Signs (Last 4 hours): Vital Signs Temp Pulse Resp BP Pulse Ox 02/15/18 12:00 98.5 F 68 16 99 02/15/18 11:38 77 14 111/60 100 02/15/18 10:38 74 17 159/49 H 100 02/15/18 10:00 73 19 100 02/15/18 09:38 70 19 152/57 H 100 02/15/18 09:13 71 19 114/53 L 100 02/15/18 09:00 71 15 100 02/15/18 08:39 84 19 152/66 H 100 Intake and Output (Last 8hrs): Intake & Output 02/14/18 02/15/18 02/15/18 22:59 06:59 14:59 Intake Total 800 300 350 Output Total 200 450 200 Balance 600 -150 150 Weight 102 lb 12.8 oz Intake: Intake, IV Amount 300 50 50 Right Forearm 300 50 Right Wrist 50 Oral 500 250 300 Output: Urine 200 450 200 Urine, Voided 200 450 200 Other: # Voids Urine, Voided 1 1 - Physical Exam Narrative Physical Exam (Free Text): 02/15/18 12:34 Chest bilateral good air entry no wheezing or rales noted and also nontender abdomen 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 3 in no partial neurological deficit - Medications Active Medications: Active Medications Generic Name Dose Route Start Last Admin Trade Name Freq PRN Reason Stop Dose Admin Acetaminophen 650 mg 02/15/18 09:59 02/15/18 10:28 Tylenol 325mg Tab PO 650 mg Q6 PRN Administration Pain, moderate (4-7) Allopurinol 100 mg 02/12/18 10:00 02/15/18 09:12 Zyloprim PO 100 mg DAILY [facility] Administration Aspirin 81 mg 02/12/18 10:00 02/15/18 09:12 Ecotrin PO 81 mg DAILY [facility] Administration Atropine Sulfate 1 mg 02/14/18 09:44 Atropine IVP Q1H PRN Heart rate Calcitriol 0.25 mcg 02/12/18 10:00 02/15/18 09:12 Rocaltrol PO 0.25 mcg DAILY [facility] Administration Clopidogrel Bisulfate 75 mg 02/14/18 10:00 02/15/18 09:13 Plavix PO 75 mg DAILY [facility] Administration Docusate Sodium 100 mg 02/12/18 10:00 02/15/18 09:13 Colace PO 100 mg BID [facility] Administration Famotidine 20 mg 02/14/18 10:00 02/15/18 09:12 Pepcid PO 20 mg BID [facility] Administration Heparin Sodium (Porcine) 5,000 units 02/14/18 14:00 02/15/18 05:54 Heparin SC 5,000 units Q8 [facility] Administration Doxycycline Hyclate 100 mg/ 100 mls @ 100 mls/hr 02/14/18 18:00 02/15/18 05: 53 Sodium Chloride IVPB 100 mls/hr Q12H [facility] Administration Protocol Piperacillin Sod/Tazobactam Sod 2.25 gm in 50 mls @ 200 mls/hr 02/14/18 17:00 02/15/18 08:05 Zosyn 2.25 Gm Iv Premix IVPB 200 mls/hr Q8H [facility] Administration Protocol Insulin Aspart 0 unit 02/12/18 07:30 02/15/18 12:00 Novolog SC 3 unit ACHS [facility] Administration Protocol Losartan Potassium 50 mg 02/14/18 10:00 02/15/18 09:12 Cozaar PO 50 mg DAILY [facility] Administration Sitagliptin Phosphate 25 mg 02/15/18 10:00 02/15/18 09:12 Januvia PO 25 mg DAILY [facility] Administration - Patient Studies Lab Studies: Microbiology Studies 02/13/18 21:30 Blood Culture - Preliminary Blood NO GROWTH AFTER 24 HOURS 02/13/18 21:00 Blood Culture - Preliminary Blood NO GROWTH AFTER 24 HOURS Lab Studies 02/15/18 02/15/18 02/15/18 Range/Units 11:18 07:20 06:14 WBC (4.8-10.8) K/uL RBC (3.80-5.20) Mil/uL Hgb (11.0-16.0) g/dL Hct (34.0-47.0) % MCV (81.0-99.0) fL MCH (27.0-31.0) pg MCHC (33.0-37.0) g/dL RDW (11.5-14.5) % Plt Count (130-400) K/uL MPV (7.2-11.7) fL Neut % (Auto) (50.0-75.0) % Lymph % (Auto) (20.0-40.0) % Bertie % (Auto) (0.0-10.0) % Eos % (Auto) (0.0-4.0) % Baso % (Auto) (0.0-2.0) % Neut # (Auto) (1.8-7.0) K/uL Lymph # (Auto) (1.0-4.3) K/uL Bertie # (Auto) (0.0-0.8) K/uL Eos # (Auto) (0.0-0.7) K/uL Baso # (Auto) (0.0-0.2) K/uL Sodium 145 (132-148) mmol/L Potassium 3.8 (3.6-5.2) mmol/L Chloride 105 (98-107) mmol/L Carbon Dioxide 24 (22-30) mmol/L Anion Gap 20 (10-20) BUN 69 H (7-17) mg/dL Creatinine 2.7 H (0.7-1.2) mg/dL Est GFR ( Amer) 20 Est GFR (Non-Af Amer) 17 POC Glucose (mg/dL) 266 H 171 H (65-110) mg/dL Random Glucose 216 H (65-105) mg/dL Calcium 9.2 (8.6-10.4) mg/dl Phosphorus 3.1 (2.5-4.5) mg/dL Magnesium 2.3 (1.6-2.3) mg/dL Total Bilirubin 0.5 (0.2-1.3) mg/dL AST 32 (14-36) U/L ALT 73 H D (9-52) U/L Alkaline Phosphatase 118 (38-126) U/L Total Protein 7.1 (6.3-8.3) g/dL Albumin 3.8 (3.5-5.0) g/dL Globulin 3.3 (2.2-3.9) gm/dL Albumin/Globulin Ratio 1.2 (1.0-2.1) RPR (NONREACTIVE) 0502/14/18 02/14/18 Range/Units 06:14 21:33 16:15 WBC 12.6 H (4.8-10.8) K/uL RBC 2.93 L (3.80-5.20) Mil/uL Hgb 9.6 L (11.0-16.0) g/dL Hct 28.0 L (34.0-47.0) % MCV 95.5 (81.0-99.0) fL MCH 32.8 H (27.0-31.0) pg MCHC 34.4 (33.0-37.0) g/dL RDW 14.3 (11.5-14.5) % Plt Count 124 L (130-400) K/uL MPV 12.5 H (7.2-11.7) fL Neut % (Auto) 66.3 (50.0-75.0) % Lymph % (Auto) 23.1 (20.0-40.0) % Bertie % (Auto) 8.2 (0.0-10.0) % Eos % (Auto) 1.4 (0.0-4.0) % Baso % (Auto) 1.0 (0.0-2.0) % Neut # (Auto) 8.4 H (1.8-7.0) K/uL Lymph # (Auto) 2.9 (1.0-4.3) K/uL Bertie # (Auto) 1.0 H (0.0-0.8) K/uL Eos # (Auto) 0.2 (0.0-0.7) K/uL Baso # (Auto) 0.1 (0.0-0.2) K/uL Sodium (132-148) mmol/L Potassium (3.6-5.2) mmol/L Chloride (98-107) mmol/L Carbon Dioxide (22-30) mmol/L Anion Gap (10-20) BUN (7-17) mg/dL Creatinine (0.7-1.2) mg/dL Est GFR ( Amer) Est GFR (Non-Af Amer) POC Glucose (mg/dL) 292 H 127 H (65-110) mg/dL Random Glucose (65-105) mg/dL Calcium (8.6-10.4) mg/dl Phosphorus (2.5-4.5) mg/dL Magnesium (1.6-2.3) mg/dL Total Bilirubin (0.2-1.3) mg/dL AST (14-36) U/L ALT (9-52) U/L Alkaline Phosphatase (38-126) U/L Total Protein (6.3-8.3) g/dL Albumin (3.5-5.0) g/dL Globulin (2.2-3.9) gm/dL Albumin/Globulin Ratio (1.0-2.1) RPR (NONREACTIVE) 02/14/18 Range/Units 13:04 WBC (4.8-10.8) K/uL RBC (3.80-5.20) Mil/uL Hgb (11.0-16.0) g/dL Hct (34.0-47.0) % MCV (81.0-99.0) fL MCH (27.0-31.0) pg MCHC (33.0-37.0) g/dL RDW (11.5-14.5) % Plt Count (130-400) K/uL MPV (7.2-11.7) fL Neut % (Auto) (50.0-75.0) % Lymph % (Auto) (20.0-40.0) % Bertie % (Auto) (0.0-10.0) % Eos % (Auto) (0.0-4.0) % Baso % (Auto) (0.0-2.0) % Neut # (Auto) (1.8-7.0) K/uL Lymph # (Auto) (1.0-4.3) K/uL Bertie # (Auto) (0.0-0.8) K/uL Eos # (Auto) (0.0-0.7) K/uL Baso # (Auto) (0.0-0.2) K/uL Sodium (132-148) mmol/L Potassium (3.6-5.2) mmol/L Chloride (98-107) mmol/L Carbon Dioxide (22-30) mmol/L Anion Gap (10-20) BUN (7-17) mg/dL Creatinine (0.7-1.2) mg/dL Est GFR ( Amer) Est GFR (Non-Af Amer) POC Glucose (mg/dL) (65-110) mg/dL Random Glucose (65-105) mg/dL Calcium (8.6-10.4) mg/dl Phosphorus (2.5-4.5) mg/dL Magnesium (1.6-2.3) mg/dL Total Bilirubin (0.2-1.3) mg/dL AST (14-36) U/L ALT (9-52) U/L Alkaline Phosphatase (38-126) U/L Total Protein (6.3-8.3) g/dL Albumin (3.5-5.0) g/dL Globulin (2.2-3.9) gm/dL Albumin/Globulin Ratio (1.0-2.1) RPR Nonreactive (NONREACTIVE) Laboratory Results - last 24 hr 02/14/18 02/14/18 02/14/18 13:04 16:15 21:33 WBC RBC Hgb Hct MCV MCH MCHC RDW Plt Count MPV Neut % (Auto) Lymph % (Auto) Bertie % (Auto) Eos % (Auto) Baso % (Auto) Neut # (Auto) Lymph # (Auto) Bertie # (Auto) Eos # (Auto) Baso # (Auto) Sodium Potassium Chloride Carbon Dioxide Anion Gap BUN Creatinine Est GFR ( Amer) Est GFR (Non-Af Amer) POC Glucose (mg/dL) 127 H 292 H Random Glucose Calcium Phosphorus Magnesium Total Bilirubin AST ALT Alkaline Phosphatase Total Protein Albumin Globulin Albumin/Globulin Ratio RPR Nonreactive 02/15/18 02/15/18 02/15/18 06:14 06:14 07:20 WBC 12.6 H RBC 2.93 L Hgb 9.6 L Hct 28.0 L MCV 95.5 MCH 32.8 H MCHC 34.4 RDW 14.3 Plt Count 124 L MPV 12.5 H Neut % (Auto) 66.3 Lymph % (Auto) 23.1 Bertie % (Auto) 8.2 Eos % (Auto) 1.4 Baso % (Auto) 1.0 Neut # (Auto) 8.4 H Lymph # (Auto) 2.9 Bertie # (Auto) 1.0 H Eos # (Auto) 0.2 Baso # (Auto) 0.1 Sodium 145 Potassium 3.8 Chloride 105 Carbon Dioxide 24 Anion Gap 20 BUN 69 H Creatinine 2.7 H Est GFR ( Amer) 20 Est GFR (Non-Af Amer) 17 POC Glucose (mg/dL) 171 H Random Glucose 216 H Calcium 9.2 Phosphorus 3.1 Magnesium 2.3 Total Bilirubin 0.5 AST 32 ALT 73 H D Alkaline Phosphatase 118 Total Protein 7.1 Albumin 3.8 Globulin 3.3 Albumin/Globulin Ratio 1.2 RPR 02/15/18 11:18 WBC RBC Hgb Hct MCV MCH MCHC RDW Plt Count MPV Neut % (Auto) Lymph % (Auto) Bertie % (Auto) Eos % (Auto) Baso % (Auto) Neut # (Auto) Lymph # (Auto) Bertie # (Auto) Eos # (Auto) Baso # (Auto) Sodium Potassium Chloride Carbon Dioxide Anion Gap BUN Creatinine Est GFR ( Amer) Est GFR (Non-Af Amer) POC Glucose (mg/dL) 266 H Random Glucose Calcium Phosphorus Magnesium Total Bilirubin AST ALT Alkaline Phosphatase Total Protein Albumin Globulin Albumin/Globulin Ratio RPR Fingerstick Blood Sugar Results: 266 Review of Systems - Review of Systems All systems: reviewed and no additional remarkable complaints except Critical Care Progress Note - Nutrition Nutrition: Nutrition Category Date Time Status Consistent Carbohydrate [DIET] Diets 02/13/18 Dinner Active Assessment/Plan (1) Acute on chronic combined systolic and diastolic CHF (congestive heart failure) Assessment and plan: Patient with acute on chronic renal insufficiency. Patient also had a congestive heart failure with a possible pulmonary edema. Right groin hemodialysis catheter, patient related a permacath possibly place in morning. Will get interventional radiology consult. Possible hematemesis today. Spoke to the procurement manager. Stable clinically, patient can be transferred to telemetry Current Visit: Yes Status: Acute (2) Renal insufficiency Current Visit: Yes Status: Acute
--- NOTE | 2018-02-15 14:44 | CP.PCM.CON ---
History of Present Illness - History of Present Illness History of Present Illness: CARDIAC ELECTROPHYSIOLOGY CONSULT NOTE Reason for consult: bradycardia HPI: Patient is an 87 yo woman with history of chronic diastolic HF with preserved EF; ESRD; chronic LBBB; carotid dz s/p left CEA; HTN; DM; HL; anxiety ; ? EVA; who was admitted for generalized fatigue and dizziness without syncope in the setting of severe anemia and NAYAN. She is now started on hemodialysis. On tele, patient was noted to have junctional rhythm while sleeping with HR down to 20-30 bpm. When awake, her HR improves to 60-70's. EP is now consulted. Patient currently feels well. Denies any SOB, chest pain, palpitations, syncope or presyncope. ROS: as above, otherwise negative PMH: as above SH: no tobacco, no etoh, no drugs FH: no premature CAD Meds: reviewed All: reviewed Past Patient History - Infectious Disease Hx of Infectious Diseases: None - Tetanus Immunizations Tetanus Immunization: Unknown - Past Medical History & Family History Past Medical History?: Yes - Past Social History Smoking Status: Never Smoked Alcohol: None Drugs: Denies Home Situation {Lives}: With Family Domestic Violence: Negative - CARDIAC Hx Congestive Heart Failure: Yes Hx Hypercholesterolemia: Yes Hx Hypertension: Yes - PULMONARY Hx Respiratory Disorders: No Hx Pulmonary Edema: Yes - NEUROLOGICAL Hx Neurological Disorder: No - HEENT Hx HEENT Problems: No Hx Cataracts: Yes (3 yrs ago) - RENAL Hx Chronic Kidney Disease: Yes - ENDOCRINE/METABOLIC Hx Diabetes Mellitus Type 1: Yes Hx Diabetes Mellitus Type 2: Yes - HEMATOLOGICAL/ONCOLOGICAL Hx Blood Disorders: No Hx von Willebrand's Disease: No - INTEGUMENTARY Hx Dermatological Problems: No Hx Squamous Cell: No - MUSCULOSKELETAL/RHEUMATOLOGICAL Hx Falls: No - PSYCHIATRIC Hx Anxiety: Yes Hx Substance Use: No - SURGICAL HISTORY Hx Angioplasty: Yes (2010 at [facility]) Hx Cardiac Catheterization: Yes (2014 at [facility]) Hx Coronary Stent: Yes - ANESTHESIA Hx Anesthesia: Yes Hx Anesthesia Reactions: No Hx Malignant Hyperthermia: No Meds Allergies/Adverse Reactions: Allergies Allergy/AdvReac Type Severity Reaction Status Date / Time No Known Allergies Allergy Verified 04/23/17 10:59 - Medications Medications: Current Medications Acetaminophen (Tylenol 325mg Tab) 650 mg PO Q6 PRN PRN Reason: Pain, moderate (4-7) Last Admin: 02/15/18 10:28 Dose: 650 mg Allopurinol (Zyloprim) 100 mg PO DAILY [facility] Last Admin: 02/15/18 09:12 Dose: 100 mg Aspirin (Ecotrin) 81 mg PO DAILY [facility] Last Admin: 02/15/18 09:12 Dose: 81 mg Atropine Sulfate (Atropine) 1 mg IVP Q1H PRN PRN Reason: Heart rate Calcitriol (Rocaltrol) 0.25 mcg PO DAILY [facility] Last Admin: 02/15/18 09:12 Dose: 0.25 mcg Clopidogrel Bisulfate (Plavix) 75 mg PO DAILY [facility] Last Admin: 02/15/18 09:13 Dose: 75 mg Docusate Sodium (Colace) 100 mg PO BID [facility] Last Admin: 02/15/18 09:13 Dose: 100 mg Epoetin Raza (Procrit) 10,000 unit SC MWF [facility] Famotidine (Pepcid) 20 mg PO BID [facility] Last Admin: 02/15/18 09:12 Dose: 20 mg Heparin Sodium (Porcine) (Heparin) 5,000 units SC Q8 [facility] Last Admin: 02/15/18 14:13 Dose: 5,000 units Doxycycline Hyclate 100 mg/ (Sodium Chloride) 100 mls @ 100 mls/hr IVPB Q12H [facility] PRN Reason: Protocol Last Admin: 02/15/18 05:53 Dose: 100 mls/hr Piperacillin Sod/Tazobactam Sod (Zosyn 2.25 Gm Iv Premix) 2.25 gm in 50 mls @ 200 mls/hr IVPB Q8H [facility] PRN Reason: Protocol Last Admin: 02/15/18 08:05 Dose: 200 mls/hr Insulin Aspart (Novolog) 0 unit SC ACHS [facility] PRN Reason: Protocol Last Admin: 02/15/18 12:00 Dose: 3 unit Losartan Potassium (Cozaar) 50 mg PO DAILY [facility] Last Admin: 02/15/18 09:12 Dose: 50 mg Paricalcitol (Zemplar) 2 mcg IV MWF [facility] Sitagliptin Phosphate (Januvia) 25 mg PO DAILY [facility] Last Admin: 02/15/18 09:12 Dose: 25 mg Physical Exam - Constitutional Appears: Well - Eye Exam Eye Exam: Normal appearance - ENT Exam ENT Exam: Mucous Membranes Moist - Neck Exam Neck exam: Positive for: Normal Inspection - Cardiovascular Exam Cardiovascular Exam: REGULAR RHYTHM, +S1, +S2 - GI/Abdominal Exam GI & Abdominal Exam: Soft. absent: Tenderness - Extremities Exam Extremities exam: Negative for: pedal edema - Neurological Exam Neurological exam: Oriented x3 - Psychiatric Exam Psychiatric exam: Normal Affect Results - Vital Signs Recent Vital Signs: Last Vital Signs Temp 98.5 F 02/15/18 12:00 Pulse 79 02/15/18 13:00 Resp 21 02/15/18 13:00 BP 110/50 L 02/15/18 12:38 Pulse Ox 100 02/15/18 13:00 - Labs Result Diagrams: 02/15/18 06:14 02/15/18 06:14 Labs: Laboratory Results - last 24 hr 02/14/18 02/14/18 02/14/18 13:04 16:15 21:33 WBC RBC Hgb Hct MCV MCH MCHC RDW Plt Count MPV Neut % (Auto) Lymph % (Auto) Sherman % (Auto) Eos % (Auto) Baso % (Auto) Neut # (Auto) Lymph # (Auto) Sherman # (Auto) Eos # (Auto) Baso # (Auto) Sodium Potassium Chloride Carbon Dioxide Anion Gap BUN Creatinine Est GFR ( Amer) Est GFR (Non-Af Amer) POC Glucose (mg/dL) 127 H 292 H Random Glucose Calcium Phosphorus Magnesium Total Bilirubin AST ALT Alkaline Phosphatase Total Protein Albumin Globulin Albumin/Globulin Ratio RPR Nonreactive 02/15/18 02/15/18 02/15/18 06:14 06:14 07:20 WBC 12.6 H RBC 2.93 L Hgb 9.6 L Hct 28.0 L MCV 95.5 MCH 32.8 H MCHC 34.4 RDW 14.3 Plt Count 124 L MPV 12.5 H Neut % (Auto) 66.3 Lymph % (Auto) 23.1 Sherman % (Auto) 8.2 Eos % (Auto) 1.4 Baso % (Auto) 1.0 Neut # (Auto) 8.4 H Lymph # (Auto) 2.9 Sherman # (Auto) 1.0 H Eos # (Auto) 0.2 Baso # (Auto) 0.1 Sodium 145 Potassium 3.8 Chloride 105 Carbon Dioxide 24 Anion Gap 20 BUN 69 H Creatinine 2.7 H Est GFR ( Amer) 20 Est GFR (Non-Af Amer) 17 POC Glucose (mg/dL) 171 H Random Glucose 216 H Calcium 9.2 Phosphorus 3.1 Magnesium 2.3 Total Bilirubin 0.5 AST 32 ALT 73 H D Alkaline Phosphatase 118 Total Protein 7.1 Albumin 3.8 Globulin 3.3 Albumin/Globulin Ratio 1.2 RPR 02/15/18 11:18 WBC RBC Hgb Hct MCV MCH MCHC RDW Plt Count MPV Neut % (Auto) Lymph % (Auto) Sherman % (Auto) Eos % (Auto) Baso % (Auto) Neut # (Auto) Lymph # (Auto) Sherman # (Auto) Eos # (Auto) Baso # (Auto) Sodium Potassium Chloride Carbon Dioxide Anion Gap BUN Creatinine Est GFR ( Amer) Est GFR (Non-Af Amer) POC Glucose (mg/dL) 266 H Random Glucose Calcium Phosphorus Magnesium Total Bilirubin AST ALT Alkaline Phosphatase Total Protein Albumin Globulin Albumin/Globulin Ratio RPR - Impressions Impression: EKG: sinus gildardo to 50 bpm, LBBB, PVC's Assessment & Plan - Assessment and Plan (Free Text) Assessment: 1. Asymptomatic bradycardia while asleep -- She had junctional gildardo to 20-30' s while sleeping, with HR in 50-60's while awake 2. Chronic LBBB 3. NAYAN -- now started on HD 4. Acute on chronic diastolic HF due to ESRD -- LVEF is normal 5. Anemia Plan: 1. Pacemaker not recommended at this time, since her bradycardia occurred while asleep and does not cause any symptoms for her. If she develops any symptoms from this in the future, then a PPM would certainly be advised 2. Of note, her dizziness occurs when moving from a sitting to a standing position, and likely is due to anemia and/or hypotension, and NOT due to bradycardia 3. Hold beta arina for now due to borderline BP 4. Treat ESRD as you are doing General cardiac care per Dr. Mcmahan
[2018-02-15] MEDS ORDERED: Epoetin Alfa 10,000 unit/ml Dialysis SC SCH (22:00)
[2018-02-15] MEDS: Paricalcitol 2 mcg/ml Inj IV SCH (22:31)
--- NOTE | 2018-02-15 23:07 | CP.PCM.PN ---
Subjective - Date & Time of Evaluation Date of Evaluation: 02/15/18 Time of Evaluation: 11:55 - Subjective Subjective: pt is seen and examined, follow up consult is dictated , for hd today#[id number] Objective - Vital Signs/Intake and Output Vital Signs (last 24 hours): Temp Pulse Resp BP Pulse Ox 97.5 F L 76 18 132/63 100 02/15/18 20:00 02/15/18 22:16 02/15/18 22:16 02/15/18 22:16 02/15/18 22:16 Intake and Output: 02/15/18 02/16/18 18:59 06:59 Intake Total 860 0 Output Total 400 Balance 460 0 - Medications Medications: Current Medications Acetaminophen (Tylenol 325mg Tab) 650 mg PO Q6 PRN PRN Reason: Pain, moderate (4-7) Last Admin: 02/15/18 10:28 Dose: 650 mg Allopurinol (Zyloprim) 100 mg PO DAILY [facility] Last Admin: 02/15/18 09:12 Dose: 100 mg Aspirin (Ecotrin) 81 mg PO DAILY [facility] Last Admin: 02/15/18 09:12 Dose: 81 mg Atropine Sulfate (Atropine) 1 mg IVP Q1H PRN PRN Reason: Heart rate Calcitriol (Rocaltrol) 0.25 mcg PO DAILY [facility] Last Admin: 02/15/18 09:12 Dose: 0.25 mcg Clopidogrel Bisulfate (Plavix) 75 mg PO DAILY [facility] Last Admin: 02/15/18 09:13 Dose: 75 mg Docusate Sodium (Colace) 100 mg PO BID [facility] Last Admin: 02/15/18 17:52 Dose: 100 mg Epoetin Raza (Procrit) 10,000 unit SC MWF [facility] Last Admin: 02/15/18 22:26 Dose: 10,000 unit Famotidine (Pepcid) 20 mg PO BID [facility] Last Admin: 02/15/18 17:52 Dose: 20 mg Heparin Sodium (Porcine) (Heparin) 5,000 units SC Q8 [facility] Last Admin: 02/15/18 22:13 Dose: 5,000 units Doxycycline Hyclate 100 mg/ (Sodium Chloride) 100 mls @ 100 mls/hr IVPB Q12H [facility] PRN Reason: Protocol Last Admin: 02/15/18 17:53 Dose: 100 mls/hr Piperacillin Sod/Tazobactam Sod (Zosyn 2.25 Gm Iv Premix) 2.25 gm in 50 mls @ 200 mls/hr IVPB Q8H [facility] PRN Reason: Protocol Last Admin: 02/15/18 16:42 Dose: 200 mls/hr Insulin Aspart (Novolog) 0 unit SC ACHS [facility] PRN Reason: Protocol Last Admin: 02/15/18 22:12 Dose: 1 unit Losartan Potassium (Cozaar) 50 mg PO DAILY [facility] Last Admin: 02/15/18 09:12 Dose: 50 mg Paricalcitol (Zemplar) 2 mcg IV MWF [facility] Last Admin: 02/15/18 22:31 Dose: 2 mcg Sitagliptin Phosphate (Januvia) 25 mg PO DAILY [facility] Last Admin: 02/15/18 09:12 Dose: 25 mg - Labs Labs: 02/15/18 06:14 02/15/18 06:14 PT 10.6 SECONDS (9.7-12.2) 02/13/18 13:19 INR 1.0 02/13/18 13:19 APTT 48 SECONDS (21-34) H D 02/13/18 13:19
--- NOTE | 2018-02-15 23:51 | CP.PCM.PN ---
Subjective - Date & Time of Evaluation Date of Evaluation: 02/15/18 Time of Evaluation: 13:20 - Subjective Subjective: Patient in no acute respiratory distress, but still with poor appetite. She was evaluated by Dr Garsia a severe bradycardia during: no indication for a permanent pacemaker placemement. Will consult IR for a Permacath placement. Objective - Vital Signs/Intake and Output Vital Signs (last 24 hours): Temp Pulse Resp BP Pulse Ox 97.6 F 76 16 156/70 H 100 02/15/18 23:00 02/15/18 23:00 02/15/18 23:00 02/15/18 23:00 02/15/18 23:00 Intake and Output: 02/15/18 02/16/18 18:59 06:59 Intake Total 860 100 Output Total 400 Balance 460 100 - Medications Medications: Current Medications Acetaminophen (Tylenol 325mg Tab) 650 mg PO Q6 PRN PRN Reason: Pain, moderate (4-7) Last Admin: 02/15/18 10:28 Dose: 650 mg Allopurinol (Zyloprim) 100 mg PO DAILY [facility] Last Admin: 02/15/18 09:12 Dose: 100 mg Aspirin (Ecotrin) 81 mg PO DAILY [facility] Last Admin: 02/15/18 09:12 Dose: 81 mg Atropine Sulfate (Atropine) 1 mg IVP Q1H PRN PRN Reason: Heart rate Calcitriol (Rocaltrol) 0.25 mcg PO DAILY [facility] Last Admin: 02/15/18 09:12 Dose: 0.25 mcg Clopidogrel Bisulfate (Plavix) 75 mg PO DAILY [facility] Last Admin: 02/15/18 09:13 Dose: 75 mg Docusate Sodium (Colace) 100 mg PO BID [facility] Last Admin: 02/15/18 17:52 Dose: 100 mg Epoetin Raza (Procrit) 10,000 unit SC MWF [facility] Last Admin: 02/15/18 22:26 Dose: 10,000 unit Famotidine (Pepcid) 20 mg PO BID [facility] Last Admin: 02/15/18 17:52 Dose: 20 mg Heparin Sodium (Porcine) (Heparin) 5,000 units SC Q8 [facility] Last Admin: 02/15/18 22:13 Dose: 5,000 units Doxycycline Hyclate 100 mg/ (Sodium Chloride) 100 mls @ 100 mls/hr IVPB Q12H [facility] PRN Reason: Protocol Last Admin: 02/15/18 17:53 Dose: 100 mls/hr Piperacillin Sod/Tazobactam Sod (Zosyn 2.25 Gm Iv Premix) 2.25 gm in 50 mls @ 200 mls/hr IVPB Q8H [facility] PRN Reason: Protocol Last Admin: 02/15/18 16:42 Dose: 200 mls/hr Insulin Aspart (Novolog) 0 unit SC ACHS [facility] PRN Reason: Protocol Last Admin: 02/15/18 22:12 Dose: 1 unit Losartan Potassium (Cozaar) 50 mg PO DAILY [facility] Last Admin: 02/15/18 09:12 Dose: 50 mg Paricalcitol (Zemplar) 2 mcg IV MWF [facility] Last Admin: 02/15/18 22:31 Dose: 2 mcg Sitagliptin Phosphate (Januvia) 25 mg PO DAILY [facility] Last Admin: 02/15/18 09:12 Dose: 25 mg - Labs Labs: 02/15/18 06:14 02/15/18 06:14 PT 10.6 SECONDS (9.7-12.2) 02/13/18 13:19 INR 1.0 02/13/18 13:19 APTT 48 SECONDS (21-34) H D 02/13/18 13:19 - Constitutional Appears: No Acute Distress, Chronically Ill - Head Exam Head Exam: NORMAL INSPECTION - Eye Exam Eye Exam: Normal appearance - ENT Exam ENT Exam: Normal Exam - Respiratory Exam Additional comments: Few crackles right base. - Cardiovascular Exam Cardiovascular Exam: REGULAR RHYTHM, Murmur - GI/Abdominal Exam GI & Abdominal Exam: Soft, Normal Bowel Sounds - Extremities Exam Extremities Exam: Normal Inspection - Back Exam Back Exam: NORMAL INSPECTION - Neurological Exam Neurological Exam: Alert, Awake, Oriented x3 - Psychiatric Exam Psychiatric exam: Anxious - Skin Skin Exam: Dry, Intact, Normal Color, Warm Assessment and Plan (1) Stage 5 chronic kidney disease Assessment & Plan: To continue HD as per Senior Underwriting Assistant. For a Permacath placement. Status: Acute (2) Insulin dependent diabetes mellitus Status: Chronic (3) Ischemic cardiomyopathy Status: Acute (4) Bradycardia Assessment & Plan: No permanent pacemaker indicated. Status: Acute (5) Acute on chronic combined systolic and diastolic CHF (congestive heart failure) Status: Resolved
--- NOTE | 2018-02-16 04:31 | PN ---
DATE: 02/15/2018 FOLLOWUP RENAL CONSULTATION The patient is located in room 556, bed A REQUESTED BY: Dr. Joe Etienne REASON FOR FOLLOWUP: End-stage renal disease, continuation with hemodialysis. HISTORY OF PRESENT ILLNESS: Mrs. Dsouza is an 87-year-old elderly female with past medical history significant for longstanding hypertension, diabetes, CHF, coronary artery disease, status post left carotid endarterectomy, status post ligation of the left upper extremity AV fistula due to steal syndrome, was admitted with also not feeling well and weakness and found to have increased BUN and creatinine and also elevated WBC count. Was started on hemodialysis and also was started on multiple antibiotics by elevator constructor Dr. Margy Padron. The patient is not in acute distress this morning, feeling better. No chest pain. No palpitation. No fever. No cough. No abdominal pain. No nausea, vomiting. No diarrhea. PHYSICAL EXAMINATION: VITAL SIGNS: Her vital signs this morning as follows: Blood pressure this morning 114/53, pulse 71, respirations about 15, saturation 100%, and temperature is 98.4, height 5 feet, weight is 102 pounds. GENERAL: Mrs. Dsouza is an 87-year-old elderly female, thin-built, not in acute distress. HEENT: Pupils normally reactive to light and accommodation. Conjunctivae pink. Sclerae anicteric. Tongue is moist and trachea is midline. LUNGS: Symmetric on both sides. Bilateral breath sounds present. Occasional basal crackles present. CVS: [place] at the fifth intercostal space, midclavicular area. S1, S2 audible. No murmur or gallop. ABDOMEN: Normal in appearance. Soft, tympanic. No guarding. No hepatosplenomegaly. BELLHOP SERVICE CAPTAIN:. The patient is alert, awake, and oriented x2 to 3. Sensory and motor system grossly within normal limits. EXTREMITIES: No cyanosis, no clubbing, no edema. CURRENT MEDICATIONS: Include as follows: Atropine 1 mg IV. q.1 h. p.r.n., Colace 100 mg p.o. b.i.d., losartan 50 mg p.o. daily, doxycycline 100 mg q.12 h., aspirin 81 mg daily, heparin 5000 units subcu q.8 h., NovoLog for sliding scale, Pepcid 20 mg p.o. b.i.d., Plavix 75 mg daily, Procrit 10,000 units subcu 3 times a week, Rocaltrol 0.25 mcg daily, Tylenol, Zemplar 2 mcg 3 times a week, Zosyn 2.25 g IV q.8 h., allopurinol 100 mg p.o. daily. LABORATORY DATA: Include as follows as of 02/15/2018: WBC 12.6, hemoglobin 9.6, hematocrit is 28, platelets 124. Sodium is 145, potassium 3.8, chloride 105, CO2 24, BUN 69, creatinine 2.7, glucose , calcium 9.22, phosphorus 3.1, magnesium 2.3. Total bili 0.5, AST 32, ALT 73, alkaline phosphatase 118, total protein 7.1, albumin 3.8. MRSA screening was negative and blood culture x2 was negative and urine culture, 10,000 to 50,000 colony forming units per mL, multiple species. IMPRESSION/PLAN: In summary, Mrs. Dsouza is an 87-year-old elderly [place] female with hypertension, diabetes, coronary artery disease, congestive heart failure, status post left carotid endarterectomy, status post ligation of the left upper extremity arteriovenous graft for steal syndrome with increased BUN, creatinine, low hemoglobin and hematocrit and increased white blood cell count. 1. End-stage renal disease. Continue hemodialysis 3 times a week. The patient is being dialyzed through a right femoral vein catheter. Consider to discontinue femoral catheter after dialysis, and we will request Interventional Radiology for PermCath placement as suggested by Dr. Spivey. 2. Anemia secondary to renal failure, rule out iron deficiency anemia. 3. Elevated white blood cell count. The etiology is not clear, rule out intraabdominal source. White blood cell count is improving with intravenous antibiotics. All the cultures are negative so far. 4. Hypertension. Blood pressure is improving. 5. Diabetes. Sugars are under control at this time. Continue to monitor electrolytes and check hemoglobin A1c and also fasting lipid profile. We will follow with you. Thank you for allowing me to participate in your patient's care. Discussed with Dr. Spivey, Dr. Etienne, and also Dr. Florentino in rounds. Sergo Carter MD
[2018-02-16 07:18] LABS: MEAN CORPUSCULAR HEMOGLOBIN 32.4 pg (27.0-31.0); MEAN CORPUSCULAR HGB CONC 33.8 g/dL (33.0-37.0); MEAN PLATELET VOLUME 11.3 fL (7.2-11.7); RBC 2.79 Mil/uL (3.80-5.20); WHITE BLOOD COUNT 12.3 K/uL (4.8-10.8)
[2018-02-16 07:46] LABS: ALB/GLOB RATIO 1.1 (1.0-2.1); ALBUMIN 3.6 g/dL (3.5-5.0); CALCIUM 8.8 mg/dl (8.6-10.4)
[2018-02-16] MEDS: (Novolog) Insulin Aspart, Recombinant 100 u/ml 10 ml vial SC SCH ×4 (08:29→22:03)
[2018-02-16] MEDS: Piperacill/Tazo 2.25gm in Dex 2.25 GM/50 ML BAG IVPB SCH ×3 (10:32→16:40)
--- NOTE | 2018-02-16 11:29 | CP.PCM.PN ---
Subjective - Date & Time of Evaluation Date of Evaluation: 02/16/18 Time of Evaluation: 11:28 - Subjective Subjective: pt is seen and examined, follow up consult is dictated #[id number] for hd in am, perma cath today by IR Objective - Vital Signs/Intake and Output Vital Signs (last 24 hours): Temp Pulse Resp BP Pulse Ox 98.4 F 83 18 146/73 99 02/16/18 07:15 02/16/18 07:15 02/16/18 07:15 02/16/18 09:58 02/16/18 07:15 Intake and Output: 02/16/18 02/16/18 06:59 18:59 Intake Total 100 Balance 100 - Medications Medications: Current Medications Acetaminophen (Tylenol 325mg Tab) 650 mg PO Q6 PRN PRN Reason: Pain, moderate (4-7) Last Admin: 02/15/18 10:28 Dose: 650 mg Allopurinol (Zyloprim) 100 mg PO DAILY [facility] Last Admin: 02/16/18 09:57 Dose: 100 mg Aspirin (Ecotrin) 81 mg PO DAILY [facility] Last Admin: 02/16/18 09:57 Dose: 81 mg Atropine Sulfate (Atropine) 1 mg IVP Q1H PRN PRN Reason: Heart rate Calcitriol (Rocaltrol) 0.25 mcg PO DAILY [facility] Last Admin: 02/16/18 09:58 Dose: 0.25 mcg Clopidogrel Bisulfate (Plavix) 75 mg PO DAILY [facility] Last Admin: 02/16/18 09:57 Dose: 75 mg Docusate Sodium (Colace) 100 mg PO BID [facility] Last Admin: 02/16/18 09:58 Dose: 100 mg Epoetin Raza (Procrit) 10,000 unit SC MWF [facility] Last Admin: 02/15/18 22:26 Dose: 10,000 unit Famotidine (Pepcid) 20 mg PO BID [facility] Last Admin: 02/16/18 09:58 Dose: 20 mg Heparin Sodium (Porcine) (Heparin) 5,000 units SC Q8 [facility] Last Admin: 02/16/18 05:09 Dose: 5,000 units Doxycycline Hyclate 100 mg/ (Sodium Chloride) 100 mls @ 100 mls/hr IVPB Q12H [facility] PRN Reason: Protocol Last Admin: 02/16/18 05:10 Dose: 100 mls/hr Piperacillin Sod/Tazobactam Sod (Zosyn 2.25 Gm Iv Premix) 2.25 gm in 50 mls @ 200 mls/hr IVPB Q8H [facility] PRN Reason: Protocol Last Admin: 02/16/18 10:32 Dose: 200 mls/hr Insulin Aspart (Novolog) 0 unit SC ACHS [facility] PRN Reason: Protocol Last Admin: 02/16/18 08:29 Dose: 1 unit Losartan Potassium (Cozaar) 50 mg PO DAILY [facility] Last Admin: 02/16/18 09:58 Dose: 50 mg Paricalcitol (Zemplar) 2 mcg IV MWF [facility] Last Admin: 02/15/18 22:31 Dose: 2 mcg Sitagliptin Phosphate (Januvia) 25 mg PO DAILY [facility] Last Admin: 02/16/18 09:58 Dose: 25 mg - Labs Labs: 02/16/18 07:13 02/16/18 07:13 PT 10.6 SECONDS (9.7-12.2) 02/13/18 13:19 INR 1.0 02/13/18 13:19 APTT 48 SECONDS (21-34) H D 02/13/18 13:19
[2018-02-16] MEDS ORDERED: ceFAZolin 1 gm in NS 1 GM/100 ML BAG IVPB ONE (11:58)
[2018-02-16] MEDS ORDERED: Lidocaine 2% MPF (5 ml) Inj ONE (11:59)
--- NOTE | 2018-02-16 12:36 | PCM.SURG1 ---
Surgeon's Initial Post Op Note - Surgeon's Notes Surgeon: Emir Guardado MD Chief Wheelage Clerk: NONE Type of Anesthesia: Moderate Sedation{RN} Pre-Operative Diagnosis: Renal failure Operative Findings: US showed a patent right IJV Post-Operative Diagnosis: Renal failure Operation Performed: Tunneled HD catheter placement right IJV. Removal of right femoral HD catheter. Specimen/Specimens Removed: none Estimated Blood Loss: EBL {In ML}: 5 Blood Products Given: N/A Drains Used: No Drains Post-Op Condition: Fair Date of Surgery/Procedure: 02/16/18 Time of Surgery/Procedure: 12:35
--- NOTE | 2018-02-16 14:18 | SPECPROC ---
PROCEDURE: Date of procedure: 02/16/2018 Procedure: 1. Placement of right IJ tunneled hemodialysis catheter, CPT 70959 Medications: 8cc 1 percent lidocaine, IV sedation and physiologic monitoring performed by the interventional radiology nurse. EBL: 5 cm Radiation: 1.07 mGy Fluoro time: 8.6 seconds Images: 2 HISTORY: Renal failure requiring hemodialysis TECHNIQUE: Following informed consent and procedure time-out, the patient was placed supine on the interventional table and the skin was marked . A limited ultrasound patient's right neck showed a patent compressible right internal jugular vein. Under direct ultrasound guidance, the right internal jugular vein was accessed with micropuncture technique and a guidewire was advanced under fluoroscopic guidance into the superior vena cava. An image documenting ultrasound guidance for vascular access was permanently saved. A 19 centimeter cuff to tip hemodialysis catheter was then tunneled under the skin and hold the venotomy site. The venotomy was then serially dilated to accommodate the peel-away sheath. The hemodialysis catheter was then advanced through a peel-away sheath. The catheter is positioned with tip in the superior vena cava confirm with fluoroscopic image. The catheter was tested and has adequate blood flow for hemodialysis. The catheter was flushed and locked with heparin per specified amount. The catheter secured to the skin with a 0 silk suture. IMPRESSION: Placement of right tunneled [id number] cm cuff-to-tip catheter The catheter tip is confirmed with spot radiograph and is in the superior vena cava. The catheter is functional and ready for use.
--- NOTE | 2018-02-16 15:11 | CARD ---
APPROVED REPORT EKG Measurement Heart [id number] CT 180P-78 [id number] <Conclusion> Unusual P axis, possible ectopic atrial rhythm Left axis deviation Left bundle branch block Abnormal ECG
--- NOTE | 2018-02-16 23:41 | CP.PCM.PN ---
Subjective - Date & Time of Evaluation Date of Evaluation: 02/16/18 Time of Evaluation: 15:00 - Subjective Subjective: Patient has less sob, with better appetite. Had Permacath inserted by Dr Truong( IR ). Will ask for subacute rehab eval. Objective - Vital Signs/Intake and Output Vital Signs (last 24 hours): Temp Pulse Resp BP Pulse Ox 97.7 F 87 20 161/76 H 96 02/16/18 16:00 02/16/18 16:00 02/16/18 16:00 02/16/18 16:00 02/16/18 16:00 Intake and Output: 02/16/18 02/17/18 18:59 06:59 Intake Total 170 Balance 170 - Medications Medications: Current Medications Acetaminophen (Tylenol 325mg Tab) 650 mg PO Q6 PRN PRN Reason: Pain, moderate (4-7) Last Admin: 02/15/18 10:28 Dose: 650 mg Allopurinol (Zyloprim) 100 mg PO DAILY [facility] Last Admin: 02/16/18 09:57 Dose: 100 mg Aspirin (Ecotrin) 81 mg PO DAILY [facility] Last Admin: 02/16/18 09:57 Dose: 81 mg Atropine Sulfate (Atropine) 1 mg IVP Q1H PRN PRN Reason: Heart rate Clopidogrel Bisulfate (Plavix) 75 mg PO DAILY [facility] Last Admin: 02/16/18 09:57 Dose: 75 mg Docusate Sodium (Colace) 100 mg PO BID [facility] Last Admin: 02/16/18 18:13 Dose: 100 mg Epoetin Raza (Procrit) 10,000 unit SC MWF [facility] Last Admin: 02/15/18 22:26 Dose: 10,000 unit Famotidine (Pepcid) 20 mg PO BID [facility] Last Admin: 02/16/18 18:13 Dose: 20 mg Heparin Sodium (Porcine) (Heparin) 5,000 units SC Q8 [facility] Last Admin: 02/16/18 22:02 Dose: 5,000 units Doxycycline Hyclate 100 mg/ (Sodium Chloride) 100 mls @ 100 mls/hr IVPB Q12H [facility] PRN Reason: Protocol Last Admin: 02/16/18 18:14 Dose: 100 mls/hr Piperacillin Sod/Tazobactam Sod (Zosyn 2.25 Gm Iv Premix) 2.25 gm in 50 mls @ 200 mls/hr IVPB Q8H [facility] PRN Reason: Protocol Last Admin: 02/16/18 16:40 Dose: 200 mls/hr Insulin Aspart (Novolog) 0 unit SC ACHS [facility] PRN Reason: Protocol Last Admin: 02/16/18 22:03 Dose: Not Given Losartan Potassium (Cozaar) 50 mg PO DAILY [facility] Last Admin: 02/16/18 09:58 Dose: 50 mg Paricalcitol (Zemplar) 2 mcg IV MWF [facility] Last Admin: 02/15/18 22:31 Dose: 2 mcg Sitagliptin Phosphate (Januvia) 25 mg PO DAILY [facility] Last Admin: 02/16/18 09:58 Dose: 25 mg - Labs Labs: 02/16/18 07:13 02/16/18 07:13 PT 10.6 SECONDS (9.7-12.2) 02/13/18 13:19 INR 1.0 02/13/18 13:19 APTT 48 SECONDS (21-34) H D 02/13/18 13:19 - Constitutional Appears: No Acute Distress, Chronically Ill - Head Exam Head Exam: NORMAL INSPECTION - Eye Exam Eye Exam: Normal appearance - ENT Exam ENT Exam: Normal Exam - Neck Exam Neck Exam: Normal Inspection - Respiratory Exam Additional comments: Few crackles at the right base. - Cardiovascular Exam Cardiovascular Exam: REGULAR RHYTHM, Murmur - GI/Abdominal Exam GI & Abdominal Exam: Soft, Normal Bowel Sounds - Rectal Exam Rectal Exam: Deferred - Extremities Exam Extremities Exam: Normal Inspection - Back Exam Back Exam: NORMAL INSPECTION - Neurological Exam Neurological Exam: Alert, Awake, Oriented x3 - Psychiatric Exam Psychiatric exam: Anxious - Skin Skin Exam: Dry, Intact, Normal Color Assessment and Plan (1) Stage 5 chronic kidney disease Assessment & Plan: To continue HD as per Clamp Jig Assembler. Status: Acute (2) Insulin dependent diabetes mellitus Status: Chronic (3) Ischemic cardiomyopathy Status: Chronic (4) Bradycardia Status: Acute (5) Acute on chronic combined systolic and diastolic CHF (congestive heart failure) Status: Resolved
--- NOTE | 2018-02-17 01:06 | PN ---
DATE: 02/16/2018 Seen by me at 7:30 p.m. SUBJECTIVE: The patient is comfortably sleeping at this time. The patient received permanent hemodialysis catheter through the right internal jugular vein by interventional radiologist. Minimal oozing noted. The patient is not in any distress. She is currently on room air without any distress. PHYSICAL EXAMINATION: VITAL SIGNS: Temperature 98.5, pulse 80, blood pressure 161/76, respirations 20, saturation is 96% on room air. GENERAL: Clinically, the patient is otherwise stable. CHEST: Bilateral good air entry. HEART: Regular heart sounds. ABDOMEN: Nontender abdomen. EXTREMITIES: No pedal edema. CERAMIC MOLD DESIGNER: Alert, awake, oriented x3. No functional neurological deficits. LABORATORY DATA: Chest x-ray which was done during the last time on 02/13/2018, showing evidence of mild pulmonary congestion, but dialysis x-ray is nonspecific. ASSESSMENT AND RECOMMENDATIONS: Mrs. Annie Dsouza is an 87-year-old female with history of coronary artery disease, percutaneous transluminal coronary angioplasty, cardiomyopathy, congestive heart failure, hypertension, acute on chronic renal failure, admitted with fluid overload, bradycardia, currently doing well. Continue the current treatment. The patient may have sleep apnea and associated bradycardia, which will be needing evaluation as an outpatient. We will follow up the patient. Luis Florentino MD
[2018-02-17] MEDS: Piperacill/Tazo 2.25gm in Dex 2.25 GM/50 ML BAG IVPB SCH ×3 (01:33→17:00)
--- NOTE | 2018-02-17 03:12 | PN ---
DATE: 02/16/2018 FOLLOWUP RENAL CONSULTATION LOCATION: Room 556 bed A. REQUESTED BY: Dr. Joe Etienne. REASON FOR FOLLOWUP: End-stage renal disease, continuation with hemodialysis. HISTORY OF PRESENT ILLNESS: Mrs. Dsouza is an 87-year-old elderly Burkinan female with a past medical history significant for longstanding hypertension, diabetes, chronic kidney disease stage 5, CHF, coronary artery disease status post left carotid endarterectomy was admitted with feeling weak and tired and also increased BUN and creatinine and elevated WBC count, status post diarrhea one week prior to the admission. Denies any nausea or vomiting. The patient does complain of poor appetite. Started on hemodialysis, received two treatments on Thursday and also on Thursday. The patient is scheduled for the Perm-A-Cath placement today by interventional radiologist. The patient is not in any acute distress. Denies any headache, dizziness. Denies any chest pain or palpitation. Denies any fever or cough. No abdominal pain. No nausea, vomiting, diarrhea. PHYSICAL EXAMINATION: VITAL SIGNS: Blood pressure this morning 146/73, pulse 81, respirations 20, temperature 98.5, saturation 97%. Height 5 feet, weight is 102 pounds. GENERAL: Mrs. Dsouza is an 87 years old elderly female, thin built, not in acute distress. HEENT: Pupils normal, react to light and accommodation. Conjunctivae slightly pale. Sclerae anicteric. Tongue is moist and trachea is midline. LUNGS: Symmetric on both sides. Bilateral breath sounds present. Occasional basal crackles present. CVS: [place] at the fifth intercostal space, midclavicular line. S1 and S2 audible. No murmur or gallop. ABDOMEN: Normal in appearance, soft, tympanic. No guarding, no rigidity. No hepatosplenomegaly. CARE SPECIALIST: The patient is alert, awake, oriented x2-3. Sensory and motor system is within normal limits. EXTREMITIES: No cyanosis, no clubbing. No edema. CURRENT MEDICATIONS: Colace 100 mg p.o. three times daily., losartan 50 mg p.o. daily, doxycycline 100 mg p.o. every 12 hours, aspirin 81 mg daily, subcu heparin 5000 units every 8 hours, Januvia 25 mg p.o. daily, NovoLog, Pepcid 20 mg p.o. b.i.d., Plavix 75 mg p.o. daily, Epogen 10,000 units three times a week Thursday, Thursday and Thursday, calcitriol 0.25 mcg p.o. daily, Tylenol, Zemplar 2 mcg three times a week Thursday, Thursday and Thursday and Zosyn 2.25 gm IV every 8 hours and allopurinol 100 mg p.o. daily. LABORATORY DATA: As of 02/16/2018; WBC 12.3, hemoglobin 9, hematocrit is 26.7, platelets of 122. Sodium 144, potassium 3.8, chloride 107, CO2 23, BUN 35, creatinine 2, glucose 156, calcium 8.8. Total bili 0.5, AST 27, ALT 52, alkaline phosphatase 99, total protein 6.9, albumin is 3.2 and triglycerides 271 and cholesterol is 152, LDL is 75, HDL is 27. Blood culture x2 negative day three. Urine culture is 10,000 to 50,000 colony forming units, multiple species, probably contamination. MRSA screen was negative on 02/12/2018. ASSESSMENT: In summary, Mrs. Dsouza is about 87 years old, elderly very pleasant Burkinan female with a history of hypertension, diabetes, chronic kidney disease stage 5, anemia, status post left carotid endarterectomy status post ligation of the left upper extremity arteriovenous fistula secondary to steal syndrome was admitted with weakness and increasing BUN and creatinine and low H and H and also high WBC count, status post diarrhea one week prior to the admission. 1. End-stage renal disease. Continue hemodialysis three times a week Thursday, Thursday and Thursday and we will try to refer to the outpatient hemodialysis unit and may benefit from the subacute rehab placement also for the physical therapy and ambulation. 2. Anemia secondary to chronic kidney disease, rule out iron-deficiency anemia. 3. Hypertension. 4. Status post congestive heart failure. 5. Elevated WBC count, etiology is not clear, rule out gastrointestinal cause or rule out sepsis, less likely. PLAN: Continue IV antibiotics as per Dr. Etienne and discussed with the rn social services above for outpatient referral to [facility] for chronic hemodialysis. We will follow with you. The patient is scheduled for Perm-A-Cath placement this afternoon by intervention radiologist. Thank you for allowing me to participate in your patient's care. Sergo Carter MD [facility] # [id number]
[2018-02-17] MEDS: (Novolog) Insulin Aspart, Recombinant 100 u/ml 10 ml vial SC SCH ×4 (07:59→21:31)
--- NOTE | 2018-02-17 08:46 | PROCN ---
DATE: 02/13/2018 PROCEDURE: Hemodialysis catheter insertion as an emergency. Consent informed, consent from the patient. INDICATIONS: Acute renal failure, fluid overload. DESCRIPTION OF PROCEDURE: After the consent, right femoral vein was visualized through the sonogram. The site was cleaned with ChloraPrep. Needle was inserted into the right femoral vein. Dialysis catheter was inserted after dilatation. The patient tolerated the procedure well. The patient underwent dialysis without any difficulty. Clinically, the patient is stable. We will continue to monitor the patient. Luis Florentino MD
[2018-02-17] MEDS: Paricalcitol 2 mcg/ml Inj IV SCH (11:20)
[2018-02-17] MEDS: Epoetin Alfa 10,000 unit/ml Dialysis IV SCH (11:48)
--- NOTE | 2018-02-17 15:54 | CP.PCM.PN ---
Subjective - Date & Time of Evaluation Date of Evaluation: 02/17/18 Time of Evaluation: 15:54 - Subjective Subjective: pt is seen and examined, follow up consult is dictated #[id number] stable hd tx today, uf 0.8 lit Objective - Vital Signs/Intake and Output Vital Signs (last 24 hours): Temp Pulse Resp BP Pulse Ox 98.2 F 54 L 20 103/60 96 02/17/18 13:00 02/17/18 13:27 02/17/18 13:00 02/17/18 13:27 02/17/18 13:00 Intake and Output: 02/17/18 02/17/18 06:59 18:59 Intake Total 750 330 Balance 750 330 - Medications Medications: Current Medications Acetaminophen (Tylenol 325mg Tab) 650 mg PO Q6 PRN PRN Reason: Pain, moderate (4-7) Last Admin: 02/15/18 10:28 Dose: 650 mg Allopurinol (Zyloprim) 100 mg PO DAILY [facility] Last Admin: 02/17/18 13:30 Dose: 100 mg Aspirin (Ecotrin) 81 mg PO DAILY [facility] Last Admin: 02/17/18 13:30 Dose: 81 mg Atropine Sulfate (Atropine) 1 mg IVP Q1H PRN PRN Reason: Heart rate Clopidogrel Bisulfate (Plavix) 75 mg PO DAILY [facility] Last Admin: 02/17/18 13:30 Dose: 75 mg Docusate Sodium (Colace) 100 mg PO BID [facility] Last Admin: 02/17/18 13:30 Dose: 100 mg Epoetin Raza (Procrit) 10,000 unit IV MWF [facility] Last Admin: 02/17/18 11:48 Dose: 10,000 unit Famotidine (Pepcid) 20 mg PO BID [facility] Last Admin: 02/17/18 13:29 Dose: 20 mg Heparin Sodium (Porcine) (Heparin) 5,000 units SC Q8 [facility] Last Admin: 02/17/18 13:29 Dose: 5,000 units Heparin Sodium (Porcine) (Heparin) 3,700 units IVP MWF [facility] Last Admin: 02/17/18 11:57 Dose: 3,700 units Doxycycline Hyclate 100 mg/ (Sodium Chloride) 100 mls @ 100 mls/hr IVPB Q12H ON [facility] OF [facility] PRN Reason: Protocol Last Admin: 02/17/18 05:52 Dose: 100 mls/hr Piperacillin Sod/Tazobactam Sod (Zosyn 2.25 Gm Iv Premix) 2.25 gm in 50 mls @ 200 mls/hr IVPB Q8H [facility] PRN Reason: Protocol Last Admin: 02/17/18 13:30 Dose: 200 mls/hr Insulin Aspart (Novolog) 0 unit SC ACHS [facility] PRN Reason: Protocol Last Admin: 02/17/18 13:31 Dose: Not Given Losartan Potassium (Cozaar) 50 mg PO DAILY [facility] Last Admin: 02/17/18 13:31 Dose: Not Given Paricalcitol (Zemplar) 2 mcg IV MWF [facility] Last Admin: 02/17/18 11:20 Dose: 2 mcg Sitagliptin Phosphate (Januvia) 25 mg PO DAILY [facility] Last Admin: 02/17/18 13:30 Dose: 25 mg - Labs Labs: 02/16/18 07:13 02/16/18 07:13 PT 10.6 SECONDS (9.7-12.2) 02/13/18 13:19 INR 1.0 02/13/18 13:19 APTT 48 SECONDS (21-34) H D 02/13/18 13:19
--- NOTE | 2018-02-17 21:50 | CP.PCM.PN ---
Subjective - Date & Time of Evaluation Date of Evaluation: 02/17/18 Time of Evaluation: 19:00 - Subjective Subjective: Patient now transferred to the regular floor. Alert, oriented, in no respiratory distress, walks with assistance to the bathroom, has no complaint of sob, chest pain, and with improved appetite. For subacute rehab placement. Objective - Vital Signs/Intake and Output Vital Signs (last 24 hours): Temp Pulse Resp BP Pulse Ox 98.1 F 94 H 18 122/70 97 02/17/18 15:36 02/17/18 15:36 02/17/18 15:36 02/17/18 15:36 02/17/18 15:36 Intake and Output: 02/17/18 02/18/18 18:59 06:59 Intake Total 330 Balance 330 - Medications Medications: Current Medications Acetaminophen (Tylenol 325mg Tab) 650 mg PO Q6 PRN PRN Reason: Pain, moderate (4-7) Last Admin: 02/15/18 10:28 Dose: 650 mg Allopurinol (Zyloprim) 100 mg PO DAILY [facility] Last Admin: 02/17/18 13:30 Dose: 100 mg Aspirin (Ecotrin) 81 mg PO DAILY [facility] Last Admin: 02/17/18 13:30 Dose: 81 mg Atropine Sulfate (Atropine) 1 mg IVP Q1H PRN PRN Reason: Heart rate Clopidogrel Bisulfate (Plavix) 75 mg PO DAILY [facility] Last Admin: 02/17/18 13:30 Dose: 75 mg Docusate Sodium (Colace) 100 mg PO BID [facility] Last Admin: 02/17/18 18:20 Dose: 100 mg Epoetin Raza (Procrit) 10,000 unit IV [facility] Last Admin: 02/17/18 11:48 Dose: 10,000 unit Famotidine (Pepcid) 20 mg PO BID [facility] Last Admin: 02/17/18 18:20 Dose: 20 mg Heparin Sodium (Porcine) (Heparin) 5,000 units SC Q8 [facility] Last Admin: 02/17/18 13:29 Dose: 5,000 units Heparin Sodium (Porcine) (Heparin) 3,700 units IVP MWF [facility] Last Admin: 02/17/18 11:57 Dose: 3,700 units Insulin Aspart (Novolog) 0 unit SC ACHS [facility] PRN Reason: Protocol Last Admin: 05/16/18 21:31 Dose: Not Given Losartan Potassium (Cozaar) 50 mg PO DAILY [facility] Last Admin: 02/17/18 13:31 Dose: Not Given Paricalcitol (Zemplar) 2 mcg IV MWF [facility] Last Admin: 02/17/18 11:20 Dose: 2 mcg Sitagliptin Phosphate (Januvia) 25 mg PO DAILY [facility] Last Admin: 02/17/18 13:30 Dose: 25 mg - Labs Labs: 02/16/18 07:13 02/16/18 07:13 PT 10.6 SECONDS (9.7-12.2) 02/13/18 13:19 INR 1.0 02/13/18 13:19 APTT 48 SECONDS (21-34) H D 02/13/18 13:19 - Constitutional Appears: No Acute Distress, Chronically Ill - Head Exam Head Exam: NORMOCEPHALIC - Eye Exam Eye Exam: Normal appearance - ENT Exam ENT Exam: Normal Exam - Neck Exam Neck Exam: Normal Inspection - Respiratory Exam Respiratory Exam: Clear to Ausculation Bilateral, NORMAL BREATHING PATTERN - Cardiovascular Exam Cardiovascular Exam: REGULAR RHYTHM, Murmur - GI/Abdominal Exam GI & Abdominal Exam: Soft, Normal Bowel Sounds - Rectal Exam Rectal Exam: Deferred - Back Exam Back Exam: NORMAL INSPECTION - Neurological Exam Neurological Exam: Alert, Awake, Oriented x3 - Psychiatric Exam Psychiatric exam: Anxious - Skin Skin Exam: Dry, Intact, Normal Color, Warm Assessment and Plan (1) Stage 5 chronic kidney disease Assessment & Plan: Continue HD as per Wall Insulation Sprayer Status: Acute (2) Insulin dependent diabetes mellitus Status: Chronic (3) Ischemic cardiomyopathy Status: Chronic (4) Bradycardia Status: Acute (5) Acute on chronic combined systolic and diastolic CHF (congestive heart failure) Status: Resolved
--- NOTE | 2018-02-18 00:37 | PN ---
DATE: 02/17/2018 PULMONARY PROGRESS NOTE SUBJECTIVE: I spoke to the primary doctor today. The patient is more comfortable. Not in any distress. She received hemodialysis. No chest pain or shortness of breath. The patient is able to ambulate without any difficulty. MEDICATIONS: Currently on multiple medications, reviewed. PHYSICAL EXAMINATION: VITAL SIGNS: Temperature 98.1, pulse 94, blood pressure 122/70, respirations is 18. HEENT: PERRLA. NECK: Supple. CHEST: Good air entry bilaterally. HEART: Regular heart sound. ABDOMEN: Nontender. EXTREMITIES: No pedal edema. ANALYTICAL STRATEGIST: Alert, awake, oriented x3. No functional neurological deficits. Had hemodialysis today. ASSESSMENT AND RECOMMENDATIONS: An 87-year-old female with multiple medical history, heart disease, peripheral vascular disease, hypertension, diabetes, renal insufficiency. Possibly, the patient had a fluid overload and dyspnea. Currently on BiPAP on and off, but the patient is reluctant to use it. We will continue the current treatment. We will follow up the patient. Luis Florentino MD
--- NOTE | 2018-02-18 03:49 | PN ---
DATE: 02/17/2018 FOLLOWUP RENAL CONSULTATION LOCATION: Room 556, bed A. REQUESTED BY: Dr. Joe Etienne. REASON FOR FOLLOWUP: End-stage renal disease, continuation with hemodialysis. HISTORY OF PRESENT ILLNESS: Mrs. Dsouza is an 87 years old elderly [place]ian female with a past medical history significant for longstanding hypertension, diabetes, coronary artery disease questionable and history of flash pulmonary edema, chronic kidney disease stage 5, left carotid endarterectomy, status post ligation of the left upper extremity AV fistula was admitted with not feeling well and decreased appetite and also history of diarrhea and found to have worsening renal function and low H and H with poor appetite and started on hemodialysis. The patient is now feeling much better, not in acute distress status post change of Perm-A-Cath yesterday and the patient was dialyzed this morning without any complication. No chest pain, no palpitation. No fever, no cough. No abdominal pain. No nausea, vomiting, diarrhea this morning. Her UF goal is about 800 mL during dialysis today. PHYSICAL EXAMINATION: VITAL SIGNS: Blood pressure 113/54, pulse 79, respirations 20, temperature 98.2, saturation 96%. Height 5 feet, weight is 102 pounds. GENERAL: Mrs. Dsouza is an 87 years old elderly female, thin built, not in acute distress. HEENT: Pupils normal, react to light and accommodation. Conjunctivae pink. Sclerae anicteric. Tongue is moist and trachea is midline. LUNGS: Symmetric on both sides. Bilateral breath sounds present. Clear to auscultation. CVS: [place] at the fifth intercostal space, midclavicular line. S1 and S2 audible. No murmur or gallop. ABDOMEN: Normal in appearance, soft, tympanic. No guarding, no rigidity. No hepatosplenomegaly. PULP AND PAPER TESTER: The patient is alert, awake, oriented x3. Nonfocal neuro examination. Cranial nerves II through XII grossly intact. Sensory and motor system is within normal limits. EXTREMITIES: No cyanosis, no clubbing, no edema. CURRENT MEDICATIONS: Colace 100 mg p.o. b.i.d., Cozaar 50 mg p.o. daily, Ecotrin 81 mg daily, heparin 5000 subcu every 8 hours, heparin 3700 units in Perm-A-Cath post dialysis by agricultural research director, Januvia 25 mg p.o. daily, NovoLog for sliding scale, Pepcid 20 mg p.o. b.i.d., Plavix 75 mg daily, Procrit 10,000 units three times a week, Tylenol, Zemplar 2 mcg three times a week, allopurinol 100 mg p.o. daily. LABORATORY DATA: No new labs are available for today. Accu-Cheks 161, 124 and 288. ASSESSMENT: In summary, Mrs. Dsouza is an 87 years old elderly female with hypertension, diabetes, history of congestive heart failure, coronary artery disease status post left carotid endarterectomy, status post ligation of the left upper extremity arteriovenous graft was admitted with not feeling well, weakness and poor appetite and worsening renal function, low H and H and also history of diarrhea 1 week prior to the admission. 1. End-stage renal disease. Continue hemodialysis three times a week Thursday, Thursday and Thursday. 2. Hypertension. Blood pressure stable. 3. Anemia secondary to renal failure. 4. Diabetes. Sugars are under control. PLAN: Continue her current medications and followup CBC and BMP in a.m. and follow with social service for outpatient hemodialysis unit placement in [facility]. We will follow with you. Thank you for allowing me to participate in your patient's care. Sergo Carter MD
[2018-02-18] MEDS: (Novolog) Insulin Aspart, Recombinant 100 u/ml 10 ml vial SC SCH ×4 (08:25→21:16)
[2018-02-18 08:55] LABS: BASO # 0.1 K/uL (0.0-0.2); BASO % 0.5 % (0.0-2.0); EOS # 0.3 K/uL (0.0-0.7); EOS % 2.7 % (0.0-4.0); HEMOGLOBIN 8.6 g/dL (11.0-16.0); LYMPH # 2.7 K/uL (1.0-4.3); LYMPH % 26.2 % (20.0-40.0); MEAN CELL VOLUME 95.9 fL (81.0-99.0); MEAN CORPUSCULAR HEMOGLOBIN 32.2 pg (27.0-31.0); MEAN CORPUSCULAR HGB CONC 33.6 g/dL (33.0-37.0); MEAN PLATELET VOLUME 10.8 fL (7.2-11.7); MONO # 1.1 K/uL (0.0-0.8); MONO % 11.1 % (0.0-10.0); NEUT # 6.1 K/uL (1.8-7.0); NEUT % 59.5 % (50.0-75.0); NRBC % 0.4 % (0.0-2.0); RBC 2.67 Mil/uL (3.80-5.20); RED CELL DISTRIBUTION WIDTH 14.2 % (11.5-14.5); WHITE BLOOD COUNT 10.2 K/uL (4.8-10.8)
[2018-02-18 09:13] LABS: ALB/GLOB RATIO 1.2 (1.0-2.1); ALBUMIN 3.5 g/dL (3.5-5.0); CALCIUM 8.5 mg/dl (8.6-10.4)
--- NOTE | 2018-02-18 09:21 | CP.PCM.PN ---
Subjective - Date & Time of Evaluation Date of Evaluation: 02/18/18 Time of Evaluation: 09:20 - Subjective Subjective: pt is seen and examined, follow up consult is dictated #[id number] for hd in am, off all iv abx, check cbc, bmp in am Objective - Vital Signs/Intake and Output Vital Signs (last 24 hours): Temp Pulse Resp BP Pulse Ox 98.1 F 83 18 140/71 98 02/18/18 07:20 02/18/18 07:20 02/18/18 07:20 02/18/18 07:20 02/18/18 07:20 - Medications Medications: Current Medications Acetaminophen (Tylenol 325mg Tab) 650 mg PO Q6 PRN PRN Reason: Pain, moderate (4-7) Last Admin: 02/15/18 10:28 Dose: 650 mg Allopurinol (Zyloprim) 100 mg PO DAILY [facility] Last Admin: 02/18/18 09:04 Dose: 100 mg Aspirin (Ecotrin) 81 mg PO DAILY [facility] Last Admin: 02/18/18 09:04 Dose: 81 mg Atropine Sulfate (Atropine) 1 mg IVP Q1H PRN PRN Reason: Heart rate Clopidogrel Bisulfate (Plavix) 75 mg PO DAILY [facility] Last Admin: 02/18/18 09:04 Dose: 75 mg Docusate Sodium (Colace) 100 mg PO BID [facility] Last Admin: 02/18/18 09:04 Dose: 100 mg Epoetin Raza (Procrit) 10,000 unit IV MWF [facility] Last Admin: 02/17/18 11:48 Dose: 10,000 unit Famotidine (Pepcid) 20 mg PO DAILY [facility] Last Admin: 02/18/18 09:04 Dose: 20 mg Heparin Sodium (Porcine) (Heparin) 5,000 units SC Q8 [facility] Last Admin: 02/18/18 05:15 Dose: 5,000 units Heparin Sodium (Porcine) (Heparin) 3,700 units IVP MWF [facility] Last Admin: 02/17/18 11:57 Dose: 3,700 units Insulin Aspart (Novolog) 0 unit SC ACHS [facility] PRN Reason: Protocol Last Admin: 02/18/18 08:25 Dose: 1 unit Losartan Potassium (Cozaar) 50 mg PO DAILY [facility] Last Admin: 02/18/18 09:04 Dose: 50 mg Paricalcitol (Zemplar) 2 mcg IV MWF [facility] Last Admin: 02/17/18 11:20 Dose: 2 mcg Sitagliptin Phosphate (Januvia) 25 mg PO DAILY [facility] Last Admin: 02/18/18 09:04 Dose: 25 mg - Labs Labs: 02/18/18 08:43 02/18/18 08:43 PT 10.6 SECONDS (9.7-12.2) 02/13/18 13:19 INR 1.0 02/13/18 13:19 APTT 48 SECONDS (21-34) H D 02/13/18 13:19
--- NOTE | 2018-02-18 17:08 | CP.PCM.PN ---
Subjective - Date & Time of Evaluation Date of Evaluation: 02/18/18 Time of Evaluation: 11:00 - Subjective Subjective: Patient alert, oriented x 3, in no respiratory distress, with improved appetite. Objective - Vital Signs/Intake and Output Vital Signs (last 24 hours): Temp Pulse Resp BP Pulse Ox 97.4 F L 87 20 135/69 98 02/18/18 16:39 02/18/18 16:39 02/18/18 16:39 02/18/18 16:39 02/18/18 16:39 Intake and Output: 02/18/18 02/18/18 06:59 18:59 Intake Total 480 Balance 480 - Medications Medications: Current Medications Acetaminophen (Tylenol 325mg Tab) 650 mg PO Q6 PRN PRN Reason: Pain, moderate (4-7) Last Admin: 02/15/18 10:28 Dose: 650 mg Allopurinol (Zyloprim) 100 mg PO DAILY [facility] Last Admin: 02/18/18 09:04 Dose: 100 mg Aspirin (Ecotrin) 81 mg PO DAILY [facility] Last Admin: 02/18/18 09:04 Dose: 81 mg Atropine Sulfate (Atropine) 1 mg IVP Q1H PRN PRN Reason: Heart rate Clopidogrel Bisulfate (Plavix) 75 mg PO DAILY [facility] Last Admin: 02/18/18 09:04 Dose: 75 mg Docusate Sodium (Colace) 100 mg PO BID [facility] Last Admin: 02/18/18 09:04 Dose: 100 mg Epoetin Raza (Procrit) 10,000 unit IV [facility] Last Admin: 02/17/18 11:48 Dose: 10,000 unit Famotidine (Pepcid) 20 mg PO DAILY [facility] Last Admin: 02/18/18 09:04 Dose: 20 mg Heparin Sodium (Porcine) (Heparin) 5,000 units SC Q8 [facility] Last Admin: 02/18/18 13:36 Dose: 5,000 units Heparin Sodium (Porcine) (Heparin) 3,700 units IVP MWF [facility] Last Admin: 02/17/18 11:57 Dose: 3,700 units Insulin Aspart (Novolog) 0 unit SC ACHS [facility] PRN Reason: Protocol Last Admin: 02/18/18 12:10 Dose: 2 unit Losartan Potassium (Cozaar) 50 mg PO DAILY [facility] Last Admin: 02/18/18 09:04 Dose: 50 mg Paricalcitol (Zemplar) 2 mcg IV MWF [facility] Last Admin: 02/17/18 11:20 Dose: 2 mcg Sitagliptin Phosphate (Januvia) 25 mg PO DAILY [facility] Last Admin: 02/18/18 09:04 Dose: 25 mg - Labs Labs: 02/18/18 08:43 02/18/18 08:43 PT 10.6 SECONDS (9.7-12.2) 02/13/18 13:19 INR 1.0 02/13/18 13:19 APTT 48 SECONDS (21-34) H D 02/13/18 13:19 - Constitutional Appears: No Acute Distress, Chronically Ill - Head Exam Head Exam: NORMAL INSPECTION - Eye Exam Eye Exam: Normal appearance - ENT Exam ENT Exam: Normal Exam - Neck Exam Neck Exam: Normal Inspection - Respiratory Exam Respiratory Exam: Clear to Ausculation Bilateral, NORMAL BREATHING PATTERN - Cardiovascular Exam Cardiovascular Exam: REGULAR RHYTHM, Murmur - GI/Abdominal Exam GI & Abdominal Exam: Soft, Normal Bowel Sounds - Rectal Exam Rectal Exam: Deferred - Extremities Exam Extremities Exam: Normal Inspection - Back Exam Back Exam: NORMAL INSPECTION - Neurological Exam Neurological Exam: Alert, Awake, Oriented x3 - Psychiatric Exam Psychiatric exam: Anxious - Skin Skin Exam: Dry, Intact, Normal Color, Warm Assessment and Plan (1) Stage 5 chronic kidney disease Assessment & Plan: HD as per Self Propelled Mining Machine Operator. Status: Acute (2) Insulin dependent diabetes mellitus Status: Chronic (3) Ischemic cardiomyopathy Status: Chronic (4) Bradycardia Status: Acute (5) Acute on chronic combined systolic and diastolic CHF (congestive heart failure) Assessment & Plan: To continue HD. Status: Resolved
--- NOTE | 2018-02-19 03:30 | PN ---
DATE: 02/18/2018 FOLLOWUP RENAL CONSULTATION LOCATION: The patient is located in room 556, bed A. REQUESTED BY: Joe Mcmahan MD REASON FOR FOLLOWUP: End-stage renal disease, continuation of hemodialysis. HISTORY OF PRESENT ILLNESS: Mrs. Dsouza is an 87-year-old elderly Citizen Of [place] female with a past medical history significant for longstanding hypertension, diabetes, congestive heart failure, coronary artery disease, status post left carotid endarterectomy, status post ligation of the AV fistula who was admitted, not feeling well and anemia, worsening renal function, and diarrhea 1 week prior to the admission, and also elevated WBC count, being treated for questionable sepsis. The patient was started on hemodialysis three times a week. The patient is feeling much better, not in acute distress. Denies any nausea, vomiting, diarrhea. Still complains of poor appetite. No abdominal pain. No shortness of breath. No edema of the legs. No urinary symptoms. PHYSICAL EXAMINATION: VITAL SIGNS: As follows, this morning, blood pressure 140/71, pulse 83, respirations 18, temperature 98.1, saturation 98%. Height 5 feet, weight is 102 pounds. GENERAL: Mrs. Dsouza is an 87-year-old elderly female, thin-built, not in acute distress. HEENT: Pupils normal and reactive to light and accommodation. Conjunctivae pink. Sclerae anicteric. Tongue is moist. Trachea is midline. LUNGS: Symmetric on both sides. Bilateral breath sounds present. Clear to auscultation. CVS: [place] at the fifth intercostal space, midclavicular line. S1, S2 audible. No murmur or gallop. ABDOMEN: Normal in appearance, soft, tympanic. No guarding. No rigidity. No hepatosplenomegaly. BEEF BONER: The patient is alert, awake, oriented x3. Sensory and motor system is within normal limits. EXTREMITIES: No cyanosis, no clubbing, no edema. MEDICATIONS: Her current medications include as follows: Colace 100 mg p.o. b.i.d., losartan 50 mg p.o. daily, aspirin 81 mg daily, heparin subcu 5000 units every 8 hours, heparin 3700 units in PermCath post dialysis in each port, Januvia 25 mg p.o. daily, Pepcid 20 mg p.o. daily, Plavix 75 mg daily, Procrit 10,000 units three times a week, Tylenol 650 mg p.o. every 6 hours p.r.n., Zemplar 2 mcg three times a week, allopurinol 100 mg p.o. daily. LABORATORY DATA: Include as follows, as of 02/18/2018: WBC 10.2, hemoglobin 8.6, hematocrit is 25.6, platelets 137. Sodium 142, potassium 3.6, chloride 101, CO2 of 28, BUN 30, creatinine 2.2, glucose 228, calcium is 8.5. Total bili 0.5, AST 26, ALT 28, alkaline phosphatase 76, total protein 6.5, albumin is 3.5. IMPRESSION: In summary, Mrs. Dsouza is an 87-year-old elderly Citizen Of [place] female with hypertension, diabetes, congestive heart failure, coronary artery disease, status post left carotid endarterectomy, and status post ligation of the left upper extremity arteriovenous fistula who was admitted with worsening renal function, low hemoglobin and hematocrit, poor appetite, weakness, and status post diarrhea one week prior to the admission and elevated white blood cell count. 1. End-stage renal disease. Continue hemodialysis three times a week. 2. Hypertension. Blood pressure is improving. 3. Anemia secondary to end-stage renal disease. 4. Diabetes. 5. Elevated white blood cell count which is improving at this time, and all the urine culture and blood culture are within normal limits. The patient is off all the antibiotics at this time. We will continue to monitor white blood cell count, and the patient is scheduled for hemodialysis in a.m. Follow up with social service for outpatient hemodialysis unit placement. Thank you for allowing me to participate in your patient's care. Sergo Carter MD
[2018-02-19 06:38] LABS: BASO # 0.1 K/uL (0.0-0.2); BASO % 0.6 % (0.0-2.0); EOS # 0.3 K/uL (0.0-0.7); EOS % 2.9 % (0.0-4.0); HEMOGLOBIN 8.7 g/dL (11.0-16.0); LYMPH # 2.1 K/uL (1.0-4.3); LYMPH % 21.2 % (20.0-40.0); MEAN CELL VOLUME 95.7 fL (81.0-99.0); MEAN CORPUSCULAR HEMOGLOBIN 32.6 pg (27.0-31.0); MEAN CORPUSCULAR HGB CONC 34.1 g/dL (33.0-37.0); MEAN PLATELET VOLUME 10.3 fL (7.2-11.7); MONO # 0.9 K/uL (0.0-0.8); MONO % 9.4 % (0.0-10.0); NEUT # 6.6 K/uL (1.8-7.0); NEUT % 65.9 % (50.0-75.0); NRBC % 0.4 % (0.0-2.0); RBC 2.67 Mil/uL (3.80-5.20); RED CELL DISTRIBUTION WIDTH 14.2 % (11.5-14.5)
[2018-02-19 06:57] LABS: ALB/GLOB RATIO 1.1 (1.0-2.1); ALBUMIN 3.4 g/dL (3.5-5.0)
[2018-02-19] MEDS: (Novolog) Insulin Aspart, Recombinant 100 u/ml 10 ml vial SC SCH ×3 (08:25→17:20)
[2018-02-19] MEDS: Epoetin Alfa 10,000 unit/ml Dialysis IV SCH ×2 (10:14→10:15)
[2018-02-19] MEDS: Paricalcitol 2 mcg/ml Inj IV SCH (10:17)
--- NOTE | 2018-02-19 10:59 | CP.PCM.PN ---
Subjective - Date & Time of Evaluation Date of Evaluation: 02/19/18 Time of Evaluation: 10:59 - Subjective Subjective: pt is seen and examined, follow up consult is dictated #[id number] seen in hd, uf about 500 ml Objective - Vital Signs/Intake and Output Vital Signs (last 24 hours): Temp Pulse Resp BP Pulse Ox 98.7 F 90 20 155/73 H 98 02/19/18 09:10 02/19/18 09:10 02/19/18 09:10 02/19/18 10:10 02/19/18 09:10 Intake and Output: 02/19/18 02/19/18 06:59 18:59 Intake Total 720 Balance 720 - Medications Medications: Current Medications Acetaminophen (Tylenol 325mg Tab) 650 mg PO Q6 PRN PRN Reason: Pain, moderate (4-7) Last Admin: 02/15/18 10:28 Dose: 650 mg Allopurinol (Zyloprim) 100 mg PO DAILY [facility] Last Admin: 02/18/18 09:04 Dose: 100 mg Aspirin (Ecotrin) 81 mg PO DAILY [facility] Last Admin: 02/18/18 09:04 Dose: 81 mg Atropine Sulfate (Atropine) 1 mg IVP Q1H PRN PRN Reason: Heart rate Clopidogrel Bisulfate (Plavix) 75 mg PO DAILY [facility] Last Admin: 02/18/18 09:04 Dose: 75 mg Docusate Sodium (Colace) 100 mg PO BID [facility] Last Admin: 02/18/18 17:25 Dose: 100 mg Epoetin Raza (Procrit) 10,000 unit IV MWF [facility] Last Admin: 02/19/18 10:15 Dose: 10,000 unit Famotidine (Pepcid) 20 mg PO DAILY [facility] Last Admin: 02/18/18 09:04 Dose: 20 mg Heparin Sodium (Porcine) (Heparin) 5,000 units SC Q8 [facility] Last Admin: 02/19/18 05:32 Dose: 5,000 units Heparin Sodium (Porcine) (Heparin) 3,700 units IVP MWF [facility] Last Admin: 02/19/18 10:20 Dose: 3,700 units Insulin Aspart (Novolog) 0 unit SC ACHS [facility] PRN Reason: Protocol Last Admin: 02/19/18 08:25 Dose: 1 unit Losartan Potassium (Cozaar) 50 mg PO DAILY [facility] Last Admin: 02/18/18 09:04 Dose: 50 mg Paricalcitol (Zemplar) 2 mcg IV MWF [facility] Last Admin: 02/19/18 10:17 Dose: 2 mcg Sitagliptin Phosphate (Januvia) 25 mg PO DAILY [facility] Last Admin: 02/18/18 09:04 Dose: 25 mg - Labs Labs: 02/19/18 06:30 02/19/18 06:30 PT 10.6 SECONDS (9.7-12.2) 02/13/18 13:19 INR 1.0 02/13/18 13:19 APTT 48 SECONDS (21-34) H D 02/13/18 13:19
[2018-02-19 15:48] VITALS: BP 128/62; PULSE 84; RESP 20; TEMP 98.2; O2SAT 97
--- NOTE | 2018-02-20 01:48 | PN ---
DATE: 02/19/2018 FOLLOWUP RENAL CONSULTATION LOCATION: The patient is located in room 556, bed A. REQUESTED BY: Joe Mcmahan MD REASON FOR FOLLOWUP: End-stage renal disease, continuation of hemodialysis. HISTORY OF PRESENT ILLNESS: Mrs. Dsouza is an 87 years old very pleasant elderly Italian female with a past medical history significant for longstanding hypertension, diabetes, carotid stenosis status post left carotid endarterectomy, coronary artery disease status post three stents placement about 5 years ago and status post ligation of the left upper extremity AV graft who was admitted with feeling weak, tired and nausea and also poor appetite and status post diarrhea 1 week prior to the admission. The patient is now feeling much better with dialysis. No shortness of breath. No nausea, vomiting. Hepatitis improving. The patient was seen and examined during dialysis this morning. UF goal is about 500 mL. PHYSICAL EXAMINATION: VITAL SIGNS: As follows, blood pressure 110/57, pulse 73, respirations 18, temperature 97.9, saturation 98%. Height 5 feet, weight is 102 pounds. GENERAL: Mrs. Dsouza is an 87 years old elderly female, moderately built and moderately nourished, not in distress. HEENT: Pupils normal, reactive to light and accommodation. Conjunctivae pink. Sclerae are anicteric. Tongue is moist. Trachea is midline. LUNGS: Symmetric on both sides. Bilateral breath sounds present. Clear on auscultation. CARDIOVASCULAR: [place] at the fifth intercostal space, midclavicular line. S1 and S2 audible. No murmur or gallop. ABDOMEN: Normal in appearance, soft, tympanic. No guarding. No rigidity. No hepatosplenomegaly. CENTRAL NERVOUS SYSTEMS: The patient is alert, awake and oriented x3. Nonfocal neuro examination. Cranial nerves II through XII grossly intact. Sensory and motor system is within normal limits. EXTREMITIES: No cyanosis, no clubbing, no edema. CURRENT MEDICATIONS: Include as follows; aspirin 81 mg daily, allopurinol 100 mg p.o. daily, multivitamin 1 tablet daily, Flovent inhaler daily, Coreg 6.25 mg p.o. b.i.d., Januvia 25 mg p.o. daily, Zemplar three times a week during dialysis 2 mcg, losartan 50 mg daily, Pepcid 20 mg p.o. daily, Epogen 10,000 units three times a week, Colace 100 mg p.o. b.i.d., Plavix 75 mg daily, and Tylenol. LABORATORY DATA: Include as follows; as of 02/19/2018, WBC 10, hemoglobin 8.7, hematocrit is 25.5, platelets 148. Sodium 142, potassium 3.6, chloride 106, CO2 of 26, BUN 33, creatinine 2.3, glucose is 137, calcium is 9, total bili 0.4, AST 26, ALT 28, alkaline phosphatase 69, total protein 6.4, albumin is 3.4. Blood culture x2 negative day 5 and urine culture with multiple species 52, 10,000 to 50,000 colony forming units. MRSA screening was negative. IMPRESSION AND PLAN: In summary, Mrs. Dsouza is an 87 years old elderly Italian female with a history of hypertension, diabetes, hyperlipidemia, coronary artery disease status post stents over 5 years ago, status post left carotid endarterectomy, status post ligation of the left upper extremity arteriovenous graft with chronic kidney disease 5 and started on hemodialysis for worsening renal function, shortness of breath, weakness, and poor appetite. 1. End-stage renal disease. Continue hemodialysis three times a week Thursday, Thursday, and Thursday. 2. Hypertension. Blood pressure is stable. Continue her current medications. 3. Diabetes. 4. Coronary artery disease, asymptomatic. The patient is for possible discharge to subacute rehab for physical therapy post dialysis today. We will follow with you. Thank you for allowing me to participate in your patient's care. The patient lost about 25-30 pounds since previous admission in December. Sergo Carter MD
--- NOTE | 2018-02-23 14:12 | CP.PCM.DIS ---
Provider - Provider Date of Admission: 02/11/18 21:27 Attending physician: Joe Mcmahan MD Primary care physician: Joe Mcmahan M.D. Consults: Dr Carter ( Nephrology). Time Spent in preparation of Discharge (in minutes): 45 Diagnosis - Discharge Diagnosis (1) Stage 5 chronic kidney disease Status: Acute (2) Insulin dependent diabetes mellitus Status: Chronic (3) Ischemic cardiomyopathy Status: Chronic (4) Bradycardia Status: Acute (5) Acute on chronic combined systolic and diastolic CHF (congestive heart failure) Status: Resolved Hospital Course - Lab Results Lab Results: Micro Results 02/13/18 21:30 Blood Blood Culture - Final NO GROWTH AFTER 5 DAYS 02/13/18 21:30 Blood Gram Stain - Final TEST NOT PERFORMED 02/13/18 21:00 Blood Blood Culture - Final NO GROWTH AFTER 5 DAYS 02/13/18 21:00 Blood Gram Stain - Final TEST NOT PERFORMED 02/16/18 00:47 Nose MRSA Culture - Final MRSA NOT DETECTED 02/14/18 06:42 Urine,Clean Catch Urine Culture - Final 10-50,000 CFU/ML. MULTIPLE SPECIES. PROBABLE CONTAMINATION. 02/12/18 10:14 Naris MRSA Culture (Admit) - Final MRSA NOT DETECTED Most Recent Lab Values WBC 10.0 K/uL (4.8-10.8) 02/19/18 06:30 RBC 2.67 Mil/uL (3.80-5.20) L 02/19/18 06:30 Hgb 8.7 g/dL (11.0-16.0) L 02/19/18 06:30 Hct 25.5 % (34.0-47.0) L 02/19/18 06:30 MCV 95.7 fL (81.0-99.0) 02/19/18 06:30 MCH 32.6 pg (27.0-31.0) H 02/19/18 06:30 MCHC 34.1 g/dL (33.0-37.0) 02/19/18 06:30 RDW 14.2 % (11.5-14.5) 02/19/18 06:30 Plt Count 148 K/uL (130-400) 02/19/18 06:30 MPV 10.3 fL (7.2-11.7) 02/19/18 06:30 Neut % (Auto) 65.9 % (50.0-75.0) 02/19/18 06:30 Lymph % (Auto) 21.2 % (20.0-40.0) 02/19/18 06:30 [place] % (Auto) 9.4 % (0.0-10.0) 02/19/18 06:30 Eos % (Auto) 2.9 % (0.0-4.0) 02/19/18 06:30 Baso % (Auto) 0.6 % (0.0-2.0) 02/19/18 06:30 Neut # (Auto) 6.6 K/uL (1.8-7.0) 02/19/18 06:30 Lymph # (Auto) 2.1 K/uL (1.0-4.3) 02/19/18 06:30 [place] # (Auto) 0.9 K/uL (0.0-0.8) H 02/19/18 06:30 Eos # (Auto) 0.3 K/uL (0.0-0.7) 02/19/18 06:30 Baso # (Auto) 0.1 K/uL (0.0-0.2) 02/19/18 06:30 Differential Comment 02/14/18 06:34 PT 10.6 SECONDS (9.7-12.2) 02/13/18 13:19 INR 1.0 02/13/18 13:19 APTT 48 SECONDS (21-34) H D 02/13/18 13:19 pO2 44 mm/Hg (30-55) 02/11/18 20:21 VBG pH 7.37 (7.32-7.43) 02/11/18 20:21 VBG pCO2 38 mmHg (40-60) L 02/11/18 20:21 VBG HCO3 22.1 mmol/L 02/11/18 20:21 VBG Total CO2 23.2 mmol/L (22-28) 02/11/18 20:21 VBG O2 Sat (Calc) 82.4 % (40-65) H 02/11/18 20:21 VBG Base Excess -2.9 mmol/L (0.0-2.0) L 02/11/18 20:21 VBG Potassium 3.8 mmol/L (3.6-5.2) 02/11/18 20:21 Sodium 142.0 mmol/l (132-148) 02/11/18 20:21 Chloride 112.0 mmol/L (98-107) H 02/11/18 20:21 Glucose 156 mg/dl (65-105) H 02/11/18 20:21 Lactate 0.7 mmol/L (0.7-2.1) 02/11/18 20:21 Sodium 142 mmol/L (132-148) 02/19/18 06:30 Potassium 3.6 mmol/L (3.6-5.2) 02/19/18 06:30 Chloride 106 mmol/L (98-107) 02/19/18 06:30 Carbon Dioxide 26 mmol/L (22-30) 02/19/18 06:30 Anion Gap 13 (10-20) 02/19/18 06:30 BUN 33 mg/dL (7-17) H 02/19/18 06:30 Creatinine 2.3 mg/dL (0.7-1.2) H 02/19/18 06:30 Est GFR ( Amer) 24 02/19/18 06:30 Est GFR (Non-Af Amer) 20 02/19/18 06:30 POC Glucose (mg/dL) 310 mg/dL (65-110) H 02/19/18 17:36 Random Glucose 137 mg/dL (65-105) H 02/19/18 06:30 Hemoglobin A1c 7.0 % (4.2-6.5) H 02/12/18 07:08 Calcium 9.0 mg/dl (8.6-10.4) 02/19/18 06:30 Phosphorus 3.1 mg/dL (2.5-4.5) 02/15/18 06:14 Magnesium 2.3 mg/dL (1.6-2.3) 02/15/18 06:14 Iron 62 ug/dL (37-170) 02/12/18 07:08 TIBC 266 ug/dL (250-450) 02/12/18 07:08 % Saturation 23 (20-55) 02/12/18 07:08 Ferritin 349.0 ng/mL 02/12/18 07:08 Total Bilirubin 0.5 mg/dL (0.2-1.3) 02/19/18 06:30 AST 26 U/L (14-36) 02/19/18 06:30 ALT 28 U/L (9-52) 02/19/18 06:30 Alkaline Phosphatase 69 U/L (38-126) 02/19/18 06:30 Troponin I 0.1290 ng/mL (0.00-0.120) H* 02/13/18 13:19 Total Protein 6.4 g/dL (6.3-8.3) 02/19/18 06:30 Albumin 3.4 g/dL (3.5-5.0) L 02/19/18 06:30 Globulin 3.0 gm/dL (2.2-3.9) 02/19/18 06:30 Albumin/Globulin Ratio 1.1 (1.0-2.1) 02/19/18 06:30 Triglycerides 271 mg/dL (0-149) H D 02/16/18 07:13 Cholesterol 152 mg/dL (0-199) 02/16/18 07:13 LDL Cholesterol Direct 75 mg/dL (0-129) 02/16/18 07:13 HDL Cholesterol 27 mg/dL (30-70) L 02/16/18 07:13 Lipase 147 U/L (23-300) 02/11/18 20:07 Vitamin B12 795 pg/mL (239-931) 02/12/18 07:08 Folate > 20.0 ng/mL 02/12/18 07:08 Free T4 1.06 ng/dL (0.78-2.19) 02/12/18 08:48 TSH 3rd Generation 3.17 mIU/L (0.46-4.68) 02/14/18 10:54 Venous Blood Potassium 3.8 mmol/L (3.6-5.2) 02/11/18 20:21 Urine Color Yellow (YELLOW) 02/14/18 06:37 Urine Clarity Hazy (Clear) 02/14/18 06:37 Urine pH 5.0 (5.0-8.0) 02/14/18 06:37 Ur Specific [place] 1.011 (1.003-1.030) 02/14/18 06:37 Urine Protein 2+ mg/dL (NEGATIVE) H 02/14/18 06:37 Urine Glucose (UA) 1+ mg/dL (Normal) 02/14/18 06:37 Urine Ketones Negative mg/dL (NEGATIVE) 02/14/18 06:37 Urine Blood Negative (NEGATIVE) 02/14/18 06:37 Urine Nitrate Negative (NEGATIVE) 02/14/18 06:37 Urine Bilirubin Negative (NEGATIVE) 02/14/18 06:37 Urine Urobilinogen Normal mg/dL (0.2-1.0) 02/14/18 06:37 Ur Leukocyte Esterase Neg Simon/uL (Negative) 02/14/18 06:37 Urine WBC (Auto) 2 /hpf (0-5) 02/14/18 06:37 Urine RBC (Auto) 1 /hpf (0-3) 02/14/18 06:37 Ur Squamous Epith Cells 1 /hpf (0-5) 02/14/18 06:37 Hyaline Casts 0-2 /lpf (0-2) 02/14/18 06:37 RPR Nonreactive (NONREACTIVE) 02/14/18 13:04 Lyme Disease Screen <0.90 index 02/14/18 13:04 Hep Bs Antigen Negative (NEGATIVE) 02/13/18 15:50 Hep Bs Antibody Positive (NEGATIVE) 02/13/18 15:50 Hep B Core IgM Ab Negative (NEGATIVE) 02/13/18 15:50 Hepatitis C Antibody Negative (NEGATIVE) 02/13/18 15:50 - Hospital Course Hospital Course: This is an 87 years old Filipina lady who was brought to the ED at [facility] complaining of a generalized weakness, vague abdominal pain, episodes of diaphoresis, poor appetite for the last one week. 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 She also experienced multiple episodes of acute CHF from an ischemic cardiomyopathy. In the Ed she was found to be hypotensive and to have a BUN :94 creatinine: 4.6 Hgb: 8,6, She denies any cough, fever, nausea, vomiting, passing black stools. A diagnosis of dehydration was made, and she was started on IV NS at 80 ml/h. Dr Carter was called to manage her kidney disease. Hospital course: The patient developed severe bradycardia during her sleep, and she was transferred to Telemetry bed for monitoring and her Coreg was held. On the next day, she became dyspneic. A CXR revealed CHF. IV fluid was held, Lasix IV was given, and a Permacath was inserted in the right groin to start hemodialysis. She was also put on BIPAP and Coreg was restarted. An echocardiogram revealed an LVEF 45 %, severe TR, MR, moderate pulmonary hypertension, and a grade II LV diastolic dysfunction. She gradually improved, with less SOB, and better appetite. A Permacath was inserted in the right subclavian vein by Dr Guardado (IR) and the one in the right femoral vein was removed. She was also evaluated by Dr Araujo ( EP steel fabricator) for her bradycardia during sleep and he found no indication for a permanent pacemaker placement. The patient was transferred to the regular floor on 02/16/2018 and was discharged to a subacute rehabilitation Center on 02/19/2018 in stable condition, under the care of Dr Carter. - Date & Time of H&P Date of H&P: 02/12/18 Discharge Exam - Head Exam Head Exam: NORMAL INSPECTION - Eye Exam Eye Exam: Normal appearance Pupil Exam: NORMAL ACCOMODATION - ENT Exam ENT Exam: Normal Exam - Neck Exam Neck exam: Normal Inspection - Respiratory Exam Respiratory Exam: Clear to PA & Lateral, NORMAL BREATHING PATTERN, UNREMARKABLE - Cardiovascular Exam Cardiovascular Exam: REGULAR RHYTHM, Systolic Murmur - GI/Abdominal Exam GI & Abdominal Exam: Normal Bowel Sounds, Unremarkable - Rectal Exam Rectal Exam: Deferred - Exam Exam: NORMAL INSPECTION - Extremities Exam Extremities exam: normal inspection - Back Exam Back exam: NORMAL INSPECTION - Neurological Exam Neurological exam: Alert, Oriented x3 - Psychiatric Exam Psychiatric exam: Anxious - Skin Skin Exam: Dry, Intact, Normal Color Discharge Plan - Follow Up Plan Condition: STABLE Disposition: REHAB FACILITY/REHAB UNIT Instructions: Hemodialysis (DC), Bradycardia (DC), Dizziness, Nonvertigo, (DC) , Cardiomyopathy (DC), Chronic Kidney Disease (DC), Diabetes and Diet, Heart Failure (GEN) Additional Instructions: Discharge to [facility] as per Dr. Mcmahan. Call for orders Continue hemodialysis [facility] Referrals: Joe Mcmahan MD [Staff Provider] - Clinical Quality Measures - CQM - Heart Failure Ejection Fraction: 40 % or Greater Left Ventricular Function to be assessed after discharge: No LENO Inhibitor Prescribed: No Contraindication/Reason for not providing: Patient is in Losartan Beta-Dinh Prescribed: Carvedilol Angiotensin II Receptor Dinh Prescribed: Yes AnticoagulationTherapy for Atrial Fibrillation/Atrialflutter: No Contraindication/Reason for not providing: Not indicated. Aldosterone Antagonist Prescribed: No Contraindication/Reason for not providing: Renal disease Hydralazine Nitrate Prescribed: Yes Implantable Cardioverter Defibrillator Therapy: No Contraindication/Reason for not providing: Not indicated, Cardiac Resynchronization Therapy Prescribed: No Contraindication/Reason for not providing: Not indicated. Will be discharged to: Detention Facility Follow Up Date (must be within 7 days from discharge): 02/26/18 Follow Up Time: 15:00 - Date & Time of Discharge Summary Date of Discharge Summary: 02/23/18 Time of Discharge Summary: 14:18
== END 2018-02-19 19:46 | DRG 673 ==
LOC: C.ER 19:13 → C.9E 21:27 → C.3T 21:27 → C.9I 02-12 08:53 → C.5S 02-15 21:58
PROVIDERS: ADMIT Internal Medicine Cardiovascular Disease; ATTEND Internal Medicine Cardiovascular Disease
PROC: 5A1D70Z Performance of Urinary Filtration, Intermittent, Less than 6 Hours Per Day (ICD-10-PCS; principal; 2018-02-13)
PROC: 06HM33Z Insertion of Infusion Device into Right Femoral Vein, Percutaneous Approach (ICD-10-PCS; 2018-02-13)
PROC: 5A09357 Assistance with Respiratory Ventilation, Less than 24 Consecutive Hours, Continuous Positive Airway Pressure (ICD-10-PCS; 2018-02-13)
PROC: 5A1D70Z Performance of Urinary Filtration, Intermittent, Less than 6 Hours Per Day (ICD-10-PCS; 2018-02-15)
PROC: 0JH63XZ Insertion of Tunneled Vascular Access Device into Chest Subcutaneous Tissue and Fascia, Percutaneous Approach (ICD-10-PCS; 2018-02-16)
PROC: 02HV33Z Insertion of Infusion Device into Superior Vena Cava, Percutaneous Approach (ICD-10-PCS; 2018-02-16)
PROC: B548ZZA Ultrasonography of Superior Vena Cava, Guidance (ICD-10-PCS; 2018-02-16)
PROC: 5A1D70Z Performance of Urinary Filtration, Intermittent, Less than 6 Hours Per Day (ICD-10-PCS; 2018-02-17)
PROC: 5A1D70Z Performance of Urinary Filtration, Intermittent, Less than 6 Hours Per Day (ICD-10-PCS; 2018-02-19)
DX: N17.9 Acute kidney failure, unspecified (principal); I50.43 Acute on chronic combined systolic (congestive) and diastolic (congestive) heart failure; I13.2 Hypertensive heart and chronic kidney disease with heart failure and with stage 5 chronic kidney disease, or end stage renal disease; R00.1 Bradycardia, unspecified; N18.6 End stage renal disease; I49.5 Sick sinus syndrome; I44.7 Left bundle-branch block, unspecified; E86.0 Dehydration; E11.65 Type 2 diabetes mellitus with hyperglycemia; E11.22 Type 2 diabetes mellitus with diabetic chronic kidney disease; R42 Dizziness and giddiness; D63.1 Anemia in chronic kidney disease; I25.5 Ischemic cardiomyopathy; I25.10 Atherosclerotic heart disease of native coronary artery without angina pectoris; I27.20 Pulmonary hypertension, unspecified; K75.9 Inflammatory liver disease, unspecified; E78.5 Hyperlipidemia, unspecified; E78.00 Pure hypercholesterolemia, unspecified; E11.51 Type 2 diabetes mellitus with diabetic peripheral angiopathy without gangrene; G47.33 Obstructive sleep apnea (adult) (pediatric); Z95.5 Presence of coronary angioplasty implant and graft; Z79.4 Long term (current) use of insulin

== ENCOUNTER 2018-03-09 07:58 | Inpatient (IN) | payer MEDICARE ==
[2018-03-09 08:16] VITALS: BMI 20.5
--- NOTE | 2018-03-09 08:26 | C.PDOC ---
History Of Present Illness 87 years old female with Hx of CHF and ESRD presents to ED for complaints of feeling anxious and SOB that began 30 minutes after hempdialysis this morning. Denies chest pain or any other complaints. Patient currently states feeling better and not short of breath. Time Seen by Provider: 03/09/18 08:16 Chief Complaint (Nursing): Shortness Of Breath History Per: Patient History/Exam Limitations: no limitations Onset/Duration Of Symptoms: Hrs Current Symptoms Are (Timing): Still Present Current Respiratory Medications: See Home Med List Associated Symptoms: Anxiety. denies: Fever, Chills, Chest Pain, Dizziness Recent travel outside of the [place]: No Past Medical History Reviewed: Historical Data, Nursing Documentation, Vital Signs Vital Signs: Last Vital Signs Temp 97.5 F L 03/11/18 08:26 Pulse 80 03/11/18 08:26 Resp 20 03/11/18 08:26 BP 140/64 03/11/18 08:26 Pulse Ox 96 03/11/18 08:26 - Medical History PMH: Anxiety, CHF, Diabetes, HTN, Hypercholesterolemia, Hyperlipidemia, Chronic Kidney Disease Surgical History: Coronary Stent - [facility] (02/11/18) ASSISTANCE WITH RESPIRATORY VENTILATION, <24 HRS, CPAP (02/11/18) BYPASS L BRACH ART TO UP ARM VEIN W SYNTH SUB, OPEN (08/12/17) EXTIRPATION OF MATTER FROM L INT CAROTID, OPEN APPROACH (08/26/17) INSERTION OF INFUSION DEV INTO R FEMOR VEIN, PERC APPROACH (02/11/18) INSERTION OF INFUSION DEV INTO SUP VENA CAVA, PERC APPROACH (02/11/18) INSERTION OF VAD INTO CHEST SUBCU/FASCIA, PERC APPROACH (02/11/18) OCCLUSION OF LEFT BRACHIAL ARTERY, OPEN APPROACH (08/12/17) TRANSFUSE NONAUT RED BLOOD CELLS IN PERIPH VEIN, PERC (08/26/17) ULTRASONOGRAPHY OF SUPERIOR VENA CAVA, GUIDANCE (02/11/18) Family History: States: Unknown Family Hx, CAD (aunt) - Social History Hx Tobacco Use: No Hx Alcohol Use: No Hx Substance Use: No - Immunization History Hx Tetanus Toxoid Vaccination: Yes Hx Influenza Vaccination: Yes Hx Pneumococcal Vaccination: Yes Review Of Systems Constitutional: Negative for: Fever, Chills Cardiovascular: Negative for: Chest Pain Respiratory: Positive for: Shortness of Breath Gastrointestinal: Negative for: Nausea, Vomiting, Abdominal Pain, Diarrhea Skin: Negative for: Rash Neurological: Negative for: Weakness, Numbness Psych: Positive for: Anxiety Physical Exam - Physical Exam Appears: Non-toxic, No Acute Distress Skin: Warm, Dry Head: Atraumatic, Normacephalic Eye(s): bilateral: Normal Inspection, PERRL, EOMI Oral Mucosa: Moist Neck: Supple Chest: Symmetrical, No Tenderness, Other (catheter on right) Cardiovascular: Rhythm Regular, No Murmur Respiratory: Normal Breath Sounds, No Decreased Breath Sounds, No Rales, No Rhonchi, No Wheezing Gastrointestinal/Abdominal: Soft, No Tenderness Extremity: Normal ROM, No Pedal Edema Extremity: Bilateral: Normal Color And Temperature, Normal ROM Neurological/Psych: Oriented x3, Normal Speech, Normal Cognition Gait: Steady ED Course And Treatment - Laboratory Results Result Diagrams: 03/11/18 08:00 03/11/18 08:00 O2 Sat by Pulse Oximetry: 100 (RA) Pulse Ox Interpretation: Normal - Other Rad CXR X-Ray: Viewed By Me, Read By Radiologist Interpretation: Chest x-ray single frontal view. History: Chest pain. Comparison: 02/11/2018. Findings: Right central venous catheter tip extending into right atrium. Biapical thickening with upper lobe granulomatous changes. Diffuse increased interstitial lung markings which may represent venous congestion and or edema and or infiltrate. Patchy increased markings at the lung bases. Cardiomegaly. Calcification at the aortic knob. Degenerative changes spine. Left axillary stent in place. Impression: Right central venous catheter tip extending into right atrium. Biapical thickening with upper lobe granulomatous changes. Diffuse increased interstitial lung markings which may represent venous congestion and or edema and or infiltrate. Patchy increased markings at the lung bases. Cardiomegaly. Calcification at the aortic knob. Degenerative changes spine. Left axillary stent in place. Medical Decision Making Medical Decision Making: Administered Coreg, Lasix, Carapres, and BIPAP/CPAP. . Ordered EKG, blood work, and CXR. EKG: - Some P Waves - LAD - Some PVC's 11:25AM: - Spoke to Dr. Mcmahan for admission, and he said to call Dr. Carter and let him know. 11:30AM: - Spoke with Dr. Carter. Disposition - Disposition Disposition: HOSPITALIZED Disposition Time: 11:22 Condition: GOOD - Clinical Impression Clinical Impression: CHF (congestive heart failure), Dyspnea, ESRD (end stage renal disease) - Scribe Statement The provider has reviewed the documentation as recorded by the Devin Brown All medical record entries made by the Vazquezibjerome were at my direction and personally dictated by me. I have reviewed the chart and agree that the record accurately reflects my personal performance of the history, physical exam, medical decision making, and the department course for this patient. I have also personally directed, reviewed, and agree with the discharge instructions and disposition.
[2018-03-09 08:50] LABS: BASO # 0.1 K/uL (0.0-0.2); BASO % 0.6 % (0.0-2.0); EOS # 0.1 K/uL (0.0-0.7); EOS % 1.1 % (0.0-4.0); LYMPH # 1.1 K/uL (1.0-4.3); LYMPH % 9.3 % (20.0-40.0); MEAN CORPUSCULAR HEMOGLOBIN 32.3 pg (27.0-31.0); MEAN CORPUSCULAR HGB CONC 32.8 g/dL (33.0-37.0); MEAN PLATELET VOLUME 10.5 fL (7.2-11.7); MONO # 0.6 K/uL (0.0-0.8); MONO % 4.8 % (0.0-10.0); NEUT # 10.1 K/uL (1.8-7.0); NEUT % 84.2 % (50.0-75.0); NRBC % 0.5 % (0.0-2.0); PLATELET COUNT 131 K/uL (130-400); RBC 3.67 Mil/uL (3.80-5.20); RED CELL DISTRIBUTION WIDTH 16.9 % (11.5-14.5)
[2018-03-09 08:52] LABS: HEMOGLOBIN 11.9 g/dL (11.0-16.0); MEAN CELL VOLUME 98.4 fL (81.0-99.0)
[2018-03-09 09:09] LABS: ALB/GLOB RATIO 1.1 (1.0-2.1); ALBUMIN 3.9 g/dL (3.5-5.0); CALCIUM 9.1 mg/dl (8.6-10.4)
[2018-03-09 09:15] LABS: TROPONIN I 0.027 ng/mL (0.00-0.120)
--- NOTE | 2018-03-09 09:25 | RAD ---
Chest x-ray single frontal view History: Chest pain. Comparison: 02/11/2018 Findings: Right central venous catheter tip extending into right atrium. Biapical thickening with upper lobe granulomatous changes. Diffuse increased interstitial lung markings which may represent venous congestion and or edema and or infiltrate. Patchy increased markings at the lung bases. Cardiomegaly. Calcification at the aortic knob. Degenerative changes spine. Left axillary stent in place. Impression: Right central venous catheter tip extending into right atrium. Biapical thickening with upper lobe granulomatous changes. Diffuse increased interstitial lung markings which may represent venous congestion and or edema and or infiltrate. Patchy increased markings at the lung bases. Cardiomegaly. Calcification at the aortic knob. Degenerative changes spine. Left axillary stent in place.
[2018-03-09 09:46] LABS: BANDS 1 % (0-2); EOSINOPHIL 2 % (0-4); LYMPHOCYTE 9 % (20-40); MONOCYTE 6 % (0-10); NEUTROPHIL 82 % (50-75); PLATELET ESTIMATE NORMAL (NORMAL); TOTAL CELLS COUNTED 100
[2018-03-09 09:47] LABS: ANISOCYTOSIS SLIGHT; LARGE PLATELETS PRESENT; POLYCHROMIC SLIGHT
--- NOTE | 2018-03-09 12:05 | CP.PCM.CON ---
History of Present Illness - History of Present Illness History of Present Illness: pt is seen and examined, full consult is dictated #[id number] for HD today, s/p placement of Alteplase in both ports of perma cath this am prior to sending to ER for sob and cp Past Patient History - Infectious Disease Hx of Infectious Diseases: None - Tetanus Immunizations Tetanus Immunization: Unknown - Past Medical History & Family History Past Medical History?: Yes - Past Social History Smoking Status: Never Smoked - CARDIAC Hx Congestive Heart Failure: Yes Hx Hypercholesterolemia: Yes Hx Hypertension: Yes - PULMONARY Hx Respiratory Disorders: Yes Hx Pulmonary Edema: Yes - NEUROLOGICAL Hx Neurological Disorder: No - HEENT Hx HEENT Problems: Yes Hx Cataracts: Yes - RENAL Hx Chronic Kidney Disease: Yes - ENDOCRINE/METABOLIC Hx Endocrine Disorders: Yes Hx Diabetes Mellitus Type 2: Yes - HEMATOLOGICAL/ONCOLOGICAL Hx Blood Disorders: No Hx von Willebrand's Disease: No - INTEGUMENTARY Hx Dermatological Problems: No Hx Squamous Cell: No - MUSCULOSKELETAL/RHEUMATOLOGICAL Hx Musculoskeletal Disorders: Yes Hx Gout: Yes - PSYCHIATRIC Hx Anxiety: Yes Hx Substance Use: No - SURGICAL HISTORY Hx Coronary Stent: Yes - ANESTHESIA Hx Anesthesia: Yes Hx Anesthesia Reactions: No Hx Malignant Hyperthermia: No Meds Allergies/Adverse Reactions: Allergies Allergy/AdvReac Type Severity Reaction Status Date / Time No Known Allergies Allergy Verified 04/23/17 10:59 Results - Vital Signs Recent Vital Signs: Last Vital Signs Temp 98.3 F 03/09/18 10:11 Pulse 77 03/09/18 12:00 Resp 18 03/09/18 12:00 BP 112/58 L 03/09/18 12:00 Pulse Ox 100 03/09/18 12:00 - Labs Result Diagrams: 03/09/18 08:46 03/09/18 08:46 Labs: Laboratory Results - last 24 hr 03/09/18 03/09/18 08:46 08:46 WBC 12.0 H RBC 3.67 L Hgb 11.9 D Hct 36.1 MCV 98.4 D MCH 32.3 H MCHC 32.8 L RDW 16.9 H Plt Count 131 MPV 10.5 Neut % (Auto) 84.2 H Lymph % (Auto) 9.3 L Dawes % (Auto) 4.8 Eos % (Auto) 1.1 Baso % (Auto) 0.6 Neut # (Auto) 10.1 H Lymph # (Auto) 1.1 Dawes # (Auto) 0.6 Eos # (Auto) 0.1 Baso # (Auto) 0.1 Neutrophils % (Manual) 82 H Band Neutrophils % 1 Lymphocytes % (Manual) 9 L Monocytes % (Manual) 6 Eosinophils % (Manual) 2 Platelet Estimate Normal Large Platelets Present Polychromasia Slight Anisocytosis (manual) Slight Sodium 142 Potassium 4.9 Chloride 104 Carbon Dioxide 26 Anion Gap 17 BUN 35 H Creatinine 2.1 H Est GFR ( Amer) 27 Est GFR (Non-Af Amer) 22 Random Glucose 274 H Calcium 9.1 Total Bilirubin 0.4 AST 57 H D ALT 8 L D Alkaline Phosphatase 84 Troponin I 0.0270 NT-Pro-B Natriuret Pep 3060 H Total Protein 7.3 Albumin 3.9 Globulin 3.5 Albumin/Globulin Ratio 1.1
[2018-03-09] MEDS: (Novolog) Insulin Aspart, Recombinant 100 u/ml 10 ml vial SC SCH (22:00)
--- NOTE | 2018-03-09 23:44 | CP.PCM.HP ---
History of Present Illness - History of Present Illness History of Present Illness: 87 years old Female complaining of acute anxiety with shortness of breath and involuntary, jerky movements of the face, shoulders and both arms while having hemodialysis today.The patient denies any chest pain, any headache, any blurred vision, slurred speech or weakness. Brought to the ED at [facility], a CXR suggested CHF. The patient was given Lasix 60 mg IV and had hemodialysis resumed.The patient denies any SOB now, but the jerky movements persist. Present on Admission - Present on Admission Any Indicators Present on Admission: No Review of Systems - Respiratory Respiratory: Dyspnea - Musculoskeletal Additional comments: Unvoluntary movements of the muscles of the face, the shoulders and both arms. - Neurological Neurological: Other Additional comments: Unvoluntary, jerky contractions of the facial muscles, both shoulders and both arms. - Psychiatric Psychiatric: Anxiety Past Patient History - Infectious Disease Hx of Infectious Diseases: None - Tetanus Immunizations Tetanus Immunization: Unknown - Past Medical History & Family History Past Medical History?: Yes - Past Social History Smoking Status: Never Smoked Alcohol: None Drugs: Prescription medications Home Situation {Lives}: With Family Domestic Violence: Negative - CARDIAC Hx Angina: Yes Hx Congestive Heart Failure: Yes Hx Hypercholesterolemia: Yes Hx Hypertension: Yes - PULMONARY Hx Respiratory Disorders: Yes Hx Pulmonary Edema: Yes - NEUROLOGICAL Hx Neurological Disorder: No - HEENT Hx HEENT Problems: Yes Hx Cataracts: Yes - RENAL Hx Chronic Kidney Disease: Yes Hx Dialysis: Yes Type of Dialysis Access: Hemodialysis. - ENDOCRINE/METABOLIC Hx Endocrine Disorders: Yes Hx Diabetes Mellitus Type 2: Yes - HEMATOLOGICAL/ONCOLOGICAL Hx Blood Disorders: No Hx von Willebrand's Disease: No - INTEGUMENTARY Hx Dermatological Problems: No Hx Squamous Cell: No - MUSCULOSKELETAL/RHEUMATOLOGICAL Hx Musculoskeletal Disorders: Yes Hx Falls: No Hx Gout: Yes - PSYCHIATRIC Hx Anxiety: Yes Hx Substance Use: No - SURGICAL HISTORY Hx Carotid Endarterectomy: Yes Hx Coronary Stent: Yes - ANESTHESIA Hx Anesthesia: Yes Hx Anesthesia Reactions: No Hx Malignant Hyperthermia: No Has any member of the family had a problem w/ anesthesia?: No Meds Allergies/Adverse Reactions: Allergies Allergy/AdvReac Type Severity Reaction Status Date / Time No Known Allergies Allergy Verified 04/23/17 10:59 Physical Exam - Constitutional Appears: No Acute Distress, Chronically Ill - Head Exam Head Exam: NORMAL INSPECTION - Eye Exam Eye Exam: Normal appearance - ENT Exam ENT Exam: Normal Exam - Neck Exam Neck exam: Positive for: Normal Inspection - Respiratory Exam Respiratory Exam: NORMAL BREATHING PATTERN Additional comments: Few rales heard at both bases. - Cardiovascular Exam Cardiovascular Exam: REGULAR RHYTHM, Systolic Murmur - GI/Abdominal Exam GI & Abdominal Exam: Normal Bowel Sounds, Soft - Rectal Exam Rectal Exam: Deferred - Exam Exam: NORMAL INSPECTION - Extremities Exam Extremities exam: Positive for: normal inspection - Back Exam Back exam: NORMAL INSPECTION - Neurological Exam Neurological exam: Alert, CN II-XII Intact, Oriented x3 Additional comments: Unvoluntary, jerkymovements of the face, shoulders and arms. - Psychiatric Exam Psychiatric exam: Anxious - Skin Skin Exam: Dry, Intact, Warm Results - Vital Signs Recent Vital Signs: Last Vital Signs Temp 97.4 F L 03/09/18 18:40 Pulse 76 03/09/18 19:00 Resp 20 03/09/18 18:40 BP 122/61 03/09/18 18:40 Pulse Ox 95 03/09/18 18:40 - Labs Result Diagrams: 03/09/18 08:46 03/09/18 08:46 Labs: Laboratory Results - last 24 hr 03/09/18 03/09/18 03/09/18 08:46 08:46 18:35 WBC 12.0 H RBC 3.67 L Hgb 11.9 D Hct 36.1 MCV 98.4 D MCH 32.3 H MCHC 32.8 L RDW 16.9 H Plt Count 131 MPV 10.5 Neut % (Auto) 84.2 H Lymph % (Auto) 9.3 L [place] % (Auto) 4.8 Eos % (Auto) 1.1 Baso % (Auto) 0.6 Neut # (Auto) 10.1 H Lymph # (Auto) 1.1 [place] # (Auto) 0.6 Eos # (Auto) 0.1 Baso # (Auto) 0.1 Neutrophils % (Manual) 82 H Band Neutrophils % 1 Lymphocytes % (Manual) 9 L Monocytes % (Manual) 6 Eosinophils % (Manual) 2 Platelet Estimate Normal Large Platelets Present Polychromasia Slight Anisocytosis (manual) Slight Sodium 142 Potassium 4.9 Chloride 104 Carbon Dioxide 26 Anion Gap 17 BUN 35 H Creatinine 2.1 H Est GFR ( Amer) 27 Est GFR (Non-Af Amer) 22 POC Glucose (mg/dL) 126 H Random Glucose 274 H Calcium 9.1 Total Bilirubin 0.4 AST 57 H D ALT 8 L D Alkaline Phosphatase 84 Troponin I 0.0270 NT-Pro-B Natriuret Pep 3060 H Total Protein 7.3 Albumin 3.9 Globulin 3.5 Albumin/Globulin Ratio 1.1 03/09/18 20:58 WBC RBC Hgb Hct MCV MCH MCHC RDW Plt Count MPV Neut % (Auto) Lymph % (Auto) [place]rie % (Auto) Eos % (Auto) Baso % (Auto) Neut # (Auto) Lymph # (Auto) [place]rie # (Auto) Eos # (Auto) Baso # (Auto) Neutrophils % (Manual) Band Neutrophils % Lymphocytes % (Manual) Monocytes % (Manual) Eosinophils % (Manual) Platelet Estimate Large Platelets Polychromasia Anisocytosis (manual) Sodium Potassium Chloride Carbon Dioxide Anion Gap BUN Creatinine Est GFR ( Amer) Est GFR (Non-Af Amer) POC Glucose (mg/dL) 275 H Random Glucose Calcium Total Bilirubin AST ALT Alkaline Phosphatase Troponin I NT-Pro-B Natriuret Pep Total Protein Albumin Globulin Albumin/Globulin Ratio Assessment & Plan (1) Acute on chronic systolic and diastolic heart failure, NYHA class 1 Status: Acute (2) ESRD (end stage renal disease) on dialysis Status: Acute (3) ESRD (end stage renal disease) on dialysis Status: Acute (4) Insulin dependent diabetes mellitus Status: Acute (5) Abnormal involuntary movements Status: Acute Decision To Admit - Pt Status Changed To: Hospital Disposition Of: Inpatient - Admit Certification Admit to Inpatient:: After my assessment, the patient will require hospitalization for at least two midnights. This is because of the severity of symptoms shown, intensity of services needed, and/or the medical risk in this patient being treated as an outpatient. - InPatient: Physician Admission Certification:: After my assessments, the patient requires hospitalization for at least 2 midnights. - . Bed Request Type: Telemetry Admitting Physician: Joe Mcmahan
[2018-03-10] MEDS: (Novolog) Insulin Aspart, Recombinant 100 u/ml 10 ml vial SC SCH ×4 (07:59→21:12)
[2018-03-10] MEDS ORDERED: Paricalcitol 2 mcg/ml Inj IV SCH (09:00)
--- NOTE | 2018-03-10 09:27 | CON ---
DATE: 03/09/2018 FOLLOWUP RENAL CONSULTATION LOCATION: The patient is located in room 669, bed A. REQUESTED BY: Dr. Joe Espinosa REASON FOR RENAL CONSULTATION: End-stage renal disease, shortness of breath and chest pain and for continuation of hemodialysis. HISTORY OF PRESENT ILLNESS: Mrs. Dsouza is an 87-year-old elderly very pleasant [place] female with a past medical history significant for longstanding hypertension; diabetes; hyperlipidemia; coronary artery disease, status post stents; end-stage renal disease, on hemodialysis two times a week, Thursday and Thursday; history of weight loss who was recently started on hemodialysis and recently discharged from [facility]. The patient went to the hemodialysis this morning, had difficulty to dialyze due to poorly functioning Perm-A-Cath. Alteplase was placed 2 mg in each port. The patient was complaining of anxiety, shortness of breath and chest discomfort. The patient was sent to the emergency room for further evaluation. The patient was placed on BiPAP in the emergency room. The patient was seen and examined in the emergency room. The patient was feeling much better on BiPAP, denies any chest pain, and denies any fever or cough. The patient claims she was very anxious and nervous in the dialysis unit when the patient was notified that her catheter was not working. Denies any fever or cough. PAST MEDICAL HISTORY: Significant for longstanding hypertension, diabetes, hyperlipidemia, end-stage renal disease on hemodialysis for the last 1 month, CHF, coronary artery disease, status post stents. PAST SURGICAL HISTORY: Status post left carotid endarterectomy and status post ligation of the left upper extremity AV graft for steal syndrome, status post right intrajugular Perm-A-Cath. ALLERGIES: NO KNOWN DRUG ALLERGIES. SOCIAL HISTORY: No smoking. No alcohol. No drugs. PERSONAL HISTORY: She has a very supportive daughter and other family members. FAMILY HISTORY: Not significant. CURRENT MEDICATIONS: Include as follows: Catapres 0.1 mg p.o. p.r.n., Colace 100 mg p.o. b.i.d., Coreg 6.25 mg p.o. b.i.d., Cozaar 50 mg p.o. daily, Ecotrin 81 mg p.o. daily, subcu heparin 5000 every 8 hours, multivitamin one tablet daily, Januvia 25 mg p.o. daily, NovoLog insulin per sliding scale, Pepcid 20 mg p.o. daily, Plavix 75 mg daily, calcitriol 0.25 mcg p.o. daily, Tylenol 325 mg p.o. every 6 hours p.r.n., Zemplar 2 mcg three times a week, allopurinol 100 mg p.o. daily, Lasix 40 mg IV push x1 dose. REVIEW OF SYSTEMS: Significant for shortness of breath, anxiety and chest discomfort. All other review of systems reviewed and negative and also poorly functioning Perm-A-Cath. PHYSICAL EXAMINATION: VITAL SIGNS: As follows. Blood pressure initially on presentation in the emergency room 170/89, pulse 76, respirations 24 and temperature 98.5, saturation 100%. Height 5 feet and weight is 96 pounds. GENERAL: Mrs. Dsouza is an 87-year-old elderly [place] female, thin built, not in distress, on BiPAP. HEENT: Pupils are normal and reactive to light and accommodation. Conjunctivae pink. Sclerae anicteric. Tongue is moist. Trachea is midline. LUNGS: Symmetric on both sides. Bilateral breath sounds present. Bilateral basal crackles present. CVS: [place] at the fifth intercostal space, midclavicular line. S1, S2 audible. No murmur or gallop. NECK: The patient has a scar on the left side of the neck from the previous carotid endarterectomy. ABDOMEN: Normal in appearance. Soft, tympanic. No guarding. No rigidity. No hepatosplenomegaly. [employer]: The patient is alert, awake, oriented x3. Nonfocal neuro examination. Cranial nerves II-XII grossly intact. Sensory motor system is within normal limits. Cranial nerves II-XII grossly intact except hard of hearing. EXTREMITIES: No cyanosis, no clubbing, no edema. LABORATORY DATA: Include as follows as of 03/09/2018: WBC 12, hemoglobin 11.9, hematocrit is 36.1, platelets 131. Sodium 142, potassium 4.9, chloride 104, CO2 of 26, BUN 35, creatinine 2.19, glucose 274, calcium 9.1. Total bili 0.4, AST 57, ALT 8, alkaline phosphatase 84. Troponin 0.027. ProBNP 3060. Total protein 7.3, albumin is 3.9. Accu-Cheks 126. Other reports: Chest x-ray as of 03/09/2018, biapical thickening with upper lobe granulomatous changes and diffuse increasing interstitial lung markings which may represent venous congestion and/or edema and/or infiltrates, patchy increased markings at the lung bases, cardiomegaly, calcification and aortic arch degenerative changes, spine and left axillary stent in place. ASSESSMENT AND PLAN: In summary, Mrs. Dsouza is an 87-year-old elderly [place] female with a history of longstanding hypertension; diabetes' coronary artery disease, status post stents, status post left carotid endarterectomy; status post ligation of the left upper extremity arteriovenous graft due to steal syndrome; end-stage renal disease, on hemodialysis two times a week; was admitted with a poorly functioning Perm-A-Cath, anxiety, shortness of breath and chest discomfort when the patient was notified her catheter was not functioning well. Subsequently, the patient was sent to the emergency room for shortness of breath with elevated proBNP. 1. End-stage renal disease. Continue hemodialysis two times a week, Thursday and Thursday. 2. Congestive heart failure. 3. Hypertension. 4. Anxiety. 5. Diabetes. Alteplase was placed 2 mg in each port prior to referral to the emergency room this morning in the dialysis unit. The patient underwent hemodialysis this afternoon with ultrafiltration goal about 1 liter. The patient tolerated hemodialysis well. Continue her antihypertensive medication. Restrict fluids to 1 liter per day. The patient tolerated hemodialysis very well. Maybe, the patient can be discharged home tomorrow. We will follow with you. Thank you for allowing me to participate in your patient's care. Sergo Carter MD
[2018-03-10] MEDS: Multiple Vitamins Tab PO SCH (09:45)
--- NOTE | 2018-03-10 19:08 | CP.PCM.PN ---
Subjective - Date & Time of Evaluation Date of Evaluation: 03/10/18 Time of Evaluation: 19:07 - Subjective Subjective: pt is seen and examined, follow up consult is dictated #[id number] check labs in am Objective - Vital Signs/Intake and Output Vital Signs (last 24 hours): Temp Pulse Resp BP Pulse Ox 98.8 F 78 18 125/68 100 03/10/18 15:25 03/10/18 15:25 03/10/18 15:25 03/10/18 15:25 03/10/18 15:25 - Medications Medications: Current Medications Acetaminophen (Tylenol 325mg Tab) 650 mg PO Q6 PRN PRN Reason: Pain, moderate (4-7) Allopurinol (Zyloprim) 100 mg PO DAILY [facility] Last Admin: 03/10/18 09:44 Dose: 100 mg Aspirin (Ecotrin) 81 mg PO DAILY [facility] Last Admin: 03/10/18 09:44 Dose: 81 mg Carvedilol (Coreg) 6.25 mg PO BID [facility] Last Admin: 03/10/18 17:31 Dose: 6.25 mg Clonidine HCl (Catapres) 0.1 mg PO ONCE PRN PRN Reason: Diastolic blood pressure Clopidogrel Bisulfate (Plavix) 75 mg PO DAILY [facility] Last Admin: 03/10/18 09:45 Dose: 75 mg Docusate Sodium (Colace) 100 mg PO BID [facility] Last Admin: 03/10/18 17:30 Dose: 100 mg Famotidine (Pepcid) 20 mg PO DAILY [facility] Last Admin: 03/10/18 09:44 Dose: 20 mg Heparin Sodium (Porcine) (Heparin) 5,000 units SC Q8 [facility] Last Admin: 03/10/18 13:55 Dose: 5,000 units Insulin Aspart (Novolog) 0 unit SC ACHS [facility] PRN Reason: Protocol Last Admin: 03/10/18 17:31 Dose: 1 unit Losartan Potassium (Cozaar) 50 mg PO DAILY [facility] Last Admin: 03/10/18 09:45 Dose: 50 mg Multivitamins (Hexavitamin) 1 tab PO DAILY [facility] Last Admin: 03/10/18 09:45 Dose: 1 tab Paricalcitol (Zemplar) 2 mcg IV TTS [facility] Sitagliptin Phosphate (Januvia) 25 mg PO DAILY [facility] Last Admin: 03/10/18 09:45 Dose: 25 mg - Labs Labs: 03/09/18 08:46 03/09/18 08:46
--- NOTE | 2018-03-10 20:36 | CP.PCM.PN ---
Subjective - Date & Time of Evaluation Date of Evaluation: 03/10/18 Time of Evaluation: 20:33 - Subjective Subjective: Still with jerky, unvoluntary movements of the upper limbs, but much less. No SOB. Objective - Vital Signs/Intake and Output Vital Signs (last 24 hours): Temp Pulse Resp BP Pulse Ox 98.8 F 78 18 125/68 100 03/10/18 15:25 03/10/18 15:25 03/10/18 15:25 03/10/18 15:25 03/10/18 15:25 - Medications Medications: Current Medications Acetaminophen (Tylenol 325mg Tab) 650 mg PO Q6 PRN PRN Reason: Pain, moderate (4-7) Allopurinol (Zyloprim) 100 mg PO DAILY [facility] Last Admin: 03/10/18 09:44 Dose: 100 mg Aspirin (Ecotrin) 81 mg PO DAILY [facility] Last Admin: 03/10/18 09:44 Dose: 81 mg Carvedilol (Coreg) 6.25 mg PO BID [facility] Last Admin: 03/10/18 17:31 Dose: 6.25 mg Clonidine HCl (Catapres) 0.1 mg PO ONCE PRN PRN Reason: Diastolic blood pressure Clopidogrel Bisulfate (Plavix) 75 mg PO DAILY [facility] Last Admin: 03/10/18 09:45 Dose: 75 mg Docusate Sodium (Colace) 100 mg PO BID [facility] Last Admin: 03/10/18 17:30 Dose: 100 mg Famotidine (Pepcid) 20 mg PO DAILY [facility] Last Admin: 03/10/18 09:44 Dose: 20 mg Heparin Sodium (Porcine) (Heparin) 5,000 units SC Q8 [facility] Last Admin: 03/10/18 13:55 Dose: 5,000 units Insulin Aspart (Novolog) 0 unit SC ACHS [facility] PRN Reason: Protocol Last Admin: 03/10/18 17:31 Dose: 1 unit Losartan Potassium (Cozaar) 50 mg PO DAILY [facility] Last Admin: 03/10/18 09:45 Dose: 50 mg Multivitamins (Hexavitamin) 1 tab PO DAILY [facility] Last Admin: 03/10/18 09:45 Dose: 1 tab Paricalcitol (Zemplar) 2 mcg IV TTS [facility] Sitagliptin Phosphate (Januvia) 25 mg PO DAILY [facility] Last Admin: 03/10/18 09:45 Dose: 25 mg - Labs Labs: 03/09/18 08:46 03/09/18 08:46 - Constitutional Appears: No Acute Distress, Chronically Ill - Head Exam Head Exam: NORMAL INSPECTION - Eye Exam Eye Exam: Normal appearance - ENT Exam ENT Exam: Normal Exam - Neck Exam Neck Exam: Normal Inspection - Respiratory Exam Additional comments: Few rales heard at both bases. - Cardiovascular Exam Cardiovascular Exam: REGULAR RHYTHM, Murmur - GI/Abdominal Exam GI & Abdominal Exam: Soft, Normal Bowel Sounds - Rectal Exam Rectal Exam: Deferred - Extremities Exam Extremities Exam: Normal Inspection - Back Exam Back Exam: NORMAL INSPECTION - Neurological Exam Neurological Exam: Alert, Awake, Oriented x3 Additional comments: Jerky movements of the upper extremities and facial muscles. - Psychiatric Exam Psychiatric exam: Anxious - Skin Skin Exam: Dry, Intact, Normal Color Assessment and Plan (1) Acute on chronic systolic and diastolic heart failure, NYHA class 1 Assessment & Plan: Still with rales at both bases. For HD. Status: Acute (2) ESRD (end stage renal disease) on dialysis Assessment & Plan: HD as per Nephrologists. Status: Acute (3) ESRD (end stage renal disease) on dialysis Status: Acute (4) Insulin dependent diabetes mellitus Status: Chronic (5) Abnormal involuntary movements Assessment & Plan: MRI of the head in AM. Status: Acute
[2018-03-11] MEDS: (Novolog) Insulin Aspart, Recombinant 100 u/ml 10 ml vial SC SCH ×4 (08:27→21:27)
[2018-03-11 08:28] LABS: CALCIUM 9.3 mg/dl (8.6-10.4)
[2018-03-11 08:51] LABS: MEAN CELL VOLUME 97.1 fL (81.0-99.0); MEAN CORPUSCULAR HEMOGLOBIN 31.6 pg (27.0-31.0); MEAN CORPUSCULAR HGB CONC 32.5 g/dL (33.0-37.0); MEAN PLATELET VOLUME 11.4 fL (7.2-11.7); RBC 3.5 Mil/uL (3.80-5.20); RED CELL DISTRIBUTION WIDTH 16.6 % (11.5-14.5); WHITE BLOOD COUNT 10.1 K/uL (4.8-10.8)
--- NOTE | 2018-03-11 08:58 | PN ---
FOLLOWUP RENAL CONSULTATION DATE: 03/10/2018 LOCATION: The patient is located in room 669, bed A. REASON FOR FOLLOWUP: Shortness of breath and end-stage renal disease, continuation of the hemodialysis. HISTORY OF PRESENT ILLNESS: Mrs. Dsouza is an 87-year-old elderly [place] female, very pleasant with past medical history significant for longstanding hypertension, diabetes, coronary artery disease, CHF, end-stage renal disease with weight loss, started on hemodialysis recently few weeks ago, was sent from the dialysis unit with the nonfunctioning Perm-A-Cath, and also sudden onset of shortness of breath and anxiety. Initially, the patient's blood pressure was high. Subsequently, the patient was placed on BiPAP in the emergency room and the patient was sent for hemodialysis unit. The patient underwent hemodialysis yesterday without any complications. The patient is not in acute distress. Occasional tremors. No chest pain. No palpitations. No fever. No cough. No abdominal pain. No nausea, vomiting, or diarrhea. CURRENT MEDICATIONS: Include as follows; clonidine 0.1 mg p.r.n., Colace 100 mg p.o. b.i.d., Coreg 6.25 mg p.o. b.i.d., losartan 50 mg p.o. daily, aspirin 81 mg daily, subcutaneous heparin 5000 every 8 hours, multivitamin 1 tablet daily, Januvia 25 mg p.o. daily, Pepcid 20 mg p.o. daily, Plavix 75 mg daily, Tylenol 650 mg p.o. every 6 hours, zemplar 2 mcg 3 times a week, and allopurinol 100 mg p.o. daily. PHYSICAL EXAMINATION: VITAL SIGNS: Blood pressure 125/68, pulse 78, respirations 18, temperature 98.8, and saturation 100%. Height is 5 feet and weight is 96 pounds. GENERAL: Mrs. Dsouza is an 87-year-old elderly female, thin built, and not in any distress. HEENT: Pupils are normal and reactive to light and accommodation. Conjunctivae are pink. Sclerae are anicteric. Tongue is moist. Trachea is midline. The patient has a scar on the left carotid area from the left carotid endarterectomy. No thyroid enlargement. LUNGS: Symmetric on both sides. Bilateral breath sounds present. Clear to auscultation. CARDIOVASCULAR: [place] at the fifth intercostal space, midclavicular line. S1 and S2 audible. No murmur or gallop. ABDOMEN: Normal in appearance. Soft and tympanic. No guarding. No rigidity. No hepatosplenomegaly. CENTRAL NERVOUS SYSTEM: The patient is alert, awake, and oriented x3. Sensory and motor system is grossly within normal limits. EXTREMITIES: No cyanosis. No clubbing. No edema. LABORATORY DATA: No new labs are available for today and Accu-Cheks 171, 170, and 164 today. Chest x-ray as of 03/09/2018, diffuse increased interstitial lung markings, which may represent venous congestion and/or edema and/or infiltrate. ASSESSMENT AND PLAN: Mrs. Dsouza is an 87-year-old elderly, very pleasant [place] female with history of hypertension, diabetes, hyperlipidemia, coronary artery disease, congestive heart failure, and end-stage renal disease who was admitted with anxiety, shortness of breath, and uncontrolled hypertension and nonfunctioning Perm-A-Cath, status post placement of alteplase 2 mg in each port, status post hemodialysis yesterday. 1. End-stage renal disease. Continue hemodialysis 2 times a week for the time being. 2. Hypertension, continue her current blood pressure medication Coreg, losartan, and clonidine. 3. Diabetes. 4. Anxiety. Discussed with the patient's daughter and son-in-law at bedside. We will follow with you. Thank you for allowing me to participate in your patient's care. Repeat CBC, BMP, and phosphorous level in a.m. Sergo Carter MD MTDLori
--- NOTE | 2018-03-11 09:15 | CP.PCM.PN ---
Subjective - Date & Time of Evaluation Date of Evaluation: 03/11/18 Time of Evaluation: 09:14 - Subjective Subjective: pt is seen and examined, follow up consult is dictated #[id number] Objective - Vital Signs/Intake and Output Vital Signs (last 24 hours): Temp Pulse Resp BP Pulse Ox 97.5 F L 80 20 140/64 96 03/11/18 08:26 03/11/18 08:26 03/11/18 08:26 03/11/18 08:26 03/11/18 08:26 - Medications Medications: Current Medications Acetaminophen (Tylenol 325mg Tab) 650 mg PO Q6 PRN PRN Reason: Pain, moderate (4-7) Allopurinol (Zyloprim) 100 mg PO DAILY [facility] Last Admin: 03/10/18 09:44 Dose: 100 mg Aspirin (Ecotrin) 81 mg PO DAILY [facility] Last Admin: 03/10/18 09:44 Dose: 81 mg Carvedilol (Coreg) 6.25 mg PO BID [facility] Last Admin: 03/10/18 17:31 Dose: 6.25 mg Clonidine HCl (Catapres) 0.1 mg PO ONCE PRN PRN Reason: Diastolic blood pressure Clopidogrel Bisulfate (Plavix) 75 mg PO DAILY [facility] Last Admin: 03/10/18 09:45 Dose: 75 mg Docusate Sodium (Colace) 100 mg PO BID [facility] Last Admin: 03/10/18 17:30 Dose: 100 mg Famotidine (Pepcid) 20 mg PO DAILY [facility] Last Admin: 03/10/18 09:44 Dose: 20 mg Heparin Sodium (Porcine) (Heparin) 5,000 units SC Q8 [facility] Last Admin: 03/11/18 05:43 Dose: 5,000 units Insulin Aspart (Novolog) 0 unit SC ACHS [facility] PRN Reason: Protocol Last Admin: 03/11/18 08:27 Dose: 1 unit Losartan Potassium (Cozaar) 50 mg PO DAILY [facility] Last Admin: 03/10/18 09:45 Dose: 50 mg Multivitamins (Hexavitamin) 1 tab PO DAILY [facility] Last Admin: 03/10/18 09:45 Dose: 1 tab Paricalcitol (Zemplar) 2 mcg IV TTS [facility] Sitagliptin Phosphate (Januvia) 25 mg PO DAILY [facility] Last Admin: 03/10/18 09:45 Dose: 25 mg - Labs Labs: 03/11/18 08:00 03/11/18 08:00
[2018-03-11] MEDS: Multiple Vitamins Tab PO SCH (09:49)
[2018-03-11] MEDS ORDERED: Paricalcitol 2 mcg/ml Inj IV SCH (10:00)
--- NOTE | 2018-03-11 15:42 | CP.PCM.PN ---
Subjective - Date & Time of Evaluation Date of Evaluation: 03/11/18 Time of Evaluation: 15:39 - Subjective Subjective: Patient has no specific complaint today. MRI of the head not done yet. HD scheduled for Thursday. Objective - Vital Signs/Intake and Output Vital Signs (last 24 hours): Temp Pulse Resp BP Pulse Ox 97.5 F L 65 20 140/64 100 03/11/18 08:26 03/11/18 13:00 03/11/18 08:26 03/11/18 08:26 03/11/18 13:51 - Medications Medications: Current Medications Acetaminophen (Tylenol 325mg Tab) 650 mg PO Q6 PRN PRN Reason: Pain, moderate (4-7) Allopurinol (Zyloprim) 100 mg PO DAILY [facility] Last Admin: 03/11/18 09:49 Dose: 100 mg Aspirin (Ecotrin) 81 mg PO DAILY [facility] Last Admin: 03/11/18 09:49 Dose: 81 mg Carvedilol (Coreg) 6.25 mg PO BID [facility] Last Admin: 03/11/18 09:49 Dose: 6.25 mg Clonidine HCl (Catapres) 0.1 mg PO ONCE PRN PRN Reason: Diastolic blood pressure Clopidogrel Bisulfate (Plavix) 75 mg PO DAILY [facility] Last Admin: 03/11/18 09:49 Dose: 75 mg Docusate Sodium (Colace) 100 mg PO BID [facility] Last Admin: 03/11/18 09:49 Dose: 100 mg Famotidine (Pepcid) 20 mg PO DAILY [facility] Last Admin: 03/11/18 09:49 Dose: 20 mg Heparin Sodium (Porcine) (Heparin) 5,000 units SC Q8 [facility] Last Admin: 03/11/18 14:07 Dose: 5,000 units Insulin Aspart (Novolog) 0 unit SC ACHS [facility] PRN Reason: Protocol Last Admin: 03/11/18 12:36 Dose: 1 unit Losartan Potassium (Cozaar) 50 mg PO DAILY [facility] Last Admin: 03/11/18 09:49 Dose: 50 mg Multivitamins (Hexavitamin) 1 tab PO DAILY [facility] Last Admin: 03/11/18 09:49 Dose: 1 tab Paricalcitol (Zemplar) 2 mcg IV TTS [facility] Last Admin: 03/11/18 09:53 Dose: Not Given Sitagliptin Phosphate (Januvia) 25 mg PO DAILY [facility] Last Admin: 03/11/18 09:49 Dose: 25 mg - Labs Labs: 03/11/18 08:00 03/11/18 08:00 - Constitutional Appears: No Acute Distress, Chronically Ill - Head Exam Head Exam: NORMAL INSPECTION - Eye Exam Eye Exam: Normal appearance - ENT Exam ENT Exam: Normal Exam - Neck Exam Neck Exam: Normal Inspection - Respiratory Exam Additional comments: Still with few rales at both bases. - Cardiovascular Exam Cardiovascular Exam: REGULAR RHYTHM, Murmur - GI/Abdominal Exam GI & Abdominal Exam: Soft, Normal Bowel Sounds - Rectal Exam Rectal Exam: Deferred - Extremities Exam Extremities Exam: Normal Inspection - Back Exam Back Exam: NORMAL INSPECTION - Neurological Exam Neurological Exam: Alert, Awake, Oriented x3 - Psychiatric Exam Psychiatric exam: Anxious Assessment and Plan (1) Acute on chronic systolic and diastolic heart failure, NYHA class 1 Assessment & Plan: To continue HD as per Dr Ellis. Status: Acute (2) ESRD (end stage renal disease) on dialysis Status: Acute (3) ESRD (end stage renal disease) on dialysis Status: Acute (4) Insulin dependent diabetes mellitus Status: Chronic (5) Abnormal involuntary movements Assessment & Plan: Awaiting MRI of the head. Status: Acute
--- NOTE | 2018-03-11 18:53 | MRI ---
PROCEDURE: MRI BRAIN WITHOUT CONTRAST HISTORY: Involuntary, jerky movements of the upper limbs. COMPARISON: Comparison made with prior MRI brain 08/28/[address] scan brain 02/11/2018. TECHNIQUE: Multiplanar, multisequence MR images of the brain were obtained without intravenous contrast enhancement. FINDINGS: HEMORRHAGE: No acute parenchymal, subarachnoid or extra-axial hemorrhage. No evidence of hemosiderin deposition identified on gradient echo weighted sequence. DWI: No evidence of an acute or early subacute infarction seen on diffusion imaging. BRAIN PARENCHYMA: .Very mild chronic periventricular white matter ischemic changes are again seen most conspicuous in the parietal regions. In addition, there are multiple tiny chronic appearing lacunar type infarcts seen scattered about the deep and subcortical white matter as well as both basal nuclei. No obvious parenchymal nor extra-axial mass or collection seen on this noncontrast study. . Partially empty sella. Mild moderate generalized volume loss VENTRICLES: No obstructive very mild diffuse/confluent chronic periventricular white matter ischemic changes are seen extending peripherally into the deep and subcortical white matter both cerebral hemispheres. Hydrocephalus. CRANIUM: Unremarkable. ORBITS: Changes of bilateral cataract surgery again noted. PARANASAL SINUSES/MASTOIDS: Partial opacification right mastoid air complex. VASCULAR SYSTEM: Visualized major vascular flow voids at skull base patent. OTHER FINDINGS: None. IMPRESSION: No acute intracranial hemorrhage or infarct. Very mild chronic white matter ischemic changes with a few scattered chronic bilateral basal nuclei lacunar-type infarcts as above. Partial opacification right mastoid air complex.
[2018-03-12 01:26] VITALS: RESP 20
--- NOTE | 2018-03-12 05:37 | CARD ---
APPROVED REPORT EKG Measurement Heart [id number] IN 186P [id number] <Conclusion> Sinus rhythm with occasional premature ventricular complexes Left axis deviation Left bundle branch block Abnormal ECG
[2018-03-12] MEDS: (Novolog) Insulin Aspart, Recombinant 100 u/ml 10 ml vial SC SCH ×2 (07:14→12:25)
[2018-03-12 07:49] VITALS: TEMP 98.4; O2SAT 98
--- NOTE | 2018-03-12 09:10 | CP.PCM.PN ---
Subjective - Date & Time of Evaluation Date of Evaluation: 03/12/18 Time of Evaluation: 09:09 - Subjective Subjective: pt is seen and examined, follow up consult is dictated #[id number] Objective - Vital Signs/Intake and Output Vital Signs (last 24 hours): Temp Pulse Resp BP Pulse Ox 98.4 F 78 20 131/64 98 03/12/18 07:00 03/12/18 07:50 03/12/18 07:00 03/12/18 07:00 03/12/18 07:00 - Medications Medications: Current Medications Acetaminophen (Tylenol 325mg Tab) 650 mg PO Q6 PRN PRN Reason: Pain, moderate (4-7) Allopurinol (Zyloprim) 100 mg PO DAILY [facility] Last Admin: 03/11/18 09:49 Dose: 100 mg Aspirin (Ecotrin) 81 mg PO DAILY [facility] Last Admin: 03/11/18 09:49 Dose: 81 mg Carvedilol (Coreg) 6.25 mg PO BID [facility] Last Admin: 03/11/18 18:04 Dose: 6.25 mg Clonidine HCl (Catapres) 0.1 mg PO ONCE PRN PRN Reason: Diastolic blood pressure Clopidogrel Bisulfate (Plavix) 75 mg PO DAILY [facility] Last Admin: 03/11/18 09:49 Dose: 75 mg Docusate Sodium (Colace) 100 mg PO BID [facility] Last Admin: 03/11/18 18:04 Dose: 100 mg Famotidine (Pepcid) 20 mg PO DAILY [facility] Last Admin: 03/11/18 09:49 Dose: 20 mg Heparin Sodium (Porcine) (Heparin) 5,000 units SC Q8 [facility] Last Admin: 03/12/18 05:57 Dose: 5,000 units Insulin Aspart (Novolog) 0 unit SC ACHS [facility] PRN Reason: Protocol Last Admin: 03/12/18 07:14 Dose: Not Given Losartan Potassium (Cozaar) 50 mg PO DAILY [facility] Last Admin: 03/11/18 09:49 Dose: 50 mg Multivitamins (Hexavitamin) 1 tab PO DAILY [facility] Last Admin: 03/11/18 09:49 Dose: 1 tab Paricalcitol (Zemplar) 2 mcg IV TTS [facility] Last Admin: 03/11/18 09:53 Dose: Not Given Sitagliptin Phosphate (Januvia) 25 mg PO DAILY [facility] Last Admin: 03/11/18 09:49 Dose: 25 mg - Labs Labs: 03/11/18 08:00 03/11/18 08:00
[2018-03-12 09:48] VITALS: BP 158/75
[2018-03-12] MEDS: Multiple Vitamins Tab PO SCH (09:48)
--- NOTE | 2018-03-12 10:58 | PN ---
DATE: 03/11/2018 LOCATION: The patient is located in room 669, bed A. REQUESTING PHYSICIAN: Joe Mcmahan MD REASON FOR FOLLOWUP: End-stage renal disease, continuation of hemodialysis 2 times a week. HISTORY OF PRESENT ILLNESS: The patient is an 87-year-old elderly [place] female, very pleasant with a history of longstanding hypertension, diabetes, CHF, end stage renal disease, carotid endarterectomy on the left side with weight loss, who was recently started on hemodialysis, and the patient is receiving outpatient hemodialysis 2 times a week, Thursday and Thursday. The patient was sent from the dialysis unit with nonfunctioning of PermCath and shortness of breath and severe anxiety. The patient claims she is feeling much better in the hospital. No complaints. No chest pain, no palpitation. No fever, no cough, no abdominal pain, no nausea, vomiting, diarrhea. PHYSICAL EXAMINATION: VITAL SIGNS: This morning as follows: Blood pressure 140/64, pulse 80, respirations 20, temperature 97.5, saturation 96%. Height 5 feet, weight pounds. GENERAL: The patient is an 87-year-old elderly [place] female, thin built, not in any distress. HEENT: Pupils are normal and reactive to light and accommodation. Conjunctivae pink. Sclerae anicteric. Tongue is moist and trachea is midline. LUNGS: Symmetrical on both sides. Bilateral breath sounds present. Clear to auscultation. CVS: [place] at the fifth intercostal space, mid clavicular line. S1 and S2 audible. No murmur or gallop. ABDOMEN: Normal in appearance. Soft, tympanic. No guarding. No rigidity. No hepatosplenomegaly. STORAGE CONSULTANT: The patient is alert, awake, oriented x3. Nonfocal neurologic exam. Cranial nerves II through XII grossly intact. Sensory and motor within normal limits. EXTREMITIES: No cyanosis, no clubbing, no edema. Sensory and motor system is grossly within normal limits. NEUROLOGIC: Cranial nerves II through XII grossly intact except hard in hearing. CURRENT MEDICATIONS: Include as follows: Clonidine 0.1 mg p.r.n., Colace 100 mg p.o. b.i.d., and Coreg 6.25 mg p.o. b.i.d., losartan 50 mg p.o. daily, aspirin 81 mg daily, subcu heparin 5000 every 8 hours, multivitamin one tablet daily, Januvia 25 mg p.o. daily, NovoLog insulin for sliding scale, Pepcid 20 mg p.o. daily, Plavix 75 mg daily, Tylenol, Zemplar 2 mcg 3 times a week, and allopurinol 100 mg p.o. daily. LABORATORY DATA: Includes as follows: As of 03/11/2018, WBC 10.1, hemoglobin 11, hematocrit is 34, platelet 127, sodium 142, potassium 4.1, chloride 102, CO2 of 29, BUN 34, creatinine 2.2, glucose 142, calcium 9.3, phosphorus 4.1. The MRI of the brain as of 03/11/2018, impression, no acute intracranial hemorrhage or infarct, very mild chronic white matter ischemic changes with few scattered chronic bilateral basal nuclear lacunar type infarcts, partial opacification right mastoid air complex. IMPRESSION: In summary, the patient is an 87-year-old elderly [place] female with a history of hypertension, diabetes, congestive heart failure, end stage renal disease, hyperlipidemia, carotid endarterectomy on the left side who was admitted with nonfunctioning PermCath, anxiety, shortness of breath with elevated troponin levels. 1. End-stage renal disease. Continue hemodialysis 2 times a week, Thursday and Thursday at this time. 2. Hypertension. Blood pressure is much better. Continue on current medication, Coreg and clonidine p.r.n. 3. Old lacunar infarcts. 4. Diabetes. The patient is stable from the renal standpoint. Continue on hemodialysis 2 times a week as an outpatient. Continue all her current medication. Thank you for allowing me to participate in your patient's care. Sergo Carter MD
[2018-03-12 12:54] VITALS: PULSE 77
--- NOTE | 2018-03-15 09:46 | PN ---
DATE: 03/12/2018 LOCATION: The patient is a located in room 669. Bed A. REQUESTING BY: Joe Mcmahan MD. REASON FOR FOLLOWUP: Endstage renal disease, continuation of hemodialysis. SUBJECTIVE: The patient is an 87-year-old elderly [place] female with a history of longstanding hypertension, diabetes, coronary artery disease, CHF, status post left carotid endarterectomy, end-stage renal disease, weight loss, started on hemodialysis two times a week, Thursday and Thursday, was admitted with chief complaint of nonfunctional PermCath, anxiety, shortness of breath, and found to have elevated ProBNP. The patient was given hemodialysis on Thursday. The patient is feeling much better, not in distress. No chest pain. No palpitations. No fever. No cough. No abdominal pain. No nausea, vomiting, or diarrhea. The patient is eager to go home. PHYSICAL EXAMINATION: VITAL SIGNS: This morning as follows: Blood pressure 131/64, pulse 71, respirations 20, temperature 98.4, saturation 98%. Height 5 feet and weight is 102 pounds. GENERAL: The patient is an 87-year-old elderly female, thin built, not in distress. HEENT: Pupils normal and reactive to light and accommodation. Conjunctivae pink. Sclerae anicteric. Tongue is moist. Trachea is midline. LUNGS: Symmetric on both sides. Bilateral breath sounds present. Clear to auscultation. CVS: [place] at the fifth intercostal space, midclavicular line, S1 and S2 audible. No murmur. No gallop. ABDOMEN: Normal in appearance. Soft and tympanic. No guarding. No rigidity. No hepatosplenomegaly. CENTRAL NERVOUS SYSTEM: The patient is alert, awake, and oriented x3. Sensory and motor system is within normal limits. EXTREMITIES: No cyanosis. No clubbing. No edema. MEDICATIONS: Reviewed. Nitroglycerin sublingual p.r.n., Januvia 25 mg p.o. daily, Zemplar 2 mcg three times a week, multivitamin one tablet daily, Cozaar 50 mg p.o. daily, Flovent, also Pepcid 200 mg daily, Procrit three times a week during dialysis, Colace 100 mg p.o. b.i.d., Plavix 75 mg daily, Coreg 6.25 mg p.o. b.i.d., aspirin, allopurinol and Tylenol. No new labs are available for today. Accu-Cheks 149 and 207. ASSESSMENT AND PLAN: In summary, the patient is an 87-year-old elderly [place] female with a history of hypertension, diabetes, end-stage renal disease, status post left carotid endarterectomy, coronary artery disease, congestive heart failure who was admitted with a nonfunctioning PermCath, shortness of breath, and anxiety. 1. Endstage renal disease, continue hemodialysis two times a week, Thursday and Thursday. 2. Hypertension. 3. Diabetes. 4. Anxiety. 5. Cerebrovascular accident. Continue her current medications. Continue hemodialysis in a.m. The patient is stable from the renal standpoint for possible discharge. Thank you for allowing me to participate in your patient's care. Sergo Carter MD
--- NOTE | 2018-03-15 14:53 | PCM.HF ---
Heart Failure Core Measure - Heart Failure Ejection Fraction: 40 % or Greater LENO Inhibitor Prescribed: No Contraindication/Reason for not providing: ON ARB Beta-Dinh Prescribed: Carvedilol Angiotensin II Receptor Dinh Prescribed: Yes AnticoagulationTherapy for Atrial Fibrillation/Atrialflutter: No Contraindication/Reason for not providing: NO AFIB Aldosterone Antagonist Prescribed: No Contraindication/Reason for not providing: EF > 40 Hydralazine Nitrate Prescribed: No Contraindication/Reason for not providing: EF > 40 Implantable Cardioverter Defibrillator Therapy: No Contraindication/Reason for not providing: EF > 40 Cardiac Resynchronization Therapy Prescribed: No Contraindication/Reason for not providing: EF > 40 - Follow up Will be discharged to: Home Follow Up Date (must be within 7 days from discharge): 03/17/18 Follow Up Time: 09:00
== END 2018-03-12 16:35 | DRG 291 ==
LOC: C.ER 07:58 → C.6T 11:22
PROVIDERS: ADMIT Internal Medicine Cardiovascular Disease; ATTEND Internal Medicine Cardiovascular Disease
PROC: 5A1945Z Respiratory Ventilation, 24-96 Consecutive Hours (ICD-10-PCS; principal; 2018-03-09)
PROC: 5A1D70Z Performance of Urinary Filtration, Intermittent, Less than 6 Hours Per Day (ICD-10-PCS; 2018-03-09)
DX: I13.2 Hypertensive heart and chronic kidney disease with heart failure and with stage 5 chronic kidney disease, or end stage renal disease (principal); I50.43 Acute on chronic combined systolic (congestive) and diastolic (congestive) heart failure; N18.6 End stage renal disease; I49.3 Ventricular premature depolarization; E78.5 Hyperlipidemia, unspecified; F41.9 Anxiety disorder, unspecified; E11.69 Type 2 diabetes mellitus with other specified complication; E11.22 Type 2 diabetes mellitus with diabetic chronic kidney disease; I25.10 Atherosclerotic heart disease of native coronary artery without angina pectoris; Z79.4 Long term (current) use of insulin; Z99.2 Dependence on renal dialysis; Z68.20 Body mass index [BMI] 20.0-20.9, adult

== ENCOUNTER 2018-12-29 09:38 | Outpatient (CLI) | payer MEDICARE | END 2018-12-29 09:39 | disposition home or self-care (01) | LOC: C.VASC 09:38 ==